=== PATIENT | female | born 1965 | race Caucasian/White ===

== ENCOUNTER 2023-07-03 11:39 | Inpatient (IN) | payer MEDICARE, SELFPAY ==
[2023-07-03] VITALS (16 sets, daily range): BP systolic 93–122; BP diastolic 36–83; BMI 27.4; BMI 26.4
--- NOTE | 2023-07-03 05:07 | ED.GENMED ---
History of Present Illness
General
Chief Complaint: Musculo-Skeletal Complaint
Time Seen by Provider: 07/03/23 04:58
Travel History
Have you had any contact with someone who has COVID-19?: No
Do you have any symptoms of coronavirus? Fever > 100 degrees, chills, cough, shortness of breath, sore throat, loss of taste or smell, muscle aches, or headache?: No
History of Present Illness
History of Present Illness:
HPI: The patient presents due to generalized weakness and tremendous difficulty with walking. She states she has chronic bilateral left greater than shoulder and right knee pain. The patient perseverates over the fact that she was told that she
should get knee surgery but never did. She has had some vague abdominal discomfort in the past. She has had 5 falls in the past year. She said she has had a shoulder in the past as well. Overall, she is concerned about the tremendous
weakness to the point that she had to come in by ambulance. She lives alone at home.
EXAM:
GENERAL: The patient appears somewhat weak
HEENT: Slightly dry oral mucosa
CARDIOVASCULAR: No murmurs, tachycardic heart rate with regular rhythm, No chest wall tenderness
PULMONARY: No respiratory distress, breath sounds are clear and equal
ABDOMEN: Soft with no peritoneal signs, no tenderness
NEUROLOGIC: Excellent strength all extremities, no coordination deficits
PSYCHIATRIC: Appropriate mental status, normal insight and judgement
EXTREMITIES: Nontender, no edema, moves all extremities equally
SKIN: No rash, no lesions
ED COURSE:
5 AM: I initially evaluated patient
NUMBER AND COMPLEXITY OF PROBLEMS ADDRESSED AT THE ENCOUNTER
� Chronic conditions affecting care: High blood pressure, has had gastric bypass, Sjogren's
� Acute Exacerbation and/or Progression of Chronic Illness: This is an acute problem
� Differential Diagnosis includes: Anemia, degenerative joint disease, electrolyte abnormality
AMOUNT AND/OR COMPLEXITY OF DATA TO BE REVIEWED AND ANALYZED
� I performed an independent evaluation of and my interpretation is:
EKG:
CT:
X-rays: I personally viewed x-rays of the left shoulder which show some mild DJD, right knee x-ray shows more severe DJD
Laboratory Studies: Patient found to have a sodium of 118, patient also in VELMA, white count 14.8, platelet 65 which is new, urine sodium 19
Other:
� Review of other/old records: I reviewed x-ray from November of last year that showed suggestion of a AC sprain
� Clinical information was obtained by an independent historian: We spoke to EMS upon arrival
� Prescriptions/Medications Considered but not given:
� Further testing considered but not performed:
RISK OF COMPLICATIONS AND/OR MORBIDITY OR MORTALITY OF PATIENT MANAGEMENT
� Social determinants of health affecting care: Lives at home
� Discussion with other providers: At 6:30 AM, I discussed case with renal who recommends giving 3%. Hospitalist for admission at 7 AM.
� Escalation of care including admission/observation vs risk of discharge considered: The patient has rather significant difficulty ambulating. She seems to have multiple concerns. Blood work was obtained. Patient is found to
have a sodium of 118. This is acute in comparison to old records. She tells me she has not been eating or drinking much. She does feel better after fluids were given. I have also ordered 3% saline which has not yet been started as of 7:05 AM.
Phy Exam
Physical Exam
Physical Exam:
See HPI
Course
Orders/Labs/Results
Orders:
Orders
07/03/23 05:06
0.9% Sodium Chloride 1000 ml [Nss] 1,000 ml IV BOLUS
07/03/23 05:07
CR Knee- Right 4 Or More View* Urgent
Comment:
Reason For Exam: increasing pain
Shoulder, Left 2 View CR [CR Shoulder - Left Min 2 View*] Urgent
Comment:
Reason For Exam: pain
07/03/23 05:23
CRP [C-Reactive Protein] Urgent
Complete Blood Count/With Diff Urgent
Comprehensive Metabolic Panel Urgent
Manual Differential Urgent
TSH Reflex To Free T4 Urgent
Total CK [Creatine Phosphokinase] Urgent
07/03/23 06:12
Straight cath- Treatment ONCE
07/03/23 06:15
Add On- LAB Urgent
Tests Added?: serum osmolarity
07/03/23 06:16
Gabapentin [Neurontin] 300 mg PO NOW STA
07/03/23 06:23
3% Sodium Chloride 250 ml [Sodium Chloride 3%] 250 ml IV ONCE
07/03/23 06:36
Osmolality, Random Urine Urgent
Date Specimen was Collected: 07/03/23
Time Specimen was Collected: 06:16
Serum Osmolality Urgent
Urinalysis Reflex To Culture Urgent
Date Specimen was Collected: 07/03/23
Time Specimen was Collected: 06:16
Comment: ADD ON
Urine Sodium Urgent
Date Specimen was Collected: 07/03/23
Time Specimen was Collected: 06:16
07/03/23 06:38
Urinalysis Reflex To Culture Urgent
Date Specimen was Collected: 07/03/23
Time Specimen was Collected: 06:54
07/03/23 06:39
Add On- LAB Urgent
Tests Added?: urinalysis reflex to culture
Abnormal Lab Results
07/03/23 07/03/23
05:23 06:36
WBC 14.8 H 10^3/uL
(4.8-10.8)
Hgb 16.3 H g/dL
(12.0-16.0)
MCH 31.8 H pg
(27.0-31.0)
Plt Count 65 L 10^3/uL
(130-400)
MPV 12.0 H fL
(7.4-10.4)
Abs Neuts (Manual) 13.6 H 10^3/uL
(1.4-6.5)
Band Neutrophils 39 H %
(0-3)
Lymphocytes (Manual) 1 L %
(20-51)
Sodium 118 L* mmol/L
(135-145)
Potassium 3.3 L mmol/L
(3.5-5.1)
Chloride 87 L mmol/L
(98-107)
Carbon Dioxide 21 L mmol/L
(22-30)
BUN 68 H mg/dl
(7-17)
Creatinine 2.8 H mg/dL
(0.6-1.0)
Serum Osmolality 272 L mOsm/kg
(275-300)
Calcium 7.6 L mg/dl
(8.4-10.2)
Total Bilirubin 1.8 H mg/dl
(0.2-1.3)
AST 44 H U/L
(14-36)
C-Reactive Protein > 270.00 H mg/L
(0.0-10.00)
Total Protein 5.8 L g/dl
(6.3-8.2)
Albumin 3.3 L g/dl
(3.5-5.0)
Urine Osmolality 254 L mOsm/kg
(300-900)
Urine Sodium 19 L mmol/L
(30-90)
07/03/23 05:23
07/03/23 05:23
Vital Signs
Initial and Last Documented VS:
Initial Vital Signs
BP
99/74
07/03/23 04:34
Last Documented Vital Signs
Temp Pulse Resp BP Pulse Ox
98.5 F 106 18 97/74 97
07/03/23 04:37 07/03/23 04:37 07/03/23 04:37 07/03/23 05:00 07/03/23 04:37
*Critical Care Note
Total Time (30-74mins, 75-104mins- exclusive of procedures): 60min
comment:
Patient sodium is critically low. I emergently discussed case with renal. I also started patient on hypertonic saline.
ED Attending Note
-
Portions of this chart may have been created with voice recognition software.� Occasional wrong word or��sound alike� substitutions may have occurred due to the inherent limitations of voice recognition software.
Discharge Plan
Departure
Patient Disposition: Admit
Date of Disposition: 07/03/23
Time of Disposition: 06:56
Presentation/result/management discussed w/ accepting MD/DO: Hospitalist
Discharge Problem:
Acute hyponatremia
Prescriptions:
No Action
clonazepam 0.5 mg Tablet
0.5 mg PO BID
dextroamphetamine-amphetamine [Adderall] 30 mg Tablet
30 mg PO BID
lansoprazole 30 mg Capsule,Delayed Release(Dr/Ec)
30 mg PO DAILY
folic acid 1 mg Tablet
1 mg PO DAILY
hydroxychloroquine 200 mg Tablet
200 mg PO BID
albuterol sulfate [ProAir HFA] 90 mcg/actuation Hfa Aerosol Inhaler
2 puff INHALATION QID PRN (Reason: sob)
bupropion HCl 300 mg Tablet Extended Release 24 Hr
300 mg PO DAILY
bupropion HCl [Wellbutrin XL] 300 mg Tablet Extended Release 24 Hr
300 mg PO DAILY
Climara Pro 0.045-0.015 mg/24 hr Patch Weekly
1 patch TRANSDERMAL QWEEK
gabapentin 300 mg Tablet
300 mg PO QID
Referrals:
Ashley Brennan MD [Family Provider] -
Interventions
Interventions:
*Risk Screen - Suicide Last Done: 07/03/23 04:37
*General Assessment Last Done: 07/03/23 04:37
*Neglect/Abuse Screening Last Done: 07/03/23 04:37
ED- Fall Risk Assessment Last Done: 07/03/23 04:37
*ED COVID-19 Vaccine History Last Done: 07/03/23 04:53
ED-Musculoskeletal Assessment Last Done: 07/03/23 04:53
[2023-07-03] MEDS: NSS 1000 IV ×2 (05:24→15:58)
[2023-07-03 05:37] LABS: Hematocrit 44.4 % (37.0-47.0); Hemoglobin 16.3 g/dL (12.0-16.0); Mean Corp Hgb Conc. 36.7 g/dL (33.0-37.0); Mean Corpuscular Hgb 31.8 pg (27.0-31.0); Mean Corpuscular Volume 86.5 fL (81.0-99.0); Red Blood Cell Count 5.13 10^6/uL (4.20-5.40); Red Cell Dist. Width 12.6 % (11.5-14.5); White Blood Cell Count 14.8 10^3/uL (4.8-10.8)
[2023-07-03 06:02] LABS: ALT (SGPT) 26 U/L (0-35); AST (SGOT) 44 U/L (14-36); Albumin 3.3 g/dl (3.5-5.0); Alkaline Phosphatase 111 U/L (38-126); Blood Urea Nitrogen 68 mg/dl (7-17); Calcium 7.6 mg/dl (8.4-10.2); Carbon Dioxide 21 mmol/L (22-30); Chloride 87 mmol/L (98-107); Creatine Phosphokinase 94 U/L (30-135); Glucose 94 mg/dl (70-99); Potassium 3.3 mmol/L (3.5-5.1); Sodium 118 mmol/L (135-145); Total Bilirubin 1.8 mg/dl (0.2-1.3); Total Protein 5.8 g/dl (6.3-8.2)
[2023-07-03 06:10] LABS: C-Reactive Protein > 270.00 mg/L (0.0-10.00)
[2023-07-03 06:13] LABS: Estimated Creatinine Clearance 21 ml/min; eGFR 18.75
[2023-07-03 06:20] LABS: Platelet Count 65 10^3/uL (130-400)
[2023-07-03 06:21] LABS: Absolute Neutrophils -Man Diff 13.6 10^3/uL (1.4-6.5); Band Neutrophils 39 % (0-3); Lymphocytes 1 % (20-51); Metamyelocytes 4 % (-); Monocytes 2 % (2-9); Myelocytes 1 % (-); Normal RBC Morphology Yes; Segmented Neutrophils 53 % (42-75); Total Cells Counted 100; Toxic Granulation 2+; Vacuolated Segs 1+
[2023-07-03 06:24] LABS: TSH Reflex To Free T4 2.15 uIU/ml (0.47-4.68)
[2023-07-03] MEDS: NEURONTIN 300 MG PO ×3 (06:46→20:20)
[2023-07-03 06:53] LABS: Osmolality Serum 272 mOsm/kg (275-300); Osmolality Urine 254 mOsm/kg (300-900)
[2023-07-03 06:55] LABS: Urine Sodium 19 mmol/L (30-90)
[2023-07-03 07:34] LABS: Urine Albumin 2+ (Neg - Trace); Urine Bilirubin Negative (Negative); Urine Character Slightly Cloudy (Clear); Urine Color Yellow; Urine Glucose Negative (Negative); Urine Ketone Negative (Negative); Urine Leukocyte Negative (Negative); Urine Nitrite Negative (Negative); Urine Occult Blood 3+ (Negative); Urine Specific Gravity 1.015 (<1.030); Urine Urobilinogen Negative (Neg - 1+)
[2023-07-03] MEDS: SODIUM CHLORIDE 3% 250 IV ×2 (07:45→20:14)
[2023-07-03 07:53] LABS: Urine Amorphous Seen
[2023-07-03 07:54] LABS: Urine Red Blood Cell 0-2 /HPF (0-2)
[2023-07-03 07:55] LABS: Urine Bacteria Moderate (Negative)
[2023-07-03 07:58] LABS: Urine Squamous Cell 16-20 /LPF (Few)
--- NOTE | 2023-07-03 11:10 | HPS.HSE ---
Family Physician
-
Family Physician: Ashley Brennan
Chief Complaint
-
Generalized Weakness and Not Eating
History of Present Illness
58 y/o female with past medical history of Sjogren's Syndrome, right acromioclavicular injury, suspected history of osteoarthritis, anxiety, depression and Juwan-en-Y (cory-en-wy) gastric bypass surgery presented with generalized weakness for the past
3 to 4 days. Patient also reported abdominal pain about 3 days ago, and had 2 episodes of diarrhea at that time. Patient also has not really been eating and drinking much for at least several days. She reported chronic bilateral left greater than
shoulder and right knee pain.
Medical History
Past Medical History
Past Medical History: Reports Other (As per HPI above)
Past Surgical History: Reports Cholecystectomy, Orthopedic and Other (Juwan-en-Y Gastric Bypass)
Social History
Tobacco: Former Smoker
Alcohol: Former
Drug: Marijuana
Family History
Family History: Other (Arthritis)
Allergies / Home Medications
Allergies reflects when Allergies were last updated in [employer].
Home Medications with original date entered in [employer]
Allergy/Medication List:
Allergies
Allergy/AdvReac Type Severity Reaction Status Date / Time
latex Allergy Itching Verified 11/19/22 16:31
Penicillins Allergy Unknown Verified 11/19/22 16:31
Home Medications
albuterol sulfate 90 mcg/actuation aerosol inhaler (ProAir HFA) 2 puff inhalation QID PRN sob 07/03/23
bupropion HCl 300 mg 24 hr tablet, extended release 300 mg PO DAILY 07/03/23
bupropion HCl 300 mg 24 hr tablet, extended release (Wellbutrin XL) 300 mg PO DAILY 07/03/23
clonazepam 0.5 mg tablet 0.5 mg PO BID 07/03/23
dextroamphetamine-amphetamine 30 mg tablet (Adderall) 30 mg PO BID 07/03/23
estradiol 0.045 mg-levonorgestrel 0.015 mg/24hr weekly transderm patch (Climara Pro) 1 patch transdermal QWEEK 07/03/23
folic acid 1 mg tablet 1 mg PO DAILY 07/03/23
gabapentin 300 mg tablet 300 mg PO QID 07/03/23
hydroxychloroquine 200 mg tablet 200 mg PO BID 07/03/23
lansoprazole 30 mg capsule,delayed release 30 mg PO DAILY 07/03/23
Review of Systems
-
A 12 point ROS was completed and negative except as noted: Yes
Physical Exam
Vital Signs
Vital Signs
Temp Pulse Resp BP Pulse Ox
98.5 F 106 18 97/74 97
07/03/23 04:37 07/03/23 04:37 07/03/23 04:37 07/03/23 05:00 07/03/23 04:37
Physical Exam
General: No Apparent Distress
HEENT: NormoCephalic
Respiratory: Clear
Cardiac: S1/S2 and Tachycardia
GI: Soft, Non Tender and Normal Bowel Sounds
Musculoskeletal: No Cyanosis and No Edema
Skin: Warm and Dry
Neuro: Awake, Alert, AO x 3 and Nonfocal/grossly intact
Psych: Calm and Intact Judgment/Insight
Laboratory Results
-
07/03/23 05:23
07/03/23 05:23
Laboratory Results
Total Bilirubin 1.8 mg/dl (0.2-1.3) H 07/03/23 05:23
AST 44 U/L (14-36) H 07/03/23 05:23
ALT 26 U/L (0-35) 07/03/23 05:23
Alkaline Phosphatase 111 U/L (38-126) 07/03/23 05:23
Impression/Plan
-
Assessment/Plan
Acute hypovolemic hyponatremia with Na down to 118 (prior labs from 2019 at 134)
Recent Poor PO Intake
-Received some normal saline and 3% saline
-Initially hypertonic saline was ordered to correct sodium but now off as there is concern for overcorrection
-Check BMP every 6 hours and monitor closely for over-correction
-As per nephrology, continue Normal Saline at 80 cc/hr for nephrology conversation via [employer]. Also as per nephrology:
- if Na 120-123, okay with NS at 50cc/hr
- If Na 123-125, continue to let patient eat but no more fluids
- If Na >126, stop all fluids and make NPO
-For any overcorrection of sodium contact physician/house provider and nephrology
Acute Kidney Injury
-Likely prerenal due to poor PO intake
-Continue IV fluids as above and encourage patient to eat and drink
Sjogren's Syndrome - Continue Hydroxychloroquine
Right acromioclavicular injury
Suspected history of osteoarthritis
ADHD - Continue home Adderall
Anxiety - Continue home Klonopin
Depression - Continue home Wellbutrin
History of Juwan-en-Y (cory-en-wy) gastric bypass surgery
DVT Prophylaxis: Heparin subq
Code Status: Full Code
--- NOTE | 2023-07-03 11:48 | CON.MD ---
Consultation - Medical
-
Assessment:
VELMA
hyponatremia
OA
depression/anxiety
Plan:
- acute hyponatremia with Na down to 118. prior labs from 2019 at 134
- urine osm 254, urine Na 19 consistent with hypovolemic hyponatremia likely from not eating/drinking since Wednesday
- initially ordered hypertonic saline to correct Na but now off as there is concern for overcorrection
- plan for repeat Na now and then recheck every 6 hours.
- if Na 120-123, okay with NS at 50cc/hr
- If Na 123-125, continue to let patient eat but no more fluids
- If Na >126, stop all fluids and make NPO
- Cr elevated to 2.8 (bl 1 in 2018) likely from pre-renal insult. trend BMPs
--- NOTE | 2023-07-03 12:39 | PHANOTE ---
07/03/2023, [employer], spoke to pt. to obtain their medication history; pt. does not take their medications on a routine basis per pt.; pt. has Nystatin and Triamcinolone Acetonide cream on their home medication list but does not know strength or
frequency of use and I could not find these medications in pharmacy fill data or ECW. Pt. states that she has not used them in awhile as they are on an as needed basis.
[2023-07-03] MEDS: KLONOPIN 0.5 MG PO ×2 (14:04→20:18)
[2023-07-03] MEDS: PROTONIX 40 MG PO (14:04)
[2023-07-03] MEDS: TYLENOL 1000 MG PO (14:04)
[2023-07-03] MEDS: PLAQUENIL 200 MG PO ×2 (14:04→20:18)
[2023-07-03] MEDS: WELLBUTRIN XL (24 hour extended release) 300 MG PO (14:05)
[2023-07-03] MEDS: FOLVITE 1 MG PO (14:06)
[2023-07-03] MEDS: ADDERALL 30 MG PO (14:06)
[2023-07-03 15:03] LABS: Blood Urea Nitrogen 70 mg/dl (7-17); Calcium 7.4 mg/dl (8.4-10.2); Carbon Dioxide 22 mmol/L (22-30); Chloride 89 mmol/L (98-107); Glucose 96 mg/dl (70-99); Potassium 3.6 mmol/L (3.5-5.1); Sodium 118 mmol/L (135-145)
[2023-07-03] MEDS: ProAIR HFA INHALER INH ×2 (15:08→15:34)
[2023-07-03 15:10] LABS: Platelets Checked YES
[2023-07-03 15:12] LABS: Estimated Creatinine Clearance 22 ml/min; eGFR 20.49
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
--- NOTE | 2023-07-03 16:36 | PTCARENOTE ---
pt presents from ED via stretcher. Pt is AAO*3, vss, room air. c/o chronic shoulder and knee pain. pt's repeat lab is 118. MD notified. pt is oriented to the room. call nixon within the reach. will continue plan of care.
[2023-07-03] MEDS: ProAIR HFA INHALER 2 PUFF INH (18:16)
[2023-07-03 18:31] LABS: Blood Urea Nitrogen 72 mg/dl (7-17); Calcium 7.7 mg/dl (8.4-10.2); Carbon Dioxide 18 mmol/L (22-30); Chloride 86 mmol/L (98-107); Glucose 90 mg/dl (70-99); Potassium 3.2 mmol/L (3.5-5.1); Sodium 118 mmol/L (135-145)
[2023-07-03 18:34] LABS: Estimated Creatinine Clearance 21 ml/min; eGFR 18.75
[2023-07-03] MEDS: KCL 40 MEQ PO (19:06)
[2023-07-03] MEDS: HEPARIN 5000 UNITS SC (20:19)
[2023-07-03] MEDS: ADDERALL PO (20:22)
[2023-07-04 00:23] LABS: Blood Urea Nitrogen 71 mg/dl (7-17); Calcium 7.9 mg/dl (8.4-10.2); Carbon Dioxide 18 mmol/L (22-30); Chloride 91 mmol/L (98-107); Glucose 103 mg/dl (70-99); Potassium 3.6 mmol/L (3.5-5.1); Sodium 122 mmol/L (135-145)
[2023-07-04 00:33] LABS: Estimated Creatinine Clearance 24 ml/min; eGFR 22.56
[2023-07-04] MEDS: TYLENOL 1000 MG PO ×3 (02:33→21:56)
[2023-07-04 03:27] VITALS: BP 119/86
[2023-07-04 05:53] LABS: ALT (SGPT) 19 U/L (0-35); AST (SGOT) 30 U/L (14-36); Albumin 2.2 g/dl (3.5-5.0); Alkaline Phosphatase 86 U/L (38-126); Blood Urea Nitrogen 66 mg/dl (7-17); Calcium 7.6 mg/dl (8.4-10.2); Carbon Dioxide 15 mmol/L (22-30); Chloride 103 mmol/L (98-107); Estimated Creatinine Clearance 25 ml/min; Glucose 90 mg/dl (70-99); Magnesium 1.8 mg/dl (1.6-2.3); Potassium 3.2 mmol/L (3.5-5.1); Sodium 129 mmol/L (135-145); Total Bilirubin 1.6 mg/dl (0.2-1.3); Total Protein 4.4 g/dl (6.3-8.2); eGFR 23.74
[2023-07-04 05:54] LABS: % Basophils 0.1 % (0-2); % Eosinophils 0.1 % (0-6); % Immature Granulocytes 2.4 % (0-0.5); % Lymphocytes 2.5 % (20.5-51.1); % Neutrophils 85.9 % (42.2-75.2); Absolute Immature Granulocytes 0.3 10^3/uL (0-0.05); Absolute Lymphocytes 0.3 10^3/uL (1.2-3.4); Absolute Neutrophils 9.4 10^3/uL (1.4-6.5); Hematocrit 34.1 % (37.0-47.0); Hemoglobin 12.5 g/dL (12.0-16.0); Mean Corp Hgb Conc. 36.7 g/dL (33.0-37.0); Mean Corpuscular Hgb 30.9 pg (27.0-31.0); Mean Corpuscular Volume 84.4 fL (81.0-99.0); Mean Platelet Volume 12.4 fL (7.4-10.4); Nucleated Red Blood Cells % 0 %; Platelet Count 55 10^3/uL (130-400); Red Blood Cell Count 4.04 10^6/uL (4.20-5.40); Red Cell Dist. Width 12.7 % (11.5-14.5)
[2023-07-04 06:00] VITALS: BMI 26.4
[2023-07-04 06:11] LABS: Osmolality Urine 195 mOsm/kg (300-900)
[2023-07-04 06:24] LABS: Urine Sodium 17 mmol/L (30-90)
[2023-07-04] MEDS: D5W 1000 IV (06:55)
[2023-07-04] MEDS: ProAIR HFA INHALER 2 PUFF INH ×4 (07:26→19:36)
[2023-07-04 07:36] VITALS: BP 112/79
[2023-07-04] MEDS: FOLVITE 1 MG PO (09:38)
[2023-07-04] MEDS: KLONOPIN 0.5 MG PO ×2 (09:39→21:55)
[2023-07-04] MEDS: PLAQUENIL 200 MG PO ×2 (09:39→21:56)
[2023-07-04] MEDS: NEURONTIN 300 MG PO ×2 (09:39→21:55)
[2023-07-04] MEDS: PROTONIX 40 MG PO (09:39)
[2023-07-04] MEDS: HEPARIN 5000 UNITS SC ×2 (09:39→21:54)
[2023-07-04 11:32] VITALS: BP 126/86
[2023-07-04] MEDS: ADDERALL 30 MG PO ×2 (11:46→17:50)
[2023-07-04] MEDS: KCL 40 MEQ PO (11:46)
--- NOTE | 2023-07-04 11:49 | W.PN.NEPH.PH ---
Today's Communication / Plan
-
- Na 118 --> 129. given D5W. will repeat Na at noon and 6pm
Assessment/Plan
-
VELMA
hyponatremia
OA
depression/anxiety
Plan:
- Na corrected from 118-->129 over 12 hours. too rapid of correction. turned off hypertonic and initiated D5W at 150cc/hr this AM for a few hours. now off
- plan for Na recheck at noon today. Goal Na 126 at 12PM check. Will also have Uosm and Vanessa checked at that time
- If Na is above 126, please reinitiate D5W at 150cc/hr until 6PM Na check. okay to stop fluid restriction
- If Na <126, please continue to hold all fluids and let nephrology know.
- please replete K
- NAGMA noted, most likely in the setting of diarrhea. will hold off on sodium bicarb administration until next lab check
-
-
Date of Service: July 04, 2023
CC / HPI / ROS
-
Chief Complaint:
hyponatremia
VELMA
History of Present Illness:
hyponatremia to 118, corrected to 129
VELMA improving from 2.8 to 2.3
metabolic acidosis - holding off on bicarb supplementation currently
Review of Systems:
patient feeling much improved this AM
Labs
-
Labs:
WBC 11.0 10^3/uL (4.8-10.8) H 07/04/23 05:28
RBC 4.04 10^6/uL (4.20-5.40) L 07/04/23 05:28
Hgb 12.5 g/dL (12.0-16.0) D 07/04/23 05:28
Hct 34.1 % (37.0-47.0) L 07/04/23 05:28
Plt Count 55 10^3/uL (130-400) L 07/04/23 05:28
eGFR 23.74 07/04/23 05:28
Albumin 2.2 g/dl (3.5-5.0) L 07/04/23 05:28
Physical Exam
-
Vital Signs:
Vital Signs
Temp Pulse Resp BP Pulse Ox
98.5 F 104 16 126/86 98
07/04/23 11:32 07/04/23 11:32 07/04/23 11:32 07/04/23 11:32 07/04/23 11:32
Cardiovascular:: Regular rate and rhythm
Respiratory:: Bilateral: CTA
Lung Excursion:: Normal
Abdomen:: Nontender and Soft
Bowel Sounds:: Normal
Extremity Edema:: None: Bilateral:
Hutchinson Catheter: No
[2023-07-04 13:02] LABS: Blood Urea Nitrogen 64 mg/dl (7-17); Calcium 8.5 mg/dl (8.4-10.2); Carbon Dioxide 16 mmol/L (22-30); Chloride 93 mmol/L (98-107); Estimated Creatinine Clearance 31 ml/min; Glucose 104 mg/dl (70-99); Potassium 3.9 mmol/L (3.5-5.1); Sodium 123 mmol/L (135-145); eGFR 29.86
[2023-07-04 14:48] LABS: Urine Sodium 46 mmol/L (30-90)
[2023-07-04 14:59] LABS: Osmolality Urine 337 mOsm/kg (300-900)
--- NOTE | 2023-07-04 15:00 | PTCARENOTE ---
Addendum entered by Khushboo Altman 07/04/23 20:50:
Dr. Zhou updated a nursing to place order for next BMP ordered for 2100 for parameters for 3% Sodium. Questioned the order with pharmacy (Rebecca). Rebecca reached out to Dr. Zhou to place order within label of 3% Sodium. Pasted on in report to night
shift nurse.
Original Note:
Updated Dr. Zhou on most recent BMP and urine sodium and osmolarity, Dr. Zhou is going to order 3% Sodium.
[2023-07-04 15:29] VITALS: BP 120/79
[2023-07-04] MEDS: SODIUM CHLORIDE 3% 250 IV (16:53)
[2023-07-04 17:41] LABS: Blood Urea Nitrogen 59 mg/dl (7-17); Calcium 8.7 mg/dl (8.4-10.2); Carbon Dioxide 15 mmol/L (22-30); Chloride 95 mmol/L (98-107); Estimated Creatinine Clearance 29 ml/min; Glucose 163 mg/dl (70-99); Sodium 124 mmol/L (135-145); eGFR 28.07
--- NOTE | 2023-07-04 18:42 | W.PN.HOSP.TC ---
Today's Communication/Plan
-
Check BMP every 6 hours and monitor closely for over-correction
Contact chef passenger vessel with lab values for any sodium changes
Rocephin
Assessment / Plan
Assessment / Plan
Physical Exam
General: No Apparent Distress
HEENT: Normocephalic
Respiratory: Clear
Cardiac: S1/S2 and Tachycardia
GI: Soft, Non Tender and Normal Bowel Sounds
Musculoskeletal: No Cyanosis and No Edema
Skin: Warm and Dry
Neuro: Awake, Alert, AO x 3 and Nonfocal/grossly intact
Psych: Calm and Intact Judgment/Insight
Assessment/Plan
Acute hypovolemic hyponatremia with Na down to 118 (prior labs from 2019 at 134)
Recent Poor PO Intake Leading Up to Hospitalization
-Received some normal saline and 3% saline -- sodium did not change - followed by 3% saline - but then sodium jumped from 118 to 129 which was too rapid of correction -- so D5W given with lowering of the sodium (see
nephrology note from July 04, 2023)
-Check BMP every 6 hours and monitor closely for over-correction
-Contact chef passenger vessel with lab values for any sodium changes
Non-Anion Gap Metabolic Acidosis
Acute Kidney Injury
-Likely prerenal due to poor PO intake
-Continue IV fluids as per nephrology
Gram Negative Bacilli on Urine Culture
-Leukocytosis noted
-Blood cultures ordered
-Patient has Pencillin allergy (which patient's nurse confirmed on July 04, 2023 as mild itchiness)
-Ordered Ceftriaxone -- nurses will closely watch out for any reaction
-Follow cultures, WBC, vitals
Encephalopathy, Psychosis
Generalized Weakness
-Likely a combination of recent poor PO intake leading up to hospitalization, low sodium, possible UTI
-If weakness persists despite treatment, consider CT Head/neurology consult
Sjogren's Syndrome - Continue Hydroxychloroquine
Right acromioclavicular injury
Suspected history of osteoarthritis
ADHD - Continue home Adderall
Anxiety - Continue home Klonopin
Depression - Continue home Wellbutrin
History of Juwan-en-Y (cory-en-wy) gastric bypass surgery
DVT Prophylaxis: Heparin subq
Code Status: Full Code
Anticipated Discharge: > 48 hours
Subjective/Interval History
-
Date of Service: July 04, 2023
Patient was seen and examined. Per patient nurse patient was having tangential conversation with some hallucinations. She had good insight however.
Objective Data
-
Labs:
Laboratory Results
07/04/23 07/04/23 07/04/23
12:17 16:56 21:00
Sodium 123 L 124 L Pending
Potassium 3.9 4.0 Pending
Chloride 93 L 95 L Pending
Carbon Dioxide 16 L 15 L Pending
BUN 64 H 59 H Pending
Creatinine 1.9 H 2.0 H Pending
Glucose 104 H 163 H Pending
Calcium 8.5 8.7 Pending
07/04/23
23:43
Sodium Cancelled
Potassium Cancelled
Chloride Cancelled
Carbon Dioxide Cancelled
BUN Cancelled
Creatinine Cancelled
Glucose Cancelled
Calcium Cancelled
Vital Signs:
Vital Signs
Temp Pulse Resp BP Pulse Ox
98.2 F 114 16 120/79 96
07/04/23 16:30 07/04/23 15:54 07/04/23 15:54 07/04/23 15:29 07/04/23 15:54
I&O
07/03/23 07/04/23 07/05/23
06:59 06:59 06:59
Intake Total 747 / 747 1100 / 1100
Output Total 750 / 750 1175 / 1175
Balance -3 / -3 -75 / -75
[2023-07-04 20:17] VITALS: BP 123/88
[2023-07-04] MEDS: ROCEPHIN 1000 MG IV (21:51)
[2023-07-04 21:52] LABS: Blood Urea Nitrogen 59 mg/dl (7-17); Calcium 8.6 mg/dl (8.4-10.2); Carbon Dioxide 15 mmol/L (22-30); Chloride 97 mmol/L (98-107); Estimated Creatinine Clearance 32 ml/min; Glucose 250 mg/dl (70-99); Potassium 3.9 mmol/L (3.5-5.1); Sodium 125 mmol/L (135-145); eGFR 31.86
[2023-07-04] MEDS: STERILE WATER FOR INJECTION 10 ML IV (21:52)
--- NOTE | 2023-07-04 22:00 | PTCARENOTE ---
1st dose Rocephin administered and tolerated w/no adverse reaction noted.
[2023-07-04 23:28] VITALS: BP 129/86
[2023-07-05 00:35] VITALS: BMI 26.1
[2023-07-05 03:14] LABS: Hemoglobin 13.5 g/dL (12.0-16.0); Mean Corp Hgb Conc. 37.5 g/dL (33.0-37.0); Mean Corpuscular Hgb 31.5 pg (27.0-31.0); Mean Corpuscular Volume 83.9 fL (81.0-99.0); Mean Platelet Volume 11.9 fL (7.4-10.4); Platelet Count 63 10^3/uL (130-400); Red Blood Cell Count 4.29 10^6/uL (4.20-5.40); Red Cell Dist. Width 13.1 % (11.5-14.5); White Blood Cell Count 11.3 10^3/uL (4.8-10.8)
[2023-07-05 03:37] LABS: Absolute Neutrophils -Man Diff 10.7 10^3/uL (1.4-6.5); Band Neutrophils 11 % (0-3); Lymphocytes 1 % (20-51); Segmented Neutrophils 84 % (42-75)
[2023-07-05 03:38] LABS: Monocytes 4 % (2-9); Normal RBC Morphology Yes; Platelets Checked Yes
[2023-07-05 03:39] LABS: Total Cells Counted 100
[2023-07-05 04:37] LABS: ALT (SGPT) 19 U/L (0-35); AST (SGOT) 28 U/L (14-36); Albumin 2.6 g/dl (3.5-5.0); Alkaline Phosphatase 100 U/L (38-126); Blood Urea Nitrogen 53 mg/dl (7-17); Calcium 8.6 mg/dl (8.4-10.2); Carbon Dioxide 17 mmol/L (22-30); Chloride 103 mmol/L (98-107); Estimated Creatinine Clearance 36 ml/min; Glucose 119 mg/dl (70-99); Potassium 4.2 mmol/L (3.5-5.1); Sodium 128 mmol/L (135-145); Total Bilirubin 1.2 mg/dl (0.2-1.3); eGFR 36.69
[2023-07-05 04:39] VITALS: BP 124/80
--- NOTE | 2023-07-05 04:51 | PTCARENOTE ---
Result of 0300 Na reported to Michael MORENO. 3%NaCl not renewed. Dr. Zhou informed of same. No new orders at this time.
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
[2023-07-05] MEDS: ATIVAN 1 MG IV ×3 (07:51→13:31)
[2023-07-05] MEDS: NSS (PRESERVATIVE FREE) 0.5 ML IV (07:52)
--- NOTE | 2023-07-05 08:01 | PTCARENOTE ---
pt confused and agitated with paranoid thoughts- called 911. pt refusing care- unable to get vital signs, took off telemetry pack. pt talking to herself in room and stated she was going to kelly this RN. Dr. Bennett notified, order received for stat
ativan.
[2023-07-05] MEDS: ProAIR HFA INHALER INH (08:10)
[2023-07-05] MEDS: NSS (PRESERVATIVE FREE) 0.0500000000000000028 ML IV (09:46)
[2023-07-05] MEDS: STERILE WATER FOR INJECTION 20 ML IV (09:46)
[2023-07-05] MEDS: ROCEPHIN 2000 MG IV (09:46)
[2023-07-05 10:23] VITALS: BP 144/94
--- NOTE | 2023-07-05 10:52 | W.PN.HOSP.TC ---
Today's Communication/Plan
-
F/U head CT
IV thiamine, MSAS
Psychiatry consult
IV Ceftriaxone 2 G
F/U cultures
Assessment / Plan
Assessment / Plan
Assessment/Plan
Acute hypovolemic hyponatremia with Na down to 118 (prior labs from 2019 at 134)
Recent Poor PO Intake Leading Up to Hospitalization
-Received some normal saline and 3% saline -- sodium did not change - followed by 3% saline - but then sodium jumped from 118 to 129 which was too rapid of correction -- so D5W given with lowering of the sodium (see
nephrology note from July 04, 2023)
-Check BMP every 6 hours and monitor closely for over-correction
-Na 128 this AM, appropriate rate of correction
-continue FWR
-appreciate renal consult
Non-Anion Gap Metabolic Acidosis
Acute Kidney Injury
-Likely prerenal due to poor PO intake
-creatinine improved to 1.8 this AM
Gram Negative Bacteremia; E. Coli UTI
Bandemia
-increase dosing of IV Ceftriaxone to 2G q 24 hours
-F/U final culttures
Encephalopathy, Psychosis
Generalized Weakness
Paranoia
-patient with racing non-sensical thoughts this AM
-s/p IV ativan x 2
-unlikely to be all TME from infection
-report of drinking, concern for alcohol withdrawal
-start MSAS protocol
-high dose IV thiamine
-Psychiatry consult
-F/U final Head CT results
-I called sister, listed in chart twice and have not yet heard back.
Sjogren's Syndrome - Continue Hydroxychloroquine
Right acromioclavicular injury
Suspected history of osteoarthritis
ADHD - hold home Adderall given acute psychosis
Anxiety - Continue home Klonopin
Depression - Continue home Wellbutrin
History of Juwan-en-Y (cory-en-wy) gastric bypass surgery
DVT Prophylaxis: Heparin subq
Code Status: Full Code
Anticipated Discharge: > 48 hours
Subjective/Interval History
-
Date of Service: July 05, 2023
patient very confused mumbling to herself
per RN post second ativan she is less agitated
Objective Data
-
Labs:
Laboratory Results
07/05/23 07/05/23
03:05 04:00
WBC 11.3 H
Hgb 13.5
Hct 36.0 L
Plt Count 63 L
Sodium 128 L Cancelled
Potassium 4.2 Cancelled
Chloride 103 Cancelled
Carbon Dioxide 17 L Cancelled
BUN 53 H Cancelled
Creatinine 1.6 H Cancelled
Glucose 119 H Cancelled
Calcium 8.6 Cancelled
Total Bilirubin 1.2
AST 28
ALT 19
Alkaline Phosphatase 100
Vital Signs:
Vital Signs
Temp Pulse Resp BP Pulse Ox
99.3 F 120 22 144/94 97
07/05/23 10:23 07/05/23 10:23 07/05/23 10:23 07/05/23 10:23 07/05/23 10:23
I&O
07/04/23 07/05/23 07/06/23
06:59 06:59 06:59
Intake Total 747 / 747 1440 / 1440
Output Total 750 / 750 1725 / 1725
Balance -3 / -3 -285 / -285
Review of Systems
-
History Source: Patient
All other systems: Reviewed and negative
Physical Exam
-
General: Other (appears confused, mumbling to herself )
HEENT: PERRLA
Respiratory: Clear to Auscultation; Negative Wheezes
Cardiac: S1/S2
GI: Soft and Nontender
Musculoskeletal: No Edema
Skin: Warm and Dry; Negative Rash
Neuro: Awake, Alert and Other (confused, rambling non-sensical things, moving all extremities )
Psych: Confused
Data Reviewed
-
Diagnostic Radiology: Report Reviewed by me
Labs: Labs Reviewed by me
[2023-07-05 11:29] LABS: Phosphorus 3.3 mg/dl (2.5-4.5)
[2023-07-05] MEDS: ADDERALL PO (11:47)
[2023-07-05] MEDS: HEPARIN SC (11:47)
--- NOTE | 2023-07-05 12:36 | PN.CDI ---
CDI
- -
CDI:
Physician Documentation Request
Admit Date: 07/03/23 11:39
Dear Doctor Donald,
Please review the following and provide your response in the progress notes.
Clinical Indicators:
Pt admitted with hyponatremia/UTI
Nephrology note 07/04,' please replete K ...'
Potassium levels areas below / Per MAR 40 MEQ KCL given on 07/03 & 07/04
Laboratory Tests
07/03/23 07/03/23 07/04/23
05:23 17:35 05:28
Potassium 3.3 L 3.2 L 3.2 L
Based on the above, could you clarify in the progress notes, the appropriate diagnosis, if significant, that supports the above abnormalities and additional evaluation, monitoring and/or treatment rendered:
Hypokalemia
Abnormal lab value only
Other
Use of terms such as suspected, likely, concern for, or probable (associated with a specific diagnosis that is being evaluated, monitored, or treated as if it exists) are acceptable and can be coded in the inpatient setting, when documented at the
time of discharge.
Thank you,
Marlin Murrell RN
CDI Specialist
[facility]
Please use your independent medical judgment in providing your response.
--- NOTE | 2023-07-05 12:40 | PN.CDI ---
CDI
- -
CDI:
Physician Documentation Request
Admit Date: 07/03/23 11:39
Dear Doctor Donald,
Please review the following and provide your response in the progress notes.
Clinical Indicators:
Pt admitted with hyponatremia/UTI
Documented per ED, ' Patient sodium is critically low. I emergently discussed case with renal. I also started patient on hypertonic saline....'
Nephrology consult, ' urine osm 254, urine Na 19 consistent with hypovolemic hyponatremia likely from not eating/drinking since Wednesday ...'
07/03/23 07/03/23 07/04/23
06:36 06:36 06:01
Serum Osmolality 272 L
Urine Osmolality 254 L
Urine Sodium 19 L 17 L
07/04/23
06:01
Urine Osmolality 195 L
Please provide the suspected etiology of the documented hyponatremia:
SIADH
Hypovolemic Hyponatremia only
Other
Use of terms such as suspected, likely, concern for, or probable (associated with a specific diagnosis that is being evaluated, monitored, or treated as if it exists) are acceptable and can be coded in the inpatient setting, when documented at the
time of discharge.
Thank you,
Marlin Murrell RN
CDI Specialist
[facility]
Please use your independent medical judgment in providing your response.
[2023-07-05] MEDS: THIAMINE INJECTION 255 MG IV ×2 (12:43→19:52)
--- NOTE | 2023-07-05 12:46 | PN.CDI ---
CDI
- -
CDI:
Physician Documentation Request
Admit Date: 07/03/23 11:39
Dear Doctor Donald,
Please review the following and provide your response in the progress notes.
Clinical Indicators:
Pt admitted with hyponatremia/UTI
Progress note 07/05 ,' Gram Negative Bacteremia; E. Coli UTI Bandemia increase dosing of IV Ceftriaxone to 2G q 24 hours...'
On admission WBC 14.8, HR 111, RR 27, Bands 39
Please clarify which of the following most accurately describes the status of the patient's infection:
Sepsis-POA
- Systemic manifestations of infection, with 2 or more SIRS criteria which include:
- Fever >100.4 degrees F or hypothermia < 96.8 degrees F
- Leukocytosis - WBC > 12,000 or leukopenia - WBC < 4,000 or > 10% bands
- Tachycardia > 90 beats per minute
- Tachypnea - RR > 20 breaths per minute or PaCO2 , 32mmHg
Source: Merck Manual 2013
UTI only , Without Systemic Illness
Other
Use of terms such as suspected, likely, concern for, or probable (associated with a specific diagnosis that is being evaluated, monitored, or treated as if it exists) are acceptable and can be coded in the inpatient setting, when documented at the
time of discharge.
Thank you,
Marlin Murrell RN
CDI Specialist
[place]
Please use your independent medical judgment in providing your response.
[2023-07-05] MEDS: FOLVITE PO (12:56)
[2023-07-05] MEDS: PLAQUENIL PO (12:56)
[2023-07-05] MEDS: NEURONTIN PO ×2 (12:56→20:11)
[2023-07-05] MEDS: KLONOPIN PO ×2 (12:56→20:11)
[2023-07-05] MEDS: PROTONIX PO (12:56)
--- NOTE | 2023-07-05 14:21 | CS.PSYCHR ---
Consult Summary - Psychiatry
-
Pt is a 58 yo female with past medical history of Sjogren's Syndrome, right acromioclavicular injury, suspected history of osteoarthritis, anxiety, depression and Juwan-en-Y (cory-en-wy) gastric bypass surgery presented with generalized weakness for 3
to 4 days. Patient reportedly had poor po intake for several days. Pt admitted with hyponatremia, VELMA. Pt developed confusion, visual hallucinations, became acutely agitated and paranoid overnight, refusing care. Pt seen and reviewed with
nursing staff. Pt dx'd with E.Coli UTI and possible sepsis. Pt currently calm, sedated/obtunded after receiving 2 doses of Ativan 1 mg IV this morning and a dose Ativan 1 mg IV at 130 this afternoon per the MSAS protocol. Pt reportedly has a
history of alcohol use. Per the PDMP, pt is prescribed Klonopin 0.5 mg BID, Adderall 30 mg BID, Wellbutrin XL 300 mg daily by outpatient psychiatrist Dr Alaniz. Pt is unable to answer questions or give any history. Previous EKG in 2019
showed prolonged QTc.
Psych Hx: unable to obtain details; prescribed the above meds
SH: reportedly drinks alcohol; unable to obtain further infor
MSE: resting in bed, drowsy/obtunded with impaired sensorium, head leaning to the right. Pt unable to answer questions, appears disoriented. Limited speech output, disorganized. No overt signs of hallucinations or delusions.
Imp: TME/delirium, with reported psychotic symptoms, agitation, etiology unclear. Pt now drowsy, calm after 3 doses of IV Ativan 1 mg
Rec: Stop Adderall and Wellbutrin XL, given agitation and psychosis, as well as concern for possible alcohol withdrawal/seizure risk
Would continue established Klonopin 0.5 mg BID, continue on MSAS protocol
Could use Zyprexa IM prn for further psychosis and agitation with refusal of po med
Will follow
--- NOTE | 2023-07-05 14:31 | W.PN.NEPH.PH ---
Today's Communication / Plan
-
bicarb IVF
Assessment/Plan
-
VELMA
hyponatremia
NAGMA
E coli bacteremia
UTI
TME
ADJD
Anxiety/depression
sjogren synd
OA
depression/anxiety
History of Juwan-en-Y (cory-en-wy) gastric bypass surgery
Plan:
Hyponatremia felt hypovolemia
high ADH state and low U na
initial mild rapid correction now better
cont FR 48 ounces/day
Velma improving , UA with UTI , will need renal US when pt allows
BP improved now
abx per primary
met acidosis-start bicarb IVF specially she is NPO
AMS-ct head neg, unlikely from hyponatremia , on DT protocol
d/w nursing
-
-
Date of Service: July 05, 2023
CC / HPI / ROS
-
Chief Complaint:
hyponatremia
VELMA
History of Present Illness:
hyponatremia to 118, corrected to 128
VELMA improving from 1.6
metabolic acidosis -persists
Review of Systems:
pt sedated from ativan
reportedly psychotic this am
Labs
-
Labs:
WBC 11.3 10^3/uL (4.8-10.8) H 07/05/23 03:05
RBC 4.29 10^6/uL (4.20-5.40) 07/05/23 03:05
Hgb 13.5 g/dL (12.0-16.0) 07/05/23 03:05
Hct 36.0 % (37.0-47.0) L 07/05/23 03:05
Plt Count 63 10^3/uL (130-400) L 07/05/23 03:05
Sodium Cancelled 07/05/23 04:00
Potassium Cancelled 07/05/23 04:00
Chloride Cancelled 07/05/23 04:00
Carbon Dioxide Cancelled 07/05/23 04:00
BUN Cancelled 07/05/23 04:00
Creatinine Cancelled 07/05/23 04:00
eGFR Cancelled 07/05/23 04:00
Glucose Cancelled 07/05/23 04:00
Calcium Cancelled 07/05/23 04:00
Phosphorus 3.3 mg/dl (2.5-4.5) 07/05/23 03:05
Albumin 2.6 g/dl (3.5-5.0) L 07/05/23 03:05
Physical Exam
-
Vital Signs:
Vital Signs
Temp Pulse Resp BP Pulse Ox
99.3 F 120 22 144/94 97
07/05/23 10:23 07/05/23 10:23 07/05/23 10:23 07/05/23 10:23 07/05/23 10:23
Cardiovascular:: Regular rate and rhythm
Respiratory:: Bilateral: CTA
Lung Excursion:: Normal
Abdomen:: Nontender and Soft
Extremity Edema:: None: Bilateral:
Hutchinson Catheter: No
[2023-07-05 14:55] VITALS: BMI 26.1
[2023-07-05 15:30] LABS: Amphetamines Positive (Negative); Barbiturates Negative (Negative); Benzodiazepines Negative (Negative); Buprenorphine Negative (Negative); Cocaine Negative (Negative); Marijuana Positive (Negative); Methadone Negative (Negative); Methamphetamines Negative (Negative); Opiates Negative (Negative); Phencyclidine Negative (Negative); Tricyclic Antidepressants Negative (Negative)
--- NOTE | 2023-07-05 15:46 | W.PN.UPDATE ---
Update Note
Progress Note Update
patient somnolent but arousable, actually answering questions somewhat appropriately - told me she drinks every day
given degree of somnolence will obtain ABG as s/p 3 doses IV ativan
[2023-07-05 15:47] LABS: Fentanyl, Urine Positive (Negative)
[2023-07-05] MEDS: SODIUM BICARBONATE 1075 MEQ IV (16:09)
[2023-07-05 16:28] VITALS: BP 148/104
[2023-07-05 16:43] LABS: B.E. -4.9 mmol/L; HCO3 18.2 mmol/L (21-28); O2 Saturation % 96.5 % (94-98); PCO2 28 mmHg (32-35); PO2 94 mmHg (83-108); pH 7.42 (7.35-7.45)
--- NOTE | 2023-07-05 16:48 | CM ---
Chart reviewed, patient would benefit from PT/OT evaluations.
Plan; PT/ OT
[2023-07-05 19:20] LABS: Hepatitis C Antibody Negative (Negative)
[2023-07-05] MEDS: RESTASIS 0.05% OPHTHALMIC EMULSION 1 DROPS BOTH EYES (19:53)
[2023-07-05] MEDS: HEPARIN 5000 UNITS SC (19:53)
[2023-07-05 20:05] VITALS: BP 151/100
--- NOTE | 2023-07-05 20:22 | PTCARENOTE ---
Addendum entered by Jc Kaye RN 07/05/23 23:29:
Vitals rechecked @ 22:01. Pt. found to be diaphoretic w/ a lowered axillary temp of 97.7, and manual BP of 144/90. Care ongoing.
Original Note:
RN found pt. to be in somnolent state upon first entering room to begin assessment. Pt. opened eyes to verbal stimuli, but then closed them. Pt. unable to tell me where they are, who they are, and what time it is. Additionally, pt. scheduled to
receive oral medications, unable to safely administer medications due to pts. somnolent state. Tech was in room taking vitals, BP @ 151/100, and axiliary temp of 100.5. ONLINE MERCHANDISER made aware. Ordered to hang IV Tylenol, and to recheck BP. Care ongoing.
[2023-07-05] MEDS: OFIRMEV 100 IV (20:46)
[2023-07-05 22:01] VITALS: BP 144/90
[2023-07-06] VITALS (9 sets, daily range): BP systolic 146–171; BP diastolic 99–108; PULSE 110; O2SAT 97; BMI 25.9
[2023-07-06] MEDS: ATIVAN 1 MG IV (02:18)
[2023-07-06] MEDS: THIAMINE INJECTION 255 MG IV ×3 (04:42→23:24)
[2023-07-06 05:19] LABS: COVID-19 Antigen Negative (Negative)
[2023-07-06] MEDS: SODIUM BICARBONATE 1075 MEQ IV (06:08)
[2023-07-06 06:42] LABS: % Basophils 0.1 % (0-2); % Immature Granulocytes 3.6 % (0-0.5); % Lymphocytes 1.2 % (20.5-51.1); % Monocytes 4.7 % (1.7-9.3); % Neutrophils 90.4 % (42.2-75.2); Absolute Immature Granulocytes 0.7 10^3/uL (0-0.05); Absolute Lymphocytes 0.2 10^3/uL (1.2-3.4); Absolute Neutrophils 18.7 10^3/uL (1.4-6.5); Hematocrit 37.3 % (37.0-47.0); Hemoglobin 13.5 g/dL (12.0-16.0); Mean Corp Hgb Conc. 36.2 g/dL (33.0-37.0); Mean Corpuscular Volume 85.7 fL (81.0-99.0); Mean Platelet Volume 12.2 fL (7.4-10.4); Nucleated Red Blood Cells % 0 %; Platelet Count 100 10^3/uL (130-400); Red Blood Cell Count 4.35 10^6/uL (4.20-5.40); Red Cell Dist. Width 13.6 % (11.5-14.5); White Blood Cell Count 20.7 10^3/uL (4.8-10.8)
[2023-07-06 07:22] LABS: Blood Urea Nitrogen 48 mg/dl (7-17); Calcium 8.7 mg/dl (8.4-10.2); Carbon Dioxide 18 mmol/L (22-30); Chloride 106 mmol/L (98-107); Estimated Creatinine Clearance 53 ml/min; Glucose 107 mg/dl (70-99); Potassium 3.8 mmol/L (3.5-5.1); Sodium 133 mmol/L (135-145); eGFR 57.52
[2023-07-06] MEDS: FOLVITE PO (09:09)
[2023-07-06] MEDS: NEURONTIN PO ×2 (09:09→19:37)
[2023-07-06] MEDS: HEPARIN 5000 UNITS SC ×2 (09:09→23:26)
[2023-07-06] MEDS: KLONOPIN PO (09:09)
[2023-07-06] MEDS: PROTONIX PO (09:09)
[2023-07-06] MEDS: RESTASIS 0.05% OPHTHALMIC EMULSION 1 DROPS BOTH EYES ×2 (09:18→23:30)
--- NOTE | 2023-07-06 11:09 | W.PN.UPDATE ---
Update Note
Progress Note Update
Patient seen at bedside, chart reviewed, discussed with staff. Ms. Smith was asleep upon entering the room but aroused after I called her name a few times. She is angry that she is on a fluid restriction, she tells me she is very thirsty and 'no one
cares'. She tells me she is being treated unfairly and does not seem to know why she is in the hospital. She denied any AH/VH. She does appear sleepy and dozes off during conversation.
Impression/Plan:� TME/delirium likely due to infection; ETOH use - MSAS in place, scheduled Klonopin continued, Adderall and Wellbutrin XL held related to agitation and psychosis, concern for possible alcohol withdrawal/seizure risk. No further
psychosis reported. Will follow.
[2023-07-06] MEDS: ROCEPHIN 2000 MG IV (11:24)
[2023-07-06] MEDS: STERILE WATER FOR INJECTION 20 ML IV (11:25)
--- NOTE | 2023-07-06 12:13 | W.PN.HOSP.TC ---
Addendum entered and electronically signed by Elisha Bennett MD 07/06/23 13:02:
sepsis, present on admission
-IV abx
hypovolemic hyponatremia
-IVF
hypokalemia-repleted
Original Note:
Today's Communication/Plan
-
IVF per renal
IV Ceftriaxone
consider imaging tomorrow if WBC continues to climb (or sooner if spikes fever)
MSAS protocol
PT/OT
Assessment / Plan
Assessment / Plan
Assessment/Plan
Acute hypovolemic hyponatremia with Na down to 118 (prior labs from 2019 at 134)
Recent Poor PO Intake Leading Up to Hospitalization
-Received some normal saline and 3% saline -- sodium did not change - followed by 3% saline - but then sodium jumped from 118 to 129 which was too rapid of correction -- so D5W given with lowering of the sodium (see
nephrology note from July 04, 2023)
-Na improving
-IVF started as patient NPO
-appreciate renal
Non-Anion Gap Metabolic Acidosis
Acute Kidney Injury
-Likely prerenal due to poor PO intake
-creatinine improved to 1.1 this AM
Gram Negative Bacteremia; E. Coli UTI
Bandemia
-increase dosing of IV Ceftriaxone to 2G q 24 hours
-F/U final cultures
-07/06: increased WBC, no fevers. suspect leukocytosis more stress response from withdrawal. if remains elevated tomorrow will consider imaging (CT)
Encephalopathy, Psychosis
Generalized Weakness
Paranoia
Alcohol withdrawal
-high dose thiamine
-MSAS protocol
-appreciate psychiatry recs
-improving this AM although patient now irritated
-ST Consult
Sjogren's Syndrome - Continue Hydroxychloroquine
Right acromioclavicular injury
Suspected history of osteoarthritis
ADHD - hold home Adderall given acute psychosis
Anxiety - Continue home Klonopin
Depression - hold home Wellbutrin given acute psychosis
History of Juwan-en-Y (cory-en-wy) gastric bypass surgery
DVT Prophylaxis: Heparin subq
Code Status: Full Code
Anticipated Discharge: > 48 hours
Subjective/Interval History
-
Date of Service: July 06, 2023
patient complaining of dry mouth, upset cannot eat
she is angry but more lucid this morning
Objective Data
-
Labs:
Laboratory Results
07/06/23
06:26
WBC 20.7 H
Hgb 13.5
Hct 37.3
Plt Count 100 L D
Sodium 133 L
Potassium 3.8
Chloride 106
Carbon Dioxide 18 L
BUN 48 H
Creatinine 1.1 H
Glucose 107 H
Calcium 8.7
Vital Signs:
Vital Signs
Temp Pulse Resp BP Pulse Ox
98.4 F 81 30 147/103 97
07/06/23 11:35 07/06/23 11:35 07/06/23 11:35 07/06/23 11:35 07/06/23 11:35
I&O
07/05/23 07/06/23 07/07/23
06:59 06:59 06:59
Intake Total 1440 / 1440 240 / 240
Output Total 1725 / 1725 450 / 450
Balance -285 / -285 -210 / -210
Review of Systems
-
History Source: Patient
All other systems: Reviewed and negative
Physical Exam
-
General: No Apparent Distress
HEENT: PERRLA; Negative Moist Mucous Membranes
Respiratory: Clear to Auscultation; Negative Wheezes
Cardiac: S1/S2
GI: Soft and Nontender
Musculoskeletal: No Edema
Skin: Warm and Dry; Negative Rash
Neuro: Awake, Alert and Other (irritated but speaking clearly this morning (mumbling slightly 2/2 dry mouth))
Psych: Agitated
Data Reviewed
-
Diagnostic Radiology: Report Reviewed by me
Labs: Labs Reviewed by me
--- NOTE | 2023-07-06 15:32 | PTOTSP ---
Dysphagia Evaluation
Patient has multiple acute dysphagia risk factors (i.e., UTI, alcohol withdrawal, psychosis, encephalopathy) and chronic risk factors (Sjogren's). At time of this evaluation, patient had frequent episodes of wet vocal quality, throat clearing, and
coughing productive for clear secretions in absence of PO. These signs are concerning for secretion mismanagement.
Consider NPO and medications via non-oral means as 'safest' method. If patient has essential medications which cannot be given non-orally, can consider giving these sparingly in small amounts of puree. Patient is NOT appropriate for aspiration
risk hydration protocol at this time given concern for poor secretion management and reported periods of lethargy. Patient is inappropriate for a video swallow study at this time for these same reasons.
Recommend:
1. NPO
2. Medications via non-oral means as 'safest' method
3. Hold Aspiration Risk Hydration Protocol
4. Oral care 3-5x daily with suctioning
5. Will re-evaluate to determine if patient is able to initiate oral PO and/or if video swallow study may be warranted.
--- NOTE | 2023-07-06 15:38 | W.PN.NEPH.PH ---
Today's Communication / Plan
-
cont IVF
renal US when pt allows
Assessment/Plan
-
IMP:
VELMA
hyponatremia
NAGMA
E coli bacteremia
UTI
TME
ADJD
Anxiety/depression
sjogren synd
OA
depression/anxiety
History of Juwan-en-Y (cory-en-wy) gastric bypass surgery
Plan:
Hyponatremia felt from hypovolemia
high ADH state and low U na
sodium better at 133
cont FR 48 ounces/day
Velma improving , UA with UTI , will need renal US when pt allows
BP stable, cont IVF with bicarb
met acidosis stable
abx per primary
d/w nursing
-
-
Date of Service: July 06, 2023
CC / HPI / ROS
-
Chief Complaint:
hyponatremia
VELMA
History of Present Illness:
hyponatremia better at 133
VELMA improving to 1.1
metabolic acidosis -persists
Bp stable
Review of Systems:
agitated and reportedly spitting when fed-awaiting ST to see
c/o pain in bilat knees-chronic
Labs
-
Labs:
WBC 20.7 10^3/uL (4.8-10.8) H 07/06/23 06:26
RBC 4.35 10^6/uL (4.20-5.40) 07/06/23 06:26
Hgb 13.5 g/dL (12.0-16.0) 07/06/23 06:26
Hct 37.3 % (37.0-47.0) 07/06/23 06:26
Plt Count 100 10^3/uL (130-400) L D 07/06/23 06:26
Sodium 133 mmol/L (135-145) L 07/06/23 06:26
Potassium 3.8 mmol/L (3.5-5.1) 07/06/23 06:26
Chloride 106 mmol/L (98-107) 07/06/23 06:26
Carbon Dioxide 18 mmol/L (22-30) L 07/06/23 06:26
BUN 48 mg/dl (7-17) H 07/06/23 06:26
Creatinine 1.1 mg/dL (0.6-1.0) H 07/06/23 06:26
eGFR 57.52 07/06/23 06:26
Glucose 107 mg/dl (70-99) H 07/06/23 06:26
Calcium 8.7 mg/dl (8.4-10.2) 07/06/23 06:26
Phosphorus 3.3 mg/dl (2.5-4.5) 07/05/23 03:05
Albumin 2.6 g/dl (3.5-5.0) L 07/05/23 03:05
Physical Exam
-
Vital Signs:
Vital Signs
Temp Pulse Resp BP Pulse Ox
98.4 F 81 30 147/103 97
07/06/23 11:35 07/06/23 11:35 07/06/23 11:35 07/06/23 11:35 07/06/23 11:35
Cardiovascular:: Regular rate and rhythm
Respiratory:: Bilateral: CTA
Lung Excursion:: Normal
Abdomen:: Nontender and Soft
Extremity Edema:: None: Bilateral:
Hutchinson Catheter: No
[2023-07-06] MEDS: NSS (PRESERVATIVE FREE) 10 ML IV (16:14)
[2023-07-06] MEDS: PROTONIX IV 40 MG IV (16:14)
--- NOTE | 2023-07-06 16:26 | PTCARENOTE ---
Pt trf'd to 325 for private room, gave report to Peter PEREZ, transport arrived, pt on O2 and pump,
[2023-07-06] MEDS: SODIUM BICARBONATE IV (17:24)
--- NOTE | 2023-07-06 17:25 | PTCARENOTE ---
received pt at 1630. pulled over onto mattress. static air over lay inflated. pt drowsy although is aaox3. slow garbled speech noted improving after oral hygiene provided. pt able to suction own oral secretions using No suction catheter
with + return demonstration. fluids infusing per order into right FA. pts diaper dry upon arrival, buttock noted to be justin red although intact. pt placed on night monitor. initial bp was in the 170s with f/u in the 150s. pt sating in high
90s on RA, 2L NC removed. pt oriented to unit. pt is NPO. pt is calm and cooperative for this RN during assessment and transfer process. bed alarm in place. video alarm remain on and monitoring. side rails up x 3, bed low, call nixon in hand,
no in other hand. heels elevated off of bed. pt reports she is comfortable, snoring lightly as this note is being dictated. care plan continues to be followed.
[2023-07-06] MEDS: NSS (PRESERVATIVE FREE) 0.25 ML IV (19:45)
[2023-07-06] MEDS: ATIVAN 0.5 MG IV (19:46)
--- NOTE | 2023-07-06 21:00 | PTCARENOTE ---
@2048;Instructed TIFFANIE Bloom, AQ=630/107 & HG=240.Scheduled Ativan 0.5mg IV given @1945. BP recheck now 150/101 & HR= 111.
[2023-07-06] MEDS: SODIUM BICARBONATE 1150 MEQ IV (23:24)
[2023-07-07 03:53] VITALS: BP 139/90
[2023-07-07] MEDS: THIAMINE INJECTION 255 MG IV ×3 (04:43→21:39)
[2023-07-07] MEDS: FLUSH (NSS) 1 FLUSH IV (04:44)
[2023-07-07 06:00] VITALS: BMI 25.7
[2023-07-07 06:46] LABS: % Basophils 0.6 % (0-2); % Immature Granulocytes 4.5 % (0-0.5); % Lymphocytes 2.2 % (20.5-51.1); % Monocytes 5.3 % (1.7-9.3); % Neutrophils 87.4 % (42.2-75.2); Absolute Basophils 0.1 10^3/uL (0-0.2); Absolute Immature Granulocytes 1.1 10^3/uL (0-0.05); Absolute Lymphocytes 0.5 10^3/uL (1.2-3.4); Absolute Monocytes 1.3 10^3/uL (0.1-0.6); Absolute Neutrophils 20.9 10^3/uL (1.4-6.5); Hematocrit 37.6 % (37.0-47.0); Hemoglobin 13.1 g/dL (12.0-16.0); Mean Corp Hgb Conc. 34.8 g/dL (33.0-37.0); Mean Corpuscular Hgb 30.7 pg (27.0-31.0); Mean Corpuscular Volume 88.1 fL (81.0-99.0); Mean Platelet Volume 11.9 fL (7.4-10.4); Nucleated Red Blood Cells % 0 %; Platelet Count 144 10^3/uL (130-400); Red Blood Cell Count 4.27 10^6/uL (4.20-5.40); Red Cell Dist. Width 14.1 % (11.5-14.5); White Blood Cell Count 23.9 10^3/uL (4.8-10.8)
[2023-07-07 07:04] LABS: Blood Urea Nitrogen 42 mg/dl (7-17); Calcium 8.6 mg/dl (8.4-10.2); Carbon Dioxide 27 mmol/L (22-30); Chloride 106 mmol/L (98-107); Estimated Creatinine Clearance 65 ml/min; Glucose 121 mg/dl (70-99); Magnesium 1.8 mg/dl (1.6-2.3); Phosphorus 3.5 mg/dl (2.5-4.5); Potassium 3.1 mmol/L (3.5-5.1); Sodium 138 mmol/L (135-145); eGFR > 60.00
[2023-07-07 07:43] VITALS: BP 158/97
[2023-07-07] MEDS: HEPARIN 5000 UNITS SC ×2 (08:38→21:44)
[2023-07-07] MEDS: ATIVAN IV (08:38)
[2023-07-07] MEDS: FOLVITE PO (08:38)
[2023-07-07] MEDS: NSS (PRESERVATIVE FREE) IV (08:39)
[2023-07-07] MEDS: RESTASIS 0.05% OPHTHALMIC EMULSION 1 DROPS BOTH EYES ×2 (08:39→21:45)
[2023-07-07] MEDS: NEURONTIN PO ×2 (08:39→21:06)
[2023-07-07] MEDS: PROTONIX IV 40 MG IV (08:40)
[2023-07-07] MEDS: NSS (PRESERVATIVE FREE) 10 ML IV (08:40)
[2023-07-07] MEDS: NSS (PRESERVATIVE FREE) 0.25 ML IV ×2 (08:51→21:35)
[2023-07-07] MEDS: ATIVAN 0.5 MG IV ×2 (08:51→21:34)
--- NOTE | 2023-07-07 09:34 | W.PN.HOSP.TC ---
Today's Communication/Plan
-
PT/OT
tylenol started for mild pain
renal US
IV Ceftriaxone 2 G
monitor CBC
Assessment / Plan
Assessment / Plan
Assessment/Plan
Acute hypovolemic hyponatremia with Na down to 118 (prior labs from 2019 at 134)
Recent Poor PO Intake Leading Up to Hospitalization
-Received some normal saline and 3% saline -- sodium did not change - followed by 3% saline - but then sodium jumped from 118 to 129 which was too rapid of correction -- so D5W given with lowering of the sodium (see
nephrology note from July 04, 2023)
-Na now stable
-isotonic IVF
-appreciate renal
Non-Anion Gap Metabolic Acidosis
Acute Kidney Injury
-Likely prerenal due to poor PO intake
-creatinine improved to 0.9 this AM
Gram Negative Bacteremia; E. Coli UTI
Bandemia
-increase dosing of IV Ceftriaxone to 2G q 24 hours
-WBC increasing; renal US ordered
-F/U final cultures
Encephalopathy, Psychosis
Generalized Weakness
Paranoia
Alcohol withdrawal
-high dose thiamine --> change to normal dosing tomorrow
-MSAS protocol
-appreciate psychiatry recs
-improving this AM although patient now irritated
-ST Consult
Sjogren's Syndrome - Continue Hydroxychloroquine
Right acromioclavicular injury
Suspected history of osteoarthritis
ADHD - hold home Adderall given acute psychosis
Anxiety - Continue home Klonopin
Depression - hold home Wellbutrin given acute psychosis
History of Juwan-en-Y (cory-en-wy) gastric bypass surgery
DVT Prophylaxis: Heparin subq
Code Status: Full Code
Anticipated Discharge: > 48 hours
Subjective/Interval History
-
Date of Service: July 07, 2023
less agitated today but very thirsty, dry mouth
Objective Data
-
Labs:
Laboratory Results
07/07/23
05:59
WBC 23.9 H
Hgb 13.1
Hct 37.6
Plt Count 144 D
Sodium 138
Potassium 3.1 L
Chloride 106
Carbon Dioxide 27
BUN 42 H
Creatinine 0.9
Glucose 121 H
Calcium 8.6
Vital Signs:
Vital Signs
Temp Pulse Resp BP Pulse Ox
98.7 F 101 16 158/97 98
07/07/23 07:43 07/07/23 07:43 07/07/23 07:43 07/07/23 07:43 07/07/23 07:43
I&O
07/06/23 07/07/23 07/08/23
06:59 06:59 06:59
Intake Total 240 / 240 1450 / 1450
Output Total 450 / 450
Balance -210 / -210 1450 / 1450
Review of Systems
-
History Source: Patient
All other systems: Reviewed and negative
Physical Exam
-
General: No Apparent Distress
HEENT: PERRLA; Negative Moist Mucous Membranes
Respiratory: Clear to Auscultation; Negative Wheezes
Cardiac: S1/S2
GI: Soft and Nontender
Musculoskeletal: No Edema
Skin: Warm and Dry; Negative Rash
Neuro: Awake, Alert, AO x 3 and Other
Psych: Calm
Data Reviewed
-
Diagnostic Radiology: Report Reviewed by me
Labs: Labs Reviewed by me
[2023-07-07] MEDS: KCL 270 MEQ IV (09:37)
[2023-07-07] MEDS: STERILE WATER FOR INJECTION 20 ML IV (10:31)
[2023-07-07] MEDS: ROCEPHIN 2000 MG IV (10:31)
[2023-07-07 11:26] VITALS: BP 151/105
--- NOTE | 2023-07-07 11:31 | W.PN.NEPH.PH ---
Today's Communication / Plan
-
stop IVF
liberalize PO fluids
hold renal ultrasound as Cr normalized
neph to sign off
Assessment/Plan
-
IMP:
VELMA
hyponatremia
NAGMA
E coli bacteremia
UTI
TME
ADJD
Anxiety/depression
sjogren synd
OA
depression/anxiety
History of Juwan-en-Y (cory-en-wy) gastric bypass surgery
Plan:
Hyponatremia felt from hypovolemia
high ADH state and low U na
sodim normalized at 138
liberalize fluids to 60oz/day
Cr normalized, no need for KUS.
BP stable, stop IVF
met acidosis resolved
abx per primary
neph to sign off
-
-
Date of Service: July 07, 2023
CC / HPI / ROS
-
Chief Complaint:
hyponatremia
VELMA
History of Present Illness:
hyponatremia better at 138
VLEMA improving to 0.9
metabolic acidosis - resolved
BP stable
Review of Systems:
agitated and reportedly spitting when fed-awaiting ST to see
c/o pain in bilat knees-chronic
Labs
-
Labs:
WBC 23.9 10^3/uL (4.8-10.8) H 07/07/23 05:59
RBC 4.27 10^6/uL (4.20-5.40) 07/07/23 05:59
Hgb 13.1 g/dL (12.0-16.0) 07/07/23 05:59
Hct 37.6 % (37.0-47.0) 07/07/23 05:59
Plt Count 144 10^3/uL (130-400) D 07/07/23 05:59
Sodium 138 mmol/L (135-145) 07/07/23 05:59
Potassium 3.1 mmol/L (3.5-5.1) L 07/07/23 05:59
Chloride 106 mmol/L (98-107) 07/07/23 05:59
Carbon Dioxide 27 mmol/L (22-30) 07/07/23 05:59
BUN 42 mg/dl (7-17) H 07/07/23 05:59
Creatinine 0.9 mg/dL (0.6-1.0) 07/07/23 05:59
eGFR > 60.00 07/07/23 05:59
Glucose 121 mg/dl (70-99) H 07/07/23 05:59
Calcium 8.6 mg/dl (8.4-10.2) 07/07/23 05:59
Phosphorus 3.5 mg/dl (2.5-4.5) 07/07/23 05:59
Albumin 2.6 g/dl (3.5-5.0) L 07/05/23 03:05
Physical Exam
-
Vital Signs:
Vital Signs
Temp Pulse Resp BP Pulse Ox
98.5 F 102 16 151/105 97
07/07/23 11:26 07/07/23 11:26 07/07/23 11:26 07/07/23 11:26 07/07/23 11:26
Cardiovascular:: Regular rate and rhythm
Respiratory:: Bilateral: CTA
Abdomen:: Nontender and Soft
Bowel Sounds:: Normal
Extremity Edema:: None: Bilateral:
Hutchinson Catheter: No
--- NOTE | 2023-07-07 12:30 | W.PN.UPDATE ---
Update Note
Progress Note Update
patient seen chart reviewed. patient admitted w tme. patient w hx anxiety and depression. had been taking adderall gabapentin klonopin and wellbutrin. wellbutrin and adderall not continued in hospital. ? etoh use. patient has received some prn
ativan and she is also on a scheduled dose noted to be hyponatremic which is now corrected. today hypokalemic. noted uds + for fentanyl bzp amphets and mj. checked pdmp where scrips for klonopin and adderall noted. patient appears to be somewhat
better. she was oriented to person place and time although seemed in mild distress. asked me to call nurse so she could use br. would not add any psych meds at this time. will check in w her tomorrow.
--- NOTE | 2023-07-07 13:30 | PTCARENOTE ---
Late Note: On Wednesday07/04/23 @ 2300 3% NaCl was increased from 25m/hr to 35ml/hr according to titration order for Na of 125. At 07/05 infusion was complete, requiring renewal to continue, and Michael MORENO notifed of same and request was
made by RN for renewal of 3%NaCl. Per Tavia Bolaños 0300 Na lab draw was awaited before renewal- came back @ 128 - SRory Bolaños notified & she informed RN that 3%NaCl would not be renewed. Dr. Zhou notified that drip was discontinued. No further
orders at that time.
[2023-07-07] MEDS: SODIUM BICARBONATE IV (14:13)
--- NOTE | 2023-07-07 14:51 | W.PN.UPDATE ---
Update Note
Progress Note Update
patient with dorota aspiration
will obtain MRI to look for brainstem CVA
left voicemail for sister to call me back
[2023-07-07 15:00] VITALS: BP 155/95
[2023-07-07] MEDS: D5/0.9% with KCL 20 MEQ 1000 IV (15:03)
--- NOTE | 2023-07-07 15:34 | CM ---
Addendum entered by MARS Mckeon 07/07/23 16:20:
Will await MRI results.
Original Note:
Reviewed chart, indication from PT/OT is further skilled time, however she is confused and per PT may tolerate more therapy once her mentation clears. Will follow patient progress and make recommendations based on indications from medical staff.
Plan: Case management will continue to follow and assist with discharge planning. SNF vrs. Home
--- NOTE | 2023-07-07 16:24 | PTOTSP ---
Video Swallow Examination
Patient presents with functional oral and severe pharyngeal dysphagia. Poor clearance through PES and reduced airway closure resulted episodes of penetration/aspiration with all consistencies. Patient required multiple (10+) spontaneous swallows
to reduce but not fully clear pharyngeal residue.
Etiology of acute dysphagia is unknown. Consider neurology consult to rule out acute neurological event as cause of dysphagia. If this is unrevealing, consider GI and/or ENT to further assess for dysfunction of the upper esophageal sphincter. At
this time, there are pharyngeal signs (i.e., poor anterior hyoid excursion, reduced pharyngeal stripping wave) which can be contributing to reduced PES opening.
Recommend:
1. NPO - consider temporary non-oral means
2. Oral care 3-5x daily with strict aspiration precautions
3. Hold aspiration risk hydration protocol given poor PES clearance
4. Dysphagia tx warranted at the acute care level. Will continue to follow. Treating TIRE AND TUBE REPAIRER may initiate ARHP for ice chips pending patient status.
[2023-07-07 20:00] VITALS: BP 147/102
--- NOTE | 2023-07-07 20:31 | W.PN.UPDATE ---
Update Note
Progress Note Update
Spoke with Dr. Bennett, CT abd/pelvis results reviewed, Dr. Bennett discussed with Urologist, advised to place patient on Flomax 0.4mg PO Daily, Will continue to assess need for OR.
[2023-07-07 21:52] LABS: Glucose - Point of Care 146 mg/dl (70-99)
[2023-07-07 23:24] VITALS: BP 149/99
[2023-07-08] VITALS (21 sets, daily range): BP systolic 119–168; BP diastolic 78–98; PULSE 99; O2SAT 98; BMI 25.3; BMI 25.9
[2023-07-08 06:23] LABS: % Basophils 0.3 % (0-2); % Immature Granulocytes 5.1 % (0-0.5); % Lymphocytes 2.2 % (20.5-51.1); % Monocytes 4.9 % (1.7-9.3); % Neutrophils 87.5 % (42.2-75.2); Absolute Basophils 0.1 10^3/uL (0-0.2); Absolute Immature Granulocytes 1.3 10^3/uL (0-0.05); Absolute Lymphocytes 0.5 10^3/uL (1.2-3.4); Absolute Monocytes 1.2 10^3/uL (0.1-0.6); Absolute Neutrophils 21.4 10^3/uL (1.4-6.5); Hemoglobin 12.2 g/dL (12.0-16.0); Mean Corp Hgb Conc. 34.9 g/dL (33.0-37.0); Mean Corpuscular Hgb 31.4 pg (27.0-31.0); Mean Corpuscular Volume 90.2 fL (81.0-99.0); Mean Platelet Volume 11.6 fL (7.4-10.4); Nucleated Red Blood Cells % 0 %; Platelet Count 203 10^3/uL (130-400); Red Blood Cell Count 3.88 10^6/uL (4.20-5.40); Red Cell Dist. Width 13.9 % (11.5-14.5); White Blood Cell Count 24.5 10^3/uL (4.8-10.8)
[2023-07-08 06:52] LABS: Blood Urea Nitrogen 34 mg/dl (7-17); Calcium 8.8 mg/dl (8.4-10.2); Carbon Dioxide 31 mmol/L (22-30); Chloride 109 mmol/L (98-107); Estimated Creatinine Clearance 73 ml/min; Glucose 144 mg/dl (70-99); Potassium 3.6 mmol/L (3.5-5.1); Sodium 140 mmol/L (135-145); eGFR > 60.00
[2023-07-08] MEDS: PROTONIX IV 40 MG IV (07:58)
[2023-07-08] MEDS: RESTASIS 0.05% OPHTHALMIC EMULSION 1 DROPS BOTH EYES ×2 (07:59→20:59)
[2023-07-08] MEDS: NSS (PRESERVATIVE FREE) 10 ML IV (07:59)
[2023-07-08] MEDS: ATIVAN 0.5 MG IV ×2 (08:00→20:52)
[2023-07-08] MEDS: FOLVITE PO (08:02)
[2023-07-08] MEDS: HEPARIN 5000 UNITS SC ×2 (08:03→20:52)
[2023-07-08] MEDS: NEURONTIN PO (08:04)
[2023-07-08] MEDS: NSS (PRESERVATIVE FREE) 0.25 ML IV ×2 (08:04→20:52)
[2023-07-08] MEDS: THIAMINE INJECTION 200 MG IV (08:06)
--- NOTE | 2023-07-08 09:09 | W.PN.HOSP.TC ---
Today's Communication/Plan
-
IR consult for perc drainage
Neuro consult
may need PEG
IVF
Assessment / Plan
Assessment / Plan
Assessment/Plan
CT A/P
IMPRESSION:
1. There is moderate left hydronephrosis likely related to a left ureterovesical stone. There is prominent perinephric inflammation bilaterally.
2. There is probable atelectasis in the lung bases bilaterally.
MRI BRAIN
IMPRESSION:
1. No MRI evidence for an acute infarct.
2. 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
Acute hypovolemic hyponatremia with Na down to 118 (prior labs from 2019 at 134)
Recent Poor PO Intake Leading Up to Hospitalization
-Received some normal saline and 3% saline, required D5W to correct rate
-Na now stable
-isotonic IVF
-appreciate renal
Severe Dysphagia
-patient unsafe to swallow all solid and liquid consistencies
-MRI w e/o MSA cerebellar type, which could explain symptoms
-neurology consulted
-discussed PEG tube feeding with patient this morning
E. Coli UTI and Bactremia
Ureterovesical stone; left hydronephrosis
-increase dosing of IV Ceftriaxone to 2G q 24 hours
-WBC increasing and finding of ureterovesical stone seen on 07/07
-Urology consulted, given not surgical candidate will consult IR for perc darinage - order placed
Encephalopathy, Psychosis
Generalized Weakness
Paranoia
Alcohol withdrawal
-high dose thiamine --> change to normal dosing today
-MSAS protocol
-appreciate psychiatry recs
Non-Anion Gap Metabolic Acidosis
Acute Kidney Injury
-Likely prerenal due to poor PO intake
-creatinine improved to 0.9 this AM
Sjogren's Syndrome - Continue Hydroxychloroquine
Right acromioclavicular injury
Suspected history of osteoarthritis
ADHD - hold home Adderall given acute psychosis
Anxiety - Continue home Klonopin
Depression - hold home Wellbutrin given acute psychosis
History of Juwan-en-Y (cory-en-wy) gastric bypass surgery
DVT Prophylaxis: Heparin subq
Code Status: Full Code
Anticipated Discharge: > 48 hours
Subjective/Interval History
-
Date of Service: July 08, 2023
patient very hungry and thirsty
she is distressed
when asked if she has back pain she says yes on upper left side
Objective Data
-
Labs:
Laboratory Results
07/08/23
06:03
WBC 24.5 H
Hgb 12.2
Hct 35.0 L
Plt Count 203 D
Sodium 140
Potassium 3.6
Chloride 109 H
Carbon Dioxide 31 H
BUN 34 H
Creatinine 0.8
Glucose 144 H
Calcium 8.8
Vital Signs:
Vital Signs
Temp Pulse Resp BP Pulse Ox
98.3 F 92 17 168/89 94
07/08/23 07:00 07/08/23 07:00 07/08/23 07:00 07/08/23 07:00 07/08/23 07:00
I&O
07/07/23 07/08/23 07/09/23
06:59 06:59 06:59
Intake Total 1450 / 1450 805 / 805
Output Total 4 / 4
Balance 1450 / 1450 801 / 801
Review of Systems
-
History Source: Patient
All other systems: Reviewed and negative
Physical Exam
-
General: No Apparent Distress
HEENT: PERRLA; Negative Moist Mucous Membranes
Respiratory: Clear to Auscultation; Negative Wheezes
Cardiac: S1/S2
GI: Soft and Nontender
Musculoskeletal: No Edema
Skin: Warm and Dry; Negative Rash
Neuro: Awake, Alert, AO x 3 and Other (diffuse joint pain; sensitive to touch )
Psych: Calm
Data Reviewed
-
Diagnostic Radiology: Report Reviewed by me
Labs: Labs Reviewed by me
--- NOTE | 2023-07-08 10:05 | CON.NEURO4 ---
Addendum entered and electronically signed by Jitendra Das MD 07/08/23 13:09:
Studies reviewed.
I have personally examined the patient. I reviewed and agree with the PATCHER's Note.
My addenda:
Awake, alert, interactive. No acute distress.
Speech significantly thick with difficulty discerning individual words at times.
Follows 2-step requests w/o difficulty. No tremor.
Extra-ocular movements grossly intact.
Facial movements full and symmetric. Hearing intact to normal conversational volume.
Normal UE movements bilaterally. Proximal weakness in all 4 extremities with full strength distally
Neck: full ROM. 4+ out of 5 neck flexors and neck extensors. Unable to air trap against resistance mouth
Chest: no dyspnea
Heart: no JVD
Ext: (-) Clubbing, (-) Cyanosis, (-) Edema
IMPRESSIONS/RECOMMENDATIONS:
Abrupt onset of worsening of dysphagia, ongoing for approximately 2 years
Differential diagnosis includes myasthenia gravis based on the patient's bulbar dysfunction and proximal weakness. MRI of brain findings suggestive of T2 hyperintensities in the riaz suggestive of multisystem atrophy, do not match the patient's
examination or history with lack of autonomic findings including constipation, orthostasis, anosmia, tremor. Patient also has a prior history of blepharoplasty suggestive of ptosis in the past.
Check blood work for acetylcholine receptor antibodies
Outpatient EMG study repetitive stimulation to evaluate for possible myasthenia gravis
Initiate immunoglobulins 0.4 mg/kg/day for 5 days
Initiate methylprednisolone 1 g daily for 5 days
Check immunoglobulins to ensure this of same prior to initiating immunoglobulin therapy
Rehabilitation evaluations
No contraindications to planned urological procedure with the exception of limitations with medications based on possible myasthenia gravis
Will continue to follow patient.
Original Note:
Documented by User: Mila Mensah NP 07/08/23 12:51
Consultation - Neurology 4
-
CONSULTING PHYSICIAN: Jitendra Das MD
REFERRING PHYSICIAN: Hospitalists/Dr. Bennett
DICTATED BY: TIFFANIE Paige
DATE/TIME OF REQUEST: 07/08/23
DATE/TIME OF CONSULTATION: 07/08/23
Reason for Consultation: Dysphagia
History of Present Illness:
This is a 58-year-old right-handed female who has presented to the hospital on 07/03/23 with report of increasing generalized weakness, ambulatory dysfunction, abdominal discomfort, poor appetite, and diarrhea. Patient was hyponatremic at 118, was
found to have E. Coli UTI bacteremia, VELMA, renal calculi, and has been encephalopathic/paranoid with concern for alcohol withdraw. As patient's mentation improved, it was noted that she is aspirating with all oral intake, prompting Neurology
consultation for evaluation of dysphagia. MRI brain noncontrast was also obtained and is suggestive of multi system atrophy.
Patient reports that she has had prominent issues with swallowing on and off for the past two years. She feels like food gets stuck in her throat when she swallows, solids>liquids. She has to concentrate during meals to be able to swallow and
stopped having meals socially due to the distraction. Swallowing feels easier at night than it does during the day. She reports falling 5 times in the past year and intermittently has felt weak. She attributes this to her shoulder and knee issues.
She reports having a bilateral blepharoplasty in 05/2023 due to her eyelids drooping. She notes some double vision in 05/2023 but denies any other episodes of vision changes. Her speech is currently nasal/hypophonic currently, she reports this is
new as of one week ago. She denies any changes in smell or tremors. She denies any headache, dizziness, numbness, chest pain, palpitations, and shortness of breath.
Past Medical History: Sjogren syndrome, depression, anxiety, GUICHO, bilateral shoulder impingement/tendinitis
Surgical History: L4-L5 discectomy, gastric bypass, hernia repair, ovarian cystectomy, cholecystectomy, adenoidectomy, bilateral blepharoplasty 05/2023, uvula removed
Family History: Reviewed and noncontributory.
Social History: Former alcohol abuse- current use? Former tobacco. +Medical marijuana.
Allergies: Latex, penicillins.
Home Medications: See below.
Review of Symptoms:
Patient denies any fever, headache, chest pain, shortness of breath, GI or symptoms.
�Per the HPI.�All systems are reviewed negative except above.
Physical Exam:
The patient is afebrile, abdomen is nondistended, breathing is stridorous, skin is warm and dry, no edema.
Neurologic Examination:
The patient is awake, alert and oriented x 3. She is able to follow commands and answer questions appropriately. There is no aphasia. Speech is nasal/hypophonic. On cranial nerve assessment, pupils are 3 mm bilateral, round and reactive to light
and accommodation. Visual bai are full. Extraocular movements are intact. Facial sensations are intact and bilaterally symmetrical, there is no facial asymmetry. Hearing is intact bilaterally to normal conversation volume. Tongue is midline. No
uvula. Sternocleidomastoid strengths are 2/5 bilaterally. Neck flexion/extension 2/5. Motor strengths are 1/5 bilateral upper proximally, 5/5 bilateral upper distally, 2/5 lower extremities proximally, distal lower extremities plantar/dorsiflexion
5/5 on medical research Cantwell scale. No involuntary movement noted. Deep tendon reflexes are 1+ bilateral upper and lower extremities and Babinski is absent bilaterally. ERMIAS to perform finger to nose or heel to steiner.
Lab Results: See below.
Neuro Imaging:
1. MRI brain 07/08/23: No MRI evidence for an acute infarct. Cruciform linear hyperintense T2 signal in the riaz, which has been described in association with a variety of neurodegenerative conditions, most classically multiple system atrophy
cerebellar type (MSA-C).
Differentials for the patient's presentation include:
1. Concern for myasthenia gravis given significant proximal weakness noted on exam and history of eyelid drooping.
2. MRI brain supportive of multi system atrophy (MSA), this is possible but felt to be less likely the cause of patient's symptoms.
3. TME in the setting of sepsis/UTI
4. VELMA, renal calculi
5. Resolving hyponatremia
Patient has the following risk factors for their symptoms: UTI, sepsis, hyponatremia
Recommendations:
-Initiate IVIG 0.4g/kg over 5 days
-Initiate methylprednisolone 1000mg IV x5 days
-Consider dobhoff tube placement to initiate pyridostigmine.
-Checking acetylcholine receptor and MUSK antibodies
-Monitor NIF daily
-Okay to proceed with urological procedure/anesthesia.
-PT/OT/ST evaluations
-Will need outpatient KASI scan and evaluation by a movement specialist for MSA workup.
-Will follow.
Discussed patient care with: Dr. Das, the patient
Vital Signs and Labs
-
Vital Signs and Labs:
Vital Signs
Temp Pulse Resp BP Pulse Ox
98.3 F 92 17 168/89 94
07/08/23 07:00 07/08/23 07:00 07/08/23 07:00 07/08/23 07:00 07/08/23 07:00
Lab Results
07/08/23 06:03
07/08/23 06:03
Sodium 140 mmol/L (135-145) 07/08/23 06:03
Potassium 3.6 mmol/L (3.5-5.1) 07/08/23 06:03
BUN 34 mg/dl (7-17) H 07/08/23 06:03
Glucose 144 mg/dl (70-99) H 07/08/23 06:03
Calcium 8.8 mg/dl (8.4-10.2) 07/08/23 06:03
Phosphorus 3.5 mg/dl (2.5-4.5) 07/07/23 05:59
Ur Buprenorphine Negative (Negative) 07/05/23 12:39
Medications
-
Active Medications
Generic Name Dose Route Start Last Admin
Trade Name Freq PRN Reason Stop Dose Admin
Acetaminophen 1,000 mg 07/04/23 16:41 07/04/23 21:56
Acetaminophen 500 Mg Tablet PO 08/01/23 16:40 1,000 mg
Q6HPRN PRN Administration
knee pain
Acetaminophen 650 mg 07/07/23 09:35
Acetaminophen 325 Mg Tablet PO 08/04/23 09:34
Q6HPRN PRN
mild pain/ fever>100.5F
Albuterol 2 puff 07/05/23 08:23
Albuterol Hfa [90 Mcg/Dose] Inhaler INH 08/02/23 08:22
R Q4HPRN PRN
SOB/WHEEZE
Ceftriaxone Sodium 2,000 mg 07/05/23 10:00 07/08/23 11:34
Ceftriaxone 2,000 Mg/20 Ml Vial IV 2,000 mg
Q24H ALEJANDRA Administration
Cyclosporine 1 drops 07/05/23 20:00 07/08/23 07:59
Cyclosporine 0.05% (Ophthalmic Emulsion) 10 Drop Droperette BOTH EYES 08/02/23 19:59 1 drops
BID ALEJANDRA Administration
Doxazosin Mesylate 4 mg 07/08/23 09:30 07/08/23 11:31
Doxazosin 4 Mg Tablet TUBE 08/05/23 09:29 Not Given
DAILY ALEJANDRA
Folic Acid 1 mg 07/03/23 12:18 07/08/23 08:02
Folic Acid 1 Mg Tablet PO 07/31/23 12:17 Not Given
DAILY ALEJANDRA
Gabapentin 300 mg 07/03/23 15:00 07/08/23 08:04
Gabapentin 300 Mg Capsule PO 07/31/23 14:59 Not Given
BID ALEJANDRA
Guaifenesin/Dextromethorphan 5 ml 07/06/23 04:19
Guaifenesin/Dextromethorphan 200 Mg/10 Ml Cup PO 08/03/23 04:18
Q4HPRN PRN
cough
Heparin Sodium 5,000 units 07/03/23 20:00 07/08/23 08:03
Heparin 5,000 Units/Ml 1 Ml Vial SC 07/31/23 19:59 5,000 units
Q12 ALEJANDRA Administration
Hydroxychloroquine Sulfate 200 mg 07/03/23 12:18 07/05/23 12:56
Hydroxychloroquine 200 Mg Tablet PO 07/31/23 12:17 Not Given
BID ALEJANDRA
Folic Acid 1 mg/ Sodium 50.2 mls @ 200.8 mls/hr 07/05/23 10:49
Chloride IV 08/02/23 10:48
DAILYPRN PRN
if NPO
Potassium Chloride/Dextrose/Sod Cl 20 meq in 1,000 mls @ 50 mls/hr 07/07/23 14:30 07/07/23 15:03
D5/0.9% With Kcl 20 Meq IV 1,000 mls
.Q20H ALEJANDRA Administration
Loratadine 10 mg 07/05/23 14:00 07/08/23 08:02
Loratadine 10 Mg Tablet PO 08/02/23 13:59 Not Given
DAILY ALEJANDRA
Lorazepam 1 mg 07/05/23 10:49 07/06/23 02:18
Lorazepam 2 Mg/Ml Vial IV 08/02/23 10:48 1 mg
Q2HPRN PRN Administration
MSAS 5-7
Lorazepam 1 mg 07/05/23 10:49 07/05/23 13:31
Lorazepam 2 Mg/Ml Vial IV 08/02/23 10:48 1 mg
Q1HPRN PRN Administration
MSAS 8-11
Lorazepam 2 mg 07/05/23 10:49
Lorazepam 2 Mg/Ml Vial IV 08/02/23 10:48
Q1HPRN PRN
MSAS > 11
Lorazepam 0.5 mg 07/06/23 20:00 07/08/23 08:00
Lorazepam 2 Mg/Ml Vial IV 08/03/23 19:59 0.5 mg
BID ALEJANDRA Administration
Estradiol- 0 patch 07/10/23 08:00
Levonorgestrel [ TRANSDERM 08/07/23 07:59
Climara Pro] 0.045-0 WEEKLY ALEJANDRA
.015 Mg/24 Hr Pat
Pantoprazole Sodium 40 mg 07/06/23 16:00 07/08/23 07:58
Pantoprazole Sodium 40 Mg/10 Ml Vial IV 08/03/23 15:59 40 mg
DAILY ALEJANDRA Administration
Fluticasone/Salmeterol 2 puff 07/06/23 16:18
Advair Hfa 115/21 Inhaler INH 08/02/23 19:59
R BIDPRN PRN
SOB/WHEEZE
Sodium Chloride 0 flush 07/03/23 14:00 07/07/23 04:44
Sodium Chloride 0.9% (Flush) Syringe IV 07/31/23 13:59 1 flush
PER PROTOCOL ALEJANDRA Administration
Sodium Chloride 0 ml 07/05/23 10:49
Sodium Chloride 0.9% (Preservative Free) 10 Ml Vial IV 08/02/23 10:48
PRN PRN
To dilute IV Ativan
Protocol
Sodium Chloride 0.25 ml 07/06/23 20:00 07/08/23 08:04
Nss (Pf) 10 Ml Vial For Ativan 0.5 Mg Dose IV 08/03/23 19:59 0.25 ml
BID ALEJANDRA Administration
Sodium Chloride 10 ml 07/06/23 16:00 07/08/23 07:59
Sodium Chloride 0.9% (Preservative Free) 10 Ml Vial IV 08/03/23 15:59 10 ml
DAILY ALEJANDRA Administration
Sterile Water 20 ml 07/05/23 09:00 07/08/23 11:35
Sterile Water For Injection 20 Ml Vial IV 08/02/23 08:59 20 ml
Q24H ALEJANDRA Administration
Thiamine HCl 200 mg 07/08/23 08:00 07/08/23 08:06
Thiamine (100 Mg/Ml) 2 Ml Vial IV 08/05/23 07:59 200 mg
DAILY ALEJANDRA Administration
Home Medications
Medication Instructions Recorded
Medical Marijuana 0 drp sublingual .SEE BELOW 07/03/23
PRN mild pain
Medical Marijuana 0 inh inhalation .SEE BELOW 07/03/23
PRN mild pain
Visbiome 10 billion cells PO DAILY 07/03/23
Gastrointestinal Issue
albuterol sulfate 90 mcg/actuation 2 puff inhalation R BIDPRN PRN sob 07/03/23
aerosol inhaler (ProAir HFA)
bupropion HCl 300 mg 24 hr tablet, 300 mg PO DAILY Mental 07/03/23
extended release (Wellbutrin XL) Health/Anxiety
cholecalciferol (vitamin D3) 125 125 mcg PO DAILY Supplement 07/03/23
mcg (5,000 unit) tablet
clonazepam 0.5 mg tablet 0.5 mg PO BID Mental Health/Anxiety 07/03/23
cyanocobalamin (vitamin B-12) 2,500 mcg PO DAILY Supplement 07/03/23
2,500 mcg tablet
cyclosporine 0.05 % eye drops 1 drp BOTH EYES BID Eye Condition 07/03/23
dextroamphetamine-amphetamine 30 30 mg PO BID Mental Health/Anxiety 07/03/23
mg tablet (Adderall)
estradiol 0.045 mg-levonorgestrel 1 patch transdermal QWEEK Hormonal 07/03/23
0.015 mg/24hr weekly transderm Agent
patch (Climara Pro)
ferrous sulfate 325 mg (65 mg 325 mg PO DAILY Supplement 07/03/23
iron) tablet (iron)
fluticasone 250 mcg-salmeterol 50 1 inh inhalation R BID 07/03/23
mcg/dose blistr powdr for Lung/Breathing Issues
inhalation
fluticasone propionate 50 2 spray intranasal DAILY Allergies 07/03/23
mcg/actuation nasal
spray,suspension
folic acid 1 mg tablet 1 mg PO DAILY Supplement 07/03/23
gabapentin 300 mg capsule 300 mg PO QID@0600,12,18,0000 07/03/23
Neurological Condition
hydroxychloroquine 200 mg tablet 200 mg PO DAILY Autoimmune Disorder 07/03/23
lansoprazole 30 mg capsule,delayed 30 mg PO DAILY Gastrointestinal 07/03/23
release Issue
loratadine 10 mg tablet (Claritin) 10 mg PO DAILY Allergies 07/03/23
minoxidil 2.5 mg tablet 1.25 mg PO DAILY Blood Pressure 07/03/23
potassium 99 mg tablet 99 mg PO DAILY Supplement 07/03/23
therapeutic multivitamin 1 tab PO DAILY Supplement 07/03/23

Documented by User: Jitendra Das MD 07/08/23 12:57
Consultation - Neurology 4
-
CONSULTING PHYSICIAN: Jitendra Das MD
REFERRING PHYSICIAN: Hospitalists/Dr. Bennett
DICTATED BY: TIFFANIE Paige
DATE/TIME OF REQUEST: 07/08/23
DATE/TIME OF CONSULTATION: 07/08/23
Reason for Consultation: Dysphagia
History of Present Illness:
This is a 58-year-old right-handed female who has presented to the hospital on 07/03/23 with report of increasing generalized weakness, ambulatory dysfunction, abdominal discomfort, poor appetite, and diarrhea. Patient was hyponatremic at 118, was
found to have E. Coli UTI bacteremia, VELMA, renal calculi, and has been encephalopathic/paranoid with concern for alcohol withdraw. As patient's mentation improved, it was noted that she is aspirating with all oral intake, prompting Neurology
consultation for evaluation of dysphagia. MRI brain noncontrast was also obtained and is suggestive of multi system atrophy.
Patient reports that she has had prominent issues with swallowing on and off for the past two years. She feels like food gets stuck in her throat when she swallows, solids>liquids. She has to concentrate during meals to be able to swallow and
stopped having meals socially due to the distraction. Swallowing feels easier at night than it does during the day. She reports falling 5 times in the past year and intermittently has felt weak. She attributes this to her shoulder and knee issues.
She reports having a bilateral blepharoplasty in 05/2023 due to her eyelids drooping. She notes some double vision in 05/2023 but denies any other episodes of vision changes. Her speech is currently nasal/hypophonic currently, she reports this is
new as of one week ago. She denies any changes in smell or tremors. She denies any headache, dizziness, numbness, chest pain, palpitations, and shortness of breath.
Past Medical History: Sjogren syndrome, depression, anxiety, GUICHO, bilateral shoulder impingement/tendinitis
Surgical History: L4-L5 discectomy, gastric bypass, hernia repair, ovarian cystectomy, cholecystectomy, adenoidectomy, bilateral blepharoplasty 05/2023, uvula removed, herniorrhaphy
Family History: Reviewed and noncontributory.
Social History: Former alcohol abuse- current use? Former tobacco. +Medical marijuana.
Allergies: Latex, penicillins.
Home Medications: See below.
Review of Symptoms:
Patient denies any fever, headache, chest pain, shortness of breath, GI or symptoms.
�Per the HPI.�All systems are reviewed negative except above.
Physical Exam:
The patient is afebrile, abdomen is nondistended, breathing is stridorous, skin is warm and dry, no edema.
Neurologic Examination:
The patient is awake, alert and oriented x 3. She is able to follow commands and answer questions appropriately. There is no aphasia. Speech is nasal/hypophonic. On cranial nerve assessment, pupils are 3 mm bilateral, round and reactive to light
and accommodation. Visual bai are full. Extraocular movements are intact. Facial sensations are intact and bilaterally symmetrical, there is no facial asymmetry. Hearing is intact bilaterally to normal conversation volume. Tongue is midline. No
uvula. Sternocleidomastoid strengths are 2/5 bilaterally. Neck flexion/extension 2/5. Motor strengths are 1/5 bilateral upper proximally, 5/5 bilateral upper distally, 2/5 lower extremities proximally, distal lower extremities plantar/dorsiflexion
5/5 on medical research Cantwell scale. No involuntary movement noted. Deep tendon reflexes are 1+ bilateral upper and lower extremities and Babinski is absent bilaterally. ERMIAS to perform finger to nose or heel to steiner.
Lab Results: See below.
Neuro Imaging:
1. MRI brain 07/08/23: No MRI evidence for an acute infarct. Cruciform linear hyperintense T2 signal in the riaz, which has been described in association with a variety of neurodegenerative conditions, most classically multiple system atrophy
cerebellar type (MSA-C).
Differentials for the patient's presentation include:
1. Concern for myasthenia gravis given significant proximal weakness noted on exam and history of eyelid drooping.
2. MRI brain supportive of multi system atrophy (MSA), this is possible but felt to be less likely the cause of patient's symptoms.
3. TME in the setting of sepsis/UTI
4. VELMA, renal calculi
5. Resolving hyponatremia
Patient has the following risk factors for their symptoms: UTI, sepsis, hyponatremia
Recommendations:
-Initiate IVIG 0.4g/kg over 5 days
-Initiate methylprednisolone 1000mg IV x5 days
-Consider dobhoff tube placement to initiate pyridostigmine.
-Checking acetylcholine receptor and MUSK antibodies
-Monitor NIF daily
-Okay to proceed with urological procedure/anesthesia.
-PT/OT/ST evaluations
-Will need outpatient KASI scan and evaluation by a movement specialist for MSA workup.
-Will follow.
Discussed patient care with: Dr. Das, the patient
--- NOTE | 2023-07-08 10:30 | W.PN.UPDATE ---
Update Note
Progress Note Update
Received consult for PCN. Her hydronephrosis is minimal, and the stone at the UVJ is only 3 mm to my measurement.
PCN would be risky due to minimal hydro, and the percutaneous tube may be difficult to maintain in someone with mental status changes. PCN in general has a higher risk of bleeding and other complications than retrograde stent placement.
D/W Dr. Wilcox. Difficult situation given multiple medical issues, but overall likely safer to perform retrograde stent via cystoscope. If unable, PCN may be considered but would be difficult and higher risk.
[2023-07-08] MEDS: ROCEPHIN 2000 MG IV (11:34)
[2023-07-08] MEDS: STERILE WATER FOR INJECTION 20 ML IV (11:35)
[2023-07-08 12:48] LABS: Glucose - Point of Care 105 mg/dl (70-99)
[2023-07-08] MEDS: ADENOCARD 6 MG IV ×2 (12:50→14:10)
--- NOTE | 2023-07-08 12:50 | W.PN.UPDATE ---
Addendum entered and electronically signed by Olman Wilcox MD 07/08/23 14:19:
Recurrent bouts of SVT noted this afternoon - discussed w/ Cardiology and Hospital Medicine.
Will cancel OR plan for today and allow for medical stabilization.
D/w Dr. Bennett.
Addendum entered and electronically signed by Olman Wilcox MD 07/08/23 12:59:
Of note, procedure will be attempted under IV sedation - confirmed w/ Neurology.
Original Note:
Update Note
Progress Note Update
Urology consulted on patient w/ partially obstructing 3 mm left UVJ stone w/ mild hydronephrosis.
Recent UCx/BCx 07/04 positive for E. Coli.
Repeat BCx NG
Uptrending leukocytosis >[address] imaging => 3 mm left UVJ stone w/ mild hydronephrosis
High risk for general anesthesia due to active neurologic issues.
Candidate for IV sedation per Neurology.
Given worsening leukocytosis and known recent cUTI/bacteremia in deconditioned patient, advise decompression of left renal unit to prevent clinical deterioriation.
Suboptimal candidate for PCN placement per IR due to lack of significant obstruction/hydronephrosis and difficulty w/ antegrade approach.
Plan:
- Maintain NPO
- To OR this afternoon for cysto + left URS/stone extraction/stent placement
- Continue IV abx
D/w Dr. Das (Neurology).
D/w Dr. Bennett (Hospital Medicine).
D/w Dr. Alonos (IR).
--- NOTE | 2023-07-08 13:18 | RR ---
A Rapid Response was called on this patient, please see Rapid Response form.
Pt went into SVT with HR above 200 around 1245. Instructed to bear down, did not bring HR down. notified, rapid response called. EKG obtained, BG taken BP 122/91, 94% on Room air, HR 209, BG 105. Rapid response team at bedside, adenosine given by
ICU nurse with MD Bennett at bedside. Pt denies chest pain, HR returned to 110-110's. See rapid response note.
--- NOTE | 2023-07-08 13:20 | W.PN.UPDATE ---
Update Note
Progress Note Update
Patient is still anxious at times and asking for Klonopin but can be calmed down with reassurance. Denies dysphoria. She is oriented in all spheres, only deficit is in immediate recall.
Will continue F/U.
[2023-07-08 13:30] LABS: ALT (SGPT) 18 U/L (0-35); AST (SGOT) 28 U/L (14-36); Albumin 2.3 g/dl (3.5-5.0); Alkaline Phosphatase 94 U/L (38-126); Blood Urea Nitrogen 31 mg/dl (7-17); Calcium 8.2 mg/dl (8.4-10.2); Carbon Dioxide 28 mmol/L (22-30); Chloride 113 mmol/L (98-107); Estimated Creatinine Clearance 73 ml/min; Glucose 445 mg/dl (70-99); Potassium 5.2 mmol/L (3.5-5.1); Sodium 144 mmol/L (135-145); Total Bilirubin 1.1 mg/dl (0.2-1.3); Total Protein 4.7 g/dl (6.3-8.2); eGFR > 60.00
[2023-07-08 13:30] LABS: Erythrocyte Sed Rate 46 mm/hour (0-20)
[2023-07-08] MEDS: D5/0.9% with KCL 20 MEQ 1000 IV (13:31)
[2023-07-08 13:37] LABS: Troponin I 0.015 ng/ml
[2023-07-08 13:52] LABS: Blood Urea Nitrogen 33 mg/dl (7-17); Calcium 9.3 mg/dl (8.4-10.2); Carbon Dioxide 30 mmol/L (22-30); Chloride 107 mmol/L (98-107); Estimated Creatinine Clearance 65 ml/min; Glucose 138 mg/dl (70-99); Magnesium 1.7 mg/dl (1.6-2.3); Potassium 3.6 mmol/L (3.5-5.1); Sodium 142 mmol/L (135-145); eGFR > 60.00
[2023-07-08 14:09] LABS: Glucose - Point of Care 110 mg/dl (70-99)
[2023-07-08 14:15] LABS: IgA 163 mg/dl (70-400); IgG 830 mg/dl (700-1600); IgM 102 mg/dl (40-230)
--- NOTE | 2023-07-08 14:16 | W.PN.UPDATE ---
Update Note
Progress Note Update
patient with SVT x 2 today, broke with adenosine 6mg
OR cancelled for today
transfer to IMU
patient and sister updated
cardiology consulted
per cards, amio gtt to be started
will place dobhoff in ICU
hold off on starting TF until patient more stable, also likely OR tomorrow
can place meds via dobhoff
[2023-07-08] MEDS: CORDARONE 103 MG IV (14:35)
--- NOTE | 2023-07-08 14:35 | RR ---
A Rapid Response was called on this patient, please see Rapid Response form. Pt HR went to 200's again and rapid response called, rapid team at bedside. Adenosine given, pt transferred to ICU. MD Bennett at bedside.
--- NOTE | 2023-07-08 14:38 | CON.CAR ---
Addendum entered and electronically signed by Kody Lomeli MD 07/08/23 16:10:
I saw and examined the patient.
The Collar Baster's note was reviewed and I agree with the note.
Comment:
GEN: No distress, awake,
HEENT: supple, anicteric, mmm
LUNGS: CTA, no wheezes/rales
CV: Reg, tachy, S1/S2, 1/6 syst LSB, no gallop
ABD: soft, BS+, NT/ND
EXT: trace edema
NEURO: Gross non-focal
SKIN: No rash
Plan:
58-year-old female presents with E. coli urosepsis secondary to partial obstructing left UVJ stone, hyponatremia and hydronephrosis presents with multiple episodes of SVT today on the telemetry floor. She was given adenosine and broke once and then
had a second episode several hours later requiring another push of IV adenosine. The patient was then transferred to the intensive care unit for further management. She also was found to have difficulty swallowing and there was concern for
myasthenia gravis. She was placed on steroids and IVIG.
Check echocardiogram to evaluate LVEF. Start amiodarone with 150 mg bolus IV and then an IV drip. She currently is unable to swallow pills. Follow on telemetry.
Continue antibiotics for E. coli urosepsis. I will hold off on any nonemergent procedures for today, however if she has no further SVT over the next 12 hours she will be stable to proceed with her urologic procedure.
She was getting aggressive hydration with her hyponatremia and sepsis. Blood pressure is currently stable. Check proBNP and likely will need some level of diuresis over the next 12 to 24 hours
Agree with further management in the intensive care unit.
Original Note:
Consultation
Consultation Request
Date/Time Consultation Requested: 07/08/23
Date/Time Consultation Performed: 07/08/23
Requesting Provider: Dr. Bennett
Performing Provider: Dr. Lomeli
Reason for Consultation: SVT
Medical History
-
History of Present Illness:
Patient came to [facility] on 07/03/23 with trouble walking and is now admitted with bacteremia, hyponatremia, dysphagia and kidney stone, cardiology has been consulted for new SVT seen on tele today. Patient came to [facility] with trouble walking described as
right knee pain and generalized weakness. Patient has a h/o Sjogren's and takes hydroxychloroquine, but has never had problems like this before. Patient was admitted hypovolemic hyponatremia and sodium as low as 118. Patient was given 3% saline and
seen by Nephrology. Hyponatremia thought to be due to poor PO intake. There are concerns for ETOH use disorder. Patient became increasingly paranoid and was started on the MSAS protocol. Blood and urine cultures then returned positive for E coli. CT
abd/pelvis with evidence of partially obstructing left UVJ stone with mild hydronephrosis. Urology felt patient was not a surgical candidate and plan was for IR, but in IR they felt hydronephrosis was minimal and IR procedure cancelled. Urology was
back to considering possible cystoscopy. Patient then had aspiration on 07/07/23 and MRI brain while there was no evidence of acute infarct there were changes in the riaz generally seen in neurodegenerative conditions particularly multiple system
atrophy cerebellar type (MSA-C). Patient then noted to have SVT that broke with adenosine 6 mg IV push x1 on 07/08/23 AM and again in the afternoon SVT that broke with adenosine 6 mg IV x1 push. Cardiology consulted and patient started on amiodarone
bolus and then gtt.
PMH:
ADHD on Adderall prior to admission
Sjogren's syndrome on chronic hydroxychloroquine
h/o gastric bypass
Past Medical History
Past Medical History: Other (in HPI)
Past Surgical History: Cholecystectomy, Orthopedic and Other (gastric bypass)
Social History
Tobacco: Former Smoker
Alcohol: Daily
Drug: Marijuana
Personal: Single
Living: Alone
Family History
Family History: Reviewed & Not Pertinent
Allergies / Home Medications
Allergy/AdvReac Type Severity Reaction Status Date / Time
latex Allergy Itching Verified 11/19/22 16:31
Penicillins Allergy Unknown Verified 11/19/22 16:31
Medication Instructions Recorded Confirmed Type
Medical Marijuana 0 drp sublingual .SEE BELOW 07/03/23 07/03/23 History
PRN mild pain
Medical Marijuana 0 inh inhalation .SEE BELOW 07/03/23 07/03/23 History
PRN mild pain
Visbiome 10 billion cells PO DAILY 07/03/23 07/03/23 History
Gastrointestinal Issue
albuterol sulfate 90 mcg/actuation 2 puff inhalation R BIDPRN PRN sob 07/03/23 07/03/23 History
aerosol inhaler (ProAir HFA)
bupropion HCl 300 mg 24 hr tablet, 300 mg PO DAILY Mental 07/03/23 07/03/23 History
extended release (Wellbutrin XL) Health/Anxiety
cholecalciferol (vitamin D3) 125 125 mcg PO DAILY Supplement 07/03/23 07/03/23 History
mcg (5,000 unit) tablet
clonazepam 0.5 mg tablet 0.5 mg PO BID Mental Health/Anxiety 07/03/23 07/03/23 History
cyanocobalamin (vitamin B-12) 2,500 mcg PO DAILY Supplement 07/03/23 07/03/23 History
2,500 mcg tablet
cyclosporine 0.05 % eye drops 1 drp BOTH EYES BID Eye Condition 07/03/23 07/03/23 History
dextroamphetamine-amphetamine 30 30 mg PO BID Mental Health/Anxiety 07/03/23 07/03/23 History
mg tablet (Adderall)
estradiol 0.045 mg-levonorgestrel 1 patch transdermal QWEEK Hormonal 07/03/23 07/03/23 History
0.015 mg/24hr weekly transderm Agent
patch (Climara Pro)
ferrous sulfate 325 mg (65 mg 325 mg PO DAILY Supplement 07/03/23 07/03/23 History
iron) tablet (iron)
fluticasone 250 mcg-salmeterol 50 1 inh inhalation R BID 07/03/23 07/03/23 History
mcg/dose blistr powdr for Lung/Breathing Issues
inhalation
fluticasone propionate 50 2 spray intranasal DAILY Allergies 07/03/23 07/03/23 History
mcg/actuation nasal
spray,suspension
folic acid 1 mg tablet 1 mg PO DAILY Supplement 07/03/23 07/03/23 History
gabapentin 300 mg capsule 300 mg PO QID@0600,12,18,0000 07/03/23 07/03/23 History
Neurological Condition
hydroxychloroquine 200 mg tablet 200 mg PO DAILY Autoimmune Disorder 07/03/23 07/03/23 History
lansoprazole 30 mg capsule,delayed 30 mg PO DAILY Gastrointestinal 07/03/23 07/03/23 History
release Issue
loratadine 10 mg tablet (Claritin) 10 mg PO DAILY Allergies 07/03/23 07/03/23 History
minoxidil 2.5 mg tablet 1.25 mg PO DAILY Blood Pressure 07/03/23 07/03/23 History
potassium 99 mg tablet 99 mg PO DAILY Supplement 07/03/23 07/03/23 History
therapeutic multivitamin 1 tab PO DAILY Supplement 07/03/23 07/03/23 History
Review of Systems
-
History Source: Patient
All other systems: Negative unless noted
Physical Exam
Vital Signs
Temp Pulse Resp BP Pulse Ox
98.2 F 110 17 132/97 97
07/08/23 13:21 07/08/23 13:21 07/08/23 13:21 07/08/23 13:21 07/08/23 13:21
GEN: Frail appearing, soft spoken, AAO to person, place and situation
HEENT: EOMI, MMM, wearing sunglasses
LUNGS: Clear anterolaterally without wheeze
CV: Reg with ectopy, S1/S2, no murmur
ABD: soft, BS+, NT, ND
EXT: No clubbing, cyanosis, lesions or edema B/L
NEURO: Gross non-focal
SKIN: Warm, dry and pink. No rash
Lab Results
07/08/23 13:23
Troponin I 0.015 ng/ml 07/08/23 12:50
Impression / Plan
-
PCP: Dr. Ashley Brennan
Cardiology: None prior to admission
Impression:
Admitted with generalized weakness 07/03/23
Hyponatremia, initial sodium 118 on 07/03/23
SVT seen 07/08/23
Partially obstructing left UVJ stone with mild hydronephrosis
E coli UTI
E coli bacteremia
Dysphagia
Possible myasthenia gravis
TME
ADHD on Adderall prior to admission
Sjogren's syndrome on chronic hydroxychloroquine
h/o gastric bypass
Echo 07/08/23: Study pending
Plan:
-Patient came to [facility] on 07/03/23 with trouble walking and is now admitted with bacteremia, hyponatremia, dysphagia and kidney stone, cardiology has been consulted for new SVT seen on tele today. Patient came to [facility] with trouble walking described as
right knee pain and generalized weakness. Patient has a h/o Sjogren's and takes hydroxychloroquine, but has never had problems like this before. Patient was admitted hypovolemic hyponatremia and sodium as low as 118. Patient was given 3% saline and
seen by Nephrology. Hyponatremia thought to be due to poor PO intake. There are concerns for ETOH use disorder. Patient became increasingly paranoid and was started on the MSAS protocol. Blood and urine cultures then returned positive for E coli. CT
abd/pelvis with evidence of partially obstructing left UVJ stone with mild hydronephrosis. Urology felt patient was not a surgical candidate and plan was for IR, but in IR they felt hydronephrosis was minimal and IR procedure cancelled. Urology was
back to considering possible cystoscopy. Patient then had aspiration on 07/07/23 and MRI brain while there was no evidence of acute infarct there were changes in the riaz generally seen in neurodegenerative conditions particularly multiple system
atrophy cerebellar type (MSA-C). Patient then noted to have SVT that broke with adenosine 6 mg IV push x1 on 07/08/23 AM and again in the afternoon SVT that broke with adenosine 6 mg IV x1 push. Cardiology consulted and patient started on amiodarone
bolus and then gtt.
-Patient with SVT x2 episodes hours apart on 07/08/23. SVT broke each time with adenosine 6 mg IV x1.
-ECG reviewed by me with SVT and then sinus tachycardia with PVCs.
-Transfer patient to IMU, but due to bed availability patient will go to ICU.
-Amiodarone bolus 150 mg IV x1 now
-Amiodarone gtt 1 mg/min for 6 hours then 0.5 mg/min thereafter
-Patient has not received her usual dose of hydroxychloroquine since 07/04/23. Will stop hydroxychloroquine order due to interaction with amiodarone.
-Patient being considered for IVIG therapy. Patient is at risk for recurrent SVT and will be monitored and is now on amiodarone. Another consideration is for volume overload, check echo prior to IVIG. Echo ordered.
--- NOTE | 2023-07-08 14:46 | PTCARENOTE ---
Called for rapid response on a 3rd floor. pt in SVT 212. Adenosine 6mg administered with relieve of HR 113 ST. BP stable. patient transfer as IMU level of care to be on Amiodarone Qtt. room 3371. patient transfer to continues surveillance monitor via
bed. AAO x3 Denies pain. Speech slow. pt strict NPO. ST 113. BP stable see downloads . Abdomen soft non tender. Incontinent of urine. Purwick placed. RT AC and hand peripheral line flushed . Amiodorone bolus initiated. K-cl 20meq in 5% dextrose
infusing call nixon within reach
[2023-07-08] MEDS: CORDARONE 518 MG IV (15:00)
[2023-07-08] MEDS: KCL 270 MEQ IV (15:08)
[2023-07-08 15:10] LABS: Folate > 20.0 ng/ml (2.76-20); Vitamin B12 > 1000 pg/ml (239-931)
--- NOTE | 2023-07-08 15:33 | PTOTSP ---
Patient transferred to a higher level of care after rapid response 07/08/2023. New orders are required in order to continue dysphagia tx. Will follow up as able/appropriate when orders received.
[2023-07-08] MEDS: SOLU-MEDROL 258 MG IV (15:38)
[2023-07-08 17:04] LABS: Glucose - Point of Care 146 mg/dl (70-99)
[2023-07-08] MEDS: MAGNESIUM SULFATE 100 IV (17:04)
[2023-07-08] MEDS: GAMMAGARD 200 IV (18:34)
--- NOTE | 2023-07-08 18:43 | PTCARENOTE ---
Gammagard 20mg/200ml initiated per protocol via RT hand # 22; Amiodorone 1mg/min 33.3ml via RT AC; Potassium 40mqt infusing via left AC. AAO x3. bP 142/92 SR 91 RR 25 98%RA / Incontinent of urine draining via purwick call nixon within reach
--- NOTE | 2023-07-08 20:00 | PTCARENOTE ---
received patient. oriented x3. soft voice noted. SR on monitor. afebrile. RA, denies SOB. clear breath sounds. frequent productive cough. + bs noted, NPO. order for feeding tube to be place, discussed with ICU CHANNELING MACHINE RUNNER, will hold off until dobbhoff can be
placed on dayshift tomorrow. purewick in place, draining dark yellow urine. pt bathed and repositioned, fresh linens. oral care provided, pt suctioning secretions. labs sent. pt care ongoing.
[2023-07-08] MEDS: NEURONTIN TUBE (20:53)
[2023-07-08] MEDS: GAMMAGARD 50 IV (21:03)
[2023-07-08 21:38] LABS: % Basophils 0.3 % (0-2); % Immature Granulocytes 4.3 % (0-0.5); % Lymphocytes 1.3 % (20.5-51.1); % Monocytes 1.5 % (1.7-9.3); % Neutrophils 92.6 % (42.2-75.2); Absolute Basophils 0.1 10^3/uL (0-0.2); Absolute Lymphocytes 0.3 10^3/uL (1.2-3.4); Absolute Monocytes 0.3 10^3/uL (0.1-0.6); Absolute Neutrophils 20.6 10^3/uL (1.4-6.5); Hematocrit 33.8 % (37.0-47.0); Hemoglobin 12.1 g/dL (12.0-16.0); Mean Corp Hgb Conc. 35.8 g/dL (33.0-37.0); Mean Corpuscular Hgb 31.3 pg (27.0-31.0); Mean Corpuscular Volume 87.3 fL (81.0-99.0); Mean Platelet Volume 11.6 fL (7.4-10.4); Nucleated Red Blood Cells % 0 %; Platelet Count 239 10^3/uL (130-400); Red Blood Cell Count 3.87 10^6/uL (4.20-5.40); White Blood Cell Count 22.3 10^3/uL (4.8-10.8)
[2023-07-08 21:49] LABS: INR 1.18; PT 15.2 Sec (11.4-14.6)
[2023-07-08 21:50] LABS: APTT 30.1 Sec (23.4-35.0)
[2023-07-08 23:46] LABS: Glucose - Point of Care 196 mg/dl (70-99)
--- NOTE | 2023-07-08 23:54 | PTCARENOTE ---
pt reassessed. denies pain. systems unchanged. amio and ivf gtts infusing. MSAS 1. remains NPO, oral care provided. pt care ongoing.
[2023-07-09] VITALS (25 sets, daily range): BP systolic 121–163; BP diastolic 86–142; BMI 25.9
[2023-07-09] MEDS: NOVOLOG FLEXPEN-LOW RESISTANCE 1 UNITS SC ×2 (01:14→23:51)
[2023-07-09] MEDS: NOVOLOG FLEXPEN-LOW RESISTANCE 2 UNITS SC ×3 (05:21→19:09)
[2023-07-09 05:30] LABS: Glucose - Point of Care 202 mg/dl (70-99)
--- NOTE | 2023-07-09 05:40 | PTCARENOTE ---
pt reassessed. systems unchanged. oral care provided, pt repositioned. phlebotomy contacted to draw AM labs since pt is a hard stick. pt care ongoing.
[2023-07-09 06:48] LABS: % Basophils 0.3 % (0-2); % Immature Granulocytes 4.6 % (0-0.5); % Monocytes 1.8 % (1.7-9.3); % Neutrophils 91.3 % (42.2-75.2); Absolute Basophils 0.1 10^3/uL (0-0.2); Absolute Immature Granulocytes 0.9 10^3/uL (0-0.05); Absolute Lymphocytes 0.4 10^3/uL (1.2-3.4); Absolute Monocytes 0.4 10^3/uL (0.1-0.6); Absolute Neutrophils 18.1 10^3/uL (1.4-6.5); Hematocrit 37.3 % (37.0-47.0); Mean Corp Hgb Conc. 34.9 g/dL (33.0-37.0); Mean Corpuscular Hgb 31.1 pg (27.0-31.0); Mean Corpuscular Volume 89.2 fL (81.0-99.0); Mean Platelet Volume 11.6 fL (7.4-10.4); Nucleated Red Blood Cells % 0 %; Platelet Count 249 10^3/uL (130-400); Red Blood Cell Count 4.18 10^6/uL (4.20-5.40); White Blood Cell Count 19.8 10^3/uL (4.8-10.8)
[2023-07-09 07:21] LABS: Blood Urea Nitrogen 36 mg/dl (7-17); Calcium 9.3 mg/dl (8.4-10.2); Carbon Dioxide 26 mmol/L (22-30); Chloride 105 mmol/L (98-107); Estimated Creatinine Clearance 83 ml/min; Glucose 216 mg/dl (70-99); Potassium 4.4 mmol/L (3.5-5.1); Sodium 140 mmol/L (135-145); eGFR > 60.00
--- NOTE | 2023-07-09 07:48 | W.PN.NEURO.1 ---
Today's Communication / Plan
-
Await blood work for acetylcholine receptor antibodies
Outpatient EMG study repetitive stimulation to evaluate for possible myasthenia gravis
Initiated immunoglobulins 0.4 mg/kg/day for 5 days, completed 1 dose
Initiated methylprednisolone 1 g daily for 5 days, completed 1 dose
Rehabilitation evaluations
No contraindications to planned urological procedure with the exception of limitations with medications based on possible myasthenia gravis
Neuro Assessment/Plan
Assessment
IMPRESSIONS/RECOMMENDATIONS:
Abrupt onset of worsening of dysphagia, ongoing for approximately 2 years
Differential diagnosis includes myasthenia gravis based on the patient's bulbar dysfunction and proximal weakness.� MRI of brain findings suggestive of T2 hyperintensities in the riaz suggestive of multisystem atrophy, do not match the patient's
examination or history with lack of autonomic findings including constipation, orthostasis, anosmia, tremor.� Patient also has a prior history of blepharoplasty suggestive of ptosis in the past.
Plan
Await blood work for acetylcholine receptor antibodies
Outpatient EMG study repetitive stimulation to evaluate for possible myasthenia gravis
Initiated immunoglobulins 0.4 mg/kg/day for 5 days, completed 1 dose
Initiated methylprednisolone 1 g daily for 5 days, completed 1 dose
Rehabilitation evaluations
No contraindications to planned urological procedure with the exception of limitations with medications based on possible myasthenia gravis
Will follow
Subjective/Objective
Subjective Data
Date of Service: July 09, 2023
Less confused
Objective Data
Vital Signs
Temp Pulse Resp BP Pulse Ox
36.5 C 76 20 136/93 98
07/09/23 05:10 07/09/23 06:00 07/09/23 06:00 07/09/23 06:00 07/09/23 06:00
Lab Results
07/09/23 06:26
07/09/23 06:26
PT 15.2 Sec (11.4-14.6) H 07/08/23 21:33
INR 1.18 07/08/23 21:33
APTT 30.1 Sec (23.4-35.0) 07/08/23 21:33
Sodium 140 mmol/L (135-145) 07/09/23 06:26
Potassium 4.4 mmol/L (3.5-5.1) 07/09/23 06:26
BUN 36 mg/dl (7-17) H 07/09/23 06:26
Glucose 216 mg/dl (70-99) H 07/09/23 06:26
Calcium 9.3 mg/dl (8.4-10.2) 07/09/23 06:26
Phosphorus 3.5 mg/dl (2.5-4.5) 07/07/23 05:59
Vitamin B12 > 1000 pg/ml (239-931) H 07/08/23 06:03
Ur Buprenorphine Negative (Negative) 07/05/23 12:39
Patient Allergies
latex Allergy (Verified 11/19/22 16:31)
Itching
Penicillins Allergy (Verified 11/19/22 16:31)
Unknown
Review of Systems
-
History Source: Patient
All other systems: Reviewed and negative
EENT: Swallowing Difficulty; Negative Decreased Vision
Respiratory: Trouble Breathing
Cardiac: Negative Chest Pain
Abdomen/GI: Negative Incontinence of Stool
Genitourinary: Negative Incontinence
Musculoskeletal: Negative Back Pain or Neck Pain
Neuro: Negative Dizzy or Headache
Physical Exam
-
General: No Apparent Distress and Appears Stated Age
Eyes: Round OU, Reedy Conjunctivae and No Ptosis
HEENT: Anicteric and Moist Mucous Membranes
Neck: Full Range of Motion
Respiratory: No Dyspnea
Cardiac: No JVD
GI: Non-distended
Skin: Unremarkable
Extremities: No Clubbing, No Cyanosis and No Edema
Psych: Negative Intact Judgement/Insight
Extended Neurological Exam
Mood & Affect: Mood Unremarkable and Affect Unremarkable
Attention Span & Concentration: Awake, Alert, Interactive and No Difficulty with 2 Step Request
Memory: Unremarkable
Tremor: Hand Tremor Absent and Head Tremor Absent
Speech: Quantity Unremarkable, Hoarse and Other (hypophonic significantly)
Cranial Nerve II: Left Eye: Pupillary Size Unremarkable and Visual Trammell Grossly Intact
Cranial Nerve II: Right Eye: Pupillary Size Unremarkable and Visual Trammell Grossly Intact
Cranial Nerve VII: Facial Symmetry: Normal Facial Symmetry
Cranial Nerve VIII: Hearing: Unremarkable Hearing to Normal Conversational Volume
Cranial Nerve XI: Shoulder Shrug: Unremarkable
Muscle Strength, Overall: Other (4/5 PROXIMALLY IN ALL EXT, 4+/5 neck flexors, 5-/5 neck extensor strength)
Muscle Bulk & Tone: Bulk Unremarkable and Tone Unremarkable
Pronator Drift: Unable to Assess
Touch Sensation: Unremarkable
Coordination: Reaches for Objects without Difficulty
Modified Lester Score (MRS)
-
MRS Score:
Data Reviewed
-
Labs: Report Reviewed
Reviewed with: Physician, Nurse and Patient
Old Records: Summarized
Past History
Past History
ED Past Medical History: Other (Dysphagia)
Family History
Family History: Other (reviewed and non-contributory)
Medications
-
Medications:
Generic Name Dose Route Start Last Admin
Trade Name Freq PRN Reason Stop Dose Admin
Acetaminophen 1,000 mg 07/04/23 16:41 07/04/23 21:56
Acetaminophen 500 Mg Tablet PO 08/01/23 16:40 1,000 mg
Q6HPRN PRN Administration
knee pain
Acetaminophen 650 mg 07/08/23 14:19
Acetaminophen 325 Mg Tablet TUBE 08/04/23 09:34
Q6HPRN PRN
mild pain/ fever>100.5F
Albuterol 2 puff 07/05/23 08:23
Albuterol Hfa [90 Mcg/Dose] Inhaler INH 08/02/23 08:22
R Q4HPRN PRN
SOB/WHEEZE
Ceftriaxone Sodium 2,000 mg 07/05/23 10:00 07/08/23 11:34
Ceftriaxone 2,000 Mg/20 Ml Vial IV 2,000 mg
Q24H ALEJANDRA Administration
Cyclosporine 1 drops 07/05/23 20:00 07/08/23 20:59
Cyclosporine 0.05% (Ophthalmic Emulsion) 10 Drop Droperette BOTH EYES 08/02/23 19:59 1 drops
BID ALEJANDRA Administration
Dextrose 12.5 grams 07/08/23 20:00
Dextrose 50% (0.5 Grams/Ml) 50 Ml Syringe IV 08/05/23 19:59
[id number] PRN
hypoglycemia
Protocol
Folic Acid 1 mg 07/09/23 08:00
Folic Acid 1 Mg Tablet TUBE 08/06/23 07:59
DAILY ALEJANDRA
Gabapentin 300 mg 07/08/23 20:00 07/08/23 20:53
Gabapentin 300 Mg Capsule TUBE 07/31/23 19:59 Not Given
BID ALEJANDRA
Glucagon 1 mg 07/08/23 20:00
Glucagon 1 Mg Vial IM 08/05/23 19:59
PRN PRN
hypoglycemia - no IV access
Protocol
Guaifenesin/Dextromethorphan 5 ml 07/06/23 04:19
Guaifenesin/Dextromethorphan 200 Mg/10 Ml Cup PO 08/03/23 04:18
Q4HPRN PRN
cough
Heparin Sodium 5,000 units 07/03/23 20:00 07/08/23 20:52
Heparin 5,000 Units/Ml 1 Ml Vial SC 07/31/23 19:59 5,000 units
Q12 ALEJANDRA Administration
Folic Acid 1 mg/ Sodium 50.2 mls @ 200.8 mls/hr 07/05/23 10:49
Chloride IV 08/02/23 10:48
DAILYPRN PRN
if NPO
Potassium Chloride/Dextrose/Sod Cl 20 meq in 1,000 mls @ 50 mls/hr 07/07/23 14:30 07/08/23 13:31
D5/0.9% With Kcl 20 Meq IV 1,000 mls
.Q20H ALEJANDRA Administration
Methylprednisolone Sodium 258 mls @ 258 mls/hr 07/08/23 15:00 07/08/23 15:38
Succinate 1,000 mg/ Sodium IV 07/12/23 15:59 258 mls
Chloride Q24H ALEJANDRA Administration
Amiodarone HCl 900 mg/ 518 mls @ 0 mls/hr 07/08/23 14:45 07/08/23 15:00
Dextrose/Water IV 518 mls
PER PROTOCOL ALEJANDRA Administration
Protocol
Per Protocol
Immune Globulin 20 gram in 200 mls @ 0 mls/hr 07/09/23 15:00
Gammagard IV 07/09/23 23:59
PER PROTOCOL ALEJANDRA
Protocol
Per Protocol
Immune Globulin 5 gram in 50 mls @ 0 mls/hr 07/09/23 15:00
Gammagard IV 07/09/23 23:59
PER PROTOCOL ALEJANDRA
Protocol
Per Protocol
Immune Globulin 20 gram in 200 mls @ 0 mls/hr 07/10/23 15:00
Gammagard IV 07/10/23 23:59
PER PROTOCOL ALEJANDRA
Protocol
Per Protocol
Immune Globulin 5 gram in 50 mls @ 0 mls/hr 07/10/23 15:00
Gammagard IV 07/10/23 23:59
PER PROTOCOL ALEJANDRA
Protocol
Per Protocol
Immune Globulin 5 gram in 50 mls @ 0 mls/hr 07/11/23 15:00
Gammagard IV 07/11/23 23:59
PER PROTOCOL ALEJANDRA
Protocol
Per Protocol
Immune Globulin 20 gram in 200 mls @ 0 mls/hr 07/11/23 15:00
Gammagard IV 07/11/23 23:59
PER PROTOCOL ALEJANDRA
Protocol
Per Protocol
Immune Globulin 5 gram in 50 mls @ 0 mls/hr 07/12/23 15:00
Gammagard IV 07/12/23 23:59
PER PROTOCOL ALEJANDRA
Protocol
Per Protocol
Immune Globulin 20 gram in 200 mls @ 0 mls/hr 07/12/23 15:00
Gammagard IV 07/12/23 23:59
PER PROTOCOL ALEJANDRA
Protocol
Per Protocol
Insulin Aspart 0 units 07/09/23 00:00 07/09/23 05:21
Insulin Aspart Low Resistance 300 Units/3 Ml Pen.Injctr SC 08/06/23 00:00 2 units
Q6 ALEJANDRA Administration
Protocol
Loratadine 10 mg 07/09/23 08:00
Loratadine 10 Mg Tablet TUBE 08/06/23 07:59
DAILY ALEJANDRA
Lorazepam 1 mg 07/05/23 10:49 07/06/23 02:18
Lorazepam 2 Mg/Ml Vial IV 08/02/23 10:48 1 mg
Q2HPRN PRN Administration
MSAS 5-7
Lorazepam 1 mg 07/05/23 10:49 07/05/23 13:31
Lorazepam 2 Mg/Ml Vial IV 08/02/23 10:48 1 mg
Q1HPRN PRN Administration
MSAS 8-11
Lorazepam 2 mg 07/05/23 10:49
Lorazepam 2 Mg/Ml Vial IV 08/02/23 10:48
Q1HPRN PRN
MSAS > 11
Lorazepam 0.5 mg 07/06/23 20:00 07/08/23 20:52
Lorazepam 2 Mg/Ml Vial IV 08/03/23 19:59 0.5 mg
BID ALEJANDRA Administration
Estradiol- 0 patch 07/10/23 08:00
Levonorgestrel [ TRANSDERM 08/07/23 07:59
Climara Pro] 0.045-0 WEEKLY ALEJANDRA
.015 Mg/24 Hr Pat
Pantoprazole Sodium 40 mg 07/06/23 16:00 07/08/23 07:58
Pantoprazole Sodium 40 Mg/10 Ml Vial IV 08/03/23 15:59 40 mg
DAILY ALEJANDRA Administration
Fluticasone/Salmeterol 2 puff 07/06/23 16:18
Advair Hfa 115/21 Inhaler INH 08/02/23 19:59
R BIDPRN PRN
SOB/WHEEZE
Sodium Chloride 0 flush 07/03/23 14:00 07/07/23 04:44
Sodium Chloride 0.9% (Flush) Syringe IV 07/31/23 13:59 1 flush
PER PROTOCOL ALEJANDRA Administration
Sodium Chloride 0 ml 07/05/23 10:49
Sodium Chloride 0.9% (Preservative Free) 10 Ml Vial IV 08/02/23 10:48
PRN PRN
To dilute IV Ativan
Protocol
Sodium Chloride 0.25 ml 07/06/23 20:00 07/08/23 20:52
Nss (Pf) 10 Ml Vial For Ativan 0.5 Mg Dose IV 08/03/23 19:59 0.25 ml
BID ALEJANDRA Administration
Sodium Chloride 10 ml 07/06/23 16:00 07/08/23 07:59
Sodium Chloride 0.9% (Preservative Free) 10 Ml Vial IV 08/03/23 15:59 10 ml
DAILY ALEJANDRA Administration
Sterile Water 20 ml 07/05/23 09:00 07/08/23 11:35
Sterile Water For Injection 20 Ml Vial IV 08/02/23 08:59 20 ml
Q24H ALEJANDRA Administration
Thiamine HCl 200 mg 07/08/23 08:00 07/08/23 08:06
Thiamine (100 Mg/Ml) 2 Ml Vial IV 08/05/23 07:59 200 mg
DAILY ALEJANDRA Administration
[2023-07-09] MEDS: ATIVAN 0.5 MG IV ×2 (07:49→20:51)
[2023-07-09] MEDS: HEPARIN 5000 UNITS SC ×2 (07:49→19:26)
[2023-07-09] MEDS: PROTONIX IV 40 MG IV (07:49)
[2023-07-09] MEDS: THIAMINE INJECTION 200 MG IV (07:50)
[2023-07-09] MEDS: NSS (PRESERVATIVE FREE) 10 ML IV (07:50)
[2023-07-09] MEDS: RESTASIS 0.05% OPHTHALMIC EMULSION 1 DROPS BOTH EYES ×2 (07:50→19:27)
[2023-07-09] MEDS: NSS (PRESERVATIVE FREE) 0.25 ML IV ×2 (07:51→20:51)
--- NOTE | 2023-07-09 08:08 | PTCARENOTE ---
0700 patient received in bed. Amiodarone infusing RT hand peripheral line 0.5mcg; patient awake, slurred, very difficult to understand speech. pt on RA. SR 81; BP 155/105 MAP 118. RR 18. Hypoactive Bowel sounds. Incontinent of urine. Purwick
replaced draining anne clear urine. pt suction her self frequently for white thick oral secretion . oral care performed . call nixon with reach
--- NOTE | 2023-07-09 08:13 | W.PN.HOSP.TC ---
Today's Communication/Plan
-
see plan
Assessment / Plan
Assessment / Plan
Assessment/Plan
CT A/P
IMPRESSION:
1. There is moderate left hydronephrosis likely related to a left ureterovesical stone. There is prominent perinephric inflammation bilaterally.
2. There is probable atelectasis in the lung bases bilaterally.
MRI BRAIN
IMPRESSION:
1. No MRI evidence for an acute infarct.
2. 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
Acute hypovolemic hyponatremia with Na down to 118 (prior labs from 2019 at 134)
Recent Poor PO Intake Leading Up to Hospitalization
-Received some normal saline and 3% saline, required D5W to correct rate
-Na now stable
-isotonic IVF
-appreciate renal
Severe Dysphagia
-patient unsafe to swallow all solid and liquid consistencies
-MRI w e/o MSA cerebellar type, per neuro clinically does not fit diagnosis; concern raised for Myasthenia Gravis
-F/U AchRAB
-day 2 IVIG and Steroids
-neurology consult appreciated
-if no plans for OR will order dobhoff and TF this AM
SVT
-SVT x 2 on 07/08 broke with adenosine 6mg each time
-appreciate cardiology, started on an amio gtt
-no SVT overnight
E. Coli UTI and Bactremia
Ureterovesical stone; left hydronephrosis
-increase dosing of IV Ceftriaxone to 2G q 24 hours
-WBC was increasing and finding of ureterovesical stone seen on 07/07
-Urology consult appreciated, eventual cystoscopy when medically stable (WBC improving today)
Encephalopathy, Psychosis
Generalized Weakness
Paranoia
Alcohol withdrawal
-high dose thiamine --> change to normal dosing
-MSAS protocol
-appreciate psychiatry recs
Non-Anion Gap Metabolic Acidosis
Acute Kidney Injury
-Likely prerenal due to poor PO intake
-creatinine stable
Hyperglycemia
-hold D5 as will likely start TF
Sjogren's Syndrome - Hold Hydroxychloroquine given reaction with amio
Right acromioclavicular injury
Suspected history of osteoarthritis
ADHD - hold home Adderall given acute psychosis
Anxiety - Continue home Klonopin
Depression - hold home Wellbutrin given acute psychosis
History of Juwan-en-Y (cory-en-wy) gastric bypass surgery
DVT Prophylaxis: Heparin subq
Code Status: Full Code
Anticipated Discharge: > 48 hours
Subjective/Interval History
-
Date of Service: July 09, 2023
feeling better this morning
no improvement in speech or swallowing
Objective Data
-
Labs:
Laboratory Results
07/08/23 07/09/23
21:33 06:26
WBC 22.3 H 19.8 H
Hgb 12.1 13.0
Hct 33.8 L 37.3
Plt Count 239 249
PT 15.2 H
INR 1.18
APTT 30.1
Sodium 140
Potassium 4.4
Chloride 105
Carbon Dioxide 26
BUN 36 H
Creatinine 0.7
Glucose 216 H
Calcium 9.3
Vital Signs:
Vital Signs
Temp Pulse Resp BP Pulse Ox
97.7 F 76 20 136/93 98
07/09/23 05:10 07/09/23 06:00 07/09/23 06:00 07/09/23 06:00 07/09/23 06:00
I&O
07/08/23 07/09/23 07/10/23
06:59 06:59 06:59
Intake Total 805 / 805 1419.3 / 1486.0 66.7 / 66.7
Output Total 1500 / 1800 300 / 300
Balance 801 / 801 -80.7 / -314.0 -233.3 / -233.3
Review of Systems
-
History Source: Patient
All other systems: Reviewed and negative
Physical Exam
-
General: No Apparent Distress
HEENT: PERRLA and Other (hoarse voice persistent); Negative Moist Mucous Membranes
Respiratory: Clear to Auscultation; Negative Wheezes
Cardiac: S1/S2
GI: Soft and Nontender
Musculoskeletal: No Edema
Skin: Warm and Dry; Negative Rash
Neuro: Awake, Alert, AO x 3 and Other (diffuse joint pain; sensitive to touch )
Psych: Calm
Data Reviewed
-
Diagnostic Radiology: Report Reviewed by me
Labs: Labs Reviewed by me
--- NOTE | 2023-07-09 08:51 | W.PN.UPDATE ---
Update Note
Progress Note Update
confirmed with Dr. Wilcox, will avoid OR today
monitor WBC; will need repeat imaging to determine if it has passed
[2023-07-09] MEDS: STERILE WATER FOR INJECTION 20 ML IV (10:53)
[2023-07-09] MEDS: ROCEPHIN 2000 MG IV (10:53)
[2023-07-09 11:24] LABS: Glucose - Point of Care 161 mg/dl (70-99)
--- NOTE | 2023-07-09 12:03 | W.PN.CARDCBS ---
Today's Communication / Plan
-
No further SVT on IV amiodarone
Continue IV amiodarone and place PICC line
Okay for ureteral stent surgery without further testing
Consider change to Toprol-XL and discontinue IV amiodarone on 07/10
Check echo
Impression / Plan
-
PCP: Dr. Ashley Brennan
Cardiology: None prior to admission
Impression:
Admitted with generalized weakness 07/03/23
Hyponatremia, initial sodium 118 on 07/03/23
SVT seen 07/08/23
Partially obstructing left UVJ stone with mild hydronephrosis
E coli UTI
E coli bacteremia
Dysphagia
Possible myasthenia gravis
TME
ADHD on Adderall prior to admission
Sjogren's syndrome on chronic hydroxychloroquine
h/o gastric bypass
Echo 07/08/23: Study pending
Plan:
No further SVT while on amiodarone IV
Will continue IV amiodarone through ureteral stent procedure on 07/09
Okay for ureteral stent without further testing
Will place PICC line to continue IV amiodarone
Will consider stopping IV amiodarone and changing to oral amiodarone or try Toprol XL on 07/10 given interaction with hydroxychloroquine
Will hold hydroxychloroquine order due to interaction with amiodarone.
Patient being considered for IVIG therapy. Patient is at risk for recurrent SVT and will be monitored and is now on amiodarone. Another consideration is for volume overload, check echo
PREADMIT DATA
-Patient came to [facility] on 07/03/23 with trouble walking and is now admitted with bacteremia, hyponatremia, dysphagia and kidney stone, cardiology has been consulted for new SVT seen on tele today. Patient came to [facility] with trouble walking described as
right knee pain and generalized weakness. Patient has a h/o Sjogren's and takes hydroxychloroquine, but has never had problems like this before. Patient was admitted hypovolemic hyponatremia and sodium as low as 118. Patient was given 3% saline and
seen by Nephrology. Hyponatremia thought to be due to poor PO intake. There are concerns for ETOH use disorder. Patient became increasingly paranoid and was started on the MSAS protocol. Blood and urine cultures then returned positive for E coli. CT
abd/pelvis with evidence of partially obstructing left UVJ stone with mild hydronephrosis. Urology felt patient was not a surgical candidate and plan was for IR, but in IR they felt hydronephrosis was minimal and IR procedure cancelled. Urology was
back to considering possible cystoscopy. Patient then had aspiration on 07/07/23 and MRI brain while there was no evidence of acute infarct there were changes in the riaz generally seen in neurodegenerative conditions particularly multiple system
atrophy cerebellar type (MSA-C). Patient then noted to have SVT that broke with adenosine 6 mg IV push x1 on 07/08/23 AM and again in the afternoon SVT that broke with adenosine 6 mg IV x1 push. Cardiology consulted and patient started on amiodarone
bolus and then gtt.
Progress Note - Client Professional
Subjective
Date of Service: July 09, 2023
No complaints
Objective
Labs:
07/09/23 06:26
07/09/23 06:26
Labs
Hgb 13.0 g/dL (12.0-16.0) 07/09/23 06:
Hct 37.3 % (37.0-47.0) 07/09/23 06:
Plt Count 249 10^3/uL (130-400) 07/09/23 06:26
PT 15.2 Sec (11.4-14.6) H 07/08/23 21:33
INR 1.18 07/08/23 21:33
APTT 30.1 Sec (23.4-35.0) 07/08/23 21:33
Sodium 140 mmol/L (135-145) 07/09/23 06:
Potassium 4.4 mmol/L (3.5-5.1) 07/09/23 06:26
BUN 36 mg/dl (7-17) H 07/09/23 06:26
Creatinine 0.7 mg/dL (0.6-1.0) 07/09/23 06:26
Glucose 216 mg/dl (70-99) H 07/09/23 06:26
Troponins
07/08/23
12:50
Troponin I 0.015
Vital Signs and I&O:
Vital Signs
Temp Pulse Resp BP Pulse Ox
97.7 F 76 20 136/93 98
07/09/23 05:10 07/09/23 06:00 07/09/23 06:00 07/09/23 06:00 07/09/23 06:00
Vital Signs
Temp Pulse Resp BP Pulse Ox
97.7 F 76 20 136/93 98
07/09/23 05:10 07/09/23 06:00 07/09/23 06:00 07/09/23 06:00 07/09/23 06:00
Intake & Output
07/07/23 07/08/23 07/09/23 07/10/23
06:59 06:59 06:59 06:59
Intake Total 1450 / 1450 805 / 805 1419.3 / 1486.0 66.7 / 66.7
Output Total 4 / 4 1500 / 1800 300 / 300
Balance 1450 / 1450 801 / 801 -80.7 / -314.0 -233.3 / -233.3
Physical Exam
Physical Exam
General: Well developed, well nourished in NAD.
Neck: Supple, no JVD, HJR, carotids +2 B/L, no bruits bilaterally.
Heart: Non displaced PMI, RRR, no murmurs, No S3, S4, no rubs.
Lungs: Clear to auscultation bilaterally, no wheeze, rhonchi, rubs bilaterally,
normal expiratory phase.
Extremities: No clubbing, cyanosis or edema bilaterally.
Neuro: Grossly nonfocal, awake, alert and oriented x3.
--- NOTE | 2023-07-09 12:53 | SUR.OPER ---
Dobbhoff placed to RT nares; placement confirmed by abdominal XRAY . pt NPO frequent mouth care done. patient transfer to chair x2 people assist
[2023-07-09] MEDS: FOLVITE 1 MG TUBE (13:09)
[2023-07-09] MEDS: CLARITIN 10 MG TUBE (13:09)
[2023-07-09] MEDS: NEURONTIN 300 MG TUBE ×2 (13:09→19:26)
[2023-07-09] MEDS: TYLENOL 1000 MG PO (13:11)
[2023-07-09] MEDS: CORDARONE 518 MG IV (14:33)
[2023-07-09] MEDS: SOLU-MEDROL 258 MG IV (14:36)
[2023-07-09 14:45] LABS: Glycohemoglobin (HgbA1c) 5.5 % (4.0-5.6)
--- NOTE | 2023-07-09 15:14 | CM ---
Patient seen at bedside, patient with many complaints, re mouth care. Patient confirmed she lives alone and is hoping for discharge home with no needs. Therapy recommendation is for SNF vs Acute Rehab. CM will continue to follow for discharge
planing needs.
Plan; home with VN vs SNF vs Acute rehab; pending functional assessments
--- NOTE | 2023-07-09 15:24 | W.PN.UPDATE ---
Update Note
Progress Note Update
Given afebrile status, downtrending WBC, and normal renal function in context of recent neuro/cardiac events, will defer OR today.
Unable to tolerate tamsulosin due to Dobhoff placement and NPO status.
3 mm distal UVJ stone noted w/ partial obstruction and mild left hydronephrosis.
Plan:
- CTAP w/o IV contrast on [place] 07/11/23 to assess for stone passage
- If stone has not passed, plan for OR 07/12/23 for cysto/stone extraction (IV sedation vs. general to be determined by Neuro)
- [email or web address]
Discussed plan of care with Dr. Bennett.
[2023-07-09] MEDS: LIDOCAINE 4% PATCH 1 PATCH TOPICAL ×2 (16:11→16:12)
[2023-07-09] MEDS: MESTINON 60 MG TUBE ×3 (16:12→21:25)
[2023-07-09] MEDS: GAMMAGARD 200 IV (17:15)
[2023-07-09 17:28] LABS: Glucose - Point of Care 175 mg/dl (70-99)
--- NOTE | 2023-07-09 19:18 | PTCARENOTE ---
patient soft spoken, speech slurred and very difficult to understand NPO. Mood alternating from been very pleasant of been very aggressive. Q 1 hr mouth care done thought shift. SR 86 RR 15. 93RA. BP via left upper ar 146/97 . Dobbhoff confirmed by
abdominal XRAy earlier. Jevity 1.5 at 20 with Q 1 hr auto flush 35/hr infusing with no residual. PICC line inserted Left Upper arm . Placement confirmed by chest XRAY , received OK by IV team for PICC line to be used. Incontinent of bladder. Purwick
replaced call nixon within reach. HOB elevated . Immune Globumin infusing per protocols with no adverse reaction
[2023-07-09] MEDS: D5/0.9% with KCL 20 MEQ IV (19:19)
[2023-07-09] MEDS: GAMMAGARD 50 IV (20:12)
--- NOTE | 2023-07-09 23:27 | PTCARENOTE ---
Patient removed R nares Dobbhoff tube, stated she thought it was a 'booger' provider notified. Patient also removed ice from ice pack and filled up cup. Patient instructed to wet mouth to only and not to eat or drink.
[2023-07-09 23:59] LABS: Glucose - Point of Care 186 mg/dl (70-99)
[2023-07-10] VITALS (27 sets, daily range): BP systolic 129–171; BP diastolic 84–115; BMI 25.6
[2023-07-10 04:31] LABS: % Basophils 0.2 % (0-2); % Immature Granulocytes 3.9 % (0-0.5); % Lymphocytes 2.3 % (20.5-51.1); % Monocytes 2.4 % (1.7-9.3); % Neutrophils 91.2 % (42.2-75.2); Absolute Immature Granulocytes 0.8 10^3/uL (0-0.05); Absolute Lymphocytes 0.5 10^3/uL (1.2-3.4); Absolute Monocytes 0.5 10^3/uL (0.1-0.6); Absolute Neutrophils 17.7 10^3/uL (1.4-6.5); Hematocrit 33.3 % (37.0-47.0); Hemoglobin 11.7 g/dL (12.0-16.0); Mean Corp Hgb Conc. 35.1 g/dL (33.0-37.0); Mean Corpuscular Hgb 30.6 pg (27.0-31.0); Mean Corpuscular Volume 87.2 fL (81.0-99.0); Mean Platelet Volume 11.4 fL (7.4-10.4); Nucleated Red Blood Cells % 0 %; Platelet Count 302 10^3/uL (130-400); Red Blood Cell Count 3.82 10^6/uL (4.20-5.40); Red Cell Dist. Width 14.1 % (11.5-14.5); White Blood Cell Count 19.5 10^3/uL (4.8-10.8)
[2023-07-10 04:59] LABS: Blood Urea Nitrogen 51 mg/dl (7-17); Calcium 9.1 mg/dl (8.4-10.2); Carbon Dioxide 27 mmol/L (22-30); Chloride 104 mmol/L (98-107); Estimated Creatinine Clearance 73 ml/min; Glucose 183 mg/dl (70-99); Potassium 3.9 mmol/L (3.5-5.1); Sodium 139 mmol/L (135-145); eGFR > 60.00
[2023-07-10 06:03] LABS: Glucose - Point of Care 188 mg/dl (70-99)
[2023-07-10] MEDS: NOVOLOG FLEXPEN-LOW RESISTANCE 2 UNITS SC ×2 (06:03→23:56)
--- NOTE | 2023-07-10 07:34 | W.PN.UPDATE ---
Update Note
Progress Note Update
pt asleep
no events overnight
no fevers- wbc remains elevated but stable/cr normal
plan for CT tomorrow and if stone still present- OR with dr jaffe on wednesday
[2023-07-10] MEDS: NSS (PRESERVATIVE FREE) 0.25 ML IV ×2 (07:53→20:10)
[2023-07-10] MEDS: ATIVAN 0.5 MG IV ×2 (07:59→20:11)
[2023-07-10] MEDS: HEPARIN 5000 UNITS SC ×2 (07:59→20:10)
[2023-07-10] MEDS: PROTONIX IV 40 MG IV (08:00)
[2023-07-10] MEDS: NSS (PRESERVATIVE FREE) 10 ML IV (08:00)
[2023-07-10] MEDS: RESTASIS 0.05% OPHTHALMIC EMULSION 1 DROPS BOTH EYES ×2 (08:01→20:16)
[2023-07-10] MEDS: THIAMINE INJECTION 200 MG IV (08:02)
[2023-07-10] MEDS: LIDOCAINE 4% PATCH 1 PATCH TOPICAL ×2 (08:02)
--- NOTE | 2023-07-10 08:21 | W.PN.HOSP.TC ---
Today's Communication/Plan
-
see plan
Assessment / Plan
Assessment / Plan
Assessment/Plan
CT A/P
IMPRESSION:
1. There is moderate left hydronephrosis likely related to a left ureterovesical stone. There is prominent perinephric inflammation bilaterally.
2. There is probable atelectasis in the lung bases bilaterally.
MRI BRAIN
IMPRESSION:
1. No MRI evidence for an acute infarct.
2. 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
Acute hypovolemic hyponatremia with Na down to 118 (prior labs from 2019 at 134)
Recent Poor PO Intake Leading Up to Hospitalization
-Received some normal saline and 3% saline, required D5W to correct rate
-Na now stable
-appreciate renal
-fluids now off, on TF
Severe Dysphagia
-patient unsafe to swallow all solid and liquid consistencies
-MRI w e/o MSA cerebellar type, per neuro clinically does not fit diagnosis; concern raised for Myasthenia Gravis
-F/U AchRAB
-day 3 IVIG and Steroids, pyridostigmine
-neurology consult appreciated
-dobhoff placed and TF initiated on 07/09
-daily ST
-patient and sister told not a guarantee we can avoid
SVT
-SVT x 2 on 07/08 broke with adenosine 6mg each time
-appreciate cardiology, started on an amio gtt
-no SVT overnight
E. Coli UTI and Bacteremia
Ureterovesical stone; left hydronephrosis
-increase dosing of IV Ceftriaxone to 2G q 24 hours
-WBC was increasing and finding of ureterovesical stone seen on 07/07
-patient denies pain today; plan to repeat CT tomorrow, hopefully stone has passed
-appreciate Urology
Encephalopathy, Psychosis
Generalized Weakness
Paranoia
Alcohol withdrawal
-s/p high dose thiamine --> change to normal dosing
-MSAS protocol
-appreciate psychiatry recs
Non-Anion Gap Metabolic Acidosis
Acute Kidney Injury
-Likely prerenal due to poor PO intake
-creatinine stable
Sjogren's Syndrome - Hold Hydroxychloroquine given reaction with amio
Right acromioclavicular injury
Suspected history of osteoarthritis
ADHD - hold home Adderall given acute psychosis
Anxiety - Continue home Klonopin, now IV ativan
Depression - hold home Wellbutrin given acute psychosis
History of Juwan-en-Y (cory-en-wy) gastric bypass surgery
DVT Prophylaxis: Heparin subq
Code Status: Full Code
Anticipated Discharge: > 48 hours
Subjective/Interval History
-
Date of Service: July 10, 2023
no new complaints
no difference in speech right now
pain bilateral shoulders and knees chronic; lidocaine patches worked yesterday
Objective Data
-
Labs:
Laboratory Results
07/10/23
04:18
WBC 19.5 H
Hgb 11.7 L
Hct 33.3 L
Plt Count 302 D
Sodium 139
Potassium 3.9
Chloride 104
Carbon Dioxide 27
BUN 51 H
Creatinine 0.8
Glucose 183 H
Calcium 9.1
Vital Signs:
Vital Signs
Temp Pulse Resp BP Pulse Ox
97.5 F 81 17 139/95 88
07/10/23 07:52 07/10/23 06:15 07/10/23 06:15 07/10/23 06:01 07/10/23 06:15
I&O
07/09/23 07/10/23 07/11/23
06:59 06:59 06:59
Intake Total 1419.3 / 1486.0 666.3 / 666.3
Output Total 1500 / 1800 300 / 300
Balance -80.7 / -314.0 366.3 / 366.3
Review of Systems
-
History Source: Patient
All other systems: Reviewed and negative
Physical Exam
-
General: No Apparent Distress
HEENT: PERRLA and Other (hoarse voice persistent); Negative Moist Mucous Membranes
Respiratory: Clear to Auscultation; Negative Wheezes
Cardiac: S1/S2
GI: Soft and Nontender
Musculoskeletal: No Edema
Skin: Warm and Dry; Negative Rash
Neuro: Awake, Alert, AO x 3 and Other (diffuse joint pain; sensitive to touch )
Psych: Calm
Data Reviewed
-
Diagnostic Radiology: Report Reviewed by me
Labs: Labs Reviewed by me
--- NOTE | 2023-07-10 09:00 | PTCARENOTE ---
report received from nightshift RN at 0700. pt arouses to voice, oriented x3- speech is soft/garbled somewhat difficult to understand. generalized weakness throughout. SR on telemetry heart rate in 70s, amio gtt infusing per orders. +pulses. trace
lower extremity edema. Pt on room air, sat 93-94%. pt moist productive cough- pt using yankeur independently. lung sounds diminished in bases. new chato placed by another RN, xray obtained. right nare, tube feeds restarted. abdomen obese, round.
purewick in place, pt incontinent of anne, clear urine. see worklist for full nursing assessment and interventions.
[2023-07-10] MEDS: FOLVITE 1 MG TUBE (09:06)
[2023-07-10] MEDS: NEURONTIN 300 MG TUBE ×2 (09:06→20:16)
[2023-07-10] MEDS: MESTINON 60 MG TUBE ×4 (09:06→22:42)
[2023-07-10] MEDS: CLARITIN 10 MG TUBE (09:06)
--- NOTE | 2023-07-10 09:21 | W.PN.CARDCBS ---
Today's Communication / Plan
-
Will stop IV amiodarone and start metoprolol 25 mg via tube every 12
Okay for operating room
Will check echocardiogram
Continue IVIG and Mestinon as needed
Impression / Plan
-
PCP: Dr. Ashley Brennan
Cardiology: None prior to admission
Impression:
Admitted with generalized weakness 07/03/23
Hyponatremia, initial sodium 118 on 07/03/23
SVT seen 07/08/23
Partially obstructing left UVJ stone with mild hydronephrosis
E coli UTI
E coli bacteremia
Dysphagia
Possible myasthenia gravis
TME
ADHD on Adderall prior to admission
Sjogren's syndrome on chronic hydroxychloroquine
h/o gastric bypass
Echo 07/08/23: Study pending
Plan:
SVT has resolved. Will stop amiodarone and start metoprolol 25 mg p.o. every 12 via tube.
Will check echocardiogram. Okay for operating room for stone procedure if needed.
Okay to continue IVIG and Mestinon.
Likely can resume Plaquenil over next 24 hours as well.
Continue to follow on telemetry
PREADMIT DATA
-Patient came to [facility] on 07/03/23 with trouble walking and is now admitted with bacteremia, hyponatremia, dysphagia and kidney stone, cardiology has been consulted for new SVT seen on tele today. Patient came to [facility] with trouble walking described as
right knee pain and generalized weakness. Patient has a h/o Sjogren's and takes hydroxychloroquine, but has never had problems like this before. Patient was admitted hypovolemic hyponatremia and sodium as low as 118. Patient was given 3% saline and
seen by Nephrology. Hyponatremia thought to be due to poor PO intake. There are concerns for ETOH use disorder. Patient became increasingly paranoid and was started on the MSAS protocol. Blood and urine cultures then returned positive for E coli. CT
abd/pelvis with evidence of partially obstructing left UVJ stone with mild hydronephrosis. Urology felt patient was not a surgical candidate and plan was for IR, but in IR they felt hydronephrosis was minimal and IR procedure cancelled. Urology was
back to considering possible cystoscopy. Patient then had aspiration on 07/07/23 and MRI brain while there was no evidence of acute infarct there were changes in the riaz generally seen in neurodegenerative conditions particularly multiple system
atrophy cerebellar type (MSA-C). Patient then noted to have SVT that broke with adenosine 6 mg IV push x1 on 07/08/23 AM and again in the afternoon SVT that broke with adenosine 6 mg IV x1 push. Cardiology consulted and patient started on amiodarone
bolus and then gtt.
Progress Note - Song Plugger
Subjective
Date of Service: July 10, 2023
No further SVT. Denies chest pain or palpitations.
Objective
Labs:
07/10/23 04:18
07/10/23 04:18
Labs
Hgb 11.7 g/dL (12.0-16.0) L 07/10/23 04:18
Hct 33.3 % (37.0-47.0) L 07/10/23 04:18
Plt Count 302 10^3/uL (130-400) D 07/10/23 04:18
PT 15.2 Sec (11.4-14.6) H 07/08/23 21:33
INR 1.18 07/08/23 21:33
APTT 30.1 Sec (23.4-35.0) 07/08/23 21:33
Sodium 139 mmol/L (135-145) 07/10/23 04:18
Potassium 3.9 mmol/L (3.5-5.1) 07/10/23 04:18
BUN 51 mg/dl (7-17) H 07/10/23 04:18
Creatinine 0.8 mg/dL (0.6-1.0) 07/10/23 04:18
Glucose 183 mg/dl (70-99) H 07/10/23 04:18
Troponins
07/08/23
12:50
Troponin I 0.015
Vital Signs and I&O:
Vital Signs
Temp Pulse Resp BP Pulse Ox
97.5 F 81 17 139/95 88
07/10/23 07:52 07/10/23 06:15 07/10/23 06:15 07/10/23 06:01 07/10/23 06:15
Vital Signs
Temp Pulse Resp BP Pulse Ox
97.5 F 81 17 139/95 88
07/10/23 07:52 07/10/23 06:15 07/10/23 06:15 07/10/23 06:01 07/10/23 06:15
Intake & Output
07/08/23 07/09/23 07/10/23 07/11/23
06:59 06:59 06:59 06:59
Intake Total 805 / 805 1419.3 / 1486.0 666.3 / 666.3
Output Total 4 / 4 1500 / 1800 300 / 300
Balance 801 / 801 -80.7 / -314.0 366.3 / 366.3
Physical Exam
Physical Exam
GEN: No distress, awake,
HEENT: supple, anicteric, mmm, Dobbhoff tube in place
LUNGS: scatt rhonchi
CV: Reg, S1/S2, 1/6 syst LSB, no gallop
ABD: soft, BS+, NT/ND
EXT: No edema
NEURO: Gross non-focal
SKIN: No rash
[2023-07-10] MEDS: ROCEPHIN 2000 MG IV (09:25)
[2023-07-10] MEDS: STERILE WATER FOR INJECTION 20 ML IV (09:25)
[2023-07-10] MEDS: LOPRESSOR 25 MG TUBE ×2 (09:43→20:11)
--- NOTE | 2023-07-10 11:57 | W.PN.NEURO.1 ---
Today's Communication / Plan
-
continue IVIG, steroids
check NIF/VCs
Neuro Assessment/Plan
Assessment
IMPRESSIONS/RECOMMENDATIONS:
Abrupt onset of worsening of dysphagia, ongoing for approximately 2 years; she also has significant hypophonia, and muscle weakness; patient reports the latter is improved today but it is actually a bit worse on exam
Differential diagnosis includes myasthenia gravis based on the patient's bulbar dysfunction and proximal weakness.� MRI of brain findings suggestive of T2 hyperintensities in the riaz suggestive of multisystem atrophy, do not match the patient's
examination or history with lack of autonomic findings including constipation, orthostasis, anosmia, tremor.� Patient also has a prior history of blepharoplasty suggestive of ptosis in the past.
Plan
Await blood work for acetylcholine receptor antibodies
Outpatient EMG study repetitive stimulation to evaluate for possible myasthenia gravis
Initiated immunoglobulins 0.4 mg/kg/day for 5 days, #3 today
Initiated methylprednisolone 1 g daily for 5 days, #3 today
continue Mestinon
check NIF/VC TID
Dobhoff in place
Rehabilitation evaluations
No contraindications to planned urological procedure with the exception of limitations with medications based on possible myasthenia gravis
Critical care time 35 mins
Will follow
Subjective/Objective
Subjective Data
Date of Service: July 10, 2023
patient reports that BLE are improving in terms of weakness
Dobhoff placed yesterday
Objective Data
Vital Signs
Temp Pulse Resp BP Pulse Ox
97.6 F 81 17 153/93 88
07/10/23 11:27 07/10/23 09:43 07/10/23 06:15 07/10/23 09:43 07/10/23 06:15
Lab Results
07/10/23 04:18
07/10/23 04:18
PT 15.2 Sec (11.4-14.6) H 07/08/23 21:33
INR 1.18 07/08/23 21:33
APTT 30.1 Sec (23.4-35.0) 07/08/23 21:33
Sodium 139 mmol/L (135-145) 07/10/23 04:18
Potassium 3.9 mmol/L (3.5-5.1) 07/10/23 04:18
BUN 51 mg/dl (7-17) H 07/10/23 04:18
Glucose 183 mg/dl (70-99) H 07/10/23 04:18
Calcium 9.1 mg/dl (8.4-10.2) 07/10/23 04:18
Phosphorus 3.5 mg/dl (2.5-4.5) 07/07/23 05:59
Vitamin B12 > 1000 pg/ml (239-931) H 07/08/23 06:03
Ur Buprenorphine Negative (Negative) 07/05/23 12:39
Patient Allergies
latex Allergy (Verified 11/19/22 16:31)
Itching
Penicillins Allergy (Verified 11/19/22 16:31)
Unknown
Physical Exam
Extended Neurological Exam
Mood & Affect: Other (tearful regarding medical issues)
Attention Span & Concentration: Awake, Alert, Interactive and Other (NG tube in place)
Speech: Other (hypophonic)
Cranial Nerve II: Left Eye: Pupillary Reactivity Unremarkable, Pupillary Size Unremarkable and Other (mild ptosis on the L)
Cranial Nerve II: Right Eye: Pupillary Reactivity Unremarkable, Pupillary Size Unremarkable and Other (no ptosis)
Cranial Nerves III, IV, : Extraocular Movement: Extraocular Movement Full in all Directions
Cranial Nerve V: Facial Sensation: Facial Sensation Unremarkable to Cold
Cranial Nerve VII: Facial Symmetry: Normal Facial Symmetry
Cranial Nerve VIII: Hearing: Unremarkable Hearing to Normal Conversational Volume
Cranial Nerves IX, X: Palate Movement: Palate Elevation Symmetric
Cranial Nerve XI: Shoulder Shrug: Unremarkable
Cranial Nerve XII: Tongue Protusion: Midline
Muscle Strength, Overall: Other (3 in the proximal BLE, 3+/5 in distal BLE--BUE are ~4/5)
Deep Tendon Reflexes: Unremarkable Throughout
Touch Sensation: Unremarkable
Coordination: [id number] Testing Unremarkable
Babinski Sign: Absent Bilaterally
Modified Iron Score (MRS)
-
MRS Score:
[2023-07-10] MEDS: DICLOFENAC 1% TOPICAL GEL 100 GRAM TOPICAL ×3 (13:10→22:41)
[2023-07-10] MEDS: NOVOLOG FLEXPEN-LOW RESISTANCE 1 UNITS SC ×2 (13:10→17:08)
[2023-07-10 13:20] LABS: Glucose - Point of Care 153 mg/dl (70-99)
[2023-07-10] MEDS: SOLU-MEDROL 258 MG IV (14:09)
--- NOTE | 2023-07-10 15:09 | PTOTSP ---
Dysphagia Follow Up
Initiated trials of ice chips this date with no overt s/s of aspiration or penetration. Recommend continuation of NPO status (re: recent VSE with recommendations for NPO) x DHT with cautious trial of ARHP for comfort (cautious re: poor PES clearance
per VSE). Education provided on ARHP to patient who verbalized agreement and understanding to protocol.
Recommend:
1. NPO x DHT
2. Oral care 3-5x daily with strict aspiration precautions
3. Cautious trial of aspiration risk hydration protocol given poor PES clearance
4. Dysphagia tx warranted at the acute care level. Will continue to follow.
[2023-07-10] MEDS: GAMMAGARD 200 IV (15:19)
--- NOTE | 2023-07-10 16:57 | W.PN.UPDATE ---
Update Note
Progress Note Update
Pt seen, chart reviewed. Pt alert and oriented, calm but complaining about her treatment. Pt upset she is not receiving all the outpatient psych meds, including Wellbutrin XL, Adderall, as well as Gabapentin reportedly for pain. Pt reported a hx
of multiple falls, states she drinks alcohol only on occasion. Speech coherent but rambling, circumstantial. No dorota delusions, no signs of hallucinations, no agitation at present. Pt on Ativan 0.5 [address] IV [address] in place of outpatient Klonopin.
Imp: TME, with psychosis, improving
Unspec Alcohol use; Suspect personality disorder
Rec: Would continue current management; I do not recommend giving Adderall (unnecessary) or Wellbutrin XL, due to irritability
Return to outpatient psychiatrist when medically stable
Will follow peripherally
[2023-07-10 17:19] LABS: Glucose - Point of Care 180 mg/dl (70-99)
[2023-07-10] MEDS: GAMMAGARD 50 IV (18:32)
[2023-07-11] VITALS (13 sets, daily range): BP systolic 120–162; BP diastolic 81–123; BMI 25.6
[2023-07-11 00:02] LABS: Glucose - Point of Care 233 mg/dl (70-99)
[2023-07-11 04:55] LABS: % Basophils 0.1 % (0-2); % Immature Granulocytes 2.4 % (0-0.5); % Lymphocytes 2.2 % (20.5-51.1); % Monocytes 3.1 % (1.7-9.3); % Neutrophils 92.2 % (42.2-75.2); Absolute Immature Granulocytes 0.3 10^3/uL (0-0.05); Absolute Lymphocytes 0.3 10^3/uL (1.2-3.4); Absolute Monocytes 0.4 10^3/uL (0.1-0.6); Absolute Neutrophils 11.1 10^3/uL (1.4-6.5); Hematocrit 33.1 % (37.0-47.0); Hemoglobin 11.2 g/dL (12.0-16.0); Mean Corp Hgb Conc. 33.8 g/dL (33.0-37.0); Mean Corpuscular Hgb 30.8 pg (27.0-31.0); Mean Corpuscular Volume 90.9 fL (81.0-99.0); Mean Platelet Volume 11.9 fL (7.4-10.4); Nucleated Red Blood Cells % 0 %; Platelet Count 273 10^3/uL (130-400); Red Blood Cell Count 3.64 10^6/uL (4.20-5.40); Red Cell Dist. Width 13.8 % (11.5-14.5)
[2023-07-11 05:18] LABS: Blood Urea Nitrogen 46 mg/dl (7-17); Calcium 8.3 mg/dl (8.4-10.2); Carbon Dioxide 28 mmol/L (22-30); Chloride 101 mmol/L (98-107); Estimated Creatinine Clearance 65 ml/min; Glucose 240 mg/dl (70-99); Sodium 132 mmol/L (135-145); eGFR > 60.00
[2023-07-11 06:34] LABS: Glucose - Point of Care 238 mg/dl (70-99)
[2023-07-11] MEDS: NOVOLOG FLEXPEN-LOW RESISTANCE 2 UNITS SC ×3 (06:36→17:02)
--- NOTE | 2023-07-11 08:00 | PTCARENOTE ---
report received from nightshift RN at 0700. walking rounds completed. pt sleeping, arouses easily to voice. orientedx3- forgetful at times. speech somewhat garbled/ soft spoken difficult to understand. SR on telemetry heart rate 70s. pulses
palpable. trace edema in lower extremities. pt on room air, sat 94%. lung sounds diminished in bases. moist productive cough. active bowel sounds, pt had bowel movement overnight. Jevity 1.5 via right nare chato, at 55 ml/hr with 35 ml flushes.
incontinent of urine. Right upper arm dual lumen PICC intact. see worklist for full nursing assessment and interventions.
[2023-07-11] MEDS: HEPARIN 5000 UNITS SC (08:21)
[2023-07-11] MEDS: NEURONTIN 300 MG TUBE ×2 (08:21→20:23)
[2023-07-11] MEDS: ATIVAN 0.5 MG IV ×2 (08:22→20:24)
[2023-07-11] MEDS: NSS (PRESERVATIVE FREE) 10 ML IV (08:24)
[2023-07-11] MEDS: NSS (PRESERVATIVE FREE) 0.25 ML IV ×2 (08:24→20:24)
[2023-07-11] MEDS: PROTONIX IV 40 MG IV (08:24)
[2023-07-11] MEDS: LIDOCAINE 4% PATCH 1 PATCH TOPICAL ×2 (08:24→08:25)
--- NOTE | 2023-07-11 08:24 | W.PN.HOSP.TC ---
Today's Communication/Plan
-
see plan
Assessment / Plan
Assessment / Plan
Assessment/Plan
CT A/P
IMPRESSION:
1. There is moderate left hydronephrosis likely related to a left ureterovesical stone. There is prominent perinephric inflammation bilaterally.
2. There is probable atelectasis in the lung bases bilaterally.
MRI BRAIN
IMPRESSION:
1. No MRI evidence for an acute infarct.
2. 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
Acute hypovolemic hyponatremia with Na down to 118 (prior labs from 2019 at 134)
Recent Poor PO Intake Leading Up to Hospitalization
-Received some normal saline and 3% saline, required D5W to correct rate
-Na now stable
-appreciate renal
-fluids now off, on TF
Severe Dysphagia
-patient unsafe to swallow all solid and liquid consistencies
-MRI w e/o MSA cerebellar type, per neuro clinically does not fit diagnosis; concern raised for Myasthenia Gravis
-F/U AchRAB
-day 4 IVIG and Steroids, pyridostigmine
-monitor NIF/VC's (stable)
-neurology consult appreciated
-dobhoff placed and TF initiated on 07/09
-daily ST
-patient and sister told not a guarantee we can avoid PEG; on 07/10 she was cleared for ice chips
SVT
-SVT x 2 on 07/08 broke with adenosine 6mg each time
-appreciate cardiology, started on an amio gtt and now transitioned to BID Metoprolol
-no SVT overnight
E. Coli UTI and Bacteremia
Ureterovesical stone; left hydronephrosis
-increase dosing of IV Ceftriaxone to 2G q 24 hours
-WBC was increasing and finding of ureterovesical stone seen on 07/07. OR held given cardiac and neurological active issues; and now held as patient's WBC improving and pain resolved
-WBC now 12
-F/U repeat CT today
-appreciate Urology
Encephalopathy, Psychosis
Generalized Weakness
Paranoia
Alcohol withdrawal
-patient with worsening psychosis Wednesday 07/05 and initiated treated with high dose thiamine and alcohol withdrawal
-continue daily thiamine/folate
-MSAS protocol
-appreciate psychiatry recs
-hold wellbutrin and adderral (as below)
Non-Anion Gap Metabolic Acidosis
Acute Kidney Injury
-creatinine stable post IVF
Sjogren's Syndrome - Hold Hydroxychloroquine given reaction with amio --> F/U with pharmacy/cards when OK to resume
Right acromioclavicular injury
Suspected history of osteoarthritis
ADHD - hold home Adderall given acute psychosis
Anxiety - Continue home Klonopin, now IV ativan
Depression - hold home Wellbutrin given acute psychosis
History of Juwan-en-Y (cory-en-wy) gastric bypass surgery
DVT Prophylaxis: Heparin subq
Code Status: Full Code
Anticipated Discharge: > 48 hours
Subjective/Interval History
-
Date of Service: July 11, 2023
now able to take ice chips
feels voice is improving a little
Objective Data
-
Labs:
Laboratory Results
07/11/23
04:20
WBC 12.0 H
Hgb 11.2 L
Hct 33.1 L
Plt Count 273
Sodium 132 L
Potassium 4.0
Chloride 101
Carbon Dioxide 28
BUN 46 H
Creatinine 0.9
Glucose 240 H
Calcium 8.3 L
Vital Signs:
Vital Signs
Temp Pulse Resp BP Pulse Ox
97.6 F 80 19 137/89 91
07/11/23 07:51 07/11/23 06:30 07/11/23 06:30 07/11/23 06:30 07/11/23 06:30
I&O
07/10/23 07/11/23 07/12/23
06:59 06:59 06:59
Intake Total 666.3 / 666.3 16.7 / 16.7
Output Total 300 / 300
Balance 366.3 / 366.3 7
Review of Systems
-
History Source: Patient
All other systems: Reviewed and negative
Physical Exam
-
General: No Apparent Distress
HEENT: PERRLA and Other (hoarse voice persistent; dobhoff in place); Negative Moist Mucous Membranes
Respiratory: Clear to Auscultation; Negative Wheezes
Cardiac: S1/S2
GI: Soft and Nontender
Musculoskeletal: No Edema
Skin: Warm and Dry; Negative Rash
Neuro: Awake, Alert, AO x 3 and Other (diffuse joint pain; sensitive to touch )
Psych: Calm
Data Reviewed
-
Diagnostic Radiology: Report Reviewed by me
Labs: Labs Reviewed by me
[2023-07-11] MEDS: CLARITIN 10 MG TUBE (08:25)
[2023-07-11] MEDS: FOLVITE 1 MG TUBE (08:25)
[2023-07-11] MEDS: MESTINON 60 MG TUBE ×4 (08:25→22:29)
[2023-07-11] MEDS: LOPRESSOR 25 MG TUBE ×2 (08:25→20:23)
[2023-07-11] MEDS: THIAMINE INJECTION 200 MG IV (08:26)
[2023-07-11] MEDS: RESTASIS 0.05% OPHTHALMIC EMULSION 1 DROPS BOTH EYES ×2 (08:26→20:24)
[2023-07-11] MEDS: DICLOFENAC 1% TOPICAL GEL 100 GRAM TOPICAL ×4 (08:26→20:25)
[2023-07-11 08:45] LABS: Phosphorus 4.1 mg/dl (2.5-4.5)
[2023-07-11] MEDS: STERILE WATER FOR INJECTION 20 ML IV (09:39)
[2023-07-11] MEDS: ROCEPHIN 2000 MG IV (09:39)
[2023-07-11 12:05] LABS: Glucose - Point of Care 228 mg/dl (70-99)
--- NOTE | 2023-07-11 13:50 | W.PN.NEURO.1 ---
Today's Communication / Plan
-
continue ivig, steroids
continue vc/nif
Neuro Assessment/Plan
Assessment
IMPRESSIONS/RECOMMENDATIONS:
Abrupt onset of worsening of dysphagia, ongoing for approximately 2 years; she also has significant hypophonia, and muscle weakness; patient reports the latter is improved today but it is actually a bit worse on exam
Differential diagnosis includes myasthenia gravis based on the patient's bulbar dysfunction and proximal weakness.� MRI of brain findings suggestive of T2 hyperintensities in the riaz suggestive of multisystem atrophy, do not match the patient's
examination or history with lack of autonomic findings including constipation, orthostasis, anosmia, tremor.� Patient also has a prior history of blepharoplasty suggestive of ptosis in the past.
Plan
Await blood work for acetylcholine receptor antibodies
EMG study repetitive stimulation to evaluate for possible myasthenia gravis
Initiated immunoglobulins 0.4 mg/kg/day for 5 days, #4 today
Initiated methylprednisolone 1 g daily for 5 days, #4 today
continue Mestinon
check NIF/VC BID (reduced from TID; all stable thus far)
Dobhoff in place
Rehabilitation evaluations
No contraindications to planned urological procedure with the exception of limitations with medications based on possible myasthenia gravis
Critical care time 30 mins
Will follow
Subjective/Objective
Subjective Data
Date of Service: July 11, 2023
mood significantly improved compared to yesterday; weakness gradually improving mildly
Objective Data
Vital Signs
Temp Pulse Resp BP Pulse Ox
98.0 F 74 16 128/93 93
07/11/23 11:51 07/11/23 11:15 07/11/23 11:15 07/11/23 10:00 07/11/23 11:15
Lab Results
07/11/23 04:20
07/11/23 04:20
PT 15.2 Sec (11.4-14.6) H 07/08/23 21:33
INR 1.18 07/08/23 21:33
APTT 30.1 Sec (23.4-35.0) 07/08/23 21:33
Sodium 132 mmol/L (135-145) L 07/11/23 04:20
Potassium 4.0 mmol/L (3.5-5.1) 07/11/23 04:20
BUN 46 mg/dl (7-17) H 07/11/23 04:20
Glucose 240 mg/dl (70-99) H 07/11/23 04:20
Calcium 8.3 mg/dl (8.4-10.2) L 07/11/23 04:20
Phosphorus 4.1 mg/dl (2.5-4.5) 07/11/23 04:20
Vitamin B12 > 1000 pg/ml (239-931) H 07/08/23 06:03
Ur Buprenorphine Negative (Negative) 07/05/23 12:39
Patient Allergies
latex Allergy (Verified 11/19/22 16:31)
Itching
Penicillins Allergy (Verified 11/19/22 16:31)
Unknown
Physical Exam
-
Mood & Affect: mood significantly improved compared to yesterday
Attention Span & Concentration: Awake, Alert, Interactive and Other (NG tube in place)
Speech: Other (hypophonic)
Cranial Nerve II: Left Eye: Pupillary Reactivity Unremarkable, Pupillary Size Unremarkable and Other (mild ptosis on the L)
Cranial Nerve II: Right Eye: Pupillary Reactivity Unremarkable, Pupillary Size Unremarkable and Other (no ptosis)
Cranial Nerves III, IV, : Extraocular Movement: Extraocular Movement Full in all Directions
Cranial Nerve V: Facial Sensation: Facial Sensation Unremarkable to Cold
Cranial Nerve VII: Facial Symmetry: Normal Facial Symmetry
Cranial Nerve VIII: Hearing: Unremarkable Hearing to Normal Conversational Volume
Cranial Nerves IX, X: Palate Movement: Palate Elevation Symmetric
Cranial Nerve XI: Shoulder Shrug: Unremarkable
Cranial Nerve XII: Tongue Protusion: Midline
Muscle Strength, Overall: Other (3 in the proximal BLE, 3+/5 in distal BLE--BUE are ~4/5)
Deep Tendon Reflexes: Unremarkable Throughout
Touch Sensation: Unremarkable
Modified Lester Score (MRS)
-
MRS Score:
--- NOTE | 2023-07-11 13:52 | W.PN.CARDCBS ---
Today's Communication / Plan
-
no further svt on lopressor
could consider ablation as outpt for svt
Impression / Plan
-
PCP: Dr. Ashley Brennan
Cardiology: None prior to admission
Impression:
Admitted with generalized weakness 07/03/23
Hyponatremia, initial sodium 118 on 07/03/23
SVT seen 07/08/23
Partially obstructing left UVJ stone with mild hydronephrosis
E coli UTI
E coli bacteremia
Dysphagia
Possible myasthenia gravis
TME
ADHD on Adderall prior to admission
Sjogren's syndrome on chronic hydroxychloroquine
h/o gastric bypass
Echo 07/08/23: EF 55 to 60%
Plan:
no further svt. on lopressor.
could consider ablation as outpt for svt
Okay for operating room for stone procedure if needed.
Okay to continue IVIG and Mestinon.
Ok to Plaquenil Now that amiodarone has been discontinued
d/w nursing
PREADMIT DATA
-Patient [facility] with trouble walking and is now admitted with bacteremia, hyponatremia, dysphagia and kidney stone, cardiology has been consulted for new SVT seen on tele today. [facility] walking described as
right knee pain and generalized weakness. Patient has a h/o Sjogren's and takes hydroxychloroquine, but has never had problems like this before. Patient was admitted hypovolemic hyponatremia and sodium as low as 118. Patient was given 3% saline and
seen by Nephrology. Hyponatremia thought to be due to poor PO intake. There are concerns for ETOH use disorder. Patient became increasingly paranoid and was started on the MSAS protocol. Blood and urine cultures then returned positive for E coli. CT
abd/pelvis with evidence of partially obstructing left UVJ stone with mild hydronephrosis. Urology felt patient was not a surgical candidate and plan was for IR, but in IR they felt hydronephrosis was minimal and IR procedure cancelled. Urology was
back to considering possible cystoscopy. Patient then had aspiration on 07/07/23 and MRI brain while there was no evidence of acute infarct there were changes in the riaz generally seen in neurodegenerative conditions particularly multiple system
atrophy cerebellar type (MSA-C). Patient then noted to have SVT that broke with adenosine 6 mg IV push x1 on 07/08/23 AM and again in the afternoon SVT that broke with adenosine 6 mg IV x1 push. Cardiology consulted and patient started on amiodarone
bolus and then gtt.
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
Subjective
Date of Service: July 11, 2023
no complaints
Objective
Labs:
07/11/23 04:20
07/11/23 04:20
Labs
Hgb 11.2 g/dL (12.0-16.0) L 07/11/23 04:20
Hct 33.1 % (37.0-47.0) L 07/11/23 04:20
Plt Count 273 10^3/uL (130-400) 07/11/23 04:20
PT 15.2 Sec (11.4-14.6) H 07/08/23 21:33
INR 1.18 07/08/23 21:33
APTT 30.1 Sec (23.4-35.0) 07/08/23 21:33
Sodium 132 mmol/L (135-145) L 07/11/23 04:20
Potassium 4.0 mmol/L (3.5-5.1) 07/11/23 04:20
BUN 46 mg/dl (7-17) H 07/11/23 04:20
Creatinine 0.9 mg/dL (0.6-1.0) 07/11/23 04:20
Glucose 240 mg/dl (70-99) H 07/11/23 04:20
Vital Signs and I&O:
Vital Signs
Temp Pulse Resp BP Pulse Ox
98.0 F 74 16 128/93 93
07/11/23 11:51 07/11/23 11:15 07/11/23 11:15 07/11/23 10:00 07/11/23 11:15
Vital Signs
Temp Pulse Resp BP Pulse Ox
98.0 F 74 16 128/93 93
07/11/23 11:51 07/11/23 11:15 07/11/23 11:15 07/11/23 10:00 07/11/23 11:15
Intake & Output
07/09/23 07/10/23 07/11/23 07/12/23
06:59 06:59 06:59 06:59
Intake Total 1419.3 / 1486.0 666.3 / 666.3 16.7 / 16.7
Output Total 1500 / 1800 300 / 300
Balance -80.7 / -314.0 366.3 / 366.3 16.7 / 16.7
Physical Exam
Physical Exam
General: Well developed, well nourished in NAD.
Neck: Supple, no JVD, HJR, carotids +2 B/L, no bruits bilaterally.
Heart: Non displaced PMI, RRR, no murmurs, No S3, S4, no rubs.
Lungs: Clear to auscultation bilaterally, no wheeze, rhonchi, rubs bilaterally,
normal expiratory phase.
Extremities: No clubbing, cyanosis or edema bilaterally.
Neuro: Grossly nonfocal, awake, alert and oriented x3.
[2023-07-11] MEDS: SOLU-MEDROL 258 MG IV (14:02)
[2023-07-11] MEDS: GAMMAGARD 200 IV (16:05)
[2023-07-11 17:12] LABS: Glucose - Point of Care 201 mg/dl (70-99)
[2023-07-11] MEDS: GAMMAGARD 50 IV (18:49)
--- NOTE | 2023-07-11 21:11 | W.PN.URO.CBU ---
Today's Communication / Plan
-
urologically stable
Assessment / Plan
-
? stone and hydro on initial eval
pt imaging shows no hydro and ? calcification is outside course of urinary tract
no intervention required
Diagnosis
-
Date of Service: July 11, 2023
-
Patient Diagnosis:
? ureteral stone
Subjective
-
pt much more awake today
denies any specific left flank pain
no fevers/cr normal/ wbc downtrending
pt had f/u ct showing persistent pelvic calcification- on my review with radiology- not convinced that this was a ureteral stone
has urogram- no hydro- calcification outside course of the ureter
Objective
-
Vital Signs
Temp Pulse Resp BP Pulse Ox
98.2 F 77 19 138/91 90
07/11/23 19:48 07/11/23 20:23 07/11/23 19:30 07/11/23 20:23 07/11/23 19:30
Intake and Output
07/10/23 07/11/23 07/12/23
06:59 06:59 06:59
Intake Total 666.3 / 666.3 16.7 / 106.7 700 / 700
Output Total 300 / 300
Balance 366.3 / 366.3 16.7 / 106.7 700 / 700
Intake:
Oral fluids 0 / 0
IV fluids (Total) 611.3 / 611.3 16.7 / 16.7
Amio 250.3 / 250.3 16.7 / 16.7
aiVF 361 / 361
Tube feeding 20 440 / 440
Feeding tube flush amount 35 / 35 260 / 260
Output:
Urine, Voided 300 / 300
Other:
Number of approximated MODERATE 1
amounts of urine
How many times incontinent 1
SMALL amount urine
How many times incontinent 1 1
MODERATE amount urine
How many times incontinent 1 1
SATURATED amount urine
Laboratory Results
07/11/23 04:20
07/11/23 04:20
Physical Exam
-
General - no acute distress
[2023-07-12] VITALS (14 sets, daily range): BP systolic 127–152; BP diastolic 78–109; PULSE 78; O2SAT 95; BMI 25.1
[2023-07-12] MEDS: NOVOLOG FLEXPEN-LOW RESISTANCE 3 UNITS SC (00:10)
[2023-07-12 00:22] LABS: Glucose - Point of Care 274 mg/dl (70-99)
--- NOTE | 2023-07-12 02:21 | PTCARENOTE ---
Patient in a better mood after getting CT results. Remains on RA, alert and oriented talking on the phone. Incontinent of urine, stating she is aware most times when she is incontinent but isn't strong enough to get to commode or request the bed
rojo. Patient was able to brush her own teeth.
[2023-07-12 05:30] LABS: % Basophils 0.1 % (0-2); % Lymphocytes 2.9 % (20.5-51.1); % Monocytes 3.7 % (1.7-9.3); % Neutrophils 91.3 % (42.2-75.2); Absolute Immature Granulocytes 0.2 10^3/uL (0-0.05); Absolute Lymphocytes 0.3 10^3/uL (1.2-3.4); Absolute Monocytes 0.4 10^3/uL (0.1-0.6); Absolute Neutrophils 8.6 10^3/uL (1.4-6.5); Hematocrit 32.3 % (37.0-47.0); Hemoglobin 11.4 g/dL (12.0-16.0); Mean Corp Hgb Conc. 35.3 g/dL (33.0-37.0); Mean Corpuscular Hgb 31.1 pg (27.0-31.0); Mean Platelet Volume 11.7 fL (7.4-10.4); Nucleated Red Blood Cells % 0 %; Platelet Count 288 10^3/uL (130-400); Red Blood Cell Count 3.67 10^6/uL (4.20-5.40); Red Cell Dist. Width 13.6 % (11.5-14.5); White Blood Cell Count 9.5 10^3/uL (4.8-10.8)
[2023-07-12 06:00] LABS: Blood Urea Nitrogen 43 mg/dl (7-17); Calcium 8.1 mg/dl (8.4-10.2); Carbon Dioxide 28 mmol/L (22-30); Chloride 99 mmol/L (98-107); Estimated Creatinine Clearance 83 ml/min; Glucose 242 mg/dl (70-99); Magnesium 2.1 mg/dl (1.6-2.3); Potassium 4.1 mmol/L (3.5-5.1); Sodium 129 mmol/L (135-145); eGFR > 60.00
[2023-07-12] MEDS: NOVOLOG FLEXPEN-LOW RESISTANCE 2 UNITS SC (06:16)
[2023-07-12 06:24] LABS: Glucose - Point of Care 240 mg/dl (70-99)
--- NOTE | 2023-07-12 07:29 | W.PN.UPDATE ---
Update Note
Progress Note Update
pt stable urologically
wbc normalized
no flank pain
ct with no mass/hydro or stone
treat UTI/bacteremia
call with any further questions
--- NOTE | 2023-07-12 07:36 | W.PN.NEURO.1 ---
Today's Communication / Plan
-
-Finish 5th day 5/5 of IVIG and IV steroids today, these medications will take several days to start effect and will last several weeks to need to keep in mind her dysphagia may improve with time
-Would start Prednisone 50 mg via NG tube tomorrow given suspicion for myasthenia gravis
-Continue Mestinon 60 mg QID via NG tube
-Will request EMG
-Awaiting myasthenia antibodies
-NIF and VC monitor respiratory function
-Mobilization PT as able
-Speech therapy appreciated
Will follow
Neuro Assessment/Plan
Assessment
IMPRESSIONS/RECOMMENDATIONS:
Abrupt onset of worsening of dysphagia, ongoing for approximately 2 years; she also has significant hypophonia, and muscle weakness; patient reports the latter is improved today but it is actually a bit worse on exam
MRI of brain findings suggestive of T2 hyperintensities in the riaz suggestive of multisystem atrophy, do not match the patient's examination or history with lack of autonomic findings including constipation, orthostasis, parkinsonism or cerebellar
syndrome.
She does not have cerebellar limb ataxia or cerebellar eye movement abnormalities. She has long standing history of neuropathy that is producing some sensory ataxia on gait, neuropathy probably due to either Sjogren's and/or previous alcohol use.
Based on clinical picture less likely of a neurodegenerative disease like MSA and more likely the finding is due to microangiopathy and small vessel disease
� Patient also has a prior history of blepharoplasty suggestive of ptosis in the past. This combined with speech changes, dysphagia give moderate suspicion for neuromuscular junction disorder with myasthenia gravis being most likely, less likely a
Lambert Eaton.
Neuropathy has been going on for around 30 years so unlikely this is CIDP, doubt AIDP but this is possible.
Subjective/Objective
Subjective Data
Date of Service: July 12, 2023
No acute events, discussed the suspicion for myasthenia gravis, EMG testing, awaiting antibodies, medical therapies, she denies dyspnea. Says she has had dysphagia and some speech change for about 2 years, no history diplopia
Objective Data
Vital Signs
Temp Pulse Resp BP Pulse Ox
97.5 F 74 19 128/91 93
07/12/23 04:00 07/12/23 05:15 07/12/23 05:15 07/12/23 04:05 07/12/23 05:15
Lab Results
07/12/23 04:08
07/12/23 04:08
PT 15.2 Sec (11.4-14.6) H 07/08/23 21:33
INR 1.18 07/08/23 21:33
APTT 30.1 Sec (23.4-35.0) 07/08/23 21:33
Sodium 129 mmol/L (135-145) L 07/12/23 04:08
Potassium 4.1 mmol/L (3.5-5.1) 07/12/23 04:08
BUN 43 mg/dl (7-17) H 07/12/23 04:08
Glucose 242 mg/dl (70-99) H 07/12/23 04:08
Calcium 8.1 mg/dl (8.4-10.2) L 07/12/23 04:08
Phosphorus 4.1 mg/dl (2.5-4.5) 07/11/23 04:20
Vitamin B12 > 1000 pg/ml (239-931) H 07/08/23 06:03
Ur Buprenorphine Negative (Negative) 07/05/23 12:39
Patient Allergies
latex Allergy (Verified 11/19/22 16:31)
Itching
Penicillins Allergy (Verified 11/19/22 16:31)
Unknown
Review of Systems
-
History Source: Patient
All other systems: Reviewed and negative
Constitutional: No Symptoms
EENT: No Symptoms Reported
Respiratory: No Symptoms; Negative Trouble Breathing
Cardiac: No Symptoms
Genitourinary: No Symptoms
Musculoskeletal: No Symptoms
Skin: No Symptoms
Neuro: Weakness, Speech Problem and See existing Neuro Note
Endocrine: No Symptoms
Hematologic / Lymphatic: No Symptoms
Allergy / Immunology: No Symptoms
Physical Exam
-
General: No Apparent Distress and Appears Chronically Ill
Eyes: No Ptosis
HEENT: Normocephalic and Other (DHT in place)
Neck: No Bruits Bilaterally
Respiratory: Clear to Auscultation
Cardiac: Regular Rhythm
Skin: Unremarkable
Extremities: No Clubbing
Psych: Negative Confused
Extended Neurological Exam
Attention Span & Concentration: Awake, Alert and Interactive
Memory: Able to Recall
Tremor: Hand Tremor Absent
Involuntary Movement: None
Speech: Quality Unremarkable, Quantity Unremarkable and Other (Hypophonic, dysarthric)
Cranial Nerve II: Left Eye: Pupillary Reactivity Unremarkable, Pupillary Size Unremarkable and Visual Trammell Reduced
Cranial Nerve II: Right Eye: Pupillary Reactivity Unremarkable, Pupillary Size Unremarkable and Visual Trammell Reduced
Cranial Nerves III, IV, : Extraocular Movement: Other (No EOM abnormalities, can sustain upgaze for 1 minute)
Cranial Nerve VII: Facial Symmetry: Normal Facial Symmetry
Muscle Strength, Overall: Other (Limited due to shoulder pain in abduction is 4-/5 bilaterally, arm flexion/extension 5/5 bilaterally, hip flexion 4/5 bilaterally, )
Deep Tendon Reflexes: Absent Throughout
Modified Barber Score (MRS)
-
MRS Score:
Data Reviewed
-
MRI Head: Report Reviewed and Image Reviewed
EMG: Ordered and Pending
[2023-07-12] MEDS: ATIVAN 0.5 MG IV ×2 (07:43→19:56)
[2023-07-12] MEDS: PROTONIX IV 40 MG IV (07:43)
[2023-07-12] MEDS: NSS (PRESERVATIVE FREE) 10 ML IV (07:43)
[2023-07-12] MEDS: CLARITIN 10 MG TUBE (07:44)
[2023-07-12] MEDS: LOPRESSOR 25 MG TUBE ×2 (07:44→19:59)
[2023-07-12] MEDS: FOLVITE 1 MG TUBE (07:44)
[2023-07-12] MEDS: THIAMINE INJECTION 200 MG IV (07:44)
[2023-07-12] MEDS: MESTINON 60 MG TUBE ×4 (07:44→22:07)
[2023-07-12] MEDS: NSS (PRESERVATIVE FREE) 0.25 ML IV ×2 (07:44→19:57)
[2023-07-12] MEDS: LIDOCAINE 4% PATCH 1 PATCH TOPICAL ×2 (07:45→07:46)
[2023-07-12] MEDS: DICLOFENAC 1% TOPICAL GEL 100 GRAM TOPICAL ×3 (07:45→18:22)
[2023-07-12] MEDS: RESTASIS 0.05% OPHTHALMIC EMULSION 1 DROPS BOTH EYES ×2 (07:46→19:59)
[2023-07-12] MEDS: NEURONTIN 300 MG TUBE ×2 (07:46→19:58)
--- NOTE | 2023-07-12 08:00 | PTCARENOTE ---
Received pt @ change of shift. Pt. drowsy, oriented x3, forgetful/anx @ x's. Weak voice quality w slow/garbled speech. SR on monitor. SpO2 95% on RA. Weak/moist/occ productive cough. Sputum thick white. Cont/Inc of b/b, will attempt bed rojo @ x's.
+BS, abd soft/round/obese. R nare dobhoff in place w TF- Jevity 1.5 @ 55mL/hr w 35mL/hr H20 flush; 5 mL residual. Assisted w repositioning in bed. R DL PICC patent, dressing c/d/i. Pt. informed on plan of care and instructed on how to report care
concerns. Call nixon placed w in reach.
--- NOTE | 2023-07-12 09:10 | PTOTSP ---
Speech Language Pathology
Pt seen for dysphagia tx. Today is day 5/5 for IVIG and steroids. Dysphonia noted with breathy, hoarse voice with decreased intensity. Also intermittent wet quality noted. In addition, resonance continues to be hypernasal with suspected
continued velopharyngeal incompetence (VPI).
Pt reporting vocal and GI hx. She reported significant globus sensation in mid-chest for some time at home. Per pt, many family members have 'kinked' esophagus and multiple family members have required serial dilitations. 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 She does not recall any other details about this. Given fact that pt states she has a loud voice typically, question if it is paralyzed
in the paramedian or closed position.
Trialed ice chips. Pt noting to be taking up to 7 ice chips at once on a spoon. Discussed single ice chips to minimize risk of aspiration. Discussed benefits of ice chips vs risks. Pt then took 3 ice chips at once. DIE WELDER showed pt a single ice
chip on spoon, and she stated 'it's so tiny.' Cough with 1st tsp of ice chips. Given continued dysphonia, resonance issues with suspected VPI, signs of aspiration with ice chips, and continued overall weakness, do not suspect pt is yet ready for
repeat VSE. Discussed with pt.
Recommend:
1. Continued NPO with alternate short-term means of nutrition
2. Oral care 4x/day with suctioning as needed
3. Allow single ice chips post oral care per Aspiration Risk Hydration Protocol (ARHP)
4. Repeat VSE once improvement noted (not yet ready)
5. DIE WELDER to continue to follow
--- NOTE | 2023-07-12 09:12 | W.PN.HOSP.TC ---
Today's Communication/Plan
-
EMG today
Completed IV steroids and IVIG today
Prednisone via tube tomorrow
Continue Mestinon
Assessment / Plan
Assessment / Plan
Physical Exam
General: No Apparent Distress
HEENT: (hoarse voice persistent; dobhoff in place)
Respiratory: Clear to Auscultation Bilaterally
Cardiac: S1/S2
GI: Soft and Nontender
Musculoskeletal: No Edema
Skin: Warm and Dry
Neuro: Awake, Alert, AO x 3 and Other (diffuse joint pain; sensitive to touch )
Psych: Calm

CT A/P
IMPRESSION:
1. There is moderate left hydronephrosis likely related to a left ureterovesical stone. There is prominent perinephric inflammation bilaterally.
2. There is probable atelectasis in the lung bases bilaterally.
MRI BRAIN
IMPRESSION:
1. No MRI evidence for an acute infarct.
2. 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

Assessment/Plan
Acute hypovolemic hyponatremia with Na down to 118 (prior labs from 2019 at 134)
Recent Poor PO Intake Leading Up to Hospitalization
Presentation with Nausea/Vomiting
-Received some normal saline and 3% saline, required D5W to correct rate
-Na now stable
-appreciate renal
-fluids now off, on TF
Severe Dysphagia
-patient unsafe to swallow all solid and liquid consistencies
-MRI w e/o MSA cerebellar type, per neuro clinically does not fit diagnosis; concern raised for Myasthenia Gravis
-F/U AchRAB
-Completed IVIG and Steroids on 07/12/23 - per neurology, these medications will take several days to start effect and will last several weeks
-Continue pyridostigmine 60 mg QID via NG tube
-Start Prednisone 50 mg via NG tube on 07/13/23 given suspicion for myasthenia gravis
-Monitor NIF/VC's
-EMG follow-up
-neurology consult appreciated
-dobhoff placed and TF initiated on 07/09
-daily ST
-patient and sister told not a guarantee we can avoid PEG; on 07/10 she was cleared for ice chips
SVT
-SVT x 2 on 07/08 broke with adenosine 6mg each time
-appreciate cardiology, started on an amio gtt and now transitioned to BID Metoprolol
-Continue Lopressor
-Follow-up with cardiology for EP eval as outpt to discuss SVT ablation.
E. Coli UTI and Bacteremia
Ureterovesical stone; left hydronephrosis
-Continue IV Ceftriaxone to 2G q 24 hours
-WBC was increasing and finding of ureterovesical stone seen on 07/07. OR held given cardiac and neurological active issues; and now held as patient's WBC improving and pain resolved
-WBC now 12
-Repeat CT: no mass/hydro or stone
-appreciate Urology
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
Generalized Weakness
Paranoia
Alcohol withdrawal
-patient with worsening psychosis Wednesday 07/05 and initiated treated with high dose thiamine and alcohol withdrawal
-continue daily thiamine/folate
-MSAS protocol
-appreciate psychiatry recs
-hold wellbutrin and adderral (as below)
Non-Anion Gap Metabolic Acidosis
Acute Kidney Injury
-creatinine stable post IVF
Sjogren's Syndrome - Hold Hydroxychloroquine given reaction with amio --> F/U with pharmacy/cards when OK to resume
Right acromioclavicular injury
Suspected history of osteoarthritis
ADHD - hold home Adderall given acute psychosis
Anxiety - Continue home Klonopin, now IV ativan
Depression - hold home Wellbutrin given acute psychosis
History of Juwan-en-Y (cory-en-wy) gastric bypass surgery
DVT Prophylaxis: Heparin subq
Code Status: Full Code
Anticipated Discharge: > 48 hours
Subjective/Interval History
-
Date of Service: July 12, 2023
Patient was seen and examined. She appeared to be awake and appropriately answering questions but earlier in the morning she was reported to be drowsy.
Objective Data
-
Labs:
Laboratory Results
07/12/23
04:08
WBC 9.5
Hgb 11.4 L
Hct 32.3 L
Plt Count 288
Sodium 129 L
Potassium 4.1
Chloride 99
Carbon Dioxide 28
BUN 43 H
Creatinine 0.7
Glucose 242 H
Calcium 8.1 L
Vital Signs:
Vital Signs
Temp Pulse Resp BP Pulse Ox
98 F 81 19 142/90 93
07/12/23 08:00 07/12/23 07:44 07/12/23 05:15 07/12/23 07:44 07/12/23 05:15
I&O
07/11/23 07/12/23 07/13/23
06:59 06:59 06:59
Intake Total 16.7 / 106.7 1779
Balance 16.7 / 106.7 1779
--- NOTE | 2023-07-12 09:37 | W.PN.CARDCBS ---
Today's Communication / Plan
-
No recurrent SVT.
Cont Lopressor.
Discussed eventual consideration for ablation. She states she has had 3 episodes of SVT and her preference is to consider outpt eval for SVT ablation
Will have her follow up with EP eval as outpt to discuss SVT ablation.
Will arrange outpt follow up
Please recall if needed.
Impression / Plan
-
PCP: Dr. Ashley Brennan
Cardiology: None prior to admission
Impression:
Admitted with generalized weakness 07/03/23
Hyponatremia, initial sodium 118 on 07/03/23
SVT seen 07/08/23
Partially obstructing left UVJ stone with mild hydronephrosis, resolved
E coli UTI
E coli bacteremia
Dysphagia
Possible myasthenia gravis
TME
ADHD on Adderall prior to admission
Sjogren's syndrome on chronic hydroxychloroquine
Hx gastric bypass
Anxiety
Echo 07/08/23: EF 55 to 60%
Plan:
No recurrent SVT.
Cont Lopressor.
Discussed eventual consideration for ablation. She states she has had 3 episodes of SVT and her preference is to consider outpt eval for SVT ablation
Will have her follow up with EP eval as outpt to discuss SVT ablation.
Discussed maneuvers.
Cont supportive care
Discussed with nursing.
Will arrange outpt follow up
Please recall if needed.
PREADMIT DATA: -[facility] with trouble walking and is now admitted with bacteremia, hyponatremia, dysphagia and kidney stone, cardiology has been consulted for new SVT seen on tele today. Patient came to [facility] with trouble
walking described as right knee pain and generalized weakness. Patient has a h/o Sjogren's and takes hydroxychloroquine, but has never had problems like this before. Patient was admitted hypovolemic hyponatremia and sodium as low as 118. Patient was
given 3% saline and seen by Nephrology. Hyponatremia thought to be due to poor PO intake. There are concerns for ETOH use disorder. Patient became increasingly paranoid and was started on the MSAS protocol. Blood and urine cultures then returned
positive for E coli. CT abd/pelvis with evidence of partially obstructing left UVJ stone with mild hydronephrosis. Urology felt patient was not a surgical candidate and plan was for IR, but in IR they felt hydronephrosis was minimal and IR procedure
cancelled. Urology was back to considering possible cystoscopy. Patient then had aspiration on 07/07/23 and MRI brain while there was no evidence of acute infarct there were changes in the riaz generally seen in neurodegenerative conditions
particularly multiple system atrophy cerebellar type (MSA-C). Patient then noted to have SVT that broke with adenosine 6 mg IV push x1 on 07/08/23 AM and again in the afternoon SVT that broke with adenosine 6 mg IV x1 push. Cardiology consulted and
patient started on amiodarone bolus and then gtt.
Progress Note - Cell Tuber Hand
Subjective
Date of Service: July 12, 2023
Pt seen and examined. No complaints. No chest pain or shortness of breath.
Objective
Labs:
07/12/23 04:08
07/12/23 04:08
Labs
Hgb 11.4 g/dL (12.0-16.0) L 07/12/23 04:08
Hct 32.3 % (37.0-47.0) L 07/12/23 04:08
Plt Count 288 10^3/uL (130-400) 07/12/23 04:08
PT 15.2 Sec (11.4-14.6) H 07/08/23 21:33
INR 1.18 07/08/23 21:33
APTT 30.1 Sec (23.4-35.0) 07/08/23 21:33
Sodium 129 mmol/L (135-145) L 07/12/23 04:08
Potassium 4.1 mmol/L (3.5-5.1) 07/12/23 04:08
BUN 43 mg/dl (7-17) H 07/12/23 04:08
Creatinine 0.7 mg/dL (0.6-1.0) 07/12/23 04:08
Glucose 242 mg/dl (70-99) H 07/12/23 04:08
Vital Signs and I&O:
Vital Signs
Temp Pulse Resp BP Pulse Ox
98 F 81 19 142/90 93
07/12/23 08:00 07/12/23 07:44 07/12/23 05:15 07/12/23 07:44 07/12/23 05:15
Vital Signs
Temp Pulse Resp BP Pulse Ox
98 F 81 19 142/90 93
07/12/23 08:00 07/12/23 07:44 07/12/23 05:15 07/12/23 07:44 07/12/23 05:15
Intake & Output
07/10/23 07/11/23 07/12/23 07/13/23
06:59 06:59 06:59 06:59
Intake Total 666.3 / 666.3 16.7 / 106.7 1779
Output Total 300 / 300
Balance 366.3 / 366.3 16.7 / 106.7 1779
Physical Exam
Physical Exam
General: No acute distress, AAOX3
Neck: Negative JVD
Heart: Regular, Negative S3 positive S1/S2, Negative S4, No murmur
Lungs: CTA b/l, negative wheezes/rales/rhonchi
Abd: Positive BS, NT/ND, neg rebound/rigidity/guarding
Ext: Negative cyanosis/clubbing/edema
Neuro: nonfocal
[2023-07-12] MEDS: ROCEPHIN 2000 MG IV (10:47)
[2023-07-12] MEDS: STERILE WATER FOR INJECTION 20 ML IV (10:48)
--- NOTE | 2023-07-12 12:02 | PN.DE.MGMTRT ---
Insulin Management
- -
07/12/2023: Diabetes Management Consult:
58 year old female with PMH that includes: Sjogren's Syndrome, right acromioclavicular injury, suspected history of osteoarthritis, anxiety, depression and Juwan-en-Y (cory-en-wy) gastric bypass surgery. Pt was admitted on 07/03 with Abrupt onset of
worsening of dysphagia, increasing generalized weakness, ambulatory dysfunction, abdominal discomfort, poor appetite, and diarrhea likely due to myasthenia gravis. She is also being treated for bacteremia, hyponatremia, dysphagia and kidney stone.
Currently on IVIG, IV steroids and tube feeds with subsequent Hyperglycemia. A1C 5.5%, No prior hx of Diabetes and was not on any meds TPA.
Diabetes regimen includes: low corrective insulin. Glucose has trended up to 274, has received 1-3 units of corrective.
Will start Lantus 10 units, 1st dose now and daily there after. Start NovoLog 4 units Q6 hrs while on TF, hold dose if TF interrupted or on hold.
Cont low corrective Q6 hrs.
Diabetes History
- -
Type of Diabetes: 2 requiring insulin
Pre-Admission Diabetes Regimen
07/12/23
04:08
Creatinine 0.7
Lab Results
Hemoglobin A1c 5.5 % (4.0-5.6) 07/09/23 06:26
Insulin Pump Settings
IP Diabetes Regimen
07/11/23 07/11/23 07/12/23
11:53 17:01 00:09
Glucose
POC Glucose 228 H 201 H 274 H
07/12/23 07/12/23
04:08 06:13
Glucose 242 H
POC Glucose 240 H
Patient Education
[2023-07-12 12:26] LABS: Glucose - Point of Care 124 mg/dl (70-99)
--- NOTE | 2023-07-12 12:40 | NS.EMG ---
Electromyogram (EMG) Study
EMG/NCS Summary
Impressions: 1. 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
2. Normal left ulnar motor and facial motor nerve repetitive stimulation technique. (The patient is on pyridostigmine with most recent dose around 7 a.m. today.)
3. Impaired muscle activation of the proximal limb musculature but with normal morphology and recruitment pattern of the motor unit potentials.
Tabular data and full dictated report to follow.
[2023-07-12] MEDS: NOVOLOG FLEXPEN-LOW RESISTANCE SC (12:58)
[2023-07-12] MEDS: LANTUS 0.100000000000000006 UNITS SC (13:15)
[2023-07-12] MEDS: GAMMAGARD 200 IV (13:16)
[2023-07-12] MEDS: SOLU-MEDROL 258 MG IV (15:55)
[2023-07-12] MEDS: GAMMAGARD 50 IV (16:04)
--- NOTE | 2023-07-12 16:44 | PTCARENOTE ---
Pt. assisted OOB this afternoon w/ PT/OT, utilizing sit to stand. Pt. tolerated OOB to chair position for approx 4H. Pt. unable to tolerate sit to stand method of getting back to bed. Lifted from chair to bed. Pt. repositioned and call nixon
placed w in reach.
[2023-07-12 17:55] LABS: Glucose - Point of Care 162 mg/dl (70-99)
[2023-07-12] MEDS: NOVOLOG FLEXPEN-LOW RESISTANCE 1 UNITS SC (18:22)
[2023-07-12] MEDS: NOVOLOG FLEXPEN 4 UNITS SC (18:22)
[2023-07-12] MEDS: DICLOFENAC 1% TOPICAL GEL 1 GRAM TOPICAL (22:07)
[2023-07-13] VITALS (13 sets, daily range): BP systolic 135–160; BP diastolic 87–121; BMI 24.7
[2023-07-13 00:12] LABS: Glucose - Point of Care 219 mg/dl (70-99)
[2023-07-13] MEDS: NOVOLOG FLEXPEN-LOW RESISTANCE 2 UNITS SC ×3 (00:22→12:44)
[2023-07-13] MEDS: NOVOLOG FLEXPEN 4 UNITS SC ×2 (00:22→05:32)
[2023-07-13 04:15] LABS: % Basophils 0.1 % (0-2); % Immature Granulocytes 1.4 % (0-0.5); % Lymphocytes 1.7 % (20.5-51.1); % Monocytes 2.5 % (1.7-9.3); % Neutrophils 94.3 % (42.2-75.2); Absolute Immature Granulocytes 0.1 10^3/uL (0-0.05); Absolute Lymphocytes 0.2 10^3/uL (1.2-3.4); Absolute Monocytes 0.3 10^3/uL (0.1-0.6); Absolute Neutrophils 9.6 10^3/uL (1.4-6.5); Hemoglobin 11.2 g/dL (12.0-16.0); Mean Corpuscular Volume 88.6 fL (81.0-99.0); Mean Platelet Volume 11.8 fL (7.4-10.4); Nucleated Red Blood Cells % 0 %; Platelet Count 313 10^3/uL (130-400); Red Blood Cell Count 3.61 10^6/uL (4.20-5.40); Red Cell Dist. Width 13.5 % (11.5-14.5); White Blood Cell Count 10.1 10^3/uL (4.8-10.8)
[2023-07-13 04:46] LABS: Blood Urea Nitrogen 45 mg/dl (7-17); Calcium 8.3 mg/dl (8.4-10.2); Carbon Dioxide 30 mmol/L (22-30); Chloride 96 mmol/L (98-107); Estimated Creatinine Clearance 83 ml/min; Glucose 217 mg/dl (70-99); Potassium 4.1 mmol/L (3.5-5.1); Sodium 132 mmol/L (135-145); eGFR > 60.00
[2023-07-13 05:22] LABS: Glucose - Point of Care 227 mg/dl (70-99)
--- NOTE | 2023-07-13 05:50 | PTCARENOTE ---
07/12/23- received pt from dayshift RN, assessments completed and charted. patient axox3 able to make all needs known, offers no c/o pain at this time. pt has tube feed running at goal, pt remains on room air, no c/o sob/difficulty breathing. pt
has hoarse/wispery voice - this is baseline. patient has lidocaine patches removed from knee/shoulder. voltaren gel applied as ordered. BG taken and insulin given as ordered as well
patient eating ice with no difficulty, given small cup every 2 hrs.
07/13/23 - 0100 pt sleeping all shift, patient was incontinent x2, assessments remains the same
0500 - patient has large bowel movement, used bedpan. insulin given for bg of 237 this am,
patient resting comfortably, no further needs at this time, call nixon and cell phone with in reach.
--- NOTE | 2023-07-13 08:30 | PTCARENOTE ---
Received pt @ change of shift. Drowsy, awakened to verbal stim. Oriented x3, forgetful/anx/tearful @ x's. Weak voice quality w slow/garbled speech. SR on monitor. SpO2 93% on RA. Excessive oral secretions w thick/white sputum, suction anchor in
reach. +BS, abd soft/round. R nare dobhoff in place w TF Jevity 1.5 @ 55mL/hr w 25mL/hr H20 flush; 0 residual. Cont/Inc of b/b. Bedpan/hygiene care provided prn. Pt. able to turn self in bed. Instructed on how to report care concerns. Call nixon
w in reach.
[2023-07-13] MEDS: ATIVAN 0.5 MG IV ×2 (08:43→20:21)
[2023-07-13] MEDS: NSS (PRESERVATIVE FREE) 10 ML IV (08:44)
[2023-07-13] MEDS: RESTASIS 0.05% OPHTHALMIC EMULSION 1 DROPS BOTH EYES ×2 (08:44→20:22)
[2023-07-13] MEDS: NEURONTIN 300 MG TUBE ×2 (08:44→20:22)
[2023-07-13] MEDS: NSS (PRESERVATIVE FREE) 0.25 ML IV ×2 (08:44→20:21)
[2023-07-13] MEDS: PROTONIX IV 40 MG IV (08:44)
[2023-07-13] MEDS: FOLVITE 1 MG TUBE (08:45)
[2023-07-13] MEDS: LOPRESSOR 25 MG TUBE ×2 (08:45→20:22)
[2023-07-13] MEDS: CLARITIN 10 MG TUBE (08:45)
[2023-07-13] MEDS: MESTINON 60 MG TUBE (08:45)
[2023-07-13] MEDS: LIDOCAINE 4% PATCH 1 PATCH TOPICAL ×2 (08:45→08:46)
[2023-07-13] MEDS: THIAMINE INJECTION 200 MG IV (08:45)
[2023-07-13] MEDS: DELTASONE 50 MG TUBE (08:45)
[2023-07-13] MEDS: DICLOFENAC 1% TOPICAL GEL 100 GRAM TOPICAL ×4 (08:46→21:41)
--- NOTE | 2023-07-13 08:59 | W.PN.NEURO.1 ---
Today's Communication / Plan
-
Await blood work for acetylcholine receptor antibodies
continue Pyridostigmine, increase from 60 mg 4x/day to 90 mg 4x/day
Imodium as needed for diarrhea produced by Pyridostigmine
Will need feeding tube
Neuro Assessment/Plan
Assessment
IMPRESSIONS/RECOMMENDATIONS:
Abrupt onset of worsening of dysphagia, ongoing for approximately 2 years; she also has significant hypophonia, and muscle weakness; patient reports the latter is improved
MRI of brain findings suggestive of T2 hyperintensities in the riaz suggestive of multisystem atrophy.
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
MRI findings do not match the patient's examination or history with lack of autonomic findings including constipation, orthostasis, parkinsonism or cerebellar syndrome.
She does not have cerebellar limb ataxia or cerebellar eye movement abnormalities. She has long standing history of neuropathy that is producing some sensory ataxia on gait, neuropathy probably due to either Sjogren's and/or previous alcohol use.
Based on clinical picture less likely of a neurodegenerative disease like MSA and more likely the finding is due to microangiopathy and small vessel disease
Patient also has a prior history of blepharoplasty suggestive of ptosis in the past. This combined with speech changes, dysphagia give moderate suspicion for neuromuscular junction disorder with myasthenia gravis being most likely, less likely a
Lambert Eaton. Also possible is oculopharyngeal dystrophy despite EMG results.
Initiated immunoglobulins 0.4 mg/kg/day for 5 days, completed
Initiated methylprednisolone 1 g daily for 5 days, completed
Dobhoff in place
Plan
Await blood work for acetylcholine receptor antibodies
continue Pyridostigmine, increase from 60 mg 4x/day to 90 mg 4x/day
Imodium as needed for diarrhea produced by Pyridostigmine
Will need feeding tube
check NIF/VC BID (reduced from TID; all stable thus far)
Rehabilitation evaluations
No contraindications to planned urological procedure with the exception of limitations with medications based on possible myasthenia gravis
Will follow.
Subjective/Objective
Subjective Data
Date of Service: July 13, 2023
Objective Data
Vital Signs
Temp Pulse Resp BP Pulse Ox
36.7 C 79 16 144/97 84
07/13/23 08:12 07/13/23 08:45 07/13/23 04:00 07/13/23 08:45 07/13/23 04:00
Lab Results
07/13/23 03:48
07/13/23 03:48
PT 15.2 Sec (11.4-14.6) H 07/08/23 21:33
INR 1.18 07/08/23 21:33
APTT 30.1 Sec (23.4-35.0) 07/08/23 21:33
Sodium 132 mmol/L (135-145) L 07/13/23 03:48
Potassium 4.1 mmol/L (3.5-5.1) 07/13/23 03:48
BUN 45 mg/dl (7-17) H 07/13/23 03:48
Glucose 217 mg/dl (70-99) H 07/13/23 03:48
Calcium 8.3 mg/dl (8.4-10.2) L 07/13/23 03:48
Phosphorus 4.1 mg/dl (2.5-4.5) 07/11/23 04:20
Vitamin B12 > 1000 pg/ml (239-931) H 07/08/23 06:03
Ur Buprenorphine Negative (Negative) 07/05/23 12:39
Patient Allergies
latex Allergy (Verified 11/19/22 16:31)
Itching
Penicillins Allergy (Verified 11/19/22 16:31)
Unknown
Review of Systems
-
History Source: Patient
All other systems: Reviewed and negative
EENT: Swallowing Difficulty; Negative Blurry Vision
Respiratory: Negative Trouble Breathing
Cardiac: Negative Chest Pain
Abdomen/GI: Incontinence of Stool
Genitourinary: Negative Incontinence
Physical Exam
-
General: No Apparent Distress and Appears Stated Age
Eyes: Round OU, [place] Conjunctivae and No Ptosis
HEENT: Anicteric and Moist Mucous Membranes
Neck: Full Range of Motion
Respiratory: No Dyspnea
Cardiac: No JVD
GI: Non-distended
Skin: Unremarkable
Extremities: No Clubbing, No Cyanosis and No Edema
Psych: Negative Intact Judgement/Insight
Extended Neurological Exam
Mood & Affect: Depressed
Attention Span & Concentration: Awake, Alert and Interactive
Memory: Reduced (for specifics of information given from prior day)
Tremor: Hand Tremor Absent and Head Tremor Absent
Speech: Quantity Unremarkable and Other (hypophonic significantly)
Cranial Nerve II: Left Eye: Pupillary Size Unremarkable and Visual Trammell Grossly Intact
Cranial Nerve II: Right Eye: Pupillary Size Unremarkable and Visual Trammell Grossly Intact
Cranial Nerves III, IV, : Extraocular Movement: Grossly Intact
Cranial Nerve VII: Facial Symmetry: Normal Facial Symmetry
Cranial Nerve VIII: Hearing: Unremarkable Hearing to Normal Conversational Volume
Cranial Nerve XI: Shoulder Shrug: Unremarkable
Muscle Strength, Overall: Other (4/5 PROXIMALLY IN ALL EXT, 5-/5 neck flexors, 5-/5 neck extensor strength)
Muscle Bulk & Tone: Tone Unremarkable and Decreased Bulk (proximally in LEs)
Pronator Drift: Unable to Assess
Touch Sensation: Unremarkable
Coordination: Reaches for Objects without Difficulty
Gait & Station: Unable to Assess
Modified [place] Score (MRS)
-
MRS Score:
Data Reviewed
-
Labs: Report Reviewed
Reviewed with: Physician, Nurse, Nurse Practioner and Patient
Old Records: Summarized
Past History
Past History
ED Past Medical History: Other (Dysphagia, ADHD)
ED Past Surgical History: Cholecystectomy and Other (blepharoplasty)
Family History
Family History: Other (reviewed and non-contributory)
Medications
-
Medications:
Generic Name Dose Route Start Last Admin
Trade Name Freq PRN Reason Stop Dose Admin
Acetaminophen 650 mg 07/09/23 13:51
Acetaminophen (Oral Solution) 650 Mg/20.3 Ml Cup TUBE 08/06/23 13:50
Q6HPRN PRN
mild pain/ fever>100.5F
Acetaminophen 1,000 mg 07/09/23 14:11
Acetaminophen (Oral Solution) 650 Mg/20.3 Ml Cup TUBE 08/06/23 13:51
Q6HPRN PRN
knee pain
Albuterol 2 puff 07/05/23 08:23
Albuterol Hfa [90 Mcg/Dose] Inhaler INH 08/02/23 08:22
R Q4HPRN PRN
SOB/WHEEZE
Ceftriaxone Sodium 2,000 mg 07/05/23 10:00 07/12/23 10:47
Ceftriaxone 2,000 Mg/20 Ml Vial IV 2,000 mg
Q24H ALEJANDRA Administration
Cyclosporine 1 drops 07/05/23 20:00 07/13/23 08:44
Cyclosporine 0.05% (Ophthalmic Emulsion) 10 Drop Droperette BOTH EYES 08/02/23 19:59 1 drops
BID ALEJANDRA Administration
Dextrose 12.5 grams 07/08/23 20:00
Dextrose 50% (0.5 Grams/Ml) 50 Ml Syringe IV 08/05/23 19:59
[id number] PRN
hypoglycemia
Protocol
Diclofenac Sodium 0 gram 07/10/23 13:00 07/13/23 08:46
Diclofenac 1% Topical Gel 100 Gram Tube TOPICAL 08/07/23 12:59 100 gram
QID ALEJANDRA Administration
Protocol
Folic Acid 1 mg 07/09/23 08:00 07/13/23 08:45
Folic Acid 1 Mg Tablet TUBE 08/06/23 07:59 1 mg
DAILY ALEJANDRA Administration
Gabapentin 300 mg 07/09/23 20:00 07/13/23 08:44
Gabapentin Solution 600 Mg/12 Ml Cup TUBE 08/06/23 19:59 300 mg
BID ALEJANDRA Administration
Glucagon 1 mg 07/08/23 20:00
Glucagon 1 Mg Vial IM 08/05/23 19:59
PRN PRN
hypoglycemia - no IV access
Protocol
Guaifenesin/Dextromethorphan 5 ml 07/06/23 04:19
Guaifenesin/Dextromethorphan 200 Mg/10 Ml Cup PO 08/03/23 04:18
Q4HPRN PRN
cough
Folic Acid 1 mg/ Sodium 50.2 mls @ 200.8 mls/hr 07/05/23 10:49
Chloride IV 08/02/23 10:48
DAILYPRN PRN
if NPO
Insulin Glargine 10 units/ 0.1 mls @ 0 mls/hr 07/13/23 12:00
Device SC 08/10/23 11:59
DAILY@1200 ALEJANDRA
As Directed
Insulin Aspart 4 units 07/12/23 18:00 07/13/23 05:32
Insulin Aspart (100 Units/Ml) 3 Ml Flexpen SC 08/09/23 17:59 4 units
Q6 ALEJANDRA Administration
Insulin Aspart 0 units 07/12/23 18:00 07/13/23 05:32
Insulin Aspart Low Resistance 300 Units/3 Ml Pen.Injctr SC 08/09/23 17:59 2 units
Q6 ALEJANDRA Administration
Protocol
Lidocaine 1 patch 07/09/23 14:45 07/13/23 08:45
Lidocaine 4% Topical Patch TOPICAL 08/06/23 14:44 1 patch
DAILY ALEJANDRA Administration
Lidocaine 1 patch 07/09/23 14:45 07/13/23 08:46
Lidocaine 4% Topical Patch TOPICAL 08/06/23 14:44 1 patch
DAILY ALEJANDRA Administration
Loratadine 10 mg 07/09/23 08:00 07/13/23 08:45
Loratadine 10 Mg Tablet TUBE 08/06/23 07:59 10 mg
DAILY ALEJANDRA Administration
Lorazepam 1 mg 07/05/23 10:49 07/06/23 02:18
Lorazepam 2 Mg/Ml Vial IV 08/02/23 10:48 1 mg
Q2HPRN PRN Administration
MSAS 5-7
Lorazepam 1 mg 07/05/23 10:49 07/05/23 13:31
Lorazepam 2 Mg/Ml Vial IV 08/02/23 10:48 1 mg
Q1HPRN PRN Administration
MSAS 8-11
Lorazepam 2 mg 07/05/23 10:49
Lorazepam 2 Mg/Ml Vial IV 08/02/23 10:48
Q1HPRN PRN
MSAS > 11
Lorazepam 0.5 mg 07/06/23 20:00 07/13/23 08:43
Lorazepam 2 Mg/Ml Vial IV 08/03/23 19:59 0.5 mg
BID ALEJANDRA Administration
Metoprolol Tartrate 25 mg 07/10/23 10:00 07/13/23 08:45
Metoprolol 25 Mg Regular Release Tablet TUBE 08/07/23 09:59 25 mg
BID ALEJANDRA Administration
Estradiol- 0 patch 07/10/23 08:00 07/10/23 10:36
Levonorgestrel [ TRANSDERM 08/07/23 07:59 Not Given
Climara Pro] 0.045-0 WEEKLY ALEJANDRA
.015 Mg/24 Hr Pat
Pantoprazole Sodium 40 mg 07/06/23 16:00 07/13/23 08:44
Pantoprazole Sodium 40 Mg/10 Ml Vial IV 08/03/23 15:59 40 mg
DAILY ALEJANDRA Administration
Patch Removal 0 patch 07/10/23 20:00 07/12/23 19:59
Remove Lidocaine Patch REMOVE 08/07/23 19:59 1 patch
DAILY@1999 ALEJANDRA Administration
Patch Removal 0 patch 07/10/23 20:00 07/12/23 19:59
Remove Lidocaine Patch REMOVE 08/07/23 19:59 1 patch
DAILY@1999 ALEJANDRA Administration
Prednisone 50 mg 07/13/23 08:00 07/13/23 08:45
Prednisone 50 Mg Tablet TUBE 08/10/23 07:59 50 mg
DAILY ALEJANDRA Administration
Pyridostigmine [place] 60 mg 07/09/23 14:05 07/13/23 08:45
Pyridostigmine 60 Mg Tablet TUBE 08/06/23 14:04 60 mg
QID ALEJANDRA Administration
Fluticasone/Salmeterol 2 puff 07/06/23 16:18
Advair Hfa 115/21 Inhaler INH 08/02/23 19:59
R BIDPRN PRN
SOB/WHEEZE
Sodium Chloride 0 flush 07/03/23 14:00 07/07/23 04:44
Sodium Chloride 0.9% (Flush) Syringe IV 07/31/23 13:59 1 flush
PER PROTOCOL ALEJANDRA Administration
Sodium Chloride 0 ml 07/05/23 10:49
Sodium Chloride 0.9% (Preservative Free) 10 Ml Vial IV 08/02/23 10:48
PRN PRN
To dilute IV Ativan
Protocol
Sodium Chloride 0.25 ml 07/06/23 20:00 07/13/23 08:44
Nss (Pf) 10 Ml Vial For Ativan 0.5 Mg Dose IV 08/03/23 19:59 0.25 ml
BID ALEJANDRA Administration
Sodium Chloride 10 ml 07/06/23 16:00 07/13/23 08:44
Sodium Chloride 0.9% (Preservative Free) 10 Ml Vial IV 08/03/23 15:59 10 ml
DAILY ALEJANDRA Administration
Sterile Water 20 ml 07/05/23 09:00 07/12/23 10:48
Sterile Water For Injection 20 Ml Vial IV 08/02/23 08:59 20 ml
Q24H ALEJANDRA Administration
Thiamine HCl 200 mg 07/08/23 08:00 07/13/23 08:45
Thiamine (100 Mg/Ml) 2 Ml Vial IV 08/05/23 07:59 200 mg
DAILY ALEJANDRA Administration
--- NOTE | 2023-07-13 09:22 | PN.DE.MGMTRT ---
Insulin Management
- -
07/13/2023 Diabetes Management Follow up
Patient admitted 07/03 with hyponatremia, possible UTI. PMH includes Sjogrens syndrome, anxiety, depression, alem-en,y, osteoarthritis. No history of diabetes, A1C 5.5%, cr .7, egfr >60. She is currently undergoing work up for possible Myasthenia
Gravis. She is receiving tube feeds @ 55 per hour.
Patient has been started on steroids, glucose trended up. Lantus 10 units in AM started yesterday, with 4 units novolog Q 6 hours. Glucose range 124 to 240. Will increase Q 6 hour novolog to 6 units with low corrective insulin. Will increase
lantus to 12 units in AM. Will follow.
Diabetes History
- -
Pre-Admission Diabetes Regimen
07/13/23
03:48
Creatinine 0.7
Lab Results
Hemoglobin A1c 5.5 % (4.0-5.6) 07/09/23 06:26
Insulin Pump Settings
IP Diabetes Regimen
07/12/23 07/12/23 07/13/23
12:15 17:43 00:00
Glucose
POC Glucose 124 H 162 H 219 H
07/13/23 07/13/23
03:48 05:11
Glucose 217 H
POC Glucose 227 H
Meal type: Lunch
Patient Education
[2023-07-13] MEDS: ROCEPHIN 2000 MG IV (09:23)
[2023-07-13] MEDS: STERILE WATER FOR INJECTION 20 ML IV (09:23)
[2023-07-13 11:58] LABS: Glucose - Point of Care 227 mg/dl (70-99)
[2023-07-13] MEDS: LANTUS 0.119999999999999996 UNITS SC (12:43)
[2023-07-13] MEDS: MESTINON 90 MG TUBE ×3 (12:43→21:41)
[2023-07-13] MEDS: NOVOLOG FLEXPEN 6 UNITS SC ×3 (12:44→23:43)
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
[2023-07-13] MEDS: NOVOLOG FLEXPEN-LOW RESISTANCE SC ×2 (17:43→23:40)
[2023-07-13 17:54] LABS: Glucose - Point of Care 131 mg/dl (70-99)
--- NOTE | 2023-07-13 17:59 | W.PN.HOSP.TC ---
Today's Communication/Plan
-
Continue Mestinon, Steroids
Contiue antibiotics
Will ask GI to evaluate for PEG tube placement
Assessment / Plan
Assessment / Plan
Physical Exam
General: No Apparent Distress
HEENT: (hoarse voice persistent; dobhoff in place)
Respiratory: Clear to Auscultation Bilaterally
Cardiac: S1/S2
GI: Soft and Nontender
Musculoskeletal: No Edema
Skin: Warm and Dry
Neuro: Awake, Alert, AO x 3 and Other (diffuse joint pain; sensitive to touch )
Psych: Calm

CT A/P
IMPRESSION:
1. There is moderate left hydronephrosis likely related to a left ureterovesical stone. There is prominent perinephric inflammation bilaterally.
2. There is probable atelectasis in the lung bases bilaterally.
MRI BRAIN
IMPRESSION:
1. No MRI evidence for an acute infarct.
2. 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

Assessment/Plan
Acute hypovolemic hyponatremia with Na down to 118 (prior labs from 2019 at 134)
Recent Poor PO Intake Leading Up to Hospitalization
Presentation with Nausea/Vomiting
-Received some normal saline and 3% saline, required D5W to correct rate
-Na now stable
-appreciate renal
-fluids now off, on TF
Severe Dysphagia
-patient unsafe to swallow all solid and liquid consistencies
-MRI w e/o MSA cerebellar type, per neuro clinically does not fit diagnosis; concern raised for Myasthenia Gravis
-F/U AchRAB
-Completed IVIG and Steroids on 07/12/23 - per neurology, these medications will take several days to start effect and will last several weeks
-Follow blood work results for acetylcholine receptor antibodies
-Continue Pyridostigmine, increase from 60 mg 4x/day to 90 mg 4x/day
-Imodium as needed for diarrhea produced by Pyridostigmine
-Start Prednisone 50 mg via NG tube on 07/13/23 given suspicion for myasthenia gravis
-Monitor NIF/VC's
-EMG follow-up
-neurology consult appreciated
-dobhoff placed and TF initiated on 07/09
-daily ST
-patient and sister told not a guarantee we can avoid PEG; on 07/10 she was cleared for ice chips
-Patient agreeable to PEG tube: will consult GI for PEG tube placement
SVT
-SVT x 2 on 07/08 broke with adenosine 6mg each time
-appreciate cardiology, started on an amio gtt and now transitioned to BID Metoprolol
-Continue Lopressor
-Follow-up with cardiology for EP eval as outpt to discuss SVT ablation.
E. Coli UTI and Bacteremia
Ureterovesical stone; left hydronephrosis
-Continue IV Ceftriaxone to 2G q 24 hours
-WBC was increasing and finding of ureterovesical stone seen on 07/07. OR held given cardiac and neurological active issues; and now held as patient's WBC improving and pain resolved
-WBC was 12, now leukocytosis has resolved
-Repeat CT: no mass/hydro or stone
-appreciate Urology
-Will consider ID consultation
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
Generalized Weakness
Paranoia
Alcohol withdrawal
-patient with worsening psychosis Wednesday07/05/23 and initiated treated with high dose thiamine and alcohol withdrawal
-continue daily thiamine/folate
-MSAS protocol
-appreciate psychiatry recs
-hold wellbutrin and adderral (as below)
Non-Anion Gap Metabolic Acidosis
Acute Kidney Injury
-creatinine stable post IVF
Sjogren's Syndrome - Hold Hydroxychloroquine given reaction with amio --> F/U with pharmacy/cards when OK to resume
Right acromioclavicular injury
Suspected history of osteoarthritis
ADHD - hold home Adderall given acute psychosis
Anxiety - Continue home Klonopin, now IV ativan
Depression - hold home Wellbutrin given acute psychosis
History of Juwan-en-Y (cory-en-wy) gastric bypass surgery
DVT Prophylaxis: Heparin subq
Code Status: Full Code
Anticipated Discharge: > 48 hours
Subjective/Interval History
-
Date of Service: July 13, 2023
Patient was seen and examined. She reported that she was able to move both of her feet and her lower extremities a whole lot better today.
Objective Data
-
Vital Signs:
Vital Signs
Temp Pulse Resp BP Pulse Ox
98.3 F 85 19 153/104 92
07/13/23 15:42 07/13/23 16:03 07/13/23 16:03 07/13/23 16:03 07/13/23 16:03
I&O
07/12/23 07/13/23 07/14/23
06:59 06:59 06:59
Intake Total 1780 / 1780 1585 / 1585
Balance 1780 / 1780 1585 / 1585
--- NOTE | 2023-07-13 20:00 | PTCARENOTE ---
rec`d pt at 1900. weak voice, dysphasia, and general weakness but oriented. SR on monitor. +1 edema. RT arm double luman PICC. 94% on room air. thick white secretions pt is spitting into tissue. Rt nare dobhoff in place with jevity TF running at
55mL/hr with 25 flush. Pt incontinent of stool. Purwick in place, pt incontinent of urine. safe environment maintained. call nixon in reach.
[2023-07-13 23:41] LABS: Glucose - Point of Care 133 mg/dl (70-99)
[2023-07-14] VITALS (15 sets, daily range): BP systolic 112–141; BP diastolic 74–98; PULSE 81; O2SAT 93; BMI 27.0
[2023-07-14 05:29] LABS: Blood Urea Nitrogen 42 mg/dl (7-17); Calcium 8.4 mg/dl (8.4-10.2); Carbon Dioxide 33 mmol/L (22-30); Chloride 99 mmol/L (98-107); Estimated Creatinine Clearance 83 ml/min; Glucose 95 mg/dl (70-99); Potassium 3.8 mmol/L (3.5-5.1); Sodium 133 mmol/L (135-145); eGFR > 60.00
[2023-07-14] MEDS: NOVOLOG FLEXPEN-LOW RESISTANCE SC (06:21)
[2023-07-14] MEDS: NOVOLOG FLEXPEN 6 UNITS SC ×3 (06:22→17:49)
[2023-07-14 06:32] LABS: Glucose - Point of Care 107 mg/dl (70-99)
[2023-07-14 08:05] LABS: % Basophils 0.1 % (0-2); % Eosinophils 0.1 % (0-6); % Immature Granulocytes 1.2 % (0-0.5); % Lymphocytes 2.2 % (20.5-51.1); % Monocytes 4.5 % (1.7-9.3); % Neutrophils 91.9 % (42.2-75.2); Absolute Immature Granulocytes 0.3 10^3/uL (0-0.05); Absolute Lymphocytes 0.5 10^3/uL (1.2-3.4); Absolute Monocytes 0.9 10^3/uL (0.1-0.6); Absolute Neutrophils 18.6 10^3/uL (1.4-6.5); Hematocrit 35.9 % (37.0-47.0); Hemoglobin 12.2 g/dL (12.0-16.0); Mean Corpuscular Hgb 31.3 pg (27.0-31.0); Mean Corpuscular Volume 92.1 fL (81.0-99.0); Mean Platelet Volume 11.8 fL (7.4-10.4); Nucleated Red Blood Cells % 0 %; Platelet Count 379 10^3/uL (130-400); Red Cell Dist. Width 13.6 % (11.5-14.5); White Blood Cell Count 20.2 10^3/uL (4.8-10.8)
--- NOTE | 2023-07-14 08:31 | PN.DE.MGMTRT ---
Insulin Management
- -
07/13/2023 Diabetes Management Follow up
Patient admitted 07/03 with hyponatremia, possible UTI. PMH includes Sjogrens syndrome, anxiety, depression, alem-en,y, osteoarthritis. No history of diabetes, A1C 5.5%, cr .7, egfr >60. She is currently undergoing work up for possible Myasthenia
Gravis. She is receiving tube feeds @ 55 per hour.
Patient has been started on steroids, glucose trended up. Lantus 10 units in AM started yesterday, with 4 units novolog Q 6 hours. Glucose range 124 to 240. Will increase Q 6 hour novolog to 6 units with low corrective insulin. Will increase
lantus to 12 units in AM. Will follow.
07/14/2023 Diabetes Management Follow up
Tube feeds continue at 55 mg/ hr. Steroids continue daily. Lantus dose increased to 12 units yesterday, fasting glucose this AM 107. Q 6 novolog increased to 6 units, Q 6 hours glucose 131 and 133. Will make no change to novolog. If tube feeds
stopped or held please hold the Q 6 hour 6 units novolog and continue corrective insulin.
Diabetes History
- -
Pre-Admission Diabetes Regimen
07/14/23
04:43
Creatinine 0.7
Lab Results
Hemoglobin A1c 5.5 % (4.0-5.6) 07/09/23 06:26
Insulin Pump Settings
IP Diabetes Regimen
07/13/23 07/13/23 07/13/23
11:47 17:43 23:30
Glucose
POC Glucose 227 H 131 H 133 H
07/14/23 07/14/23
04:43 06:21
Glucose 95
POC Glucose 107 H
Patient Education
[2023-07-14] MEDS: DICLOFENAC 1% TOPICAL GEL 100 GRAM TOPICAL ×4 (08:42→23:47)
[2023-07-14] MEDS: NEURONTIN 300 MG TUBE ×2 (08:44→19:30)
[2023-07-14] MEDS: PROTONIX IV 40 MG IV (08:44)
[2023-07-14] MEDS: NSS (PRESERVATIVE FREE) 10 ML IV (08:44)
[2023-07-14] MEDS: THIAMINE INJECTION 200 MG IV (08:45)
[2023-07-14] MEDS: CLARITIN 10 MG TUBE (08:45)
[2023-07-14] MEDS: LOPRESSOR 25 MG TUBE ×2 (08:45→19:31)
[2023-07-14] MEDS: FOLVITE 1 MG TUBE (08:45)
[2023-07-14] MEDS: RESTASIS 0.05% OPHTHALMIC EMULSION 1 DROPS BOTH EYES ×2 (08:45→19:30)
[2023-07-14] MEDS: DELTASONE 50 MG TUBE (08:45)
[2023-07-14] MEDS: MESTINON 90 MG TUBE ×4 (08:45→23:40)
[2023-07-14] MEDS: NSS (PRESERVATIVE FREE) IV (08:46)
[2023-07-14] MEDS: ATIVAN IV (08:46)
[2023-07-14] MEDS: LIDOCAINE 4% PATCH TOPICAL ×2 (08:46)
[2023-07-14] MEDS: ROCEPHIN 2000 MG IV (10:23)
[2023-07-14] MEDS: IMODIUM LIQUID 2 MG TUBE (10:23)
[2023-07-14] MEDS: STERILE WATER FOR INJECTION 20 ML IV (10:24)
--- NOTE | 2023-07-14 10:45 | PTCARENOTE ---
rec`d pt at 1900. weak voice, dysphasia, and general weakness but oriented. SR on monitor. +1 edema. RT arm double luman PICC. 94% on room air. thick white secretions pt is spitting into tissue/yankaur. Rt nare dobhoff in place with jevity TF
running at 55mL/hr with 25 flush. Pt incontinent of urine
[2023-07-14 12:07] LABS: Glucose - Point of Care 173 mg/dl (70-99)
[2023-07-14] MEDS: KLONOPIN 0.5 MG PO ×2 (12:17→19:31)
[2023-07-14] MEDS: NOVOLOG FLEXPEN-LOW RESISTANCE 1 UNITS SC ×2 (12:18→17:50)
[2023-07-14] MEDS: LANTUS 0.119999999999999996 UNITS SC (12:19)
--- NOTE | 2023-07-14 13:29 | W.PN.UPDATE ---
Update Note
Progress Note Update
reviewed chart . this patient was seen intermittently by psychiatry including this financial underwriter. last visit dr early on 07.10 all have recommended not using adderall and wellbutrin to this point. noted patient being rx for neurological issues eg
myastenia. at this point only psych medication is bid klonopin. psych will sign off at this point.
--- NOTE | 2023-07-14 14:04 | PTCARENOTE ---
Pt unable to asst in any meaningful way transfer from chair to stretcher. Required 2 person asst with mabel. PT notified of the dramatic change in presentation.
--- NOTE | 2023-07-14 15:29 | PTOTSP ---
Video Swallow Examination
Patient presents with functional oral stage and severe pharyngeal stage of swallowing with silent aspiration of thin liquids via tsp, mildly thick liquids via tsp, and moderately thick liquids via tsp. There has not been a significant change in
swallow function when compared to last video swallow study 07/07/2023. Consider more termination clerk non-oral means of nutrition/hydration as patient is undergoing continued medical work up as to the etiology of her dysphagia.
Recommend:
1. NPO
2. Oral care 3-5x daily with suctioning
3. Aspiration Risk Hydration Protocol - ice chips after oral care 1 at a time
4. Dysphagia tx at the acute care level for education with further modification of treatment plan pending etiology of dysphagia.
--- NOTE | 2023-07-14 15:34 | CON.MD ---
Documented by User: Michelle Shukla PA-C 07/15/23 16:25
Consultation - Medical
-
Referring Provider:
Chief Complaint: Debility, ambulatory dysfunction
History of Present Illness: 58 year old female with PMH of ( Sjogren's Syndrome, right acromioclavicular injury, osteoarthritis of bilateral knees, anxiety, depression and Alem-en-Y gastric bypass presented to [facility] ED with generalized
weakness for the past 3 to 4 days. Patient also reported abdominal pain about 3 days ago, and had 2 episodes of diarrhea at that time. Patient also has not really been eating and drinking much for at least several days. She reported chronic
bilateral left greater than right shoulder and right knee pain. Nephrology was consulted. She was found to have severe hyponatremia and acute kidney injury prerenal due to poor oral intake. Hyponatremia corrected. Developed UTI/sepsis- E. Coli
bacteremia - treating with IV ceftriaxone. Worsening dysphagia past 2 years with abnormal video swallow study for aspiration with thick and thin liquids. Dobhoff in place
Talking with patient, she states that she used to be over 300 pounds. She had gastric bypass with the intention of having bilateral knee replacement. However, she never proceeded. She reports frequent locking of both knees causing her to fall on
multiple occasions. There have been times when she has fallen against her fireplace, her stove, the floor. She reports 30-year history of neuropathy in her feet that has over the past couple of months spread up to her knees. She reports having a
good appetite and frequently ate popcorn, potato chips, soda, etc. The days leading to the ED she could not eat because she was unable to get out of bed and walk to the kitchen due to bilateral knee weakness.
neurology consult- Abrupt onset of worsening dysphagia, ongoing for approximately 2 years.
Differential diagnosis includes myasthenia gravis based on the patient's bulbar dysfunction and proximal weakness.� MRI of brain findings suggestive of T2 hyperintensities in the riaz suggestive of multisystem atrophy, do not match the patient's
examination or history with lack of autonomic findings including constipation, orthostasis, anosmia, tremor.� Patient also has a prior history of blepharoplasty suggestive of ptosis in the past.
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 Impaired muscle activation of the proximal limb musculature but with normal morphology and recruitment pattern
of the motor unit potentials.
Started on Immunoglobulins and methylprednisolone x 5 days
Cardiology: SVT seen on 07/08/23- no longer since on Lopressor. Could consider ablation as outpatient
CT scan of abdomen- with advanced perinephric soft tissue stranding again demonstrated bilaterally. Slightly greater on the right than on the left. Though relatively stable.No renal calculus, bilaterally. Very subtle/minor asymmetric distention of
the left renal pelvis and ureter, similar to prior examination. In the left hemipelvis there is a 2.4 mm calcific focus. There is also a small calcific focus in the contralateral pelvis at the approximate same level.[place] to represent a phlebolith
calcification as opposed to a distal ureteral calculus.
�MRI of Brain:No evidence for an acute infarct. Cruciform linear hyperintense T2 signal in the riaz, which has been described in association with a variety of neurodegenerative conditions, most classically multiple system atrophy cerebellar type
(MSA-C).
Chest x-ray: No acute disease of the chest. Mild left lower lobe atelectasis. New
Video Swallow study: difficulty swallowing: aspiration with nectar, honey thick and thin liquid. Nasogastric tube placement. Dobbhoff catheter placed on 07/10/23
Echo: Normal left ventricular size, No regional wall motion abnormalities LV ejection fraction is 55-60% Normal diastolic function. Mildly dilated left atrium.
Past Medical History: Sjogrens syndrome, anxiety, depression, alem-en-y, osteoarthritis.
Procedure History: alem-en-y, Cholecystectomy, Orthopedic, blepharoplasty-left
Family History: Arthritis, esophageal stricture-requiring dilatation ( all family members) Parkinson, Dementia-Dad
Social History:
Functional Level Premorbidly: Independent with all activities
Functional Level Currently: Supine to sit mobility�supervision, sit to stand�max assist, stand to sit�max assist with heavy use of rocking technique with bilateral foot blocking to perform transfer, Patient able to sidestep/23 feet with rolling
walker and max assist x 2 for rolling walker management and safety. Full weightbearing. Weak and labored gait pattern, wide POS, increased use of upper extremities, increased flexed posture.
Tobacco: Former, quit 20 years ago, smokes since 16 years old
Alcohol: Former
Drug use: Marijuana
Lives with: Alone
24-hour assistance available:
Number of floors: One-story home
# steps to enter: none
# steps to second floor: none
Potential First floor set up: Yes number bedroom and bathroom
Driving: yes
Occupation: retired
�
Allergies:
Allergy/AdvReac Type Severity Reaction Status Date / Time
latex Allergy Itching Verified 11/19/22 16:31
Penicillins Allergy Unknown Verified 11/19/22 16:31
Review of Systems:
Constitutional: (x) Normal _
Eye: (x) Normal _
Ear/Nose/Throat: (x) Normal _
Respiratory: (x) Normal _
Cardiovascular: (x) Normal _
Gastrointestinal: (x) tube feed
Genitourinary: (x) Normal _
Musculoskeletal: (x) bilateral knee pain, stiffness
Integumentary: (x) Normal _
Neurologic: (x) Normal _
Psychiatric: (x) depression, anxiety
Endocrine: (x) r/o myasthenia Gravis, steroids, feed induced hyperglicemia?
Hematologic/Lymphatic: (x) Normal _
Allergic/Immunologic: (x) Normal _
Medications:
Active Current Visit Medication List
Category Date Time Status
0.9% Sodium Chloride [Nss (Preservative Free)] Med 07/06/23 16:00 Active
10 ml IV DAILY
Acetaminophen [Tylenol Oral Solution] Med 07/09/23 14:11 Active
1,000 mg TUBE Q6HPRN PRN
Acetaminophen [Tylenol Oral Solution] Med 07/09/23 13:51 Active
650 mg TUBE Q6HPRN PRN
Albuterol [ProAIR HFA INHALER] Med 07/05/23 08:23 Active
2 puff INH R Q4HPRN PRN
CefTRIAXone [Rocephin] Med 07/05/23 10:00 Active
2,000 mg IV Q24H
Clonazepam [Klonopin] Med 07/14/23 12:00 Active
0.5 mg PO BID
Dextrose 50%-Water [Dextrose 50% Syringe] Med 07/08/23 20:00 Active
12.5 grams IV [id number] PRN
Diclofenac 1% Topical Gel Med 07/10/23 13:00 Active
See Protocol TOPICAL QID
FOLic ACID [Folvite] Med 07/09/23 08:00 Active
1 mg TUBE DAILY
FOLic ACID [Folvite] 1 mg Med 07/05/23 10:49 Active
0.9% Sodium Chloride 50 ml [Nss] 50 ml
IV DAILYPRN
Flush (0.9% Sodium Chloride) [Flush (Nss)] Med 07/03/23 14:00 Active
See Dose Instructions IV PER PROTOCOL
Fluticasone/Salmeterol 115/21 [Advair Hfa 115/21 Mcg Med 07/06/23 16:18 Active
Inhaler]
2 puff INH R BIDPRN PRN
Gabapentin [Neurontin] Med 07/09/23 20:00 Active
300 mg TUBE BID
Glucagon [GlucaGen] Med 07/08/23 20:00 Active
1 mg IM PRN PRN
Guaifenesin/Dextromethorphan [Robitussin Dm] Med 07/06/23 04:19 Active
5 ml PO Q4HPRN PRN
Heparin Med 07/14/23 16:00 Active
5,000 units SC Q8
Insulin Aspart Corrective Low [Novolog Flexpen-Low Med 07/12/23 18:00 Active
Resistance]
See Protocol SC Q6
Insulin Aspart Pen [Novolog Flexpen] Med 07/13/23 12:00 Active
6 units SC Q6
Insulin Glargine Lantus [Lantus] 12 units Med 07/13/23 12:00 Active
Subcutaneous Insulin Syringe [Syringe-Insulin] 0 unit
SC DAILY@1200
Lidocaine [Lidocaine 4% Patch] Med 07/09/23 14:45 Active
1 patch TOPICAL DAILY
Lidocaine [Lidocaine 4% Patch] Med 07/09/23 14:45 Active
1 patch TOPICAL DAILY
Loperamide [Imodium Liquid] Med 07/13/23 09:16 Active
2 mg TUBE Q3HPRN PRN
Loratadine [Claritin] Med 07/09/23 08:00 Active
10 mg TUBE DAILY
Metoprolol [Lopressor] Med 07/10/23 10:00 Active
25 mg TUBE BID
Pantoprazole [Protonix IV] Med 07/06/23 16:00 Active
40 mg IV DAILY
Prednisone [Deltasone] Med 07/13/23 08:00 Active
50 mg TUBE DAILY
Pyridostigmine [Mestinon] Med 07/13/23 09:17 Active
90 mg TUBE QID
Remove Patch [Remove Lidocaine Patch] Med 07/10/23 20:00 Active
See Dose Instructions REMOVE DAILY@1999
Remove Patch [Remove Lidocaine Patch] Med 07/10/23 20:00 Active
See Dose Instructions REMOVE DAILY@1999
Sterile Water [Sterile Water For Injection] Med 07/05/23 09:00 Active
20 ml IV Q24H
Thiamine Injection Med 07/08/23 08:00 Active
200 mg IV DAILY
cycloSPORINE [Restasis 0.05% Ophthalmic Emulsion] Med 07/05/23 20:00 Active
1 drops BOTH EYES BID
estradiol-levonorgestrel [Climara Pro] Med 07/10/23 08:00 Active
0 patch TRANSDERM WEEKLY
Vitals:
Temp Pulse Resp BP Pulse Ox
97.9 F 83 20 94/64 98
07/15/23 11:46 07/15/23 11:46 07/15/23 11:46 07/15/23 11:46 07/15/23 11:46
Height 5 ft 7 in
Actual Weight 75.013 kg
Body Mass Index (BMI) 25.9
Physical Exam:
General Appearance/Observation: Well-developed, well-nourished individual in no apparent distress.
Pain/Comfort Assessment: shoulders, knees - mostly shoulders
Mood/Affect: Appropriate, pleasant, good historian
Integumentary/Operative Site:
�� Pressure Ulcer Evaluation: absent over heels.
��
�� Other Type of Wound:
��
Eyes: Conjunctiva/Lids: normal ��� Pupils: pupils equal round
Ears/Nose/Throat: moist, husky voice���������� Lips/Teeth/Gums: unable to visualizel
Neck: muscle tenderness- bilaterally
Cardiovascular: Heart: regular, no murmur
Pulses: dorsalis pedis 1+ bilaterally
Respiratory: Respiratory Effort/Chest Expansion: normal ������ Auscultation: grossly Clear to auscultation
Gastrointestinal: abdomen not tender, no distension, normal abdominal bowel sounds
Nasogastric tube
Genitourinary: No [place]
Extremities: Edema: None Cyanosis: None Trophic changes: None
Neurology Exam:
Orientation: Alert, Oriented to self, Time, Place
Memory: Intact for immediate medical concerns
Higher cortical function
Comprehension: Intact
Two step command: Intact
Naming: Intact
Cranial Nerves:
�� CNII: Pupillary light reflex: Intact���
�� CN III, IV, : Extraocular muscles: Intact
�� CN V: Facial Sensation at Forehead: Intact, Maxilla: Intact, Mandible: Intact
�� CN VII: Facial movement: Symmetric
�� CN VIII: Hearing: Normal
�� CN IX/X: Speech & swallow: low volume, moist Position of Uvula: not visualized
�� CN XI: Shoulder shrug: Symmetric
�� CN XII: Tongue protrusion: Midline
Sensory:
�� Light touch: Intact in bilateral upper and lower extremities
��
Reflexes:
�� Biceps: 2+ bilaterally
�� Brachioradialis: absent bilaterally
�� Triceps: not tested
�� Patellar: 1+ bilaterally
�� Achilles: absent bilaterally
�� Babinski: no response
�� Clonus: None
�� David: Negative bilaterally
Cerebellar: Dysmetria/Ataxia: None on the left, right not fully tested because patient has significant limitation of right shoulder and arm
Musculoskeletal:
Motor: (Manual muscle scale 0-5)
Muscle SA EF WE EE FF FA HF KE DF EHL PF
Right� 2 4 4 3 3+ 3 4 4 4
Left 3+ 4 4 3 3+ 3 4 4 4
Tone: decreased in bilateral thighs, abdominal wall
Range of Motion: Passively within normal limits in all extremities, limited rom with right shoulder
Lab Results
Labs
WBC 16.6 10^3/uL (4.8-10.8) H 07/15/23 04:45
RBC 3.85 10^6/uL (4.20-5.40) L 07/15/23 04:45
Hgb 11.9 g/dL (12.0-16.0) L 07/15/23 04:45
Hct 35.5 % (37.0-47.0) L 07/15/23 04:45
MCV 92.2 fL (81.0-99.0) 07/15/23 04:45
MCH 30.9 pg (27.0-31.0) 07/15/23 04:45
MCHC 33.5 g/dL (33.0-37.0) 07/15/23 04:45
RDW 13.4 % (11.5-14.5) 07/15/23 04:45
Plt Count 414 10^3/uL (130-400) H 07/15/23 04:45
Plt Count Comment Yes 07/05/23 03:05
MPV 12.0 fL (7.4-10.4) H 07/15/23 04:45
Abs Immat Gran (auto) 0.4 10^3/uL (0-0.05) H 07/15/23 04:45
Absolute Neuts (auto) 14.7 10^3/uL (1.4-6.5) H 07/15/23 04:45
Absolute Lymphs (auto) 0.6 10^3/uL (1.2-3.4) L 07/15/23 04:45
Absolute Monos (auto) 0.8 10^3/uL (0.1-0.6) H 07/15/23 04:45
Absolute Eos (auto) 0.0 10^3/uL (0-0.7) 07/15/23 04:45
Absolute Basos (auto) 0.0 10^3/uL (0-0.2) 07/15/23 04:45
CBC Comment 07/08/23 21:33
Total Counted 100 07/05/23 03:05
Immature Gran % 2.3 % (0-0.5) H 07/15/23 04:45
Neutrophils % 88.9 % (42.2-75.2) H 07/15/23 04:45
Lymphocytes % 3.7 % (20.5-51.1) L 07/15/23 04:45
Monocytes % 4.7 % (1.7-9.3) 07/15/23 04:45
Eosinophils % 0.2 % (0-6) 07/15/23 04:45
Basophils % 0.2 % (0-2) 07/15/23 04:45
Nucleated RBC % 0 % 07/15/23 04:45
Abs Neuts (Manual) 10.7 10^3/uL (1.4-6.5) H 07/05/23 03:05
Segmented Neutrophils 84 % (42-75) H 07/05/23 03:05
Band Neutrophils 11 % (0-3) H D 07/05/23 03:05
Lymphocytes (Manual) 1 % (20-51) L 07/05/23 03:05
Monocytes (Manual) 4 % (2-9) 07/05/23 03:05
Metamyelocytes 4 % (-) 07/03/23 05:23
Myelocytes 1 % (-) 07/03/23 05:23
Vacuolated Neuts 1+ 07/03/23 05:23
Toxic Granulation 2+ 07/03/23 05:23
Normal RBC Morphology Yes 07/05/23 03:05
ESR 46 mm/hour (0-20) H 07/08/23 06:03
PT 15.2 Sec (11.4-14.6) H 07/08/23 21:33
INR 1.18 07/08/23 21:33
APTT 30.1 Sec (23.4-35.0) 07/08/23 21:33
pH 7.42 (7.35-7.45) 07/05/23 16:38
pCO2 28 mmHg (32-35) L 07/05/23 16:38
pO2 94 mmHg (83-108) 07/05/23 16:38
HCO3 18.2 mmol/L (21-28) L 07/05/23 16:38
Base Excess -4.9 mmol/L 07/05/23 16:38
ABG O2 Sat (Measured) 96.5 % (94-98) 07/05/23 16:38
O2 Delivery Level 07/05/23 16:38
Sodium 133 mmol/L (135-145) L 07/14/23 04:43
Potassium 3.8 mmol/L (3.5-5.1) 07/14/23 04:43
Chloride 99 mmol/L (98-107) 07/14/23 04:43
Carbon Dioxide 33 mmol/L (22-30) H 07/14/23 04:43
BUN 42 mg/dl (7-17) H 07/14/23 04:43
Creatinine 0.7 mg/dL (0.6-1.0) 07/14/23 04:43
Estimated Creat Clear 83 ml/min 07/14/23 04:43
eGFR > 60.00 07/14/23 04:43
Glucose 95 mg/dl (70-99) 07/14/23 04:43
Hemoglobin A1c 5.5 % (4.0-5.6) 07/09/23 06:26
Serum Osmolality 272 mOsm/kg (275-300) L 07/03/23 06:36
Calcium 8.4 mg/dl (8.4-10.2) 07/14/23 04:43
Phosphorus 4.1 mg/dl (2.5-4.5) 07/11/23 04:20
Magnesium 2.1 mg/dl (1.6-2.3) 07/12/23 04:08
Ferritin 2830.0 ng/ml (11.1-264.0) H 07/08/23 06:03
Total Bilirubin 1.1 mg/dl (0.2-1.3) 07/08/23 12:50
AST 28 U/L (14-36) 07/08/23 12:50
ALT 18 U/L (0-35) 07/08/23 12:50
Alkaline Phosphatase 94 U/L (38-126) 07/08/23 12:50
Creatine Kinase 94 U/L (30-135) 07/03/23 05:23
Troponin I 0.015 ng/ml 07/08/23 12:50
C-Reactive Protein > 270.00 mg/L (0.0-10.00) H 07/03/23 05:23
Total Protein 4.7 g/dl (6.3-8.2) L 07/08/23 12:50
Albumin 2.3 g/dl (3.5-5.0) L 07/08/23 12:50
Vitamin B12 > 1000 pg/ml (239-931) H 07/08/23 06:03
Folate > 20.0 ng/ml (2.76-20) H 07/08/23 06:03
TSH (Reflex) 2.70 uIU/ml (0.47-4.68) 07/08/23 06:03
Immunoglobulin A 163 mg/dl (70-400) 07/08/23 06:03
Immunoglobulin G 830 mg/dl (700-1600) 07/08/23 06:03
Immunoglobulin M 102 mg/dl (40-230) 07/08/23 06:03
Urine Color Cancelled 07/03/23 06:38
Urine Clarity Cancelled 07/03/23 06:38
Urine pH Cancelled 07/03/23 06:38
Ur Specific [place] Cancelled 07/03/23 06:38
Urine Ketones Cancelled 07/03/23 06:38
Ur Occult Blood Reflex Cancelled 07/03/23 06:38
Urine Nitrite (Reflex) Cancelled 07/03/23 06:38
Urine Bilirubin Cancelled 07/03/23 06:38
Urine Urobilinogen Cancelled 07/03/23 06:38
Leukocyte Esterase Rfl Cancelled 07/03/23 06:38
Urine RBC 0-2 /HPF (0-2) 07/03/23 06:36
Urine WBC (Reflex) 11-15 /HPF (0-5) A 07/03/23 06:36
Ur Squamous Epith Cells 16-20 /LPF (Few) 07/03/23 06:36
Amorphous Crystals Seen 07/03/23 06:36
Urine Bacteria (Reflex) Moderate (Negative) A 07/03/23 06:36
Granular Casts 11-15 /LPF (0) 07/03/23 06:36
Urine Osmolality 337 mOsm/kg (300-900) 07/04/23 13:46
Urine Sodium 46 mmol/L (30-90) 07/04/23 13:46
Urine Glucose Cancelled 07/03/23 06:38
Urine Albumin (Reflex) Cancelled 07/03/23 06:38
Urine Opiates Screen Negative (Negative) 07/05/23 12:39
Ur Buprenorphine Negative (Negative) 07/05/23 12:39
Ur Oxycodone Screen Negative (Negative) 07/05/23 12:39
Urine Methadone Screen Negative (Negative) 07/05/23 12:39
Urine Fentanyl Screen Positive (Negative) H 07/05/23 12:39
Ur Barbiturates Screen Negative (Negative) 07/05/23 12:39
Ur Tricyclics Screen Negative (Negative) 07/05/23 12:39
Ur Phencyclidine Scrn Negative (Negative) 07/05/23 12:39
Ur Amphetamines Screen Positive (Negative) H 07/05/23 12:39
U Methamphetamines Scrn Negative (Negative) 07/05/23 12:39
U Benzodiazepines Scrn Negative (Negative) 07/05/23 12:39
Urine Cocaine Screen Negative (Negative) 07/05/23 12:39
U Marijuana (THC) Screen Positive (Negative) H 07/05/23 12:39
Acetylchol Rcpt Bind Ab 0.0 nmol/L (0.0-0.4) 07/08/23 06:00
Hepatitis C Antibody Negative (Negative) 07/04/23 05:28
SARS-CoV-2 Antigen Negative (Negative) 07/06/23 04:58
POC Glucose 129 mg/dl (70-99) H 07/15/23 12:10
�
Diagnostic Results: as per HPI
Assessment 58 year old female with PMH of ( Sjogren's Syndrome, right acromioclavicular injury, osteoarthritis of bilateral knees, anxiety, depression and Alem-en-Y gastric bypass presented to [facility] ED with generalized weakness with poor oral
intake. found to have severe hyponatremia and acute kidney injury. worsening dysphagia. Treated for UTI due to E. Coli. Thought to have myasthenia gravis. acetylcholine receptor antibodies- negative, EMG study- �Severe chronic length-dependent
axonal sensorimotor peripheral polyneuropathy. Impaired muscle activation of the proximal limb musculature but with normal morphology and recruitment pattern of the motor unit potentials.
Plan
PT/OT to increase independence with ADLs, improve balance, coordination, endurance, strength, mobility, community reintegration, decreased burden of care on others and family education.
Debility/ambulatory dysfunction: Due to lower extremities weakness. Cont PT/OT
Dysphagia: speech evaluation. Video swallow- aspiration with nectar, honey thick, and thin liquid. Nasogastric tube
Sjogren's Syndrome- Hydroxychloroquine
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 Impaired muscle activation of the proximal limb musculature but with normal morphology and recruitment pattern of the motor unit
potentials.
Falls: Likely multifactorial
Peripheral polyneuropathy, Osteoarthritis of both knees, autoimmune disorder?
HTN: continue medications, monitor closely
HLD: Statin
DM II: Accu-Cheks, insulin sliding scale, metformin, aspart, lantus.
Anemia: Likely multifactorial.� Continue to monitor.
Thrombocytopenia: Continue to monitor. With platelets less than 50,000 recommend keeping therapies to bedside. If platelets less than 20,000 will use further caution with activity levels and hold therapy for platelets less than 10,000.
VELMA/hyponatremia: per nephrology protocol
UTI/Sepsis:E. Coli bacteremia- IV ceftriaxone -
Psych: Psychology consult.� Depression/anxiety/ADHD- wellbutrin and Adderall - stopped, cont klonopin only as recommended by psych
Skin: monitor for pressure sores/rashes/lesions.
Pain: acetaminophen or oxycodone as needed.
Bowel: Colace and Senna, PRN bisacodyl.
Bladder: Time void, PVRs, PRN straight cath.
GI Prophylaxis: Pantoprazole
DVT Prophylaxis: mechanicals, heparin sc
Pulmonary: Incentive spirometry
Safety: Continue to reinforce assistance with all transfers.
Code Status:� Full code
Dispo (date/plan/equipment needs): Home with family care.� Social history reviewed.
Functional and Medical Goals: Modified Independent with ADL�s, ambulation, transfers
Discharge Destination: SNF
Summary of recommendations:
- Discharge Destination: SNF
Debility/ambulatory dysfunction: Due to lower extremities weakness. Cont PT/OT/Speech therapy as outpatient in a fpc facility due to her decreased endurance, inability to support/stand herself upright without the assistance of 2-3
people. May not be able to tolerate 3 hours a day of intensive acute inpatient rehabilitation. Patient also in agreement that she will not be able to tolerate this at this time.
Could benefit From an acute inpatient rehabilitation post transition from SNF and/or post knee replacments
Dysphagia: speech evaluation. Video swallow- aspiration with nectar, honey thick, and thin liquid. Nasogastric tube.
PT/OT to increase independence with ADLs, improve balance, coordination, endurance, strength, mobility
DVT Prophylaxis: mechanicals, heparin sc
Pain: acetaminophen or Tramadol as needed. Lidoderm patch to shoulders
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 Impaired muscle activation of the proximal limb musculature but with normal morphology and recruitment pattern of the motor unit
potentials. Continue vitamins
Thank you for allowing me to care for your patient. Please contact me with any questions or concerns.
This note was dictated using a voice recognition system. Please excuse any typographical errors from interior design coordinator. If you believe there are any discrepancies, please notify our office.

Documented by User: Eze Gorman MD 07/15/23 23:10
Consultation - Medical
-
Referring Provider: Dr. Armin Moe
Chief Complaint: Debility, ambulatory dysfunction
History of Present Illness: 58 year old female with PMH of ( Sjogren's Syndrome, right acromioclavicular injury, osteoarthritis of bilateral knees, anxiety, depression and Alem-en-Y gastric bypass presented to [facility] ED with generalized
weakness for the past 3 to 4 days. Patient also reported abdominal pain about 3 days ago, and had 2 episodes of diarrhea at that time. Patient also has not really been eating and drinking much for at least several days. She reported chronic
bilateral left greater than right shoulder and right knee pain. Nephrology was consulted. She was found to have severe hyponatremia and acute kidney injury prerenal due to poor oral intake. Hyponatremia corrected. Developed UTI/sepsis- E. Coli
bacteremia - treating with IV ceftriaxone. Worsening dysphagia past 2 years with abnormal video swallow study for aspiration with thick and thin liquids. Dobhoff in place
Talking with patient, she states that she used to be over 300 pounds. She had gastric bypass with the intention of having bilateral knee replacement. However, she never proceeded. She reports frequent locking of both knees causing her to fall on
multiple occasions. There have been times when she has fallen against her fireplace, her stove, the floor. She reports 30-year history of neuropathy in her feet that has over the past couple of months spread up to her knees. She reports having a
good appetite and frequently ate popcorn, potato chips, soda, etc. The days leading to the ED she could not eat because she was unable to get out of bed and walk to the kitchen due to bilateral knee weakness.
Neurology consult- Abrupt onset of worsening dysphagia, ongoing for approximately 2 years.
Differential diagnosis includes myasthenia gravis based on the patient's bulbar dysfunction and proximal weakness.� MRI of brain findings suggestive of T2 hyperintensities in the riaz suggestive of multisystem atrophy, do not match the patient's
examination or history with lack of autonomic findings including constipation, orthostasis, anosmia, tremor.� Patient also has a prior history of blepharoplasty suggestive of ptosis in the past.
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 Impaired muscle activation of the proximal limb musculature but with normal morphology and recruitment pattern
of the motor unit potentials.
Started on Immunoglobulins and methylprednisolone x 5 days
Cardiology: SVT seen on 07/08/23- no longer since on Lopressor. Could consider ablation as outpatient
CT scan of abdomen- with advanced perinephric soft tissue stranding again demonstrated bilaterally. Slightly greater on the right than on the left. Though relatively stable.No renal calculus, bilaterally. Very subtle/minor asymmetric distention of
the left renal pelvis and ureter, similar to prior examination. In the left hemipelvis there is a 2.4 mm calcific focus. There is also a small calcific focus in the contralateral pelvis at the approximate same level.[place] to represent a phlebolith
calcification as opposed to a distal ureteral calculus.
�MRI of Brain:No evidence for an acute infarct. Cruciform linear hyperintense T2 signal in the riaz, which has been described in association with a variety of neurodegenerative conditions, most classically multiple system atrophy cerebellar type
(MSA-C).
Chest x-ray: No acute disease of the chest. Mild left lower lobe atelectasis. New
Video Swallow study: difficulty swallowing: aspiration with nectar, honey thick and thin liquid. Nasogastric tube placement. Dobbhoff catheter placed on 07/10/23
Echo: Normal left ventricular size, No regional wall motion abnormalities LV ejection fraction is 55-60% Normal diastolic function. Mildly dilated left atrium.
Past Medical History: Sjogrens syndrome, anxiety, depression, alem-en-y, osteoarthritis.
Procedure History: alem-en-y, Cholecystectomy, Orthopedic, blepharoplasty-left
Family History: Arthritis, esophageal stricture-requiring dilatation ( all family members) Parkinson, Dementia-Dad
Social History:
Functional Level Premorbidly: Independent with all activities
Functional Level Currently: Supine to sit mobility�supervision, sit to stand�max assist, stand to sit�max assist with heavy use of rocking technique with bilateral foot blocking to perform transfer, Patient able to sidestep/23 feet with rolling
walker and max assist x 2 for rolling walker management and safety. Full weightbearing. Weak and labored gait pattern, wide POS, increased use of upper extremities, increased flexed posture.
Tobacco: Former, quit 20 years ago, smokes since 16 years old
Alcohol: Former
Drug use: Marijuana
Lives with: Alone
24-hour assistance available: No
Number of floors: One-story home
# steps to enter: none
# steps to second floor: none
Potential First floor set up: Yes number bedroom and bathroom
Driving: yes
Occupation: retired
�
Allergies:
Allergy/AdvReac Type Severity Reaction Status Date / Time
latex Allergy Itching Verified 11/19/22 16:31
Penicillins Allergy Unknown Verified 11/19/22 16:31
Review of Systems:
Constitutional: (x) Normal _
Eye: (x) Normal _
Ear/Nose/Throat: (x) Normal _
Respiratory: (x) Normal _
Cardiovascular: (x) Normal _
Gastrointestinal: (x) tube feed
Genitourinary: (x) Normal _
Musculoskeletal: (x) bilateral knee pain, stiffness
Integumentary: (x) Normal _
Neurologic: (x) Normal _
Psychiatric: (x) depression, anxiety
Endocrine: (x) r/o myasthenia Gravis, steroids, feed induced hyperglicemia?
Hematologic/Lymphatic: (x) Normal _
Allergic/Immunologic: (x) Normal _
Medications:
Active Current Visit Medication List
Category Date Time Status
0.9% Sodium Chloride [Nss (Preservative Free)] Med 07/06/23 16:00 Active
10 ml IV DAILY
Acetaminophen [Tylenol Oral Solution] Med 07/09/23 14:11 Active
1,000 mg TUBE Q6HPRN PRN
Acetaminophen [Tylenol Oral Solution] Med 07/09/23 13:51 Active
650 mg TUBE Q6HPRN PRN
Albuterol [ProAIR HFA INHALER] Med 07/05/23 08:23 Active
2 puff INH R Q4HPRN PRN
CefTRIAXone [Rocephin] Med 07/05/23 10:00 Active
2,000 mg IV Q24H
Clonazepam [Klonopin] Med 07/14/23 12:00 Active
0.5 mg PO BID
Dextrose 50%-Water [Dextrose 50% Syringe] Med 07/08/23 20:00 Active
12.5 grams IV [id number] PRN
Diclofenac 1% Topical Gel Med 07/10/23 13:00 Active
See Protocol TOPICAL QID
FOLic ACID [Folvite] Med 07/09/23 08:00 Active
1 mg TUBE DAILY
FOLic ACID [Folvite] 1 mg Med 07/05/23 10:49 Active
0.9% Sodium Chloride 50 ml [Nss] 50 ml
IV DAILYPRN
Flush (0.9% Sodium Chloride) [Flush (Nss)] Med 07/03/23 14:00 Active
See Dose Instructions IV PER PROTOCOL
Fluticasone/Salmeterol 115/21 [Advair Hfa 115/21 Mcg Med 07/06/23 16:18 Active
Inhaler]
2 puff INH R BIDPRN PRN
Gabapentin [Neurontin] Med 07/09/23 20:00 Active
300 mg TUBE BID
Glucagon [GlucaGen] Med 07/08/23 20:00 Active
1 mg IM PRN PRN
Guaifenesin/Dextromethorphan [Robitussin Dm] Med 07/06/23 04:19 Active
5 ml PO Q4HPRN PRN
Heparin Med 07/14/23 16:00 Active
5,000 units SC Q8
Insulin Aspart Corrective Low [Novolog Flexpen-Low Med 07/12/23 18:00 Active
Resistance]
See Protocol SC Q6
Insulin Aspart Pen [Novolog Flexpen] Med 07/13/23 12:00 Active
6 units SC Q6
Insulin Glargine Lantus [Lantus] 12 units Med 07/13/23 12:00 Active
Subcutaneous Insulin Syringe [Syringe-Insulin] 0 unit
SC DAILY@1200
Lidocaine [Lidocaine 4% Patch] Med 07/09/23 14:45 Active
1 patch TOPICAL DAILY
Lidocaine [Lidocaine 4% Patch] Med 07/09/23 14:45 Active
1 patch TOPICAL DAILY
Loperamide [Imodium Liquid] Med 07/13/23 09:16 Active
2 mg TUBE Q3HPRN PRN
Loratadine [Claritin] Med 07/09/23 08:00 Active
10 mg TUBE DAILY
Metoprolol [Lopressor] Med 07/10/23 10:00 Active
25 mg TUBE BID
Pantoprazole [Protonix IV] Med 07/06/23 16:00 Active
40 mg IV DAILY
Prednisone [Deltasone] Med 07/13/23 08:00 Active
50 mg TUBE DAILY
Pyridostigmine [Mestinon] Med 07/13/23 09:17 Active
90 mg TUBE QID
Remove Patch [Remove Lidocaine Patch] Med 07/10/23 20:00 Active
See Dose Instructions REMOVE DAILY@2000
Remove Patch [Remove Lidocaine Patch] Med 07/10/23 20:00 Active
See Dose Instructions REMOVE DAILY@2000
Sterile Water [Sterile Water For Injection] Med 07/05/23 09:00 Active
20 ml IV Q24H
Thiamine Injection Med 07/08/23 08:00 Active
200 mg IV DAILY
cycloSPORINE [Restasis 0.05% Ophthalmic Emulsion] Med 07/05/23 20:00 Active
1 drops BOTH EYES BID
estradiol-levonorgestrel [Climara Pro] Med 07/10/23 08:00 Active
0 patch TRANSDERM WEEKLY
Vitals:
Temp Pulse Resp BP Pulse Ox
97.9 F 83 20 94/64 98
07/15/23 11:46 07/15/23 11:46 07/15/23 11:46 07/15/23 11:46 07/15/23 11:46
Height 5 ft 7 in
Actual Weight 75.013 kg
Body Mass Index (BMI) 25.9
Physical Exam:
General Appearance/Observation: Well-developed, well-nourished female in no apparent distress.
Pain/Comfort Assessment: shoulders, knees - mostly shoulders
Mood/Affect: Appropriate, pleasant, good historian
Integumentary/Operative Site:
�� Pressure Ulcer Evaluation: absent over heels.
��
Eyes: Conjunctiva/Lids: normal ��� Pupils: pupils equal round
Ears/Nose/Throat: moist, husky voice���������� Lips/Teeth/Gums: normal
Neck: muscle tenderness- bilaterally
Cardiovascular: Heart: regular, no murmur
Pulses: dorsalis pedis 1+ bilaterally
Respiratory: Respiratory Effort/Chest Expansion: normal ������ Auscultation: grossly Clear to auscultation
Gastrointestinal: abdomen not tender, no distension, normal abdominal bowel sounds
Nasogastric tube
Genitourinary: No Hutchinson
Extremities: Edema: None Cyanosis: None Trophic changes: None
Neurology Exam:
Orientation: Alert, Oriented to self, Time, Place
Memory: Intact for immediate medical concerns
Higher cortical function
Comprehension: Intact
Two step command: Intact
Naming: Intact
Cranial Nerves:
�� CNII: Pupillary light reflex: Intact���
�� CN III, IV, : Extraocular muscles: Intact
�� CN V: Facial Sensation at Forehead: Intact, Maxilla: Intact, Mandible: Intact
�� CN VII: Facial movement: Symmetric
�� CN VIII: Hearing: Normal
�� CN IX/X: Speech & swallow: low volume, moist Position of Uvula: not visualized
�� CN XI: Shoulder shrug: Symmetric
�� CN XII: Tongue protrusion: Midline
Sensory:
�� Light touch: Intact in bilateral upper and lower extremities
��
Reflexes:
�� Biceps: 0 bilaterally
�� Brachioradialis: 0 bilaterally
�� Triceps: 0bilaterally
�� Patellar: 0 bilaterally
�� Achilles: 0 bilaterally
�� Babinski: no response
�� Clonus: None
�� David: Negative bilaterally
Cerebellar: Dysmetria/Ataxia: None on the left, right not fully tested because patient has significant limitation of right shoulder and arm
Musculoskeletal:Motor: (Manual muscle scale 0-5)
Muscle SA EF WE EE FF FA HF KE DF EHL PF
Right� 1 4 4 3 3+ 3 4 4 4
Left 3+ 4 4 3 3+ 3 4 4 4
Tone: decreased in bilateral thighs, abdominal wall
Range of Motion: Passively within normal limits in all extremities, functional PROM right shoulder
Lab Results
Labs
WBC 16.6 10^3/uL (4.8-10.8) H 07/15/23 04:45
RBC 3.85 10^6/uL (4.20-5.40) L 07/15/23 04:45
Hgb 11.9 g/dL (12.0-16.0) L 07/15/23 04:45
Hct 35.5 % (37.0-47.0) L 07/15/23 04:45
MCV 92.2 fL (81.0-99.0) 07/15/23 04:45
MCH 30.9 pg (27.0-31.0) 07/15/23 04:45
MCHC 33.5 g/dL (33.0-37.0) 07/15/23 04:45
RDW 13.4 % (11.5-14.5) 07/15/23 04:45
Plt Count 414 10^3/uL (130-400) H 07/15/23 04:45
Plt Count Comment Yes 07/05/23 03:05
MPV 12.0 fL (7.4-10.4) H 07/15/23 04:45
Abs Immat Gran (auto) 0.4 10^3/uL (0-0.05) H 07/15/23 04:45
Absolute Neuts (auto) 14.7 10^3/uL (1.4-6.5) H 07/15/23 04:45
Absolute Lymphs (auto) 0.6 10^3/uL (1.2-3.4) L 07/15/23 04:45
Absolute Monos (auto) 0.8 10^3/uL (0.1-0.6) H 07/15/23 04:45
Absolute Eos (auto) 0.0 10^3/uL (0-0.7) 07/15/23 04:45
Absolute Basos (auto) 0.0 10^3/uL (0-0.2) 07/15/23 04:45
CBC Comment 07/08/23 21:33
Total Counted 100 07/05/23 03:05
Immature Gran % 2.3 % (0-0.5) H 07/15/23 04:45
Neutrophils % 88.9 % (42.2-75.2) H 07/15/23 04:45
Lymphocytes % 3.7 % (20.5-51.1) L 07/15/23 04:45
Monocytes % 4.7 % (1.7-9.3) 07/15/23 04:45
Eosinophils % 0.2 % (0-6) 07/15/23 04:45
Basophils % 0.2 % (0-2) 07/15/23 04:45
Nucleated RBC % 0 % 07/15/23 04:45
Abs Neuts (Manual) 10.7 10^3/uL (1.4-6.5) H 07/05/23 03:05
Segmented Neutrophils 84 % (42-75) H 07/05/23 03:05
Band Neutrophils 11 % (0-3) H D 07/05/23 03:05
Lymphocytes (Manual) 1 % (20-51) L 07/05/23 03:05
Monocytes (Manual) 4 % (2-9) 07/05/23 03:05
Metamyelocytes 4 % (-) 07/03/23 05:23
Myelocytes 1 % (-) 07/03/23 05:23
Vacuolated Neuts 1+ 07/03/23 05:23
Toxic Granulation 2+ 07/03/23 05:23
Normal RBC Morphology Yes 07/05/23 03:05
ESR 46 mm/hour (0-20) H 07/08/23 06:03
PT 15.2 Sec (11.4-14.6) H 07/08/23 21:33
INR 1.18 07/08/23 21:33
APTT 30.1 Sec (23.4-35.0) 07/08/23 21:33
pH 7.42 (7.35-7.45) 07/05/23 16:38
pCO2 28 mmHg (32-35) L 07/05/23 16:38
pO2 94 mmHg (83-108) 07/05/23 16:38
HCO3 18.2 mmol/L (21-28) L 07/05/23 16:38
Base Excess -4.9 mmol/L 07/05/23 16:38
ABG O2 Sat (Measured) 96.5 % (94-98) 07/05/23 16:38
O2 Delivery Level 07/05/23 16:38
Sodium 133 mmol/L (135-145) L 07/14/23 04:43
Potassium 3.8 mmol/L (3.5-5.1) 07/14/23 04:43
Chloride 99 mmol/L (98-107) 07/14/23 04:43
Carbon Dioxide 33 mmol/L (22-30) H 07/14/23 04:43
BUN 42 mg/dl (7-17) H 07/14/23 04:43
Creatinine 0.7 mg/dL (0.6-1.0) 07/14/23 04:43
Estimated Creat Clear 83 ml/min 07/14/23 04:43
eGFR > 60.00 07/14/23 04:43
Glucose 95 mg/dl (70-99) 07/14/23 04:43
Hemoglobin A1c 5.5 % (4.0-5.6) 07/09/23 06:26
Serum Osmolality 272 mOsm/kg (275-300) L 07/03/23 06:36
Calcium 8.4 mg/dl (8.4-10.2) 07/14/23 04:43
Phosphorus 4.1 mg/dl (2.5-4.5) 07/11/23 04:20
Magnesium 2.1 mg/dl (1.6-2.3) 07/12/23 04:08
Ferritin 2830.0 ng/ml (11.1-264.0) H 07/08/23 06:03
Total Bilirubin 1.1 mg/dl (0.2-1.3) 07/08/23 12:50
AST 28 U/L (14-36) 07/08/23 12:50
ALT 18 U/L (0-35) 07/08/23 12:50
Alkaline Phosphatase 94 U/L (38-126) 07/08/23 12:50
Creatine Kinase 94 U/L (30-135) 07/03/23 05:23
Troponin I 0.015 ng/ml 07/08/23 12:50
C-Reactive Protein > 270.00 mg/L (0.0-10.00) H 07/03/23 05:23
Total Protein 4.7 g/dl (6.3-8.2) L 07/08/23 12:50
Albumin 2.3 g/dl (3.5-5.0) L 07/08/23 12:50
Vitamin B12 > 1000 pg/ml (239-931) H 07/08/23 06:03
Folate > 20.0 ng/ml (2.76-20) H 07/08/23 06:03
TSH (Reflex) 2.70 uIU/ml (0.47-4.68) 07/08/23 06:03
Immunoglobulin A 163 mg/dl (70-400) 07/08/23 06:03
Immunoglobulin G 830 mg/dl (700-1600) 07/08/23 06:03
Immunoglobulin M 102 mg/dl (40-230) 07/08/23 06:03
Urine Color Cancelled 07/03/23 06:38
Urine Clarity Cancelled 07/03/23 06:38
Urine pH Cancelled 07/03/23 06:38
Ur Specific [place] Cancelled 07/03/23 06:38
Urine Ketones Cancelled 07/03/23 06:38
Ur Occult Blood Reflex Cancelled 07/03/23 06:38
Urine Nitrite (Reflex) Cancelled 07/03/23 06:38
Urine Bilirubin Cancelled 07/03/23 06:38
Urine Urobilinogen Cancelled 07/03/23 06:38
Leukocyte Esterase Rfl Cancelled 07/03/23 06:38
Urine RBC 0-2 /HPF (0-2) 07/03/23 06:36
Urine WBC (Reflex) 11-15 /HPF (0-5) A 07/03/23 06:36
Ur Squamous Epith Cells 16-20 /LPF (Few) 07/03/23 06:36
Amorphous Crystals Seen 07/03/23 06:36
Urine Bacteria (Reflex) Moderate (Negative) A 07/03/23 06:36
Granular Casts 11-15 /LPF (0) 07/03/23 06:36
Urine Osmolality 337 mOsm/kg (300-900) 07/04/23 13:46
Urine Sodium 46 mmol/L (30-90) 07/04/23 13:46
Urine Glucose Cancelled 07/03/23 06:38
Urine Albumin (Reflex) Cancelled 07/03/23 06:38
Urine Opiates Screen Negative (Negative) 07/05/23 12:39
Ur Buprenorphine Negative (Negative) 07/05/23 12:39
Ur Oxycodone Screen Negative (Negative) 07/05/23 12:39
Urine Methadone Screen Negative (Negative) 07/05/23 12:39
Urine Fentanyl Screen Positive (Negative) H 07/05/23 12:39
Ur Barbiturates Screen Negative (Negative) 07/05/23 12:39
Ur Tricyclics Screen Negative (Negative) 07/05/23 12:39
Ur Phencyclidine Scrn Negative (Negative) 07/05/23 12:39
Ur Amphetamines Screen Positive (Negative) H 01/22/24 12:39
U Methamphetamines Scrn Negative (Negative) 07/05/23 12:39
U Benzodiazepines Scrn Negative (Negative) 07/05/23 12:39
Urine Cocaine Screen Negative (Negative) 07/05/23 12:39
U Marijuana (THC) Screen Positive (Negative) H 07/05/23 12:39
Acetylchol Rcpt Bind Ab 0.0 nmol/L (0.0-0.4) 07/08/23 06:00
Hepatitis C Antibody Negative (Negative) 07/04/23 05:28
SARS-CoV-2 Antigen Negative (Negative) 07/06/23 04:58
POC Glucose 129 mg/dl (70-99) H 07/15/23 12:10
�
Diagnostic Results: as per HPI
Assessment 58 year old female with PMH of ( Sjogren's Syndrome, right acromioclavicular injury, osteoarthritis of bilateral knees, anxiety, depression and Alem-en-Y gastric bypass presented to [facility] with generalized weakness with poor oral
intake. found to have severe hyponatremia and acute kidney injury. worsening dysphagia. Treated for UTI due to E. Coli. Thought to have myasthenia gravis. acetylcholine receptor antibodies- negative, EMG study- �Severe chronic length-dependent
axonal sensorimotor peripheral polyneuropathy. Impaired muscle activation of the proximal limb musculature but with normal morphology and recruitment pattern of the motor unit potentials.
Plan
PM&R: PT/OT to increase independence with ADLs, improve balance, coordination, endurance, strength, mobility, community reintegration, decreased burden of care on others and family education.
Debility/ambulatory dysfunction: Due to lower extremities weakness. Cont PT/OT
Dysphagia: speech evaluation. Video swallow- aspiration with nectar, honey thick, and thin liquid. Nasogastric tube with plan for PEG. Notes this happening over past few weeks. Had much better voice in video she played 06/06/23.
- continue neurology work-up for cause. No recent vaccines or illness prior to onset of symptoms.
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 Voice change in recent.
Sjogren's Syndrome- Hydroxychloroquine
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 Impaired muscle activation of the proximal limb musculature but with normal morphology and recruitment pattern of the motor unit
potentials.
- Consider further neuropathy eval including those from nutritional deficiencies with history of gastric bypass, check heavy metals.
Right shoulder: likely rotator cuff injury from recent falls. Therapy, follow-up with sports medicine or shoulder group for possible MRI.
Falls: Likely multifactorial
Peripheral polyneuropathy, Osteoarthritis of both knees
HTN: continue medications, monitor closely
HLD: Statin
DM II: Accu-Cheks, insulin sliding scale, metformin, aspart, lantus.
Anemia: Likely multifactorial.� Continue to monitor.
VELMA/hyponatremia: per nephrology
UTI/Sepsis: E. Coli bacteremia- IV ceftriaxone - leukocytosis persists.
Psych: Psychology consult.� Depression/anxiety/ADHD- Wellbutrin and Adderall - stopped, cont Klonopin only as recommended by psych
Skin: monitor for pressure sores/rashes/lesions.
Pain: acetaminophen or oxycodone as needed.
Bowel: Colace and Senna, PRN bisacodyl.
Bladder: Time void, PVRs, PRN straight cath.
GI Prophylaxis: Pantoprazole
DVT Prophylaxis: mechanicals, heparin sc
Pulmonary: Incentive spirometry
Safety: Continue to reinforce assistance with all transfers.
Code Status:� Full code
Dispo (date/plan/equipment needs): Home with family care.� Social history reviewed.
Functional and Medical Goals: Modified Independent with ADL�s, ambulation, transfers
Discharge Destination: SNF
Summary of recommendations:
- Discharge Destination: SNF
Debility/ambulatory dysfunction: Due to lower extremities weakness. Cont PT/OT/Speech therapy as outpatient in a fpc facility due to her decreased endurance, inability to support/stand herself upright without the assistance of 2-3
people.Not be able to tolerate 3 hours a day of intensive acute inpatient rehabilitation. Patient also in agreement that she will not be able to tolerate this at this time.
Dysphagia: speech. Video swallow- aspiration with nectar, honey thick, and thin liquid. Nasogastric tube. PEG planned. Needs further work-up with neurology.
DVT Prophylaxis: mechanical, heparin
Pain: acetaminophen or Tramadol as needed. Lidoderm patch to shoulders
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 Impaired muscle activation of the proximal limb musculature but with normal morphology and recruitment pattern of the motor unit
potentials. Continue vitamins.
Consider further neuropathy eval including those from nutritional deficiencies with history of gastric bypass, check heavy metals.
Attending Statement:
I saw and examined the patient today.� Reviewed care plan with patient, therapy, nursing, and physician ice cream freezer assistant.� I agree with the above subjective and physical exam, and plan as documented.
-A total of 60 minutes were spent with the patient preparing for the evaluation, obtaining history, performing examination and evaluation, counseling, data review, case management, care coordination, order builder loader, and EMR documentation.
Thank you for allowing me to care for your patient. Please contact me with any questions or concerns.
This note was dictated using a voice recognition system. Please excuse any typographical errors from interior design coordinator. If you believe there are any discrepancies, please notify our office.
[2023-07-14] MEDS: TYLENOL ORAL SOLUTION 1000 MG TUBE ×2 (16:00→23:42)
[2023-07-14] MEDS: HEPARIN 5000 UNITS SC ×2 (16:00→23:41)
--- NOTE | 2023-07-14 16:40 | W.PN.HOSP.TC ---
Today's Communication/Plan
-
Appreciate neurology recommendations
Continue antibiotics
Assessment / Plan
Assessment / Plan
Physical Exam
General: No Apparent Distress
HEENT: Dobhoff tube in place
Respiratory: Clear to Auscultation Bilaterally
Cardiac: S1/S2. RRR.
GI: Soft and Nontender. Positive bowel sounds.
Musculoskeletal: No Edema
Skin: Warm and Dry
Neuro: Awake, Alert, Oriented x3
Psych: Calm

CT A/P
IMPRESSION:
1. There is moderate left hydronephrosis likely related to a left ureterovesical stone. There is prominent perinephric inflammation bilaterally.
2. There is probable atelectasis in the lung bases bilaterally.
MRI BRAIN
IMPRESSION:
1. No MRI evidence for an acute infarct.
2. 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

Assessment/Plan
Acute hypovolemic hyponatremia with Na down to 118 (prior labs from 2019 at 134)
Recent Poor PO Intake Leading Up to Hospitalization
Presentation with Nausea/Vomiting
-Received some normal saline and 3% saline, required D5W to correct rate
-Na now stable
-appreciate renal
-fluids now off, on TF
Severe Dysphagia
-patient unsafe to swallow all solid and liquid consistencies
-MRI w e/o MSA cerebellar type, per neuro clinically does not fit diagnosis; concern raised for Myasthenia Gravis
-F/U AchRAB
-Completed IVIG and Steroids on 07/12/23 - per neurology, these medications will take several days to start effect and will last several weeks
-Acetylcholine receptor antibodies: came back as zero
-Patient could still have Myasthenia Gravis
-Continue Pyridostigmine, increased from 60 mg 4x/day to 90 mg 4x/day
-Imodium as needed for diarrhea produced by Pyridostigmine
-Status post Prednisone 50 mg via NG tube on 07/13/23 given suspicion for myasthenia gravis
-Monitor NIF/VC's
-EMG follow-up
-neurology consult appreciated
-dobhoff placed and TF initiated on 07/09
-daily ST
-patient and sister told not a guarantee we can avoid PEG; on 07/10 she was cleared for ice chips
-Patient agreeable to PEG tube: consult GI for PEG tube placement
SVT
-SVT x 2 on 07/08 broke with adenosine 6mg each time
-appreciate cardiology, started on an amio gtt and now transitioned to BID Metoprolol
-Continue Lopressor
-Follow-up with cardiology for EP eval as outpt to discuss SVT ablation.
E. Coli UTI and Bacteremia
Ureterovesical stone; left hydronephrosis
-Continue IV Ceftriaxone to 2G q 24 hours
-WBC was increasing and finding of ureterovesical stone seen on 07/07. OR held given cardiac and neurological active issues; and now held as patient's WBC improving and pain resolved
-WBC was 12, now leukocytosis has resolved
-Repeat CT: no mass/hydro or stone
-appreciate Urology
-Will consider ID consultation
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
Generalized Weakness
Paranoia
Alcohol withdrawal
-patient with worsening psychosis Wednesday07/05/23 and initiated treated with high dose thiamine and alcohol withdrawal
-continue daily thiamine/folate
-MSAS protocol
-appreciate psychiatry recs
-hold wellbutrin and adderral (as below)
Non-Anion Gap Metabolic Acidosis
Acute Kidney Injury
-creatinine stable post IVF
Sjogren's Syndrome - Hold Hydroxychloroquine given reaction with amio --> F/U with pharmacy/cards when OK to resume
Right acromioclavicular injury
Suspected history of osteoarthritis
ADHD - hold home Adderall given acute psychosis
Anxiety - Continue home Klonopin, now IV ativan
Depression - hold home Wellbutrin given acute psychosis
History of Juwan-en-Y (cory-en-wy) gastric bypass surgery
DVT Prophylaxis: Heparin subq
Code Status: Full Code
Anticipated Discharge: > 48 hours
Subjective/Interval History
-
Date of Service: July 14, 2023
Patient was seen and examined. She was able to move her feet and lower extremities today (just like yesterday), she was able to get up out of bed to chair with physical therapy, she was able to stand, but about 1.5 hours later she was unable to bear
any weight, requiring Jarrett.
Objective Data
-
Labs:
Laboratory Results
07/14/23 07/14/23
04:43 07:57
WBC 20.2 H
Hgb 12.2
Hct 35.9 L
Plt Count 379 D
Sodium 133 L
Potassium 3.8
Chloride 99
Carbon Dioxide 33 H
BUN 42 H
Creatinine 0.7
Glucose 95
Calcium 8.4
Vital Signs:
Vital Signs
Temp Pulse Resp BP Pulse Ox
97.9 F 82 17 124/87 94
07/14/23 15:42 07/14/23 15:00 07/14/23 15:00 07/14/23 14:31 07/14/23 15:00
I&O
07/13/23 07/14/23 07/15/23
06:59 06:59 06:59
Intake Total 1585 / 1585 210 / 210
Output Total 600 / 600
Balance 1585 / 1585 -390 / -390
[2023-07-14 18:00] LABS: Glucose - Point of Care 175 mg/dl (70-99)
--- NOTE | 2023-07-14 20:00 | PTCARENOTE ---
rec`d pt at 1900. weak voice, dysphasia, and general weakness but oriented. SR on monitor. +1 edema. RT arm double luman PICC. 95% on room air. coughing up mucus in tissue. Rt nare dobhoff in place with jevity TF running at 55mL/hr with [address], pt incontinent of urine. Pt uses bedpan to try BM. safe environment maintained. call nixon in reach.
--- NOTE | 2023-07-14 21:56 | PTCARENOTE ---
report given to CHRIS hui.
[2023-07-15 00:06] LABS: Glucose - Point of Care 73 mg/dl (70-99)
[2023-07-15] MEDS: NOVOLOG FLEXPEN 6 UNITS SC ×4 (00:07→23:40)
[2023-07-15] MEDS: NOVOLOG FLEXPEN-LOW RESISTANCE SC ×5 (00:08→23:40)
[2023-07-15 03:23] VITALS: BP 113/70
--- NOTE | 2023-07-15 04:44 | PTCARENOTE ---
Pt arrived on the floor @21:45. Vital signs stable. Pt oriented to room and call nixon. Will continue to monitor.
[2023-07-15 05:13] LABS: % Basophils 0.2 % (0-2); % Eosinophils 0.2 % (0-6); % Immature Granulocytes 2.3 % (0-0.5); % Lymphocytes 3.7 % (20.5-51.1); % Monocytes 4.7 % (1.7-9.3); % Neutrophils 88.9 % (42.2-75.2); Absolute Immature Granulocytes 0.4 10^3/uL (0-0.05); Absolute Lymphocytes 0.6 10^3/uL (1.2-3.4); Absolute Monocytes 0.8 10^3/uL (0.1-0.6); Absolute Neutrophils 14.7 10^3/uL (1.4-6.5); Hematocrit 35.5 % (37.0-47.0); Hemoglobin 11.9 g/dL (12.0-16.0); Mean Corp Hgb Conc. 33.5 g/dL (33.0-37.0); Mean Corpuscular Hgb 30.9 pg (27.0-31.0); Mean Corpuscular Volume 92.2 fL (81.0-99.0); Nucleated Red Blood Cells % 0 %; Platelet Count 414 10^3/uL (130-400); Red Blood Cell Count 3.85 10^6/uL (4.20-5.40); Red Cell Dist. Width 13.4 % (11.5-14.5); White Blood Cell Count 16.6 10^3/uL (4.8-10.8)
[2023-07-15 05:48] LABS: Glucose - Point of Care 118 mg/dl (70-99)
[2023-07-15 06:00] VITALS: BMI 25.9
[2023-07-15 07:30] VITALS: BP 115/78
--- NOTE | 2023-07-15 07:31 | W.PN.NEURO.1 ---
Today's Communication / Plan
-
-Stop steroids
-Check MRI cervical spine although cervical causes of bulbar symptoms are rare
-Check lumbar puncture with basic studies, cytology
-PT/OT and mobilization
-DHT to continue
Neuro Assessment/Plan
Assessment
IMPRESSIONS/RECOMMENDATIONS:
Abrupt onset of worsening of dysphagia, ongoing for approximately 2 years; she also has significant hypophonia, and muscle weakness
MRI of brain findings suggestive of T2 hyperintensities in the riaz suggestive of multisystem atrophy.
EMG study was demonstrative of sensory motor neuropathy and unremarkable repetitive stimulation EMG (not supportive of myasthenia gravis)
MRI findings do not match the patient's examination or history with lack of autonomic findings including constipation, orthostasis, parkinsonism or cerebellar syndrome.
She does not have cerebellar limb ataxia or cerebellar eye movement abnormalities. She has long standing history of neuropathy that is producing some sensory ataxia on gait, neuropathy probably due to either Sjogren's and/or previous alcohol use.
Will have to keep in mind an early MSA or a form manifesting more with bulbar symptoms in mind
Patient also has a prior history of blepharoplasty suggestive of ptosis in the past. This combined with speech changes, dysphagia gave moderate suspicion for neuromuscular junction disorder with myasthenia gravis
-However EMG and negative acetylcholine antibodies make myasthenia very unlikely
Differential diagnosis
-MSA or PSP which are neurodegenerative diseases without significant treatments
-Spinocerebellar ataxia
-Paraneoplastic syndrome
-Progression of a long standing neuropathy
-Rare but cervical spine causes of dysphagia (syrinx)
Subjective/Objective
Subjective Data
Date of Service: July 15, 2023
No acute events, feels walking isn't good but overall feels voice is better
Objective Data
Vital Signs
Temp Pulse Resp BP Pulse Ox
97.8 F 87 20 113/70 96
07/15/23 03:23 07/15/23 03:23 07/15/23 03:23 07/15/23 03:23 07/15/23 03:23
Lab Results
07/15/23 04:45
07/14/23 04:43
PT 15.2 Sec (11.4-14.6) H 07/08/23 21:33
INR 1.18 07/08/23 21:33
APTT 30.1 Sec (23.4-35.0) 07/08/23 21:33
Sodium 133 mmol/L (135-145) L 07/14/23 04:43
Potassium 3.8 mmol/L (3.5-5.1) 07/14/23 04:43
BUN 42 mg/dl (7-17) H 07/14/23 04:43
Glucose 95 mg/dl (70-99) 07/14/23 04:43
Calcium 8.4 mg/dl (8.4-10.2) 07/14/23 04:43
Phosphorus 4.1 mg/dl (2.5-4.5) 07/11/23 04:20
Vitamin B12 > 1000 pg/ml (239-931) H 07/08/23 06:03
Ur Buprenorphine Negative (Negative) 07/05/23 12:39
Patient Allergies
latex Allergy (Verified 11/19/22 16:31)
Itching
Penicillins Allergy (Verified 11/19/22 16:31)
Unknown
Review of Systems
-
History Source: Patient
All other systems: Reviewed and negative
Constitutional: No Symptoms
EENT: No Symptoms Reported
Respiratory: No Symptoms
Cardiac: No Symptoms
Abdomen/GI: No Symptoms
Genitourinary: No Symptoms
Musculoskeletal: No Symptoms
Skin: No Symptoms
Neuro: Speech Problem and See existing Neuro Note
Endocrine: No Symptoms
Hematologic / Lymphatic: No Symptoms
Allergy / Immunology: No Symptoms
Physical Exam
-
General: Appears Chronically Ill
Eyes: No Ptosis
Neck: No Bruits Bilaterally
Respiratory: Clear to Auscultation
Cardiac: Regular Rhythm
GI: Normal Bowel Sounds
Skin: Unremarkable
Extremities: No Clubbing
Psych: Unremarkable
Extended Neurological Exam
Attention Span & Concentration: Awake, Alert and Interactive
Memory: Unremarkable
Tremor: Hand Tremor Absent
Involuntary Movement: None
Speech: Quality Unremarkable, Quantity Unremarkable and Dysarthric; Negative Expressive Aphasia or Receptive Aphasia
Cranial Nerve II: Left Eye: Pupillary Reactivity Unremarkable
Cranial Nerve II: Right Eye: Pupillary Reactivity Unremarkable
Cranial Nerves III, IV, : Extraocular Movement: Extraocular Movement Full in all Directions
Muscle Strength, Overall: Other (4/5 right shoulder limited due to pain, 5/5 left shoulder abduction, 5/5 arm flexion bilaterally, hip flexion 4/5 bilaterally, normal muscle tone no abnormal movements or parkinsonism)
Muscle Bulk & Tone: Bulk Unremarkable and Tone Unremarkable
Pronator Drift: No Drift in Upper Extremities
Deep Tendon Reflexes: Absent Throughout
Vibration Sensation: Reduced Mildly Distally
Coordination: Hxpevz-[id number]-hzgfny Testing Unremarkable and Other (No ataxia or cerebellar signs)
Modified Lester Score (MRS)
-
MRS Score:
Data Reviewed
-
MRI Head: Report Reviewed and Image Reviewed
MRI Cervical Spine: Ordered and Pending
Labs: Report Reviewed
--- NOTE | 2023-07-15 08:37 | PN.DE.MGMTRT ---
Insulin Management
- -
07/13/2023 Diabetes Management Follow up
Patient admitted 07/03 with hyponatremia, possible UTI. PMH includes Sjogrens syndrome, anxiety, depression, alem-en,y, osteoarthritis. No history of diabetes, A1C 5.5%, cr .7, egfr >60. She is currently undergoing work up for possible Myasthenia
Gravis. She is receiving tube feeds @ 55 per hour.
Patient has been started on steroids, glucose trended up. Lantus 10 units in AM started yesterday, with 4 units novolog Q 6 hours. Glucose range 124 to 240. Will increase Q 6 hour novolog to 6 units with low corrective insulin. Will increase
lantus to 12 units in AM. Will follow.
07/14/2023 Diabetes Management Follow up
Tube feeds continue at 55 mg/ hr. Steroids continue daily. Lantus dose increased to 12 units yesterday, fasting glucose this AM 107. Q 6 novolog increased to 6 units, Q 6 hours glucose 131 and 133. Will make no change to novolog. If tube feeds
stopped or held please hold the Q 6 hour 6 units novolog and continue corrective insulin.
07/15/2023 Diabetes Management Follow up
Tube feeds continue @ 55 per hour, steroids continue @ 50 mg . Glucose stable on current diabetes regimen, 12 lantus @ 11am and 6 units novolog Q 6 hours with corrective insulin. Will make no changes. If tube feeds stopped or held please hold the
Q 6 hour 6 units novolog and continue corrective insulin.
Diabetes History
- -
Pre-Admission Diabetes Regimen
Lab Results
Hemoglobin A1c 5.5 % (4.0-5.6) 07/09/23 06:26
Insulin Pump Settings
IP Diabetes Regimen
07/14/23 07/14/23 07/15/23
11:55 17:49 00:02
POC Glucose 173 H 175 H 73
07/15/23
05:47
POC Glucose 118 H
Patient Education
[2023-07-15] MEDS: CLARITIN 10 MG TUBE (08:42)
[2023-07-15] MEDS: MESTINON 90 MG TUBE ×4 (08:42→22:44)
[2023-07-15] MEDS: RESTASIS 0.05% OPHTHALMIC EMULSION 1 DROPS BOTH EYES ×2 (08:42→20:12)
[2023-07-15] MEDS: FOLVITE 1 MG TUBE (08:45)
[2023-07-15] MEDS: KLONOPIN 0.5 MG PO ×2 (08:45→20:10)
[2023-07-15] MEDS: LOPRESSOR 25 MG TUBE ×2 (08:45→20:10)
[2023-07-15] MEDS: HEPARIN 5000 UNITS SC ×3 (08:46→23:22)
[2023-07-15] MEDS: PROTONIX IV 40 MG IV (08:51)
[2023-07-15] MEDS: NEURONTIN 300 MG TUBE ×2 (08:51→20:10)
[2023-07-15] MEDS: NSS (PRESERVATIVE FREE) 10 ML IV (08:51)
[2023-07-15] MEDS: THIAMINE INJECTION 200 MG IV (08:51)
[2023-07-15] MEDS: LIDOCAINE 4% PATCH 1 PATCH TOPICAL ×2 (08:53)
[2023-07-15] MEDS: DICLOFENAC 1% TOPICAL GEL 100 GRAM TOPICAL ×4 (08:54→22:44)
[2023-07-15] MEDS: IMODIUM LIQUID 2 MG TUBE (08:55)
[2023-07-15] MEDS: STERILE WATER FOR INJECTION 20 ML IV (08:58)
[2023-07-15] MEDS: ROCEPHIN 2000 MG IV (09:01)
[2023-07-15] MEDS: TYLENOL ORAL SOLUTION 1000 MG TUBE ×3 (09:02→23:59)
--- NOTE | 2023-07-15 11:01 | CON.GI ---
Addendum entered and electronically signed by Valerie Ceballos MD 07/15/23 20:29:
I saw and examined the patient.
The LAB AID or PA's note was reviewed and I agree with the note.
Comment: 58-year-old female with history of Sjogren's, multiple abdominal surgeries including Juwan-en-Y gastric bypass, cholecystectomy which was complicated requiring multiple other surgeries, hernia repair presenting with complaints of progressive
weakness, diarrhea, urosepsis with electrolyte abnormalities. During the hospital stay, started having trouble swallowing which she denies prior to admission and video swallow showed aspiration with thin liquids and thick liquids and GI consult
called in for PEG tube placement.
Reviewed patient's records, patient with history of Juwan-en-Y gastric bypass, patient has gastric pouch and would not be able to place PEG tube into the pouch.
She will need surgical J-tube. Suggest surgery evaluation in a.m.
Until then, continue Dobbhoff feeds.
Will sign off, please call back if needed
Addendum entered and electronically signed by TIFFANIE Pantoja 07/15/23 15:37:
We will discuss with Surgery prior to scheduling any procedures.
Original Note:
Consultation
-
Date/Time Consultation Requested: 07/14/23 1614
Date/Time Consultation Performed: 07/15/23 1030
Requesting Provider: Dr. Thomas
Performing Provider: Dr. Ceballos/TIFFANIE Pascual
Reason for Consultation: PEG tube placement
Medical History
Chief Complaint / HPI
Chief Complaint: weakness
History of Present Illness:
58-year-old female with past medical history of Sjogren's syndrome, osteoarthritis, anxiety, ADHD on Adderall, depression, gastroesophageal reflux disease, Juwan-en-Y gastric bypass (2000) status postcholecystectomy 2013, with 7 subsequent surgeries
after, last 1 being hernia repair, UTI, cellulitis, 'paralyzed vocal cord', intermittent dysphagia, multiple falls who presents to the emergency room on 07/03/2023 with progressive weakness and diarrhea. On arrival the patient was found to have
significant hyponatremia and VELMA. The patient was seen by neurology on 07/08/2023 for progressive dysphagia. It was suspected that the patient had myasthenia gravis was placed on steroids and IVIG. She was also being treated for E. coli urosepsis
secondary to partially obstructing left UVJ stone. The patient had episodes of SVT on 07/08/2023 and was given adenosine and broke. She had a second episode several hours later requiring another push of IV adenosine. The patient's IV amiodarone
was stopped and patient was started on metoprolol via Dobbhoff. Patient finished her fifth day of IVIG and IV steroids. She was continued on oral prednisone via Dobbhoff. Mestinon was started as well. Patient had repeat barium swallow performed
on 07/14/2023 with airway aspiration with thin liquids, nectar thick liquid and honey thick liquid. Prompting evaluation for alternate means of nutrition. The patient at baseline has a history of gastroesophageal reflux on Prevacid at home. The
patient states that if she does not take Prevacid she will have reflux symptoms. She does have some mild regurgitation like symptoms at baseline with an acid like taste in her mouth especially she does not take Prevacid. The patient does have a
history of a Juwan-en-Y gastric bypass [place] [address] Param Fitch. At the present time she does have a Dobbhoff tube in place and is tolerating tube feeds at 55 cc an hour the patient is sitting completely upright. The patient states
that she does not lie flat. She does have loose stools, on Mestinon. The patient also has a history of a cholecystectomy performed by Dr. Thompson at [facility] in 2013. The patient states that within 24 hours she had to be taken back into
surgery for a 'repair'. She states that she then had 5 other surgeries after that repair for other 'repairs'. She is unsure if these were bile duct leaks, bleeding. She did need to be transferred to the main [facility].
She states her last surgery was performed by Dr. Param Fitch (not original [facility] [facility] ) physician. And then had a last and final hernia repair. She is unsure if she has mesh within her abdomen. The last surgery was performed in 2014. She does
not recall any information about those surgeries and if any small bowel was altered after her original surgery, [place] or any true information except that the last surgery was infact a hernia repair. The patient had an endoscopy and colonoscopy
performed in 2019 secondary to a positive Cologuard by , she believes she had a couple polyps removed at that time. The patient denies any current nausea, vomiting, melena, hematochezia or abdominal pain.
Past Medical History
Past Medical History: Other (Sjogren's syndrome, osteoarthritis, anxiety, ADHD, depression, UTI, cellulitis, 'paralyzed vocal cord', intermittent dysphagia, ambulatory dysfunction)
Past Surgical History: Cholecystectomy (With 7 subsequent surgeries after (unknown reason)), Orthopedic (L4-L5 discectomy) and Other (Hernia repair, ovarian cystectomy, adenoidectomy, bilateral blepharoplasty (05/2023), uvula removed)
Social History
Tobacco: Former Smoker
Alcohol: Former
Drug: Marijuana
Family History
Family History: Other (No family history gastrointestinal malignancy or inflammatory bowel disease)
Allergies / Home Medications
Allergy/AdvReac Type Severity Reaction Status Date / Time
latex Allergy Itching Verified 11/19/22 16:31
Penicillins Allergy Unknown Verified 11/19/22 16:31
Medication Instructions Recorded
Medical Marijuana 0 drp sublingual .SEE BELOW 07/03/23
PRN mild pain
Medical Marijuana 0 inh inhalation .SEE BELOW 07/03/23
PRN mild pain
Visbiome 10 billion cells PO DAILY 07/03/23
Gastrointestinal Issue
albuterol sulfate 90 mcg/actuation 2 puff inhalation R BIDPRN PRN sob 07/03/23
aerosol inhaler (ProAir HFA)
bupropion HCl 300 mg 24 hr tablet, 300 mg PO DAILY Mental 07/03/23
extended release (Wellbutrin XL) Health/Anxiety
cholecalciferol (vitamin D3) 125 125 mcg PO DAILY Supplement 07/03/23
mcg (5,000 unit) tablet
clonazepam 0.5 mg tablet 0.5 mg PO BID Mental Health/Anxiety 07/03/23
cyanocobalamin (vitamin B-12) 2,500 mcg PO DAILY Supplement 07/03/23
2,500 mcg tablet
cyclosporine 0.05 % eye drops 1 drp BOTH EYES BID Eye Condition 07/03/23
dextroamphetamine-amphetamine 30 30 mg PO BID Mental Health/Anxiety 07/03/23
mg tablet (Adderall)
estradiol 0.045 mg-levonorgestrel 1 patch transdermal QWEEK Hormonal 07/03/23
0.015 mg/24hr weekly transderm Agent
patch (Climara Pro)
ferrous sulfate 325 mg (65 mg 325 mg PO DAILY Supplement 07/03/23
iron) tablet (iron)
fluticasone 250 mcg-salmeterol 50 1 inh inhalation R BID 07/03/23
mcg/dose blistr powdr for Lung/Breathing Issues
inhalation
fluticasone propionate 50 2 spray intranasal DAILY Allergies 07/03/23
mcg/actuation nasal
spray,suspension
folic acid 1 mg tablet 1 mg PO DAILY Supplement 07/03/23
gabapentin 300 mg capsule 300 mg PO QID@0600,12,18,0000 07/03/23
Neurological Condition
hydroxychloroquine 200 mg tablet 200 mg PO DAILY Autoimmune Disorder 07/03/23
lansoprazole 30 mg capsule,delayed 30 mg PO DAILY Gastrointestinal 07/03/23
release Issue
loratadine 10 mg tablet (Claritin) 10 mg PO DAILY Allergies 07/03/23
minoxidil 2.5 mg tablet 1.25 mg PO DAILY Blood Pressure 07/03/23
potassium 99 mg tablet 99 mg PO DAILY Supplement 07/03/23
therapeutic multivitamin 1 tab PO DAILY Supplement 07/03/23
Review of Systems
-
All other systems: A 12 pt ROS was Negative except as stated above in HPI
Vital Signs
Temp Pulse Resp BP Pulse Ox
97.6 F 95 18 115/78 97
07/15/23 07:30 07/15/23 08:45 07/15/23 07:30 07/15/23 08:45 07/15/23 07:30
Physical Exam
Exam
General: No Apparent Distress
HEENT: Other (Dysphonia, Dobbhoff in place)
Respiratory: Clear (Anterior)
Cardiac: Regular Rhythm
GI: Soft, Non Tender, Non Distended, Normal Bowel Sounds and Other (midline old surgical scar, old healed surgical incisions)
Musculoskeletal: No Edema
Skin: Warm and Dry
Neuro: AO x 3
Psych: Calm
Results
WBC 16.6 10^3/uL (4.8-10.8) H 07/15/23 04:45
Hgb 11.9 g/dL (12.0-16.0) L 07/15/23 04:45
Hct 35.5 % (37.0-47.0) L 07/15/23 04:45
MCV 92.2 fL (81.0-99.0) 07/15/23 04:45
Plt Count 414 10^3/uL (130-400) H 07/15/23 04:45
Absolute Neuts (auto) 14.7 10^3/uL (1.4-6.5) H 07/15/23 04:45
PT 15.2 Sec (11.4-14.6) H 07/08/23 21:33
INR 1.18 07/08/23 21:33
APTT 30.1 Sec (23.4-35.0) 07/08/23 21:33
Sodium 133 mmol/L (135-145) L 07/14/23 04:43
Potassium 3.8 mmol/L (3.5-5.1) 01/31/24 04:43
Chloride 99 mmol/L (98-107) 07/14/23 04:43
Carbon Dioxide 33 mmol/L (22-30) H 07/14/23 04:43
BUN 42 mg/dl (7-17) H 07/14/23 04:43
Creatinine 0.7 mg/dL (0.6-1.0) 07/14/23 04:43
Calcium 8.4 mg/dl (8.4-10.2) 07/14/23 04:43
Total Bilirubin 1.1 mg/dl (0.2-1.3) 07/08/23 12:50
AST 28 U/L (14-36) 07/08/23 12:50
ALT 18 U/L (0-35) 07/08/23 12:50
Alkaline Phosphatase 94 U/L (38-126) 07/08/23 12:50
Hepatitis C Antibody Negative (Negative) 07/04/23 05:28
Diagnostic Image Results:
Prior GI Procedures:
EGD: 2019 (Dr. Berkowitz)
Colonoscopy: 2019 (Dr. Carmona) 'couple polyps per patient'
Assessment / Plan
-
58-year-old female with past medical history of Sjogren's syndrome, osteoarthritis, anxiety, ADHD on Adderall, depression, gastroesophageal reflux disease, Juwan-en-Y gastric bypass (2000) status postcholecystectomy 2013, with 7 subsequent surgeries
after, last 1 being hernia repair, UTI, cellulitis, 'paralyzed vocal cord', intermittent dysphagia, multiple falls who presents to the emergency room on 07/03/2023 with progressive weakness and diarrhea. On arrival the patient was found to have
significant hyponatremia and VELMA. The patient was seen by neurology on 07/08/2023 for progressive dysphagia. Patient had repeat barium swallow performed on 07/14/2023 with airway aspiration with thin liquids, nectar thick liquid and honey thick
liquid. Prompting evaluation for alternate means of nutrition. Patient with a history of Juwan-en-Y gastric bypass [place] [address] Param Fitch. Also with a history of cholecystectomy performed at [facility] in 2013 with
Jay with subsequent repeat need for OR within 24 hours and 6 subsequent surgeries within 1 year. Unknown surgeries per patient. Last and final surgery performed in 2014 which is definitely a hernia repair. Patient is unsure if any bowel was
altered or bile ducts. She is unsure if she has any abdominal mesh. Her last surgery was performed by another physician with the same name Dr. David Fitch at [facility] in [place]. Patient with history of
scleroderma with history of gastroesophageal reflux with some regurgitation on chronic PPI therapy. Currently with Dobbhoff in place tolerating tube feeds at 55 cc an hour. Had EGD performed by Dr. Carmona in 2019.
Impression:
1. Dysphagia
2. Hypophonia
3. Muscle weakness
4. GERD
5. Sjogren's
6. Multiple abdominal surgeries (Juwan en Y Gastric Bypass, CCY, (7 other surgeries starting <24 hrs post CCY 2013 and resulting with moving patient to [facility] and final surgery with hernia repair, unsure if mesh).
Plan:
-Continue Dobhoff feeds
-Aspiration precautions as patient risk of aspiration with Sjogren's as she already has regurgitation
-Continue Pantoprazole
-Obtain records from [facility] ([phone]), Dr. Carmona (2019 EGD/[place])
-Surgical consultation
-Will likely need imaging to evaluate anatomy prior to any decisions on location for tube placement and by what specialty.
-
-
Thank you for consultation and allowing me to participate in the patient's care. Please call the supervisor production department GI physician during the after hours with any questions or concerns.
[2023-07-15 11:46] VITALS: BP 94/64
[2023-07-15 12:11] LABS: Glucose - Point of Care 129 mg/dl (70-99)
[2023-07-15] MEDS: LANTUS 0.119999999999999996 UNITS SC (13:28)
--- NOTE | 2023-07-15 13:36 | W.PN.HOSP.TC ---
Today's Communication/Plan
-
Neurology assistance appreciated
Please see below
Assessment / Plan
Assessment / Plan
Physical Exam
General: No Apparent Distress
HEENT: Dobhoff tube in place
Respiratory: Clear to Auscultation Bilaterally
Cardiac: S1/S2. RRR.
GI: Soft and Nontender. Positive bowel sounds.
Musculoskeletal: No Edema
Skin: Warm and Dry
Neuro: Awake, Alert, Oriented x3
Psych: Calm

CT A/P
IMPRESSION:
1. There is moderate left hydronephrosis likely related to a left ureterovesical stone. There is prominent perinephric inflammation bilaterally.
2. There is probable atelectasis in the lung bases bilaterally.
MRI BRAIN
IMPRESSION:
1. No MRI evidence for an acute infarct.
2. 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

Assessment/Plan
Acute hypovolemic hyponatremia with Na down to 118 (prior labs from 2019 at 134)
Recent Poor PO Intake Leading Up to Hospitalization
Presentation with Nausea/Vomiting
-Received some normal saline and 3% saline, required D5W to correct rate
-Na now stable
-appreciate renal
-fluids now off, on TF
Severe Dysphagia (due to MSA or PSP which are neurodegenerative diseases without significant treatments vs. Spinocerebellar ataxia vs. Paraneoplastic syndrome vs. Progression of a long standing neuropathy vs. Rare but cervical spine causes of
dysphagia (syrinx))
-patient unsafe to swallow all solid and liquid consistencies
-MRI w e/o MSA cerebellar type, per neuro clinically does not fit diagnosis; concern raised for Myasthenia Gravis
-F/U AchRAB
-Completed IVIG and Steroids on 07/12/23 - per neurology, these medications will take several days to start effect and will last several weeks
-Acetylcholine receptor antibodies: came back as zero
-EMG also not supportive of Myasthenia Gravis
-Continue Pyridostigmine, increased from 60 mg 4x/day to 90 mg 4x/day
-Imodium as needed for diarrhea produced by Pyridostigmine
-Status post Prednisone 50 mg via NG tube on 07/13/23 given suspicion for myasthenia gravis - steroids now stopped
-MRI cervical spine (to see if there are cervical causes of bulbar symptoms)
-Check lumbar puncture with diagnostic studies
-Monitor NIF/VC's
-EMG follow-up
-neurology consult appreciated
-dobhoff placed and TF initiated on 07/09
-daily ST
-patient and sister told not a guarantee we can avoid PEG; on 07/10 she was cleared for ice chips
-Patient agreeable to PEG tube: consult GI for PEG tube placement
SVT
-SVT x 2 on 07/08 broke with adenosine 6mg each time
-appreciate cardiology, started on an amio gtt and now transitioned to BID Metoprolol
-Continue Lopressor
-Follow-up with cardiology for EP eval as outpt to discuss SVT ablation.
E. Coli UTI and Bacteremia
Ureterovesical stone; left hydronephrosis
-Continue IV Ceftriaxone to 2G q 24 hours
-WBC was increasing and finding of ureterovesical stone seen on 07/07. OR held given cardiac and neurological active issues; and now held as patient's WBC improving and pain resolved
-WBC was 12, now leukocytosis has resolved
-Repeat CT: no mass/hydro or stone
-appreciate Urology
-Will consider ID consultation
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
Generalized Weakness
Paranoia
Alcohol withdrawal
-patient with worsening psychosis Wednesday07/05/23 and initiated treated with high dose thiamine and alcohol withdrawal
-continue daily thiamine/folate
-MSAS protocol
-appreciate psychiatry recs
-hold wellbutrin and adderral (as below)
Non-Anion Gap Metabolic Acidosis
Acute Kidney Injury
-creatinine stable post IVF
Sjogren's Syndrome - Hold Hydroxychloroquine given reaction with amio --> F/U with pharmacy/cards when OK to resume
Right acromioclavicular injury
Suspected history of osteoarthritis
ADHD - hold home Adderall given acute psychosis
Anxiety - Continue home Klonopin, now IV ativan
Depression - hold home Wellbutrin given acute psychosis
History of Juwan-en-Y (cory-en-wy) gastric bypass surgery
DVT Prophylaxis: Heparin subq
Code Status: Full Code
Anticipated Discharge: > 48 hours
Subjective/Interval History
-
Date of Service: July 15, 2023
Patient was seen and examined. She reports not much change since yesterday.
Objective Data
-
Labs:
Laboratory Results
07/15/23
04:45
WBC 16.6 H
Hgb 11.9 L
Hct 35.5 L
Plt Count 414 H
Vital Signs:
Vital Signs
Temp Pulse Resp BP Pulse Ox
97.9 F 83 20 94/64 98
07/15/23 11:46 07/15/23 11:46 07/15/23 11:46 07/15/23 11:46 07/15/23 11:46
I&O
07/14/23 07/15/23 07/16/23
06:59 06:59 06:59
Intake Total 210 / 210 1320 / 1320
Output Total 600 / 600 250 / 250
Balance -390 / -390 1070 / 1070
[2023-07-15 15:30] VITALS: BP 104/64
[2023-07-15 18:12] LABS: Glucose - Point of Care 61 mg/dl (70-99)
[2023-07-15] MEDS: NOVOLOG FLEXPEN SC (18:16)
[2023-07-15] MEDS: DEXTROSE 50% SYRINGE 12.5 GRAMS IV (18:25)
[2023-07-15 18:48] LABS: Glucose - Point of Care 202 mg/dl (70-99)
[2023-07-15 19:10] VITALS: BP 105/85
[2023-07-15 21:45] LABS: Glucose - Point of Care 140 mg/dl (70-99)
[2023-07-15 23:38] LABS: Glucose - Point of Care 126 mg/dl (70-99)
[2023-07-16] VITALS (10 sets, daily range): BP systolic 95–124; BP diastolic 65–82; O2SAT 92; BMI 26.5
[2023-07-16 03:44] LABS: Glucose - Point of Care 150 mg/dl (70-99)
[2023-07-16 05:18] LABS: % Basophils 0.2 % (0-2); % Eosinophils 0.8 % (0-6); % Immature Granulocytes 2.9 % (0-0.5); % Neutrophils 84.1 % (42.2-75.2); Absolute Eosinophils 0.1 10^3/uL (0-0.7); Absolute Immature Granulocytes 0.5 10^3/uL (0-0.05); Absolute Lymphocytes 0.9 10^3/uL (1.2-3.4); Absolute Monocytes 1.2 10^3/uL (0.1-0.6); Absolute Neutrophils 14.3 10^3/uL (1.4-6.5); Hematocrit 33.3 % (37.0-47.0); Hemoglobin 11.3 g/dL (12.0-16.0); Mean Corp Hgb Conc. 33.9 g/dL (33.0-37.0); Mean Corpuscular Volume 91.5 fL (81.0-99.0); Mean Platelet Volume 12.1 fL (7.4-10.4); Nucleated Red Blood Cells % 0 %; Platelet Count 480 10^3/uL (130-400); Red Blood Cell Count 3.64 10^6/uL (4.20-5.40); Red Cell Dist. Width 13.8 % (11.5-14.5)
[2023-07-16 05:34] LABS: Glucose - Point of Care 132 mg/dl (70-99)
[2023-07-16] MEDS: NOVOLOG FLEXPEN-LOW RESISTANCE SC ×2 (05:35→18:03)
[2023-07-16] MEDS: NOVOLOG FLEXPEN 6 UNITS SC ×2 (05:35→11:52)
[2023-07-16] MEDS: IMODIUM LIQUID 2 MG TUBE (05:41)
--- NOTE | 2023-07-16 07:31 | PN.DE.MGMTRT ---
Insulin Management
- -
07/12/2023: Diabetes Management Consult:
58 year old female with PMH that includes: Sjogren's Syndrome, right acromioclavicular injury, suspected history of osteoarthritis, anxiety, depression and Juwan-en-Y (cory-en-wy) gastric bypass surgery. Pt was admitted on 07/03 with Abrupt onset of
worsening of dysphagia, increasing generalized weakness, ambulatory dysfunction, abdominal discomfort, poor appetite, and diarrhea likely due to myasthenia gravis. She is also being treated for bacteremia, hyponatremia, dysphagia and kidney stone.
Currently on IVIG, IV steroids and tube feeds with subsequent Hyperglycemia. A1C 5.5%, No prior hx of Diabetes and was not on any meds TPA.
Diabetes regimen includes: low corrective insulin. Glucose has trended up to 274, has received 1-3 units of corrective.
Will start Lantus 10 units, 1st dose now and daily there after. Start NovoLog 4 units Q6 hrs while on TF, hold dose if TF interrupted or on hold.
Cont low corrective Q6 hrs.
07/13/2023 Diabetes Management Follow up
Patient admitted 07/03 with hyponatremia, possible UTI. PMH includes Sjogrens syndrome, anxiety, depression, juwan-en,y, osteoarthritis. No history of diabetes, A1C 5.5%, cr .7, egfr >60. She is currently undergoing work up for possible Myasthenia
Gravis. She is receiving tube feeds @ 55 per hour.
Patient has been started on steroids, glucose trended up. Lantus 10 units in AM started yesterday, with 4 units novolog Q 6 hours. Glucose range 124 to 240. Will increase Q 6 hour novolog to 6 units with low corrective insulin. Will increase
lantus to 12 units in AM. Will follow.
07/14/2023 Diabetes Management Follow up
Tube feeds continue at 55 mg/ hr. Steroids continue daily. Lantus dose increased to 12 units yesterday, fasting glucose this AM 107. Q 6 novolog increased to 6 units, Q 6 hours glucose 131 and 133. Will make no change to novolog. If tube feeds
stopped or held please hold the Q 6 hour 6 units NovoLog and continue corrective insulin.
07/15/2023 Diabetes Management Follow up
Tube feeds continue @ 55 per hour, steroids continue @ 50 mg . Glucose stable on current diabetes regimen, 12 Lantus @ 11am and 6 units NovoLog Q 6 hours with corrective insulin. Will make no changes. If tube feeds stopped or held please hold the
Q 6 hour 6 units NovoLog and continue corrective insulin.
07/16/2023: Diabetes Management F/U:
Currently off steroids, continues on tube feeds, plan for J- tube placement, likely not today.
Glucose remains stable and in range on current regimen 12 Lantus @ 11am and 6 units NovoLog Q 6 hours with corrective insulin.
Will make no changes. HOLD Q 6 hour 6 units NovoLog if tube feeds are held for procedure or interrupted and continue corrective insulin.
Diabetes History
- -
Type of Diabetes: 2 requiring insulin
Pre-Admission Diabetes Regimen
Lab Results
Hemoglobin A1c 5.5 % (4.0-5.6) 07/09/23 06:26
Insulin Pump Settings
IP Diabetes Regimen
07/15/23 07/15/23 07/15/23
12:10 18:10 18:46
POC Glucose 129 H 61 L 202 H
07/15/23 07/15/23 07/16/23
21:42 23:37 03:42
POC Glucose 140 H 126 H 150 H
07/16/23
05:33
POC Glucose 132 H
Patient Education
--- NOTE | 2023-07-16 07:49 | W.PN.NEURO.1 ---
Addendum entered and electronically signed by Ethan Choudhary MD 07/16/23 14:13:
Doubt that the findings on MRI would at all explain dysphagia and speech changes given the location in the upper T1 cord, not appearing signs and symptoms of infection or focal deficits in limbs that suggest cord or nerve root function compromise.
'Left lateral intervertebral disc edema and endplate signal changes at C7-T1 with adjacent left lateral soft tissue T2/STIR hyperintense signal and enhancement. Findings could represent osteomyelitis-discitis and adjacent soft tissue phlegmon if
there are signs and symptoms of infection. Degenerative endplate signal changes with reactive soft tissue inflammation would be an alternative consideration, but probably less likely given the degree of soft tissue inflammation/enhancement.
Neoplastic soft tissue is not entirely excluded.'
Original Note:
Today's Communication / Plan
-
-Would remain off steroids, has finished IVIG
-Stop Mestinon and follow neurologic exam
-Pursue non urgent lumbar puncture
-Planning for percutaneous PEG tube placement
-Speech therapies
-Would warrant eventual evaluation with neuromuscular specialist and repeated EMG but does not seem appropriate for hospital transfer
Will follow
Neuro Assessment/Plan
Assessment
IMPRESSIONS/RECOMMENDATIONS:
Abrupt onset of worsening of dysphagia, ongoing for approximately 2 years; she also has significant hypophonia, and muscle weakness
MRI of brain findings suggestive of T2 hyperintensities in the riaz suggestive of multisystem atrophy.
EMG study was demonstrative of sensory motor neuropathy and unremarkable repetitive stimulation EMG (not supportive of myasthenia gravis)
MRI findings do not match the patient's examination or history with lack of autonomic findings including constipation, orthostasis, parkinsonism or cerebellar syndrome.
She does not have cerebellar limb ataxia or cerebellar eye movement abnormalities.
She has long standing history of neuropathy that is producing some sensory ataxia on gait, neuropathy probably due to either Sjogren's and/or previous alcohol use.
Will have to keep in mind an early MSA or a form manifesting more with bulbar symptoms
MRI C spine with no significant abnormalities
Patient also has a prior history of blepharoplasty suggestive of ptosis in the past. This combined with speech changes, dysphagia gave moderate suspicion for neuromuscular junction disorder with myasthenia gravis
-However EMG and negative acetylcholine antibodies make myasthenia very unlikely
Differential diagnosis
-MSA or PSP which are neurodegenerative diseases without significant treatments
-Guillan [place] with prominent bulbar symptoms given fairly acute onset and now improving, EMG could have been confounded by presence of long standing chronic neuropathy
-Myasthenia gravis unlikely as antibodies negative and EMG not supportive
-Spinocerebellar ataxia
-Paraneoplastic syndrome
-Progression of a long standing neuropathy
-Rare but cervical spine causes of dysphagia (syrinx) ruled out
Subjective/Objective
Subjective Data
Date of Service: July 16, 2023
No acute events, discussed with patient planned procedures of lumbar puncture, PEG tube, she feels leg strength may be improving though endorses generalized weakness from being immobile, feels speech a little bit improved
Objective Data
Vital Signs
Temp Pulse Resp BP Pulse Ox
98.0 F 81 14 122/75 96
07/16/23 03:53 07/16/23 03:53 07/16/23 03:53 07/16/23 03:53 07/16/23 03:53
Lab Results
07/16/23 04:57
07/14/23 04:43
PT 15.2 Sec (11.4-14.6) H 07/08/23 21:33
INR 1.18 07/08/23 21:33
APTT 30.1 Sec (23.4-35.0) 07/08/23 21:33
Sodium 133 mmol/L (135-145) L 07/14/23 04:43
Potassium 3.8 mmol/L (3.5-5.1) 07/14/23 04:43
BUN 42 mg/dl (7-17) H 07/14/23 04:43
Glucose 95 mg/dl (70-99) 07/14/23 04:43
Calcium 8.4 mg/dl (8.4-10.2) 07/14/23 04:43
Phosphorus 4.1 mg/dl (2.5-4.5) 07/11/23 04:20
Vitamin B12 > 1000 pg/ml (239-931) H 07/08/23 06:03
Ur Buprenorphine Negative (Negative) 07/05/23 12:39
Patient Allergies
latex Allergy (Verified 11/19/22 16:31)
Itching
Penicillins Allergy (Verified 11/19/22 16:31)
Unknown
Review of Systems
-
History Source: Patient
All other systems: Reviewed and negative
Constitutional: No Symptoms
EENT: No Symptoms Reported
Respiratory: No Symptoms
Cardiac: No Symptoms
Abdomen/GI: No Symptoms
Genitourinary: No Symptoms
Musculoskeletal: No Symptoms
Skin: No Symptoms
Neuro: Weakness and Speech Problem
Endocrine: No Symptoms
Hematologic / Lymphatic: No Symptoms
Allergy / Immunology: No Symptoms
Physical Exam
-
General: Comfortable
Eyes: No Ptosis
HEENT: Normocephalic
Neck: No Bruits Bilaterally
Respiratory: Clear to Auscultation
Cardiac: Regular Rhythm
GI: Normal Bowel Sounds
Skin: Unremarkable
Extremities: No Clubbing
Psych: Other (Tearful frequently)
Extended Neurological Exam
Mood & Affect: Mood Unremarkable and Affect Unremarkable
Attention Span & Concentration: Awake, Alert and Interactive
Memory: Unremarkable
Tremor: Hand Tremor Absent
Involuntary Movement: None
Speech: Dysarthric; Negative Expressive Aphasia or Receptive Aphasia
Cranial Nerve II: Left Eye: Pupillary Reactivity Unremarkable, Pupillary Size Unremarkable and Visual Trammell Intact
Cranial Nerve II: Right Eye: Pupillary Reactivity Unremarkable, Pupillary Size Unremarkable and Visual Trammell Intact
Cranial Nerves III, IV, : Extraocular Movement: Extraocular Movement Full in all Directions
Muscle Strength, Overall: Other (Limited shoulder abduction due to pain 4/5 bilaterally, arm flexion 5/5 bilaterally, hip flexion 4/5 bilaterally)
Muscle Bulk & Tone: Bulk Unremarkable and Tone Unremarkable
Pronator Drift: No Drift in Upper Extremities
Deep Tendon Reflexes: Absent Throughout
Vibration Sensation: Reduced Mildly Distally
Touch Sensation: Pin Prick Reduced
Coordination: Ojjgnv-ieyj-scymrk Testing Unremarkable and Other (No ataxia or dysdiadochokinesia on limbs or arms)
Babinski Sign: Absent Bilaterally
Modified Lester Score (MRS)
-
MRS Score:
Data Reviewed
-
CT Head: Report Reviewed and Image Reviewed
MRI Head: Report Reviewed and Image Reviewed
Labs: Report Reviewed
--- NOTE | 2023-07-16 09:05 | CON.GS ---
Addendum entered and electronically signed by Gio Preciado MD 07/16/23 14:18:
Case discussed with interventional radiology, unfortunately her Juwan-en-Y anatomy limits options for them as well, and they do not routinely do feeding tube access here. I did discuss open surgery with the patient but given her prior operations and
likely presence of mesh this would not be a straightforward surgery. She is interested in a percutaneous approach which I think could be done potentially at [place] or [place] where they would likely have more experience in this procedure. I did
talk about transfer options with Dr. Thomas who will look into possible transfer there is no urgency as she is doing quite well with the Dobbhoff. Another option would be to repeat her swallow study once she gets sufficient nutrition in via her
Dobbhoff tube.
No acute surgical intervention at this time.
Surgery will follow peripherally, please call with any questions or concerns.
Original Note:
Consultation
-
Date/Time Consultation Requested: 07/15/2023 6 PM
Date/Time Consultation Performed: 07/16/2023 8 AM
Requesting Provider: Hospitalist
Performing Provider: Dr. Preciado
Reason for Consultation: Feeding access
Medical History
-
Chief Complaint: Feeding tube access
History of Present Illness:
This is a 58-year-old female with complex past medical history including Sjogren's syndrome, osteoarthritis, anxiety, ADHD on Adderall, depression, reflux, open Juwan-en-Y gastric bypass in 2000 Followed by a cholecystectomy in 2013 that was quite
complicated and required 'several' subsequent surgeries as well as hernia repairs and now has progressive weakness and dysphagia with suspicion of myasthenia gravis. She had a barium swallow on 07/14/2023 which demonstrated airway aspiration with
thin liquids, nectar thick liquids and honey thick liquid. As a result she had a Dobbhoff tube placed and is currently tolerating tube feeds at goal. Initially gastroenterology was consulted to establish feeding access for her but given her
Juwan-en-Y gastric bypass anatomy and prior surgeries she is not a great candidate for an endoscopic approach.
General surgery has now been consulted however again given her prior surgeries a laparoscopic or open approach would be technically fairly challenging.
I reviewed her CT scan and thankfully she does have a retrocolic retrogastric GJ anastomosis and her remnant stomach is anterior and up against the abdominal wall. There are some clips in the right upper quadrant which I would expect after
cholecystectomy but there is no evidence of hepaticojejunostomy. She does have a small midline hernia but this does not contain any bowel.
Past Medical History
Past Medical History: Other (Sjogren's, osteoarthritis, anxiety, ADHD, depression, GERD)
Past Surgical History: Other (Juwan-en-Y gastric bypass, open cholecystectomy, multiple incisional hernia repairs, panniculectomy/tummy tuck)
Social History
Tobacco: Non-Smoker
Alcohol: None
Drug: None
Family History
Family History: Reviewed & Not Pertinent
Allergies / Home Medications
Allergy/AdvReac Type Severity Reaction Status Date / Time
latex Allergy Itching Verified 11/19/22 16:31
Penicillins Allergy Unknown Verified 11/19/22 16:31
Medication Instructions Recorded Confirmed Type
Medical Marijuana 0 drp sublingual .SEE BELOW 07/03/23 07/03/23 History
PRN mild pain
Medical Marijuana 0 inh inhalation .SEE BELOW 07/03/23 07/03/23 History
PRN mild pain
Visbiome 10 billion cells PO DAILY 07/03/23 07/03/23 History
Gastrointestinal Issue
albuterol sulfate 90 mcg/actuation 2 puff inhalation R BIDPRN PRN sob 07/03/23 07/03/23 History
aerosol inhaler (ProAir HFA)
bupropion HCl 300 mg 24 hr tablet, 300 mg PO DAILY Mental 07/03/23 07/03/23 History
extended release (Wellbutrin XL) Health/Anxiety
cholecalciferol (vitamin D3) 125 125 mcg PO DAILY Supplement 07/03/23 07/03/23 History
mcg (5,000 unit) tablet
clonazepam 0.5 mg tablet 0.5 mg PO BID Mental Health/Anxiety 07/03/23 07/03/23 History
cyanocobalamin (vitamin B-12) 2,500 mcg PO DAILY Supplement 07/03/23 07/03/23 History
2,500 mcg tablet
cyclosporine 0.05 % eye drops 1 drp BOTH EYES BID Eye Condition 07/03/23 07/03/23 History
dextroamphetamine-amphetamine 30 30 mg PO BID Mental Health/Anxiety 07/03/23 07/03/23 History
mg tablet (Adderall)
estradiol 0.045 mg-levonorgestrel 1 patch transdermal QWEEK Hormonal 07/03/23 07/03/23 History
0.015 mg/24hr weekly transderm Agent
patch (Climara Pro)
ferrous sulfate 325 mg (65 mg 325 mg PO DAILY Supplement 07/03/23 07/03/23 History
iron) tablet (iron)
fluticasone 250 mcg-salmeterol 50 1 inh inhalation R BID 07/03/23 07/03/23 History
mcg/dose blistr powdr for Lung/Breathing Issues
inhalation
fluticasone propionate 50 2 spray intranasal DAILY Allergies 07/03/23 07/03/23 History
mcg/actuation nasal
spray,suspension
folic acid 1 mg tablet 1 mg PO DAILY Supplement 07/03/23 07/03/23 History
gabapentin 300 mg capsule 300 mg PO QID@0600,12,18,0000 07/03/23 07/03/23 History
Neurological Condition
hydroxychloroquine 200 mg tablet 200 mg PO DAILY Autoimmune Disorder 07/03/23 07/03/23 History
lansoprazole 30 mg capsule,delayed 30 mg PO DAILY Gastrointestinal 07/03/23 07/03/23 History
release Issue
loratadine 10 mg tablet (Claritin) 10 mg PO DAILY Allergies 07/03/23 07/03/23 History
minoxidil 2.5 mg tablet 1.25 mg PO DAILY Blood Pressure 07/03/23 07/03/23 History
potassium 99 mg tablet 99 mg PO DAILY Supplement 07/03/23 07/03/23 History
therapeutic multivitamin 1 tab PO DAILY Supplement 07/03/23 07/03/23 History
Review of Systems
-
All other systems: Negative unless noted
A 10 point review of systems was completed, and was negative except as per HPI.
Physical Exam
Vital Signs
Temp Pulse Resp BP Pulse Ox
97.7 F 93 18 100/69 94
07/16/23 07:30 07/16/23 07:30 07/16/23 07:30 07/16/23 07:30 07/16/23 07:30
07/15/23 07/16/23 07/17/23
06:59 06:59 06:59
Actual Weight 75.013 kg 76.742 kg
Body Mass Index (BMI) 26.5
Lab Results
07/16/23 04:57
WBC 17.0 10^3/uL (4.8-10.8) H 07/16/23 04:57
Hgb 11.3 g/dL (12.0-16.0) L 07/16/23 04:57
Hct 33.3 % (37.0-47.0) L 07/16/23 04:57
Plt Count 480 10^3/uL (130-400) H 07/16/23 04:57
Abs Immat Gran (auto) 0.5 10^3/uL (0-0.05) H 07/16/23 04:57
Neutrophils % 84.1 % (42.2-75.2) H 07/16/23 04:57
Physical Exam
HEENT: Normocephalic and Other (Has a Dobbhoff tube in place, tube feeds running at goal.)
Respiratory: Clear and Non Labored Respirations
GI: Soft, Non Tender and Other (Midline incision, small hernia defect appreciated.)
Data Reviewed
-
CT Scan: Image Personally Visualized and interpreted, Report Reviewed by me, Discussed with Physician and Discussed with Patient
Labs: Labs Reviewed by me, Discussed with Physician and Discussed with Patient
Total Time Spent with Patient (in minutes): 40
Assessment / Plan
-
This is a 58-year-old female with multiple medical comorbidities, retrocolic/retrogastric Juwan-en-Y anatomy, cholecystectomy who presents with dysphagia, progressive weakness in the failed swallow study needing enteral access. Endoscopic approach
would be fairly difficult, surgical approach is certainly an option but I think the safest way to proceed right now would be percutaneous approach, thankfully her remnant stomach is abutting the anterior abdominal wall.
Will consult and discuss percutaneous approach with interventional radiology.
General surgery will continue to follow.
Remainder of care per primary.
[2023-07-16] MEDS: NSS (PRESERVATIVE FREE) 10 ML IV (09:11)
[2023-07-16] MEDS: PROTONIX IV 40 MG IV (09:11)
[2023-07-16] MEDS: ROCEPHIN 2000 MG IV (09:13)
[2023-07-16] MEDS: STERILE WATER FOR INJECTION 20 ML IV (09:13)
[2023-07-16] MEDS: FOLVITE 1 MG TUBE (09:16)
[2023-07-16] MEDS: MESTINON 90 MG TUBE (09:16)
[2023-07-16] MEDS: RESTASIS 0.05% OPHTHALMIC EMULSION 1 DROPS BOTH EYES ×2 (09:17→20:46)
[2023-07-16] MEDS: NEURONTIN 300 MG TUBE ×2 (09:17→20:48)
[2023-07-16] MEDS: THIAMINE INJECTION 200 MG IV (09:18)
[2023-07-16] MEDS: LIDOCAINE 4% PATCH 1 PATCH TOPICAL ×2 (09:19→09:20)
[2023-07-16] MEDS: KLONOPIN 0.5 MG PO ×2 (09:21→20:50)
[2023-07-16] MEDS: HEPARIN 5000 UNITS SC ×2 (09:22→18:12)
[2023-07-16] MEDS: CLARITIN 10 MG TUBE (09:22)
[2023-07-16] MEDS: LOPRESSOR 25 MG TUBE ×2 (09:22→20:49)
[2023-07-16] MEDS: DICLOFENAC 1% TOPICAL GEL 100 GRAM TOPICAL ×3 (09:22→18:22)
[2023-07-16 11:24] LABS: Glucose - Point of Care 181 mg/dl (70-99)
[2023-07-16] MEDS: LANTUS 0.119999999999999996 UNITS SC (11:51)
[2023-07-16] MEDS: NOVOLOG FLEXPEN-LOW RESISTANCE 1 UNITS SC (11:54)
[2023-07-16 11:56] LABS: ALT (SGPT) 19 U/L (0-35); AST (SGOT) 26 U/L (14-36); Alkaline Phosphatase 72 U/L (38-126); Blood Urea Nitrogen 34 mg/dl (7-17); Calcium 7.9 mg/dl (8.4-10.2); Carbon Dioxide 30 mmol/L (22-30); Chloride 104 mmol/L (98-107); Estimated Creatinine Clearance 83 ml/min; Glucose 154 mg/dl (70-99); Potassium 4.6 mmol/L (3.5-5.1); Sodium 132 mmol/L (135-145); Total Bilirubin 0.5 mg/dl (0.2-1.3); eGFR > 60.00
--- NOTE | 2023-07-16 13:09 | CM ---
Addendum entered by Lillian Watt 07/16/23 13:24:
Per note from [facility] PM&R recommendation is for skilled not acute rehab, mattress spring encas[employer] employee relations options of skilled v's home with visiting nurse services.
Original Note:
Chart reviewed and patient is agreeable to [facility], per pervious mattress spring encaser notes patient patient is not agreeable to skilled placement wants to return to home with visiting nurses if she is denied acute rehab. Patient is for PEG
placement.
Plan; Await PM&R recommendations, referral sent to [facility] at [facility].
[2023-07-16] MEDS: TYLENOL ORAL SOLUTION 1000 MG TUBE ×2 (13:51→20:53)
--- NOTE | 2023-07-16 17:28 | W.PN.HOSP.TC ---
Today's Communication/Plan
-
Please see below
Assessment / Plan
Assessment / Plan
Physical Exam
General: No Apparent Distress
HEENT: Dobhoff tube in place
Respiratory: Clear to Auscultation Bilaterally
Cardiac: S1/S2. RRR.
GI: Soft and Nontender. Positive bowel sounds.
Musculoskeletal: No Edema
Skin: Warm and Dry
Neuro: Awake, Alert, Oriented x3
Psych: Calm

CT A/P
IMPRESSION:
1. There is moderate left hydronephrosis likely related to a left ureterovesical stone. There is prominent perinephric inflammation bilaterally.
2. There is probable atelectasis in the lung bases bilaterally.
MRI BRAIN
IMPRESSION:
1. No MRI evidence for an acute infarct.
2. 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
MRI of the Cervical spine
'IMPRESSION:
1. No MRI evidence for signal alteration of the cervical spinal cord.
2. Left lateral intervertebral disc edema and endplate signal changes at C7-T1 with adjacent left lateral soft tissue T2/STIR hyperintense signal and enhancement. Findings could represent osteomyelitis-discitis and adjacent soft tissue phlegmon if
there are signs and symptoms of infection. Degenerative endplate signal changes with reactive soft tissue inflammation would be an alternative consideration, but probably less likely given the degree of soft tissue inflammation/enhancement.
Neoplastic soft tissue is not entirely excluded.
3. Chronic advanced degenerative changes of the cervical spine.'

Assessment/Plan
Acute hypovolemic hyponatremia with Na down to 118 (prior labs from 2019 at 134)
Recent Poor PO Intake Leading Up to Hospitalization
Presentation with Nausea/Vomiting
-Received some normal saline and 3% saline, required D5W to correct rate
-Na now stable
-appreciate renal
-fluids now off, on TF
Severe Dysphagia (due to MSA or PSP which are neurodegenerative diseases without significant treatments vs. Spinocerebellar ataxia vs. Paraneoplastic syndrome vs. Progression of a long standing neuropathy vs. Rare but cervical spine causes of
dysphagia (syrinx))
-patient unsafe to swallow all solid and liquid consistencies
-MRI w e/o MSA cerebellar type, per neuro clinically does not fit diagnosis; concern raised for Myasthenia Gravis
-F/U AchRAB
-Completed IVIG and Steroids on 07/12/23 - per neurology, these medications will take several days to start effect and will last several weeks
-Acetylcholine receptor antibodies: came back as zero
-EMG also not supportive of Myasthenia Gravis
-Status post Pyridostigmine
-Status post Prednisone 50 mg via NG tube on 07/13/23 given suspicion for myasthenia gravis - steroids now stopped
-MRI cervical spine (to see if there are cervical causes of bulbar symptoms): per neurology, it is doubtful that the findings on MRI would at all explain dysphagia and speech changes
-Check lumbar puncture with diagnostic studies
-Monitor NIF/VC's
-EMG follow-up
-neurology consult appreciated
-dobhoff placed and TF initiated on 07/09
-daily ST
-patient and sister told not a guarantee we can avoid PEG; on 07/10 she was cleared for ice chips
-Patient agreeable to feeding tube: discussed case with surgeon Dr. Gio Goldstein on 07/16/23: patient would be a high risk for a open gastrostomy tube surgery or open abdominal surgery, interventional radiology cannot place a percutaneous feeding
tube here, will need to look at a tertiary facility for percutaneous feeding tube
SVT
-SVT x 2 on 07/08 broke with adenosine 6mg each time
-appreciate cardiology, started on an amio gtt and now transitioned to BID Metoprolol
-Continue Lopressor
-Follow-up with cardiology for EP eval as outpt to discuss SVT ablation.
E. Coli UTI and Bacteremia
Ureterovesical stone; left hydronephrosis
could represent osteomyelitis-discitis and adjacent soft tissue phlegmon
-Continue IV Ceftriaxone to 2G q 24 hours
-WBC was increasing and finding of ureterovesical stone seen on 07/07. OR held given cardiac and neurological active issues; and now held as patient's WBC improving and pain resolved
-WBC was 12, now leukocytosis has resolved
-Repeat CT: no mass/hydro or stone
-appreciate Urology
-Now with possible OM/discitis in the cervical spine in setting of E. coli bacteremia
-Consulted ID, recommendations appreciated
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
Generalized Weakness
Paranoia
Alcohol withdrawal
-patient with worsening psychosis Wednesday07/05/23 and initiated treated with high dose thiamine and alcohol withdrawal
-continue daily thiamine/folate
-MSAS protocol
-appreciate psychiatry recs
-hold wellbutrin and adderrall (as below)
Non-Anion Gap Metabolic Acidosis
Acute Kidney Injury
-creatinine stable post IVF
Sjogren's Syndrome - Hold Hydroxychloroquine given reaction with amio --> F/U with pharmacy/cards when OK to resume
Right acromioclavicular injury
Suspected history of osteoarthritis
ADHD - hold home Adderall given acute psychosis
Anxiety - Continue home Klonopin, now IV ativan
Depression - hold home Wellbutrin given acute psychosis
History of Juwan-en-Y (cory-en-wy) gastric bypass surgery
DVT Prophylaxis: Heparin subq
Code Status: Full Code
Anticipated Discharge: > 48 hours
Subjective/Interval History
-
Date of Service: July 16, 2023
Patient was seen and examined. She reported no new symptoms or complaints.
Objective Data
-
Labs:
Laboratory Results
07/16/23
10:48
Sodium 132 L
Potassium 4.6
Chloride 104
Carbon Dioxide 30
BUN 34 H
Creatinine 0.7
Glucose 154 H
Calcium 7.9 L
Total Bilirubin 0.5
AST 26
ALT 19
Alkaline Phosphatase 72
Vital Signs:
Vital Signs
Temp Pulse Resp BP Pulse Ox
98.2 F 101 18 102/68 95
07/16/23 16:05 07/16/23 17:06 07/16/23 17:06 07/16/23 17:06 07/16/23 16:05
I&O
07/15/23 07/16/23 07/17/23
06:59 06:59 06:59
Intake Total 1320 / 1320 0 / 0
Output Total 250 / 250
Balance 1070 / 1070 0 / 0
[2023-07-16 17:35] LABS: CSF Color Colorless; CSF Tube # 4
[2023-07-16 17:36] LABS: CSF Clarity Clear; Red Cell Count/CSF 1 mm^3; White Cell Count/CSF 1 mm^3 (0-5)
[2023-07-16 17:57] LABS: Spinal Fluid Glucose 65 mg/dl (40-70); Spinal Fluid Protein 36 mg/dl (12-60)
[2023-07-16 18:02] LABS: Glucose - Point of Care 45 mg/dl (70-99)
[2023-07-16] MEDS: NOVOLOG FLEXPEN SC (18:03)
[2023-07-16] MEDS: DEXTROSE 50% SYRINGE 12.5 GRAMS IV (18:11)
[2023-07-16 18:35] LABS: Glucose - Point of Care 124 mg/dl (70-99)
[2023-07-16 20:29] LABS: Glucose - Point of Care 81 mg/dl (70-99)
[2023-07-16] MEDS: DICLOFENAC 1% TOPICAL GEL 1 GRAM TOPICAL (21:00)
[2023-07-16 23:34] LABS: Glucose - Point of Care 140 mg/dl (70-99)
[2023-07-17] MEDS: HEPARIN 5000 UNITS SC ×4 (00:17→23:50)
[2023-07-17] MEDS: NOVOLOG FLEXPEN 6 UNITS SC ×5 (00:19→23:49)
[2023-07-17] MEDS: NOVOLOG FLEXPEN-LOW RESISTANCE SC ×4 (00:20→23:46)
[2023-07-17 02:05] LABS: Glucose - Point of Care 104 mg/dl (70-99)
[2023-07-17] MEDS: TYLENOL ORAL SOLUTION 1000 MG TUBE ×2 (03:23→15:18)
[2023-07-17 03:41] VITALS: BP 130/81
[2023-07-17 04:55] LABS: % Basophils 0.2 % (0-2); % Eosinophils 0.7 % (0-6); % Immature Granulocytes 2.8 % (0-0.5); % Lymphocytes 4.3 % (20.5-51.1); % Monocytes 8.1 % (1.7-9.3); % Neutrophils 83.9 % (42.2-75.2); Absolute Eosinophils 0.1 10^3/uL (0-0.7); Absolute Immature Granulocytes 0.4 10^3/uL (0-0.05); Absolute Lymphocytes 0.6 10^3/uL (1.2-3.4); Absolute Monocytes 1.2 10^3/uL (0.1-0.6); Absolute Neutrophils 12.2 10^3/uL (1.4-6.5); Hematocrit 30.5 % (37.0-47.0); Hemoglobin 10.2 g/dL (12.0-16.0); Mean Corp Hgb Conc. 33.4 g/dL (33.0-37.0); Mean Corpuscular Hgb 30.7 pg (27.0-31.0); Mean Corpuscular Volume 91.9 fL (81.0-99.0); Mean Platelet Volume 11.6 fL (7.4-10.4); Nucleated Red Blood Cells % 0 %; Platelet Count 543 10^3/uL (130-400); Red Blood Cell Count 3.32 10^6/uL (4.20-5.40); White Blood Cell Count 14.6 10^3/uL (4.8-10.8)
[2023-07-17 05:19] LABS: ALT (SGPT) 18 U/L (0-35); AST (SGOT) 25 U/L (14-36); Alkaline Phosphatase 73 U/L (38-126); Blood Urea Nitrogen 34 mg/dl (7-17); Calcium 8.2 mg/dl (8.4-10.2); Carbon Dioxide 30 mmol/L (22-30); Chloride 102 mmol/L (98-107); Estimated Creatinine Clearance 73 ml/min; Glucose 117 mg/dl (70-99); Potassium 4.6 mmol/L (3.5-5.1); Sodium 131 mmol/L (135-145); Total Bilirubin 0.6 mg/dl (0.2-1.3); eGFR > 60.00
[2023-07-17 05:48] LABS: Glucose - Point of Care 132 mg/dl (70-99)
[2023-07-17 05:55] VITALS: BMI 25.1
[2023-07-17 07:40] VITALS: BP 106/73
--- NOTE | 2023-07-17 08:13 | W.PN.NEURO.1 ---
Addendum entered and electronically signed by Ethan Choudhary MD 07/17/23 10:37:
Discussed with Dr Thomas, surgical team and IR feel it would be best to seek transfer for further opinions given risks of PEG and complicated anatomy.
I don't have any further diagnostic tests for workup of her dysphagia and dysarthria. It seems that she has had some subtle neurologic issues for at least 2 years, ptosis prompting bilateral blepharoplasties, dysphagia, and more recent significant
gait issues.
Best explanations for her neurologic issues: Patient clearly has a long standing neuropathy probably due to Sjogren's and alcohol use, it is possible that this has been slowly progressive and may have reached a threshold to where she decompensated
with infection and metabolic abnormalities. Has an abnormal brain MRI with a pontine signal abnormality, looking partially like the 'hot cross buns sign' of Multiple System Atrophy. Patient doesn't have parkinsonism or cerebellar signs and hasn't
had significant autonomic dysfunction but Multiple System Atrophy in an early form or with more predominant bulbar and speech issues remains a real possibility.
Labwork and EMG are not supportive of myasthenia gravis.
Long standing subtle and most likely progressive issues make AIDP/Guillan Henley very unlikely, and EMG not supportive of Guillan Henley or CIDP
Appears that transfer is out best option, most likely [facility], would ask for neurology consult there.
Discussed my thoughts in a dorota conversation with the patient along with her sister over the phone.
Original Note:
Today's Communication / Plan
-
-Would remain off steroids, has finished IVIG
-Lumbar puncture unremarkable
-Stop Mestinon and follow neurologic exam
-Planning for percutaneous PEG tube placement
-Speech therapies
-Would warrant eventual evaluation with neuromuscular specialist and repeated EMG but not needed hospital transfer for this
Will follow
Neuro Assessment/Plan
Assessment
IMPRESSIONS/RECOMMENDATIONS:
Abrupt onset of worsening of dysphagia, ongoing for approximately 2 years; she also has significant hypophonia, and muscle weakness generally
She does not have cerebellar limb ataxia or cerebellar eye movement abnormalities or parkinsonism.
MRI of brain findings suggestive of T2 hyperintensities in the riaz suggestive of multisystem atrophy.
EMG study was demonstrative of sensory motor neuropathy and unremarkable repetitive stimulation EMG (not supportive of myasthenia gravis)
Did have E coli bacteremia here
She has long standing history of neuropathy that is producing some sensory ataxia on gait, neuropathy probably due to either Sjogren's and/or previous alcohol use.
Will have to keep in mind an early MSA or a form manifesting more with bulbar symptoms
MRI C spine with no significant abnormalities
Lumbar puncture unremarkable, normal protein and cell counts
Patient also has a prior history of blepharoplasty suggestive of ptosis in the past. This combined with speech changes, dysphagia gave moderate suspicion for neuromuscular junction disorder with myasthenia gravis
-However EMG and negative acetylcholine antibodies make myasthenia very unlikely
Differential diagnosis
-MSA or PSP which are neurodegenerative diseases without significant treatments
-Guillan Henley with prominent bulbar symptoms given fairly acute onset and now improving, EMG could have been confounded by presence of long standing chronic neuropathy
-Myasthenia gravis unlikely as antibodies negative and EMG not supportive
-Spinocerebellar ataxia very unlikely
-Paraneoplastic syndrome given abnormality near the C7-T1 area on MRI C spine
-Progression of a long standing neuropathy
-Rare but cervical spine causes of dysphagia (syrinx) ruled out
Subjective/Objective
Subjective Data
Date of Service: July 17, 2023
Had LP yesterday, denies headache, speech feels stable but still abnormal
Objective Data
Vital Signs
Temp Pulse Resp BP Pulse Ox
97.9 F 104 18 130/81 94
07/17/23 03:41 07/17/23 03:41 07/17/23 03:41 07/17/23 03:41 07/17/23 03:41
Lab Results
07/17/23 04:41
07/17/23 04:41
PT 15.2 Sec (11.4-14.6) H 07/08/23 21:33
INR 1.18 07/08/23 21:33
APTT 30.1 Sec (23.4-35.0) 07/08/23 21:33
Sodium 131 mmol/L (135-145) L 07/17/23 04:41
Potassium 4.6 mmol/L (3.5-5.1) 07/17/23 04:41
BUN 34 mg/dl (7-17) H 07/17/23 04:41
Glucose 117 mg/dl (70-99) H 07/17/23 04:41
Calcium 8.2 mg/dl (8.4-10.2) L 07/17/23 04:41
Phosphorus 4.1 mg/dl (2.5-4.5) 07/11/23 04:20
Vitamin B12 > 1000 pg/ml (239-931) H 07/08/23 06:03
Ur Buprenorphine Negative (Negative) 07/05/23 12:39
Patient Allergies
latex Allergy (Verified 11/19/22 16:31)
Itching
Penicillins Allergy (Verified 11/19/22 16:31)
Unknown
Review of Systems
-
History Source: Patient
All other systems: Reviewed and negative
Constitutional: No Symptoms
EENT: No Symptoms Reported
Respiratory: No Symptoms
Cardiac: No Symptoms
Abdomen/GI: No Symptoms
Genitourinary: No Symptoms
Musculoskeletal: No Symptoms
Skin: No Symptoms
Neuro: Speech Problem and See existing Neuro Note
Endocrine: No Symptoms
Hematologic / Lymphatic: No Symptoms
Allergy / Immunology: No Symptoms
Physical Exam
-
General: Comfortable, Appears Chronically Ill and Appears Stated Age
Eyes: No Ptosis
HEENT: Normocephalic and Atraumatic
Neck: Full Range of Motion
Respiratory: No Dyspnea
Cardiac: No Murmur
GI: Soft and Non-tender
Skin: Warm and Dry; Negative Rash
Extremities: No Cyanosis
Psych: Negative Agitated
Extended Neurological Exam
Mood & Affect: Other (Frequently and easily tearful)
Attention Span & Concentration: Awake, Alert and Interactive
Memory: Able to Recall
Tremor: Hand Tremor Absent
Involuntary Movement: None
Speech: Dysarthric; Negative Expressive Aphasia or Receptive Aphasia
Cranial Nerve II: Left Eye: Pupillary Reactivity Unremarkable, Pupillary Size Unremarkable and Visual Trammell Intact
Cranial Nerve II: Right Eye: Pupillary Reactivity Unremarkable, Pupillary Size Unremarkable and Visual Trammell Intact
Cranial Nerves III, IV, : Extraocular Movement: Extraocular Movement Full in all Directions
Cranial Nerve VII: Facial Symmetry: Normal Facial Symmetry
Muscle Strength, Overall: Other (Shoulder abduction 4/5 limited due to pain, arm flexion 5/5 bilaterally, hip flexion 4/5 bilaterally, ankle dorsiflexion plantarflexion 5/5 bilaterally)
Muscle Bulk & Tone: Bulk Unremarkable, Tone Unremarkable and Other (No muscle atrophy or fasciculations noted)
Pronator Drift: No Drift in Upper Extremities
Deep Tendon Reflexes: Absent Throughout
Vibration Sensation: Reduced Moderately Distally
Touch Sensation: Pin Prick Reduced
Babinski Sign: Absent Bilaterally
Modified Lester Score (MRS)
-
MRS Score:
Data Reviewed
-
MRI Head: Report Reviewed and Image Reviewed
MRI Cervical Spine: Report Reviewed and Image Reviewed
Labs: Report Reviewed
[2023-07-17] MEDS: LIDOCAINE 4% PATCH 1 PATCH TOPICAL ×2 (09:07)
[2023-07-17] MEDS: PROTONIX IV 40 MG IV (09:07)
[2023-07-17] MEDS: NSS (PRESERVATIVE FREE) 10 ML IV (09:09)
[2023-07-17] MEDS: STERILE WATER FOR INJECTION 20 ML IV (09:11)
[2023-07-17] MEDS: ROCEPHIN 2000 MG IV (09:11)
[2023-07-17] MEDS: THIAMINE INJECTION 200 MG IV (09:16)
[2023-07-17] MEDS: RESTASIS 0.05% OPHTHALMIC EMULSION 1 DROPS BOTH EYES ×2 (09:17→20:45)
[2023-07-17] MEDS: FOLVITE 1 MG TUBE (09:18)
[2023-07-17] MEDS: LOPRESSOR 25 MG TUBE ×2 (09:18→20:44)
[2023-07-17] MEDS: KLONOPIN 0.5 MG PO ×2 (09:18→20:44)
[2023-07-17] MEDS: NEURONTIN 300 MG TUBE ×2 (09:18→20:45)
[2023-07-17] MEDS: CLARITIN 10 MG TUBE (09:18)
[2023-07-17] MEDS: DICLOFENAC 1% TOPICAL GEL 100 GRAM TOPICAL ×3 (09:22→16:43)
[2023-07-17 11:12] VITALS: BP 126/80
[2023-07-17 11:22] LABS: Glucose - Point of Care 149 mg/dl (70-99)
[2023-07-17] MEDS: LANTUS 0.0599999999999999978 UNITS SC (11:23)
--- NOTE | 2023-07-17 15:00 | CM ---
Per discussion [facility] MD, plan is possible transfer to [place].
Patient needs a feeding tube.
--- NOTE | 2023-07-17 15:04 | CON.ID ---
Consultation
-
Date/Time Consultation Requested: July 16, 2023 1805
Date/Time Consultation Performed: July 17, 2023 1500
Requesting Provider: Dr. Armin Thomas
Performing Provider: Dr. Guerline Liu
Reason for Consultation: E. coli bacteremia, MRI possible discitis
Chief Complaint / Past History
Chief Complaint
Weakness
History of Present Illness
58-year-old female with history of Sjogren's on hydrochloroquine, gastric bypass, ADHD, neuropathy, alcohol abuse who came to the ER on July 03 with complaints of several day history of worsening weakness, very poor appetite, malaise. Patient
noted to have severe hyponatremia of 118, white count 14.8, she was in [facility]. Admission urine analysis 11-15 white blood cells, urine culture grew E. coli. Blood cultures x 2 also positive for E. coli. She spiked temperature 100.[address]
CT of the abdomen and pelvis on July 07 showed left mild hydronephrosis with ureteral stone. No urological intervention due to mental,neurological, and SVT issues. July [address] urography showed no stones, no hydronephrosis, + mild bilateral
perinephric stranding. Urological procedure cancelled. Patient is currently on day 14 ceftriaxone. During hospital stay patient developed acute encephalopathy with psychosis on July 05. Change in mental status deemed from alcohol withdrawal.
Subsequently mental status returned back to baseline. Patient has hoarse voice . She developed acute dysphagia. Swallow study showed aspiration of thin liquids. July 08 brain MRI �Cruciform linear hyperintense T2 signal in the riaz, which
has been described in association with a variety of neurodegenerative conditions, most classically multiple system atrophy cerebellar type (MSA-C). Patient is not evaluated by neurology. Patient noted to have proximal muscle weakness. There was
concern for myasthenia gravis and she was treated with 5 days of IVIG completed July 12 and steroid completed July 13. However subsequent lab studies and EMG studies do not support myasthenia gravis. July 15, MRI of the cervical spine to
look for myelitis instead showed 'Left lateral intervertebral disc edema and endplate signal changes at C7-T1 with adjacent left lateral soft tissue T2/STIR hyperintense signal and enhancement. Findings could represent osteomyelitis-discitis and
adjacent soft tissue phlegmon if there are signs and symptoms of infection. Degenerative endplate signal changes with reactive soft tissue inflammation would be an alternative consideration, but probably less likely given the degree of soft tissue
inflammation/enhancement. Neoplastic soft tissue is not entirely excluded.' July 16 she underwent lumbar puncture. CSF with 1 white blood cells, meningoencephalitis panel negative, culture negative to date, paraneoplastic studies pending.
Infectious disease has been consulted for the possible C7-T1 osteomyelitis/discitis. Patient continues to have dysphagia. She has a Dobbhoff tube in place. However due to history of gastric bypass, surgery is unable to place feeding tube. She is
to be transferred to a tertiary center. She states she had urinary retention prior to admission. She did not have urinary urgency or dysuria. No flank pain. No history of kidney stones. She is now voiding well. She does not have mid/upper
back pain. She always has chronic low back pain and had history of L4-L5 discectomy. Low back pain is stable. She continues to have chronic pain of both knees and right greater than left shoulder.
Past History
Additional Past Medical History:
Sjogren's syndrome
ADHD
Anxiety/depression
Osteoarthritis of bilateral knees and shoulders
Juwan-en-Y gastric bypass
sleep apnea s/p uvula resection
chronic neuropathy
Right shoulder injury
Cholecystectomy
L4-L5 discectomy
bilateral blepharoplasty
Allergy History:
latex Allergy (Verified 11/19/22 16:31)
Itching
Penicillins Allergy (Verified 11/19/22 16:31)
Unknown
Medications Reviewed: Yes
Current Antibiotics:
Ceftriaxone day 14
Social History
Tobacco: Former Smoker
Alcohol: Chronic Alcoholic (now down to 2 drinks a day)
Drug: Marijuana
Living: Alone
Family History
Family History: Not Pertinent
Review of Systems
Review of Systems
General: Change in Appetite (improved); Negative Fever or Chills
HEENT: Negative Sinus Problems, Headache or Pharyngitis
Cardiovascular: Negative Chest Pain
Respiratory: Negative Dyspnea, Cough or Sputum Production
Gasteroenterology: Other (constipation); Negative Nausea or Vomiting
Genital / Urological: Negative Hematuria or Flank Pain
Endocrine: Weakness
Musculoskeletal: Arthralgias (chronic)
Skin / Hair / Nails: Negative Rash
Neurological: Negative Headache or Dizziness
All systems: All other systems were reviewed and were negative
Vital Signs
Temp Pulse Resp BP Pulse Ox
97.7 F 96 18 126/80 99
07/17/23 11:12 07/17/23 11:12 07/17/23 11:12 07/17/23 11:12 07/17/23 11:12
Physical Exam
Physical Exam
Constitutional: No Acute Distress and Comfortable
Head: Other (no frontal or maxillary sinus tenderness. Dobhoff tube in place)
Eyes: No Conjunctival Hemorrhage and Sclera Anicteric
Cardiovascular: Regular Rate and S1/S2
Pulmonary: Clear
Gastrointestinal: Soft, Non Tender, Non Distended and Normal Bowel Sounds
Genito-Urinary: Negative CVA Tenderness
Musculoskeletal: Other (bilateral knees moderate effusion, no erythema/warmth.); Negative Spinal Tenderness (no cervical, thoracic, lumbar, nor paraspinal tenderness)
Skin: Negative Rash
Neurological: AO x 3; Negative Meningeal Signs
Lines: PICC (RUE)
Lab / Diagnostic Study Results
07/17/23 04:41
07/17/23 04:41
Abs Immat Gran (auto) 0.4 10^3/uL (0-0.05) H 07/17/23 04:41
Absolute Neuts (auto) 12.2 10^3/uL (1.4-6.5) H 07/17/23 04:41
Absolute Lymphs (auto) 0.6 10^3/uL (1.2-3.4) L 07/17/23 04:41
Absolute Monos (auto) 1.2 10^3/uL (0.1-0.6) H 07/17/23 04:41
Absolute Basos (auto) 0.0 10^3/uL (0-0.2) 07/17/23 04:41
Total Counted 100 07/05/23 03:05
Immature Gran % 2.8 % (0-0.5) H 07/17/23 04:41
Neutrophils % 83.9 % (42.2-75.2) H 07/17/23 04:41
Lymphocytes % 4.3 % (20.5-51.1) L 07/17/23 04:41
Monocytes % 8.1 % (1.7-9.3) 07/17/23 04:41
Eosinophils % 0.7 % (0-6) 07/17/23 04:41
Basophils % 0.2 % (0-2) 07/17/23 04:41
Abs Neuts (Manual) 10.7 10^3/uL (1.4-6.5) H 07/05/23 03:05
Segmented Neutrophils 84 % (42-75) H 07/05/23 03:05
Band Neutrophils 11 % (0-3) H D 07/05/23 03:05
Lymphocytes (Manual) 1 % (20-51) L 07/05/23 03:05
ESR 46 mm/hour (0-20) H 07/08/23 06:03
PT 15.2 Sec (11.4-14.6) H 07/08/23 21:33
INR 1.18 07/08/23 21:33
C-Reactive Protein > 270.00 mg/L (0.0-10.00) H 07/03/23 05:23
Ur Squamous Epith Cells 16-20 /LPF (Few) 07/03/23 06:36
Microbiology Results
Micro:
07/16/23 16:46 CSF Culture - Preliminary
Csf No Growth After 18-24 Hours
Gram Stain - Preliminary
07/16/23 10:00 Meningitis/Encephalitis Panel (PCR) - Final
Csf
07/06/23 06:26 Blood Culture - Final
Blood/Venous No Growth - Final Report
07/05/23 14:00 Blood Culture - Final
Blood/Venous No Growth - Final Report
07/04/23 17:05 Blood Culture - Final
Blood/Venous Escherichia coli
Gram Stain - Final
07/04/23 16:56 Blood Culture - Final
Blood/Venous Escherichia coli
Gram Stain - Final
07/03/23 06:36 Urine Culture - Final
Urine Escherichia coli
07/07/23 CT a/p: There is moderate left hydronephrosis likely related to a left ureterovesical stone. There is prominent perinephric inflammation bilaterally.
07/08/23 MRI brain: No MRI evidence for an acute infarct. Cruciform linear hyperintense T2 signal in the riaz, which has been described in association with a variety of neurodegenerative conditions, most classically multiple system atrophy cerebellar
type (MSA-C).
07/16/23 MRI-C spine wo and w contrast: Left lateral intervertebral disc edema and endplate signal changes at C7-T1 with adjacent left lateral soft tissue T2/STIR hyperintense signal and enhancement. Findings could represent osteomyelitis-discitis and
adjacent soft tissue phlegmon if there are signs and symptoms of infection. Degenerative endplate signal changes with reactive soft tissue inflammation would be an alternative consideration, but probably less likely given the degree of soft tissue
inflammation/enhancement. Neoplastic soft tissue is not entirely excluded.
Assessment / Plan
# E. coli complicated UTI with bacteremia, resolved
- Initial CT a/p showed mild left hydronephrosis with ureteral sone.
However, CT urography reported no stones, no hydro, + bilateral perinephric stranding.
- Currently on day 14 ceftriaxone. Can dc abx.
# Incidental findings of left lateral intervertebral disc edema and endplate signal changes at C7-T1 with adjacent left lateral soft tissue T2/STIR hyperintense signal and enhancement on MRI- C spine.
- Patient WITHOUT spine tenderness/pain and therefore does not correlate with imaging finding of possible discitis/osteo.
- In addition, E. coli extremely rarely see the spine.
- Recommend observe without antibiotic.
# Dysphagia, proximal muscle weakness of uncertain etiology.
-Extensive neurological workup negative to date.
- For transfer to tertiary center for further work-up and placement of G -tube in setting of hx gastric bypass.
- Aspiration precaution
# Leukocytosis trending down.
- Recent steroid.
ID will sign off. Call prn.
[2023-07-17 15:40] VITALS: BP 113/73
[2023-07-17 17:32] LABS: Glucose - Point of Care 160 mg/dl (70-99)
[2023-07-17] MEDS: NOVOLOG FLEXPEN-LOW RESISTANCE 1 UNITS SC (17:46)
--- NOTE | 2023-07-17 18:57 | W.PN.HOSP.TC ---
Today's Communication/Plan
-
Antibiotics discontinued
Patient agreeable to transfer to [facility]
Assessment / Plan
Assessment / Plan
Physical Exam
General: No Apparent Distress
HEENT: Dobhoff tube in place
Respiratory: Clear to Auscultation Bilaterally
Cardiac: S1/S2. RRR.
GI: Soft and Nontender. Positive bowel sounds.
Musculoskeletal: No Edema
Skin: Warm and Dry
Neuro: Awake, Alert, Oriented x3
Psych: Calm

CT A/P
IMPRESSION:
1. There is moderate left hydronephrosis likely related to a left ureterovesical stone. There is prominent perinephric inflammation bilaterally.
2. There is probable atelectasis in the lung bases bilaterally.
MRI BRAIN
IMPRESSION:
1. No MRI evidence for an acute infarct.
2. 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
MRI of the Cervical spine
'IMPRESSION:
1. No MRI evidence for signal alteration of the cervical spinal cord.
2. Left lateral intervertebral disc edema and endplate signal changes at C7-T1 with adjacent left lateral soft tissue T2/STIR hyperintense signal and enhancement. Findings could represent osteomyelitis-discitis and adjacent soft tissue phlegmon if
there are signs and symptoms of infection. Degenerative endplate signal changes with reactive soft tissue inflammation would be an alternative consideration, but probably less likely given the degree of soft tissue inflammation/enhancement.
Neoplastic soft tissue is not entirely excluded.
3. Chronic advanced degenerative changes of the cervical spine.'

Assessment/Plan
Acute hypovolemic hyponatremia with Na down to 118 (prior labs from 2019 at 134)
Recent Poor PO Intake Leading Up to Hospitalization
Presentation with Nausea/Vomiting
-Received some normal saline and 3% saline, required D5W to correct rate
-Na now stable
-appreciate renal
-fluids now off, on TF
Severe Dysphagia (due to MSA or PSP which are neurodegenerative diseases without significant treatments vs. Spinocerebellar ataxia vs. Paraneoplastic syndrome vs. Progression of a long standing neuropathy vs. Rare but cervical spine causes of
dysphagia (syrinx))
-patient unsafe to swallow all solid and liquid consistencies
-MRI w e/o MSA cerebellar type, per neuro clinically does not fit diagnosis; concern raised for Myasthenia Gravis
-F/U AchRAB
-Completed IVIG and Steroids on 07/12/23 - per neurology, these medications will take several days to start effect and will last several weeks
-Acetylcholine receptor antibodies: came back as zero
-EMG also not supportive of Myasthenia Gravis
-Status post Pyridostigmine
-Status post Prednisone 50 mg via NG tube on 07/13/23 given previous suspicion for myasthenia gravis - steroids now stopped
-MRI cervical spine (to see if there are cervical causes of bulbar symptoms): per neurology, it is doubtful that the findings on MRI would at all explain dysphagia and speech changes
-Lumbar puncture completed
-Monitor NIF/VC's
-EMG follow-up
-neurology consult appreciated: no clear cause of patient's dysphagia and dysarthria (see details in neurology note from July 17, 2022)
-dobhoff placed and TF initiated on 07/09
-daily ST
-patient and sister told not a guarantee we can avoid PEG; on 07/10 she was cleared for ice chips
-Patient agreeable to feeding tube: discussed case with surgeon Dr. Gio Goldstein on 07/16/23: patient would be a high risk for a open gastrostomy tube surgery or open abdominal surgery, interventional radiology cannot place a percutaneous feeding
tube here, will need to transfer to [facility]
SVT
-SVT x 2 on 07/08 broke with adenosine 6mg each time
-appreciate cardiology, started on an amio gtt and now transitioned to BID Metoprolol
-Continue Lopressor
-Follow-up with cardiology for EP eval as outpt to discuss SVT ablation.
E. Coli UTI and Bacteremia
Ureterovesical stone; left hydronephrosis
could represent osteomyelitis-discitis and adjacent soft tissue phlegmon
-Status post ~14 days of Ceftriaxone
-WBC was increasing and finding of ureterovesical stone seen on 07/07. OR held given cardiac and neurological active issues; and now held as patient's WBC improving and pain resolved
-WBC was 12, now leukocytosis has resolved
-Repeat CT: no mass/hydro or stone
-appreciate Urology
-Now with possible OM/discitis in the cervical spine in setting of E. coli bacteremia
-Consulted ID, recommendations appreciated: unlikely to be infection in the cervical spine, patient has no tenderness there
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
Generalized Weakness
Paranoia
Alcohol withdrawal
-patient with worsening psychosis Wednesday07/05/23 and initiated treated with high dose thiamine and alcohol withdrawal
-continue daily thiamine/folate
-MSAS protocol
-appreciate psychiatry recs
-hold wellbutrin and adderrall (as below)
Non-Anion Gap Metabolic Acidosis
Acute Kidney Injury
-creatinine stable post IVF
Sjogren's Syndrome - Hold Hydroxychloroquine given reaction with amio --> F/U with pharmacy/cards when OK to resume
Right acromioclavicular injury
Suspected history of osteoarthritis
ADHD - hold home Adderall given acute psychosis
Anxiety - Continue home Klonopin, now IV ativan
Depression - hold home Wellbutrin given acute psychosis
History of Juwan-en-Y (cory-en-wy) gastric bypass surgery
DVT Prophylaxis: Heparin subq
Code Status: Full Code
Anticipated Discharge: > 48 hours
Subjective/Interval History
-
Date of Service: July 17, 2023
Patient was seen and examined. She reported no new symptoms, she showed that she can swallow ice water.
Objective Data
-
Vital Signs:
Vital Signs
Temp Pulse Resp BP Pulse Ox
98.4 F 107 16 113/73 97
07/17/23 15:40 07/17/23 15:40 07/17/23 15:40 07/17/23 15:40 07/17/23 15:40
I&O
07/16/23 07/17/23 07/18/23
06:59 06:59 06:59
Intake Total 960 / 960 1200 / 1200
Output Total 200 / 200
Balance 960 / 960 1000 / 1000
[2023-07-17 19:20] VITALS: BP 116/75
[2023-07-17 23:24] VITALS: BP 80/60
[2023-07-17] MEDS: DICLOFENAC 1% TOPICAL GEL 4 GRAM TOPICAL (23:47)
[2023-07-17 23:50] LABS: Glucose - Point of Care 117 mg/dl (70-99)
[2023-07-17] MEDS: NSS 250 IV (23:55)
[2023-07-18] MEDS: TYLENOL ORAL SOLUTION 650 MG TUBE (03:26)
[2023-07-18] MEDS: IMODIUM LIQUID 2 MG TUBE (03:27)
[2023-07-18 06:00] VITALS: BMI 25.6
[2023-07-18 06:46] LABS: Glucose - Point of Care 164 mg/dl (70-99)
[2023-07-18] MEDS: NOVOLOG FLEXPEN 6 UNITS SC ×4 (06:46→23:59)
[2023-07-18] MEDS: NOVOLOG FLEXPEN-LOW RESISTANCE 1 UNITS SC ×2 (06:47→17:09)
[2023-07-18 07:40] VITALS: BP 98/75
[2023-07-18] MEDS: LIDOCAINE 4% PATCH 1 PATCH TOPICAL ×2 (07:45→07:46)
[2023-07-18] MEDS: CLARITIN 10 MG TUBE (07:46)
[2023-07-18] MEDS: NSS (PRESERVATIVE FREE) 10 ML IV (07:46)
[2023-07-18] MEDS: PROTONIX IV 40 MG IV (07:47)
[2023-07-18] MEDS: KLONOPIN 0.5 MG PO ×2 (07:47→21:11)
[2023-07-18] MEDS: FOLVITE 1 MG TUBE (07:47)
[2023-07-18] MEDS: HEPARIN 5000 UNITS SC ×3 (07:48→23:59)
[2023-07-18] MEDS: THIAMINE INJECTION 200 MG IV (07:48)
[2023-07-18] MEDS: NEURONTIN 300 MG TUBE ×2 (07:48→21:11)
[2023-07-18] MEDS: LOPRESSOR 25 MG TUBE ×2 (07:48→21:10)
[2023-07-18] MEDS: RESTASIS 0.05% OPHTHALMIC EMULSION 1 DROPS BOTH EYES ×2 (07:48→21:11)
[2023-07-18] MEDS: DICLOFENAC 1% TOPICAL GEL 1 GRAM TOPICAL (07:49)
[2023-07-18 08:14] LABS: % Basophils 0.2 % (0-2); % Eosinophils 1.9 % (0-6); % Immature Granulocytes 3.7 % (0-0.5); % Lymphocytes 6.1 % (20.5-51.1); % Monocytes 8.1 % (1.7-9.3); Absolute Eosinophils 0.2 10^3/uL (0-0.7); Absolute Immature Granulocytes 0.4 10^3/uL (0-0.05); Absolute Lymphocytes 0.7 10^3/uL (1.2-3.4); Absolute Monocytes 0.9 10^3/uL (0.1-0.6); Hemoglobin 9.7 g/dL (12.0-16.0); Mean Corp Hgb Conc. 33.4 g/dL (33.0-37.0); Mean Corpuscular Hgb 30.9 pg (27.0-31.0); Mean Corpuscular Volume 92.4 fL (81.0-99.0); Mean Platelet Volume 11.4 fL (7.4-10.4); Nucleated Red Blood Cells % 0 %; Platelet Count 603 10^3/uL (130-400); Red Blood Cell Count 3.14 10^6/uL (4.20-5.40); Red Cell Dist. Width 13.8 % (11.5-14.5); White Blood Cell Count 11.2 10^3/uL (4.8-10.8)
[2023-07-18 08:37] LABS: ALT (SGPT) 18 U/L (0-35); AST (SGOT) 23 U/L (14-36); Alkaline Phosphatase 76 U/L (38-126); Blood Urea Nitrogen 29 mg/dl (7-17); Calcium 8.2 mg/dl (8.4-10.2); Carbon Dioxide 29 mmol/L (22-30); Chloride 101 mmol/L (98-107); Estimated Creatinine Clearance 83 ml/min; Glucose 123 mg/dl (70-99); Potassium 4.7 mmol/L (3.5-5.1); Sodium 131 mmol/L (135-145); Total Bilirubin 0.4 mg/dl (0.2-1.3); Total Protein 4.9 g/dl (6.3-8.2); eGFR > 60.00
[2023-07-18 11:30] VITALS: BP 114/81
[2023-07-18 12:09] LABS: Glucose - Point of Care 109 mg/dl (70-99)
[2023-07-18] MEDS: LANTUS 0.0599999999999999978 UNITS SC (12:59)
[2023-07-18] MEDS: NOVOLOG FLEXPEN-LOW RESISTANCE SC (13:00)
[2023-07-18] MEDS: DICLOFENAC 1% TOPICAL GEL 100 GRAM TOPICAL ×3 (13:02→21:27)
--- NOTE | 2023-07-18 13:16 | PTCARENOTE ---
Patient tolerating tube feeds via nasogastric dobhoff tube. No complaints of pain, nausea . Voids large amts on bedpan. Able to turn and reposition in bed . Sequential teds intact in bed. Call nixon in reach
--- NOTE | 2023-07-18 13:36 | W.PN.HOSP.TC ---
Today's Communication/Plan
-
Patient has been accepted by [facility] (please see below) but after they do procedure (as below) patient will be transferred back to [facility]
Assessment / Plan
Assessment / Plan
Physical Exam
General: No Apparent Distress
HEENT: Dobhoff tube in place
Respiratory: Clear to Auscultation Bilaterally
Cardiac: S1/S2. RRR.
GI: Soft and Nontender. Positive bowel sounds.
Musculoskeletal: No Edema
Skin: Warm and Dry
Neuro: Awake, Alert, Oriented x3
Psych: Calm

CT A/P
IMPRESSION:
1. There is moderate left hydronephrosis likely related to a left ureterovesical stone. There is prominent perinephric inflammation bilaterally.
2. There is probable atelectasis in the lung bases bilaterally.
MRI BRAIN
IMPRESSION:
1. No MRI evidence for an acute infarct.
2. 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
MRI of the Cervical spine
'IMPRESSION:
1. No MRI evidence for signal alteration of the cervical spinal cord.
2. Left lateral intervertebral disc edema and endplate signal changes at C7-T1 with adjacent left lateral soft tissue T2/STIR hyperintense signal and enhancement. Findings could represent osteomyelitis-discitis and adjacent soft tissue phlegmon if
there are signs and symptoms of infection. Degenerative endplate signal changes with reactive soft tissue inflammation would be an alternative consideration, but probably less likely given the degree of soft tissue inflammation/enhancement.
Neoplastic soft tissue is not entirely excluded.
3. Chronic advanced degenerative changes of the cervical spine.'

Assessment/Plan
Acute hypovolemic hyponatremia with Na down to 118 (prior labs from 2019 at 134)
Recent Poor PO Intake Leading Up to Hospitalization
Presentation with Nausea/Vomiting
-Received some normal saline and 3% saline, required D5W to correct rate
-Na now stable although low
-appreciate renal
-fluids now off, on TF
Severe Dysphagia (due to MSA or PSP which are neurodegenerative diseases without significant treatments vs. Spinocerebellar ataxia vs. Paraneoplastic syndrome vs. Progression of a long standing neuropathy vs. Rare but cervical spine causes of
dysphagia (syrinx))
-Patient still unsafe to swallow all solid and liquid consistencies
-MRI w e/o MSA cerebellar type, per neuro clinically does not fit diagnosis; concern raised for Myasthenia Gravis - but that is unlikely per neurology
-Completed IVIG and Steroids on 07/12/23
-Acetylcholine receptor antibodies: came back as zero
-EMG also not supportive of Myasthenia Gravis
-Status post Pyridostigmine
-Status post Prednisone 50 mg via NG tube on 07/13/23 given previous suspicion for myasthenia gravis - steroids now stopped
-MRI cervical spine (to see if there are cervical causes of bulbar symptoms): per neurology, it is doubtful that the findings on MRI would at all explain dysphagia and speech changes
-Lumbar puncture completed - initial results not concerning, culture negative so far, await special studies as ordered by neurology
-Monitor NIF/VC's
-EMG follow-up
-neurology consult appreciated: no clear cause of patient's dysphagia and dysarthria (see details in neurology note from July 17, 2022)
-dobhoff placed and TF initiated on 07/09
-daily ST
-patient and sister told not a guarantee we can avoid PEG; on 07/10 she was cleared for ice chips
-Patient agreeable to feeding tube: discussed case with surgeon Dr. Gio Goldstein on 07/16/23: patient would be a high risk for a open gastrostomy tube surgery or open abdominal surgery, interventional radiology cannot place a percutaneous feeding
tube here, will need to transfer to [facility]
-Patient has been accepted (as of July 18, 2023) to the service of Dr. Wilian Phoenix, Bariatric Surgeon at [facility], for the placement of a surgical J tube -- patient will be transferred there for the surgical J tube placement but will then be
transferred back as per [facility] accepting physician
Supraventricular Tachycardia
-SVT x 2 on 07/08 broke with adenosine 6mg each time
-appreciate cardiology, started on an amio gtt and now transitioned to BID Metoprolol
-Continue Lopressor
-Follow-up with cardiology for EP eval as outpt to discuss SVT ablation.
E. Coli UTI and Bacteremia
Ureterovesical stone; left hydronephrosis
could represent osteomyelitis-discitis and adjacent soft tissue phlegmon
-Status post ~14 days of Ceftriaxone
-WBC was increasing and finding of ureterovesical stone seen on 07/07. OR held given cardiac and neurological active issues; and now held as patient's WBC improving and pain resolved
-WBC was 12
-Repeat CT: no mass/hydro or stone
-appreciate Urology
-Now with possible OM/discitis in the cervical spine in setting of E. coli bacteremia BUT, consulted ID: unlikely to be infection in the cervical spine, patient has no tenderness there
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
Generalized Weakness
Paranoia
Alcohol withdrawal
-patient with worsening psychosis Wednesday07/05/23 and initiated treated with high dose thiamine and alcohol withdrawal
-continue daily thiamine/folate
-MSAS protocol
-appreciate psychiatry recs
-hold wellbutrin and adderrall (as below)
Non-Anion Gap Metabolic Acidosis
Acute Kidney Injury
-creatinine stable post IVF
Sjogren's Syndrome - Hold Hydroxychloroquine given reaction with amio --> F/U with pharmacy/cards when OK to resume
Right acromioclavicular injury
Suspected history of osteoarthritis
ADHD - hold home Adderall given acute psychosis
Anxiety - Continue home Klonopin, now IV ativan
Depression - hold home Wellbutrin given acute psychosis
History of Juwan-en-Y (cory-en-wy) gastric bypass surgery
DVT Prophylaxis: Heparin subq
Code Status: Full Code
Anticipated Discharge: > 48 hours
Subjective/Interval History
-
Date of Service: July 18, 2023
Patient was seen and examined. She reported no new symptoms.
Objective Data
-
Labs:
Laboratory Results
07/18/23
06:00
WBC 11.2 H
Hgb 9.7 L
Hct 29.0 L
Plt Count 603 H
Sodium 131 L
Potassium 4.7
Chloride 101
Carbon Dioxide 29
BUN 29 H
Creatinine 0.7
Glucose 123 H
Calcium 8.2 L
Total Bilirubin 0.4
AST 23
ALT 18
Alkaline Phosphatase 76
Vital Signs:
Vital Signs
Temp Pulse Resp BP Pulse Ox
97.7 F 95 18 114/81 100
07/18/23 11:30 07/18/23 11:30 07/18/23 11:30 07/18/23 11:30 07/18/23 11:30
I&O
07/17/23 07/18/23 07/19/23
06:59 06:59 06:59
Intake Total 1200 / 1200
Output Total 200 / 200
Balance 1000 / 1000
--- NOTE | 2023-07-18 14:50 | CM ---
Plan is for transfer to [place] tomorrow for for feeding tube.
CM will cont to follow for needs.
[2023-07-18 15:40] VITALS: BP 111/71
[2023-07-18 17:10] LABS: Glucose - Point of Care 170 mg/dl (70-99)
[2023-07-18 19:30] VITALS: BP 108/65
[2023-07-18] MEDS: TYLENOL ORAL SOLUTION 1000 MG TUBE (21:11)
[2023-07-18 23:16] VITALS: BP 93/63
[2023-07-18 23:33] LABS: Glucose - Point of Care 212 mg/dl (70-99)
[2023-07-18] MEDS: NOVOLOG FLEXPEN-LOW RESISTANCE 300 UNITS SC (23:59)
[2023-07-19 03:24] VITALS: BP 139/79
[2023-07-19 05:43] LABS: Glucose - Point of Care 92 mg/dl (70-99)
[2023-07-19] MEDS: NOVOLOG FLEXPEN SC (05:45)
[2023-07-19] MEDS: NOVOLOG FLEXPEN-LOW RESISTANCE SC ×3 (05:45→18:12)
[2023-07-19 06:00] VITALS: BMI 25.5
[2023-07-19 07:00] VITALS: BP 116/65
--- NOTE | 2023-07-19 07:36 | PN.DE.MGMTRT ---
Insulin Management
- -
07/12/2023: Diabetes Management Consult:
58 year old female with PMH that includes: Sjogren's Syndrome, right acromioclavicular injury, suspected history of osteoarthritis, anxiety, depression and Juwan-en-Y (cory-en-wy) gastric bypass surgery. Pt was admitted on 07/03 with Abrupt onset of
worsening of dysphagia, increasing generalized weakness, ambulatory dysfunction, abdominal discomfort, poor appetite, and diarrhea likely due to myasthenia gravis. She is also being treated for bacteremia, hyponatremia, dysphagia and kidney stone.
Currently on IVIG, IV steroids and tube feeds with subsequent Hyperglycemia. A1C 5.5%, No prior hx of Diabetes and was not on any meds TPA.
Diabetes regimen includes: low corrective insulin. Glucose has trended up to 274, has received 1-3 units of corrective.
Will start Lantus 10 units, 1st dose now and daily there after. Start NovoLog 4 units Q6 hrs while on TF, hold dose if TF interrupted or on hold.
Cont low corrective Q6 hrs.
07/13/2023 Diabetes Management Follow up
Patient admitted 07/03 with hyponatremia, possible UTI. PMH includes Sjogrens syndrome, anxiety, depression, juwan-en,y, osteoarthritis. No history of diabetes, A1C 5.5%, cr .7, egfr >60. She is currently undergoing work up for possible Myasthenia
Gravis. She is receiving tube feeds @ 55 per hour.
Patient has been started on steroids, glucose trended up. Lantus 10 units in AM started yesterday, with 4 units novolog Q 6 hours. Glucose range 124 to 240. Will increase Q 6 hour novolog to 6 units with low corrective insulin. Will increase
lantus to 12 units in AM. Will follow.
07/14/2023 Diabetes Management Follow up
Tube feeds continue at 55 mg/ hr. Steroids continue daily. Lantus dose increased to 12 units yesterday, fasting glucose this AM 107. Q 6 novolog increased to 6 units, Q 6 hours glucose 131 and 133. Will make no change to novolog. If tube feeds
stopped or held please hold the Q 6 hour 6 units NovoLog and continue corrective insulin.
07/15/2023 Diabetes Management Follow up
Tube feeds continue @ 55 per hour, steroids continue @ 50 mg . Glucose stable on current diabetes regimen, 12 Lantus @ 11am and 6 units NovoLog Q 6 hours with corrective insulin. Will make no changes. If tube feeds stopped or held please hold the
Q 6 hour 6 units NovoLog and continue corrective insulin.
07/16/2023: Diabetes Management F/U:
Currently off steroids, continues on tube feeds, plan for J- tube placement, likely not today.
Glucose remains stable and in range on current regimen 12 Lantus @ 11am and 6 units NovoLog Q 6 hours with corrective insulin.
Will make no changes. HOLD Q 6 hour 6 units NovoLog if tube feeds are held for procedure or interrupted and continue corrective insulin.
07/19/2023: Diabetes Management F/U:
Glucose stable, pt had an episode of Hypoglycemia on Wednesday after receiving standing dose of NovoLog while NPO, no further hypoglycemic episodes throughout the weekend. Currently NPO awaiting transfer to [place] for J tube placement
Will make no changes to current regimen. OLD Q 6 hour 6 units NovoLog if tube feeds are held for procedure or interrupted and continue corrective insulin.
Diabetes History
- -
Type of Diabetes: 2 requiring insulin
Pre-Admission Diabetes Regimen
07/18/23
06:00
Creatinine 0.7
Lab Results
Hemoglobin A1c 5.5 % (4.0-5.6) 07/09/23 06:26
Insulin Pump Settings
IP Diabetes Regimen
07/18/23 07/18/23 07/18/23
06:00 12:08 17:09
Glucose 123 H
POC Glucose 109 H 170 H
07/18/23 07/19/23
23:32 05:41
Glucose
POC Glucose 212 H 92
Meal type: Dinner
Meal type: Lunch
Meal type: Breakfast
Patient Education
[2023-07-19] MEDS: LIDOCAINE 4% PATCH 1 PATCH TOPICAL ×2 (08:23)
[2023-07-19 08:24] LABS: % Basophils 0.2 % (0-2); % Eosinophils 1.3 % (0-6); % Immature Granulocytes 3.1 % (0-0.5); % Lymphocytes 4.6 % (20.5-51.1); % Monocytes 8.4 % (1.7-9.3); % Neutrophils 82.4 % (42.2-75.2); Absolute Eosinophils 0.2 10^3/uL (0-0.7); Absolute Immature Granulocytes 0.4 10^3/uL (0-0.05); Absolute Lymphocytes 0.6 10^3/uL (1.2-3.4); Absolute Neutrophils 9.8 10^3/uL (1.4-6.5); Hematocrit 26.4 % (37.0-47.0); Mean Corp Hgb Conc. 34.1 g/dL (33.0-37.0); Mean Platelet Volume 11.1 fL (7.4-10.4); Nucleated Red Blood Cells % 0 %; Platelet Count 645 10^3/uL (130-400); Red Cell Dist. Width 13.7 % (11.5-14.5); White Blood Cell Count 11.9 10^3/uL (4.8-10.8)
[2023-07-19] MEDS: THIAMINE INJECTION 200 MG IV (08:24)
[2023-07-19] MEDS: DICLOFENAC 1% TOPICAL GEL 100 GRAM TOPICAL ×4 (08:25→20:46)
[2023-07-19] MEDS: NEURONTIN 300 MG TUBE ×2 (08:25→20:45)
[2023-07-19] MEDS: LOPRESSOR 25 MG TUBE ×2 (08:26→20:45)
[2023-07-19] MEDS: KLONOPIN 0.5 MG PO ×2 (08:26→20:45)
[2023-07-19] MEDS: NSS (PRESERVATIVE FREE) 10 ML IV (08:26)
[2023-07-19] MEDS: PROTONIX IV 40 MG IV (08:26)
[2023-07-19] MEDS: FOLVITE 1 MG TUBE (08:26)
[2023-07-19] MEDS: RESTASIS 0.05% OPHTHALMIC EMULSION 1 DROPS BOTH EYES ×2 (08:27→20:46)
[2023-07-19] MEDS: CLARITIN 10 MG TUBE (08:27)
[2023-07-19] MEDS: HEPARIN 5000 UNITS SC ×2 (08:27→15:37)
[2023-07-19 09:01] LABS: ALT (SGPT) 17 U/L (0-35); AST (SGOT) 22 U/L (14-36); Alkaline Phosphatase 80 U/L (38-126); Blood Urea Nitrogen 26 mg/dl (7-17); Calcium 8.2 mg/dl (8.4-10.2); Carbon Dioxide 29 mmol/L (22-30); Chloride 99 mmol/L (98-107); Estimated Creatinine Clearance 83 ml/min; Glucose 142 mg/dl (70-99); Potassium 5.1 mmol/L (3.5-5.1); Sodium 130 mmol/L (135-145); Total Bilirubin 0.6 mg/dl (0.2-1.3); Total Protein 4.7 g/dl (6.3-8.2); eGFR > 60.00
--- NOTE | 2023-07-19 09:06 | W.PN.GS2 ---
Today's Communication / Plan
-
Consider repeating swallow evaluation.
General surgery will follow peripherally, call with questions or concerns.
Assessment / Plan
-
This is a 58-year-old female with a complex past medical history, Juwan-en-Y gastric bypass anatomy, cholecystectomy complicated by midline incisional hernia status post repair with mesh who presents with acute on chronic dysphagia and failed swallow
study on 07/14/2023. General surgery consulted to establish feeding access which would likely be fairly morbid given her prior operations. A percutaneous approach would be the least invasive however our interventional radiology group does not
routinely perform this procedure here.
Recommend referral to a tertiary center, nonurgent as patient is doing well with tube feeds via her Corpak.
Interestingly she states that she has been able to swallow thin liquids/water over the weekend without any aspiration despite having a small tube currently in the back of her throat. Would consider repeating swallow eval, but would defer to primary.
With regards to her PICC, I do not anticipate her needing TPN. Again I would defer to primary.
Time Spent
Total Time Spent with Patient (in minutes): 20
Subjective Data
-
Date of Service: July 19, 2023
Interval Events:
No acute events overnight. Low-grade fever over the weekend. Pain Controlled. Denies Nausea/Vomiting, +bowel function. Tolerating tube feeds at goal. She also is endorsing that she can drink liquids now, and did drink some water in front of me
without any issues even with the in place.
Objective Data
-
Intake and Output
07/18/23 07/19/23 07/20/23
06:59 06:59 06:59
Intake Total 960 / 960
Balance 960 / 960
Intake:
Tube feeding 660 / 660
Feeding tube flush amount 300 / 300
Other:
Number of approximated MODERATE 1
amounts of urine
Number of approximated LARGE 2 1
amounts of urine
How many times incontinent 2
MODERATE amount urine
Vital Signs
Temp Pulse Resp BP Pulse Ox
98.6 F 105 22 116/65 98
07/19/23 07:00 07/19/23 07:00 07/19/23 07:00 07/19/23 07:00 07/19/23 07:00
Lab Results
07/19/23 08:09
07/19/23 08:09
Calcium 8.2 mg/dl (8.4-10.2) L 07/19/23 08:09
Phosphorus 4.1 mg/dl (2.5-4.5) 07/11/23 04:20
Magnesium 2.0 mg/dl (1.6-2.3) 07/19/23 08:09
Total Bilirubin 0.6 mg/dl (0.2-1.3) 07/19/23 08:09
AST 22 U/L (14-36) 07/19/23 08:09
ALT 17 U/L (0-35) 07/19/23 08:09
Alkaline Phosphatase 80 U/L (38-126) 07/19/23 08:09
Total Protein 4.7 g/dl (6.3-8.2) L 07/19/23 08:09
Albumin 2.0 g/dl (3.5-5.0) L 07/19/23 08:09
Physical Exam
-
GENERAL/NEURO: Awake, Alert, no distress, Corpak tube in place with tube feeds running at 55 cc/h.
CHEST: Unlabored breathing on RA
ABDOMEN: Soft, Non-Tender, Non-Distended.
[2023-07-19 12:26] LABS: Glucose - Point of Care 126 mg/dl (70-99)
[2023-07-19] MEDS: NOVOLOG FLEXPEN 6 UNITS SC ×2 (12:34→18:11)
[2023-07-19] MEDS: LANTUS 0.0599999999999999978 UNITS SC (12:34)
[2023-07-19 13:44] VITALS: BP 127/88
--- NOTE | 2023-07-19 13:44 | W.PN.HOSP.TC ---
Addendum entered and electronically signed by Simeon Grullon MD 07/19/23 15:45:
call from speech therapy, recommended moderately thick liquid modification to allow pt to swallow
Original Note:
Today's Communication/Plan
-
await repeat speech therapy evaluation with VSE then to be decided if to have PEG. Pt and brother aware may not get transfer immediately after VSE is done if shows still needs PEG
Assessment / Plan
Assessment / Plan
CT A/P
IMPRESSION:
1. There is moderate left hydronephrosis likely related to a left ureterovesical stone. There is prominent perinephric inflammation bilaterally.
2. There is probable atelectasis in the lung bases bilaterally.
MRI BRAIN
IMPRESSION:
1. No MRI evidence for an acute infarct.
2. 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
MRI of the Cervical spine
'IMPRESSION:
1. No MRI evidence for signal alteration of the cervical spinal cord.
2. Left lateral intervertebral disc edema and endplate signal changes at C7-T1 with adjacent left lateral soft tissue T2/STIR hyperintense signal and enhancement. Findings could represent osteomyelitis-discitis and adjacent soft tissue phlegmon if
there are signs and symptoms of infection. Degenerative endplate signal changes with reactive soft tissue inflammation would be an alternative consideration, but probably less likely given the degree of soft tissue inflammation/enhancement.
Neoplastic soft tissue is not entirely excluded.
3. Chronic advanced degenerative changes of the cervical spine.'

Assessment/Plan
Acute hypovolemic hyponatremia with Na down to 118 on 07/03 (prior labs from 2019 at 134)
Currently 130
Recent Poor PO Intake Leading Up to Hospitalization
Presentation with Nausea/Vomiting
-Received some normal saline and 3% saline, required D5W to correct rate
-Na now stable although low
-appreciate renal
-fluids now off, on TF
Severe Dysphagia (due to MSA or PSP which are neurodegenerative diseases without significant treatments vs. Spinocerebellar ataxia vs. Paraneoplastic syndrome vs. Progression of a long standing neuropathy vs. Rare but cervical spine causes of
dysphagia (syrinx))
-Patient was unsafe to swallow all solid and liquid consistencies
-MRI w e/o MSA cerebellar type, per neuro clinically does not fit diagnosis; concern raised for Myasthenia Gravis - but that is unlikely per neurology
-Completed IVIG and Steroids on 07/12/23
-Acetylcholine receptor antibodies: came back as zero
-EMG also not supportive of Myasthenia Gravis
-Status post Pyridostigmine
-Status post Prednisone 50 mg via NG tube on 07/13/23 given previous suspicion for myasthenia gravis - steroids now stopped
-MRI cervical spine (to see if there are cervical causes of bulbar symptoms): per neurology, it is doubtful that the findings on MRI would at all explain dysphagia and speech changes
-Lumbar puncture completed - initial results not concerning, culture negative so far, await special studies as ordered by neurology
-Monitor NIF/VC's
-EMG follow-up
-neurology consult appreciated: no clear cause of patient's dysphagia and dysarthria (see details in neurology note from July 17, 2022)
-dobhoff placed and TF initiated on 07/09
-daily ST
-patient and sister told not a guarantee we can avoid PEG; on 07/10 she was cleared for ice chips
-Patient agreeable to feeding tube: discussed case with surgeon Dr. Gio Goldstein on 07/16/23: patient would be a high risk for a open gastrostomy tube surgery or open abdominal surgery, interventional radiology cannot place a percutaneous feeding
tube here, will need to transfer to [facility]
-Patient has been accepted (as of July 18, 2023) to the service of Dr. Wilian Phoenix, Bariatric Surgeon at [facility], for the placement of a surgical J tube -- patient will be transferred there for the surgical J tube placement but will then be
transferred back as per [facility] accepting physician
Supraventricular Tachycardia
-SVT x 2 on 07/08 broke with adenosine 6mg each time
-appreciate cardiology, started on an amio gtt and now transitioned to BID Metoprolol
-Continue Lopressor
-Follow-up with cardiology for EP eval as outpt to discuss SVT ablation.
E. Coli UTI and Bacteremia
Ureterovesical stone; left hydronephrosis
could represent osteomyelitis-discitis and adjacent soft tissue phlegmon
-Status post ~14 days of Ceftriaxone
-WBC was increasing and finding of ureterovesical stone seen on 07/07. OR held given cardiac and neurological active issues; and now held as patient's WBC improving and pain resolved
-WBC was 12
-Repeat CT: no mass/hydro or stone
-appreciate Urology
-Now with possible OM/discitis in the cervical spine in setting of E. coli bacteremia BUT, consulted ID: unlikely to be infection in the cervical spine, patient has no tenderness there
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
Generalized Weakness
Paranoia
Alcohol withdrawal
-patient with worsening psychosis Wednesday07/05/23 and initiated treated with high dose thiamine and alcohol withdrawal
-continue daily thiamine/folate
-MSAS protocol
-appreciate psychiatry recs
-hold wellbutrin and adderrall (as below)
Non-Anion Gap Metabolic Acidosis
Acute Kidney Injury
-creatinine stable post IVF
Sjogren's Syndrome - Hold Hydroxychloroquine given reaction with amio --> F/U with pharmacy/cards when OK to resume
Right acromioclavicular injury
Suspected history of osteoarthritis
ADHD - hold home Adderall given acute psychosis
Anxiety - Continue home Klonopin, now IV ativan
Depression - hold home Wellbutrin given acute psychosis
History of Juwan-en-Y (cory-en-wy) gastric bypass surgery
Pt was to be transferred to [place] today to have PEG placed. Pt believes she is swallowing better and she is requesting another VSE before she goes. Discussed with brother on phone, he also requests this be done prior to transfer. CM catering manager
notified. Discussed with Veronica Driscoll of Speech therapy. Discussed with CM.
Time spent 60 minutes
DVT Prophylaxis: Heparin subq
Code Status: Full Code
Anticipated Discharge: > 48 hours
Subjective/Interval History
-
Date of Service: July 19, 2023
Feels as if she can swallow and would like to have speech repeat a VSE prior to having PEG placed
Objective Data
-
Labs:
Laboratory Results
07/19/23
08:09
WBC 11.9 H
Hgb 9.0 L
Hct 26.4 L
Plt Count 645 H
Sodium 130 L
Potassium 5.1
Chloride 99
Carbon Dioxide 29
BUN 26 H
Creatinine 0.7
Glucose 142 H
Calcium 8.2 L
Total Bilirubin 0.6
AST 22
ALT 17
Alkaline Phosphatase 80
Vital Signs:
Vital Signs
Temp Pulse Resp BP Pulse Ox
98.6 F 105 22 116/65 98
07/19/23 07:00 07/19/23 07:00 07/19/23 07:00 07/19/23 07:00 07/19/23 07:00
I&O
07/18/23 07/19/23 07/20/23
06:59 06:59 06:59
Intake Total 960 / 960
Balance 960 / 960
Review of Systems
-
History Source: Patient and Coordinated Provider (reviewed with speech and CM)
Constitutional: Denies Fever (was 100.4 at 19:30)
EENT: Reports Other (keofeed still in place)
Respiratory: Reports No Symptoms; Denies Cough or Trouble Breathing
Cardiac: Reports No Symptoms; Denies Chest Pain
Abdomen/GI: Reports No Symptoms; Denies Abdominal Pain
Musculoskeletal: Reports No Symptoms
Physical Exam
-
General: Well Developed, Well Nourished and No Apparent Distress
HEENT: Normocephalic, Atraumatic, Moist Mucous Membranes and Other (keofeed in place)
Respiratory: Clear to Auscultation; Negative Wheezes, Rales or Rhonchi
Cardiac: Regular Rhythm and S1/S2
GI: Soft, Nontender, Nondistended and Normal Bowel Sounds
Musculoskeletal: No Clubbing, No Cyanosis and No Edema
Neuro: Awake, Alert and Oriented
[2023-07-19] MEDS: TYLENOL ORAL SOLUTION 650 MG TUBE (14:12)
--- NOTE | 2023-07-19 14:55 | PTCARENOTE ---
Patient with Temp 101.9- hospitalist notified. Received Tylenol 650mg. Hospitalist notified .
[2023-07-19 16:00] VITALS: BP 96/70
--- NOTE | 2023-07-19 16:36 | VATNOTE ---
was considering obtaining order from hospitalist re. exchanging PICC for midline. Picc is no longer needed. However pt. is to be transferred tomorrow 10/17 to [place] and then PICC can be discontinued tomorrow. Peripheral line placed by previous VAT RN.
--- NOTE | 2023-07-19 16:57 | PTOTSP ---
Video Swallow Examination
Patient continues to present with at least moderate-severe pharyngeal dysphagia. She aspirated without a cough (silent aspiration) with thin liquids and mildly thick liquids. No aspiration occurred with moderately thick liquids or puree - though
there is a risk for this due to the severity of pharyngeal residue which remained in pharynx. Patient did NOT have full sensation of pharyngeal residue and could not fully clear it which limits her ability to start an oral diet for
nutrition/hydration at this time.
Recommend:
1. Non-oral means as primary means of nutrition/hydration/medication
2. Moderately thick liquids via small teaspoon amounts with use of multiple swallows to allow opportunities for use of swallowing musculature. Discontinue if patient with wet vocal quality.
3. Aspiration risk hydration protocol - ice chips after oral care
4. Continued dysphagia therapy at the acute care level and after D/C from acute care.
--- NOTE | 2023-07-19 17:55 | CM ---
Spoke with patient bedside.
Per patient she can swallow and wants another VSE.
Possible transfer to [place] on hold for VSE.
will follow for d/c needs.
Plan: skilled rehab vs home with services.
[2023-07-19 18:04] LABS: Glucose - Point of Care 119 mg/dl (70-99)
[2023-07-19 19:39] VITALS: BP 97/68
[2023-07-19] MEDS: TYLENOL ORAL SOLUTION 1000 MG TUBE (20:45)
[2023-07-19 23:28] VITALS: BP 98/65
[2023-07-19 23:57] LABS: Glucose - Point of Care 220 mg/dl (70-99)
[2023-07-20] VITALS (8 sets, daily range): BP systolic 92–137; BP diastolic 62–81; PULSE 101; O2SAT 99; BMI 26.2
[2023-07-20] MEDS: HEPARIN 5000 UNITS SC ×4 (00:15→23:33)
[2023-07-20] MEDS: NOVOLOG FLEXPEN 6 UNITS SC ×3 (00:16→17:02)
[2023-07-20] MEDS: NOVOLOG FLEXPEN-LOW RESISTANCE 2 UNITS SC (00:16)
[2023-07-20] MEDS: TYLENOL ORAL SOLUTION 650 MG TUBE ×2 (03:05→23:53)
[2023-07-20 05:29] LABS: Glucose - Point of Care 152 mg/dl (70-99)
[2023-07-20] MEDS: NOVOLOG FLEXPEN-LOW RESISTANCE SC ×4 (06:10→23:32)
[2023-07-20 06:28] LABS: % Basophils 0.2 % (0-2); % Eosinophils 2.6 % (0-6); % Immature Granulocytes 3.5 % (0-0.5); % Lymphocytes 7.1 % (20.5-51.1); % Neutrophils 76.6 % (42.2-75.2); Absolute Eosinophils 0.3 10^3/uL (0-0.7); Absolute Immature Granulocytes 0.4 10^3/uL (0-0.05); Absolute Lymphocytes 0.7 10^3/uL (1.2-3.4); Absolute Neutrophils 7.7 10^3/uL (1.4-6.5); Hematocrit 25.1 % (37.0-47.0); Hemoglobin 8.4 g/dL (12.0-16.0); Mean Corp Hgb Conc. 33.5 g/dL (33.0-37.0); Mean Corpuscular Hgb 30.8 pg (27.0-31.0); Mean Corpuscular Volume 91.9 fL (81.0-99.0); Mean Platelet Volume 11.1 fL (7.4-10.4); Nucleated Red Blood Cells % 0 %; Platelet Count 597 10^3/uL (130-400); Red Blood Cell Count 2.73 10^6/uL (4.20-5.40); Red Cell Dist. Width 13.8 % (11.5-14.5); White Blood Cell Count 10.1 10^3/uL (4.8-10.8)
[2023-07-20 06:39] LABS: Blood Urea Nitrogen 28 mg/dl (7-17); Calcium 8.4 mg/dl (8.4-10.2); Carbon Dioxide 29 mmol/L (22-30); Chloride 98 mmol/L (98-107); Estimated Creatinine Clearance 83 ml/min; Glucose 115 mg/dl (70-99); Magnesium 2.1 mg/dl (1.6-2.3); Potassium 4.8 mmol/L (3.5-5.1); Sodium 132 mmol/L (135-145); eGFR > 60.00
[2023-07-20] MEDS: LIDOCAINE 4% PATCH 1 PATCH TOPICAL ×2 (08:36)
[2023-07-20] MEDS: CLARITIN 10 MG TUBE (08:37)
[2023-07-20] MEDS: NEURONTIN 300 MG TUBE ×2 (08:37→22:00)
[2023-07-20] MEDS: THIAMINE INJECTION 200 MG IV (08:38)
[2023-07-20] MEDS: PROTONIX IV 40 MG IV (08:39)
[2023-07-20] MEDS: NSS (PRESERVATIVE FREE) 10 ML IV (08:40)
[2023-07-20] MEDS: RESTASIS 0.05% OPHTHALMIC EMULSION 1 DROPS BOTH EYES ×2 (08:40→21:58)
[2023-07-20] MEDS: LOPRESSOR 25 MG TUBE (08:40)
[2023-07-20] MEDS: FOLVITE 1 MG TUBE (08:40)
[2023-07-20] MEDS: KLONOPIN 0.5 MG PO ×2 (08:41→22:03)
[2023-07-20] MEDS: DICLOFENAC 1% TOPICAL GEL 100 GRAM TOPICAL ×4 (08:42→21:53)
--- NOTE | 2023-07-20 09:11 | PN.DE.MGMTRT ---
Insulin Management
- -
07/12/2023: Diabetes Management Consult:
58 year old female with PMH that includes: Sjogren's Syndrome, right acromioclavicular injury, suspected history of osteoarthritis, anxiety, depression and Juwan-en-Y (cory-en-wy) gastric bypass surgery. Pt was admitted on 07/03 with Abrupt onset of
worsening of dysphagia, increasing generalized weakness, ambulatory dysfunction, abdominal discomfort, poor appetite, and diarrhea likely due to myasthenia gravis. She is also being treated for bacteremia, hyponatremia, dysphagia and kidney stone.
Currently on IVIG, IV steroids and tube feeds with subsequent Hyperglycemia. A1C 5.5%, No prior hx of Diabetes and was not on any meds TPA.
Diabetes regimen includes: low corrective insulin. Glucose has trended up to 274, has received 1-3 units of corrective.
Will start Lantus 10 units, 1st dose now and daily there after. Start NovoLog 4 units Q6 hrs while on TF, hold dose if TF interrupted or on hold.
Cont low corrective Q6 hrs.
07/13/2023 Diabetes Management Follow up
Patient admitted 07/03 with hyponatremia, possible UTI. PMH includes Sjogrens syndrome, anxiety, depression, juwan-en,y, osteoarthritis. No history of diabetes, A1C 5.5%, cr .7, egfr >60. She is currently undergoing work up for possible Myasthenia
Gravis. She is receiving tube feeds @ 55 per hour.
Patient has been started on steroids, glucose trended up. Lantus 10 units in AM started yesterday, with 4 units novolog Q 6 hours. Glucose range 124 to 240. Will increase Q 6 hour novolog to 6 units with low corrective insulin. Will increase
lantus to 12 units in AM. Will follow.
07/14/2023 Diabetes Management Follow up
Tube feeds continue at 55 mg/ hr. Steroids continue daily. Lantus dose increased to 12 units yesterday, fasting glucose this AM 107. Q 6 novolog increased to 6 units, Q 6 hours glucose 131 and 133. Will make no change to novolog. If tube feeds
stopped or held please hold the Q 6 hour 6 units NovoLog and continue corrective insulin.
07/15/2023 Diabetes Management Follow up
Tube feeds continue @ 55 per hour, steroids continue @ 50 mg . Glucose stable on current diabetes regimen, 12 Lantus @ 11am and 6 units NovoLog Q 6 hours with corrective insulin. Will make no changes. If tube feeds stopped or held please hold the
Q 6 hour 6 units NovoLog and continue corrective insulin.
07/16/2023: Diabetes Management F/U:
Currently off steroids, continues on tube feeds, plan for J- tube placement, likely not today.
Glucose remains stable and in range on current regimen 12 Lantus @ 11am and 6 units NovoLog Q 6 hours with corrective insulin.
Will make no changes. HOLD Q 6 hour 6 units NovoLog if tube feeds are held for procedure or interrupted and continue corrective insulin.
07/19/2023: Diabetes Management F/U:
Glucose stable, pt had an episode of Hypoglycemia on Wednesday after receiving standing dose of NovoLog while NPO, no further hypoglycemic episodes throughout the weekend. Currently NPO awaiting transfer to [facility] for J tube placement
Will make no changes to current regimen. OLD Q 6 hour 6 units NovoLog if tube feeds are held for procedure or interrupted and continue corrective insulin.
07/20/2023 Diabetes Management Follow up
Patient currently continues with tube feeds @ 55ml per hour. Glucose has been stable, but 220 @ hs last evening. Will continue 6 units lantus at 12 noon with 6 units novolog Q 6 hours. Speech has evaluated patient; if patient to start PO diet
please advise for changes to regimen.
Diabetes History
- -
Pre-Admission Diabetes Regimen
07/20/23
05:46
Creatinine 0.7
Lab Results
Hemoglobin A1c 5.5 % (4.0-5.6) 07/09/23 06:26
Insulin Pump Settings
IP Diabetes Regimen
07/19/23 07/19/23 07/19/23
12:25 18:03 23:56
Glucose
POC Glucose 126 H 119 H 220 H
07/20/23 07/20/23
05:28 05:46
Glucose 115 H
POC Glucose 152 H
Meal type: Dinner
Patient Education
--- NOTE | 2023-07-20 11:37 | CM ---
Repeat VSE completed. Plan to proceed with transfer to [facility], buy back agreement faxed to [facility] .
Plan; Patient to transfer to [facility] as soon as there is a bed available.
[2023-07-20 12:14] LABS: Glucose - Point of Care 70 mg/dl (70-99)
[2023-07-20] MEDS: LANTUS 0.0599999999999999978 UNITS SC (12:34)
[2023-07-20] MEDS: NOVOLOG FLEXPEN SC ×2 (12:34→23:44)
--- NOTE | 2023-07-20 16:16 | W.PN.UPDATE ---
Addendum entered and electronically signed by TIFFANIE Suarez 07/20/23 17:06:
X ray confirmed DHT in gastric body ok to use reviewed with nursing.
Original Note:
Update Note
Progress Note Update
DHT clogged and removed. New tube placed left nare at 65 cm without difficulty. confirmed with air insufflation. Will check X ray to confirm placement. no gag noted during evaluation.
[2023-07-20 17:03] LABS: Glucose - Point of Care 120 mg/dl (70-99)
--- NOTE | 2023-07-20 17:10 | W.PN.HOSP.TC ---
Today's Communication/Plan
-
await transfer to [facility] for PEG placement
Appreciate GI placing new Keofeed tube
Assessment / Plan
Assessment / Plan
CT A/P
IMPRESSION:
1. There is moderate left hydronephrosis likely related to a left ureterovesical stone. There is prominent perinephric inflammation bilaterally.
2. There is probable atelectasis in the lung bases bilaterally.
MRI BRAIN
IMPRESSION:
1. No MRI evidence for an acute infarct.
2. 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
MRI of the Cervical spine
'IMPRESSION:
1. No MRI evidence for signal alteration of the cervical spinal cord.
2. Left lateral intervertebral disc edema and endplate signal changes at C7-T1 with adjacent left lateral soft tissue T2/STIR hyperintense signal and enhancement. Findings could represent osteomyelitis-discitis and adjacent soft tissue phlegmon if
there are signs and symptoms of infection. Degenerative endplate signal changes with reactive soft tissue inflammation would be an alternative consideration, but probably less likely given the degree of soft tissue inflammation/enhancement.
Neoplastic soft tissue is not entirely excluded.
3. Chronic advanced degenerative changes of the cervical spine.'

Assessment/Plan
Acute hypovolemic hyponatremia with Na down to 118 on 07/03 (prior labs from 2019 at 134)
Currently 130
Recent Poor PO Intake Leading Up to Hospitalization
Presentation with Nausea/Vomiting
-Received some normal saline and 3% saline, required D5W to correct rate
-Na now stable although low
-appreciate renal
-fluids now off, on TF
Keofeed became clogged, GI was notified and replaced tube with X-Ray to confirm location
Severe Dysphagia (due to MSA or PSP which are neurodegenerative diseases without significant treatments vs. Spinocerebellar ataxia vs. Paraneoplastic syndrome vs. Progression of a long standing neuropathy vs. Rare but cervical spine causes of
dysphagia (syrinx))
-Patient was unsafe to swallow all solid and liquid consistencies
-MRI w e/o MSA cerebellar type, per neuro clinically does not fit diagnosis; concern raised for Myasthenia Gravis - but that is unlikely per neurology
-Completed IVIG and Steroids on 07/12/23
repeat VSE: 1.�Non-oral means as primary means of nutrition/hydration/medication
2. Moderately thick liquids via small teaspoon amounts with use of multiple swallows to allow opportunities for use of swallowing musculature.� Discontinue if patient with wet vocal quality.
3. Aspiration risk hydration protocol - ice chips after oral care
4. Continued dysphagia therapy at the acute care level and after D/C from acute care.
-Acetylcholine receptor antibodies: came back as zero
-EMG also not supportive of Myasthenia Gravis
Met with pt this afternoon, with brother on the speaker phone and confirmed she would want to have feeding tube placed. CM notified and await bed availability at [facility]
Discussed with Dr. Choudhary, he would love to have neurologist at [facility] evaluate pt for input as to etiology of process. Unclear whether this would happen, based on planned trnasfer there and return to post procedure
-Status post Pyridostigmine
-Status post Prednisone 50 mg via NG tube on 07/13/23 given previous suspicion for myasthenia gravis - steroids now stopped
-MRI cervical spine (to see if there are cervical causes of bulbar symptoms): per neurology, it is doubtful that the findings on MRI would at all explain dysphagia and speech changes
-Lumbar puncture completed - initial results not concerning, culture negative so far, await special studies as ordered by neurology
-Monitor NIF/VC's
-EMG follow-up
-neurology consult appreciated: no clear cause of patient's dysphagia and dysarthria (see details in neurology note from July 17, 2022)
-dobhoff placed and TF initiated on 07/09
-daily ST
-patient and sister told not a guarantee we can avoid PEG; on 07/10 she was cleared for ice chips
-Patient agreeable to feeding tube: discussed case with surgeon Dr. Gio Goldstein on 07/16/23: patient would be a high risk for a open gastrostomy tube surgery or open abdominal surgery, interventional radiology cannot place a percutaneous feeding
tube here, will need to transfer to [facility]
-Patient has been accepted (as of July 18, 2023) to the service of Dr. Wilian Phoenix, Bariatric Surgeon at [facility], for the placement of a surgical J tube -- patient will be transferred there for the surgical J tube placement but will then be
transferred back as per [facility] accepting physician
Supraventricular Tachycardia
-SVT x 2 on 07/08 broke with adenosine 6mg each time
-appreciate cardiology, started on an amio gtt and now transitioned to BID Metoprolol
-Continue Lopressor
-Follow-up with cardiology for EP eval as outpt to discuss SVT ablation.
E. Coli UTI and Bacteremia
Ureterovesical stone; left hydronephrosis
could represent osteomyelitis-discitis and adjacent soft tissue phlegmon
-Status post ~14 days of Ceftriaxone
-WBC was increasing and finding of ureterovesical stone seen on 07/07. OR held given cardiac and neurological active issues; and now held as patient's WBC improving and pain resolved
-WBC was 12
-Repeat CT: no mass/hydro or stone
-appreciate Urology
-Now with possible OM/discitis in the cervical spine in setting of E. coli bacteremia BUT, consulted ID: unlikely to be infection in the cervical spine, patient has no tenderness there
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
Generalized Weakness
Paranoia
Alcohol withdrawal
-patient with worsening psychosis Wednesday07/05/23 and initiated treated with high dose thiamine and alcohol withdrawal
-continue daily thiamine/folate
-MSAS protocol
-appreciate psychiatry recs
-hold wellbutrin and adderrall (as below)
Non-Anion Gap Metabolic Acidosis
Acute Kidney Injury
-creatinine stable post IVF
Sjogren's Syndrome - Hold Hydroxychloroquine given reaction with amio --> F/U with pharmacy/cards when OK to resume
Right acromioclavicular injury
Suspected history of osteoarthritis
ADHD - hold home Adderall given acute psychosis
Anxiety - Continue home Klonopin, now IV ativan
Depression - hold home Wellbutrin given acute psychosis
History of Juwan-en-Y (cory-en-wy) gastric bypass surgery
Pt has a PICC line in place. If she is to go to [facility] in the immediate future would leave in place and remove once procedure completed. Hopefully will have some idea as to timing of procedure in next 1-2 days
DVT Prophylaxis: Heparin subq
Code Status: Full Code
Anticipated Discharge: 24 - 48 hours
Subjective/Interval History
-
Date of Service: July 20, 2023
Met with pt, with brother on speaker phone
Objective Data
-
Labs:
Laboratory Results
07/20/23
05:46
WBC 10.1
Hgb 8.4 L
Hct 25.1 L
Plt Count 597 H
Sodium 132 L
Potassium 4.8
Chloride 98
Carbon Dioxide 29
BUN 28 H
Creatinine 0.7
Glucose 115 H
Calcium 8.4
Vital Signs:
Vital Signs
Temp Pulse Resp BP Pulse Ox
99.5 F 125 20 104/67 97
07/20/23 15:47 07/20/23 15:47 07/20/23 15:47 07/20/23 15:47 07/20/23 15:47
I&O
07/19/23 07/20/23 07/21/23
06:59 06:59 06:59
Intake Total 960 / 960 1919
Balance 960 / 960 1919
Review of Systems
-
History Source: Patient and Coordinated Provider (reviewed with speech and CM)
Constitutional: Denies Fever (was 101.9 as of 07/19 at 13:44)
EENT: Reports Other (keofeed still in place)
Respiratory: Reports No Symptoms; Denies Cough or Trouble Breathing
Cardiac: Reports No Symptoms; Denies Chest Pain
Abdomen/GI: Reports No Symptoms; Denies Abdominal Pain
Musculoskeletal: Reports No Symptoms
Physical Exam
-
General: Well Developed, Well Nourished and No Apparent Distress
HEENT: Normocephalic, Atraumatic, Moist Mucous Membranes and Other (keofeed in place)
Respiratory: Clear to Auscultation; Negative Wheezes, Rales or Rhonchi
Cardiac: Regular Rhythm and S1/S2
GI: Soft, Nontender, Nondistended and Normal Bowel Sounds
Musculoskeletal: No Clubbing, No Cyanosis and No Edema
Neuro: Awake, Alert and Oriented
--- NOTE | 2023-07-20 17:37 | PTCARENOTE ---
Dobhoff tube replaced by Dr Pickett. Placement confirmed and order noted by Dr pickett to resume Tube feed.
[2023-07-20] MEDS: LOPRESSOR TUBE (21:58)
[2023-07-20] MEDS: LOPRESSOR 12.5 MG PO (22:03)
[2023-07-20 23:30] LABS: Glucose - Point of Care 143 mg/dl (70-99)
--- NOTE | 2023-07-21 00:33 | PTCARENOTE ---
Report given to David PEREZ at [facility]. Pt transferred w/ paperwork, all belongings, and R PICC line in place. Pt AAOx3 TFs turned off. Tele box #[id number] removed
[2023-07-21 17:32] LABS: Paraneoplastic Ab IgG, CSF None Detected (None Detected)
--- NOTE | 2023-07-21 19:16 | W.DS.TRANS ---
DC Summary - Car Rental Clerk
-
Discharge Instructions:
Instructions:
Stand-Alone Forms:
Changes to Home Medications: No
Discharge Medications:
DC Medications w/original date entered in [facility]
Medical Marijuana 0 drp sublingual .SEE BELOW PRN mild pain 07/03/23
Medical Marijuana 0 inh inhalation .SEE BELOW PRN mild pain 07/03/23
Visbiome 10 billion cells PO DAILY Gastrointestinal Issue 07/03/23
albuterol sulfate 90 mcg/actuation aerosol inhaler (ProAir HFA) 2 puff inhalation R BIDPRN PRN sob 07/03/23
bupropion HCl 300 mg 24 hr tablet, extended release (Wellbutrin XL) 300 mg PO DAILY Mental Health/Anxiety 07/03/23
cholecalciferol (vitamin D3) 125 mcg (5,000 unit) tablet 125 mcg PO DAILY Supplement 07/03/23
clonazepam 0.5 mg tablet 0.5 mg PO BID Mental Health/Anxiety 07/03/23
cyanocobalamin (vitamin B-12) 2,500 mcg tablet 2,500 mcg PO DAILY Supplement 07/03/23
cyclosporine 0.05 % eye drops 1 drp BOTH EYES BID Eye Condition 07/03/23
dextroamphetamine-amphetamine 30 mg tablet (Adderall) 30 mg PO BID Mental Health/Anxiety 07/03/23
estradiol 0.045 mg-levonorgestrel 0.015 mg/24hr weekly transderm patch (Climara Pro) 1 patch transdermal QWEEK Hormonal Agent 07/03/23
ferrous sulfate 325 mg (65 mg iron) tablet (iron) 325 mg PO DAILY Supplement 07/03/23
fluticasone 250 mcg-salmeterol 50 mcg/dose blistr powdr for inhalation 1 inh inhalation R BID Lung/Breathing Issues 07/03/23
fluticasone propionate 50 mcg/actuation nasal spray,suspension 2 spray intranasal DAILY Allergies 07/03/23
folic acid 1 mg tablet 1 mg PO DAILY Supplement 07/03/23
gabapentin 300 mg capsule 300 mg PO QID@0600,12,18,0000 Neurological Condition 07/03/23
hydroxychloroquine 200 mg tablet 200 mg PO DAILY Autoimmune Disorder 07/03/23
lansoprazole 30 mg capsule,delayed release 30 mg PO DAILY Gastrointestinal Issue 07/03/23
loratadine 10 mg tablet (Claritin) 10 mg PO DAILY Allergies 07/03/23
minoxidil 2.5 mg tablet 1.25 mg PO DAILY Blood Pressure 07/03/23
potassium 99 mg tablet 99 mg PO DAILY Supplement 07/03/23
therapeutic multivitamin 1 tab PO DAILY Supplement 07/03/23
Home Medication Changes
Pending Results: No
== END 2023-07-21 00:45 | disposition short-term general hospital (02) | DRG 545 ==
LOC: 4 WEST ACU 11:39
PROVIDERS: Nurse Practitioner Family; Radiology Diagnostic Radiology; Radiology Vascular & Interventional Radiology; Student in an Organized Health Care Education/Training Program; ADMITTING PHYSICIAN Hospitalist; ATTENDING PHYSICIAN Internal Medicine; CONSULT PHYSICIAN Internal Medicine Cardiovascular Disease; CONSULT PHYSICIAN Internal Medicine Gastroenterology; CONSULT PHYSICIAN Internal Medicine Infectious Disease; CONSULT PHYSICIAN Physical Medicine & Rehabilitation; CONSULT PHYSICIAN Psychiatry & Neurology Neurology; EMERGENCY PHYSICIAN Emergency Medicine; FAMILY PHYSICIAN Family Medicine; OTHER PHYSICIAN Psychiatry & Neurology Psychiatry; OTHER PHYSICIAN Student in an Organized Health Care Education/Training Program; OTHER PHYSICIAN Surgery
PROC: 30233S1 Transfusion of Nonautologous Globulin into Peripheral Vein, Percutaneous Approach (ICD-10-PCS; 2023-07-08)
PROC: 02HV33Z Insertion of Infusion Device into Superior Vena Cava, Percutaneous Approach (ICD-10-PCS; 2023-07-09)
PROC: 0DH67UZ Insertion of Feeding Device into Stomach, Via Natural or Artificial Opening (ICD-10-PCS; 2023-07-09)
PROC: 009U3ZX Drainage of Spinal Canal, Percutaneous Approach, Diagnostic (ICD-10-PCS; 2023-07-16)
PROC: B01B1ZZ Fluoroscopy of Spinal Cord using Low Osmolar Contrast (ICD-10-PCS; 2023-07-16)
DX: M35.06 Sjogren syndrome with peripheral nervous system involvement (principal); A41.51 Sepsis due to Escherichia coli [E. coli]; G92.8 Other toxic encephalopathy; N17.9 Acute kidney failure, unspecified; E87.1 Hypo-osmolality and hyponatremia; E87.20 Acidosis, unspecified; N13.6 Pyonephrosis; I47.10 Supraventricular tachycardia, unspecified; J98.11 Atelectasis; F10.139 Alcohol abuse with withdrawal, unspecified; F23 Brief psychotic disorder; K22.2 Esophageal obstruction; G70.00 Myasthenia gravis without (acute) exacerbation; E86.1 Hypovolemia; R29.6 Repeated falls; M17.0 Bilateral primary osteoarthritis of knee; D64.9 Anemia, unspecified; F32.A Depression, unspecified; F41.9 Anxiety disorder, unspecified; G62.9 Polyneuropathy, unspecified; F17.200 Nicotine dependence, unspecified, uncomplicated; F90.9 Attention-deficit hyperactivity disorder, unspecified type; E87.6 Hypokalemia; M25.562 Pain in left knee; M25.561 Pain in right knee; I10 Essential (primary) hypertension; F22 Delusional disorders; R73.9 Hyperglycemia, unspecified; G47.33 Obstructive sleep apnea (adult) (pediatric); J38.00 Paralysis of vocal cords and larynx, unspecified; K21.9 Gastro-esophageal reflux disease without esophagitis; M77.9 Enthesopathy, unspecified; M25.819 Other specified joint disorders, unspecified shoulder; Z60.2 Problems related to living alone; Z98.84 Bariatric surgery status; Z91.81 History of falling; Z11.52 Encounter for screening for COVID-19; Z90.49 Acquired absence of other specified parts of digestive tract; Z91.040 Latex allergy status; Z88.0 Allergy status to penicillin; Z53.8 Procedure and treatment not carried out for other reasons
CPT/HCPCS: 36600; 51701; 62328; 70450; 70551; 71045; 72156; 73030; 73564; 74018; 74176; 74178; 74230; 80048; 80053; 80306; 80307; 81003; 81015; 82164; 82550; 82607; 82728; 82746; 82784; 82805; 82945; 82962; 83036; 83735; 83930; 83935; 84100; 84157; 84300; 84443; 84484; 85025; 85610; 85652; 85730; 86041; 86140; 86255; 86803; 87015; 87040; 87070; 87077; 87086; 87149; 87186; 87205; 87483; 87811; 88108; 89051; 92526; 92610; 92611; 93005; 93306; 94640; 95886; 95910; 96360; 96361; 97110; 97112; 97162; 97167; 97530; 97535; 99291; A9575; J0153; J1569; J7030; Q9967

== ENCOUNTER 2024-04-28 00:24 | Emergency (ER) | payer MEDICARE, SELFPAY ==
[2024-04-28 00:28] VITALS: BP 111/79; BMI 31.9
[2024-04-28 00:32] VITALS: BP 111/79
[2024-04-28 00:47] LABS: % Basophils 0.4 % (0-2); % Eosinophils 1.9 % (0-6); % Immature Granulocytes 1.3 % (0-0.5); % Lymphocytes 15.6 % (20.5-51.1); % Monocytes 6.5 % (1.7-9.3); % Neutrophils 74.3 % (42.2-75.2); Absolute Eosinophils 0.2 10^3/uL (0-0.7); Absolute Immature Granulocytes 0.1 10^3/uL (0-0.05); Absolute Lymphocytes 1.3 10^3/uL (1.2-3.4); Absolute Monocytes 0.6 10^3/uL (0.1-0.6); Absolute Neutrophils 6.3 10^3/uL (1.4-6.5); Mean Corp Hgb Conc. 34.9 g/dL (33.0-37.0); Mean Corpuscular Hgb 32.1 pg (27.0-31.0); Mean Corpuscular Volume 92.1 fL (81.0-99.0); Mean Platelet Volume 10.4 fL (7.4-10.4); Nucleated Red Blood Cells % 0 %; Platelet Count 297 10^3/uL (130-400); Red Blood Cell Count 4.67 10^6/uL (4.20-5.40); Red Cell Dist. Width 12.4 % (11.5-14.5); White Blood Cell Count 8.4 10^3/uL (4.8-10.8)
[2024-04-28 01:00] VITALS: BP 111/92
--- NOTE | 2024-04-28 01:22 | ED.GENMED ---
Addendum entered and electronically signed by Jaylon Yang DO 04/28/24 02:22:
Update further history obtained patient does have a history of SVT has [facility] previously, does admit to occasionally be noncompliant with her beta-kathia she did take some tonight,
Original Note:
History of Present Illness
General
Chief Complaint: Heart Rate Problem
Source: patient and records
Exam Limitations: none
Time Seen by Provider: 04/28/24 00:28
Nursing documentation reviewed up to this point in time: agreed with
History of Present Illness
History of Present Illness:
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
then had some pressure in her upper abdomen with fast heart rate became panicky, felt like her anxiety was kicking in, EMS was called, said no fever or chills, mild nausea without vomiting, passing gas but no bowel movement,
Past History
Past History
ED Past Medical History: Other (Dysphagia, ADHD Sjogren's, asthma,)
ED Past Surgical History: Cholecystectomy and Other (blepharoplasty Juwan-en-Y gastric bypass)
Social History
Tobacco: Former smoker
Alcohol: Occasional
Drug: None
Living: with family
Employment: Employed
Family History
Family History: Other (reviewed and non-contributory)
Review of Systems
Review of Systems
All Other Systems: Not applicable
Constitutional: Denies fever or fatigue
EENT: Reports no symptoms
Respiratory: Reports no symptoms; Denies cough
Cardiac: Reports palpitations
ABD/GI: Reports nausea and constipated
: Reports no symptoms
Musculoskeletal: Reports back pain
Skin: Reports no symptoms
Neurological: Reports no symptoms
Endocrine: Reports no symptoms
Phy Exam
Physical Exam
Physical Exam:
Physical Exam
General: no apparent distress, not acutely ill
Neck: No jaundice
Heart: s1/s2 regular rate and rhythm, no murmur. equal radial pulses.
Lungs: no acute respiratory distress. clear bilaterally
Abdomen: Soft not tender
Neuro: alert and oriented. no focal neurological deficits
Skin: no rash
Psychiatric: well kept. interactive and cooperative
Extremities: no edema. no calf tenderness.
Course
Orders/Labs/Results
Orders:
Orders
04/28/24 00:27
Electrocardiogram (*1) Urgent
Reason for Study: Tachycardia
04/28/24 00:28
EKG- Treatment ONCE
04/28/24 00:39
Complete Blood Count/With Diff Urgent
04/28/24 00:51
Add On- LAB Urgent
Tests Added?: lipase
04/28/24 00:58
Basic Metabolic Panel Urgent
Comment: NO K
Troponin I Urgent
04/28/24 01:24
Comprehensive Metabolic Panel Urgent
Lipase Urgent
Abnormal Lab Results
04/28/24 04/28/24 04/28/24
00:39 00:58 01:24
MCH 32.1 H pg
(27.0-31.0)
Abs Immat Gran (auto) 0.1 H 10^3/uL
(0-0.05)
Immature Gran % 1.3 H %
(0-0.5)
Lymphocytes % 15.6 L %
(20.5-51.1)
Carbon Dioxide 20 L mmol/L
(22-30)
BUN 21 H mg/dl 21 H mg/dl
(7-17) (7-17)
Glucose 119 H mg/dl 110 H mg/dl
(70-99) (70-99)
AST 125 H U/L
(14-36)
ALT 44 H U/L
(0-35)
Alkaline Phosphatase 134 H U/L
(38-126)
Total Protein 6.0 L g/dl
(6.3-8.2)
04/28/24 00:39
04/28/24 01:24
Vital Signs
Initial and Last Documented VS:
Initial Vital Signs
Temp Pulse Resp BP Pulse Ox
98.0 F 100 16 111/79 98
04/28/24 00:28 04/28/24 00:28 04/28/24 00:28 04/28/24 00:28 04/28/24 00:28
Last Documented Vital Signs
Temp Pulse Resp BP Pulse Ox
98.0 F 96 33 111/92 98
04/28/24 00:28 04/28/24 01:30 04/28/24 01:00 04/28/24 01:00 04/28/24 01:30
MDM/Problems Addressed
Differential Diagnosis Includes:
Constipation, reaction to laxatives, arrhythmia, electrolyte abnormality, doubt ACS or pancreatitis
MDM/Problems Addressed:
Constipation palpitation
Chronic conditions affecting care: Neurological disorder and Previous abdomnial surgery
Acute Exacerbation and/or Progression of Chronic Illness: Neurological disorder and Previous abdomnial surgery
*Pulse Oximetry
Patient hypoxic: no
*EKG
Interpreted by ED Provider?: Yes
Interpretation: abnormal
Comparison EKG: no comparison EKG present
Heart Rate: 78
Rate: normal
Rhythm: sinus
Ischemia: non-specific ST changes
*Human Machine Interface Engineer Interpretation
Rate: normal
Interpretation: normal
Heart Rate: 78
Rhythm: sinus
*Critical Care Note
Total Time (30-74mins, 75-104mins- exclusive of procedures): Not Applicable
Update Note
Update Note:
Update, labs are noted, EKG noted patient denied any chest pain or shortness of breath apparently did have a fast heart rate for EMS states vagal maneuvers with resolution no SVT documented no arrhythmia here, symptoms started after taking some
antacids, had some constipation after taking Percocet
ED Attending Note
-
Portions of this chart may have been created with voice recognition software.� Occasional wrong word or��sound alike� substitutions may have occurred due to the inherent limitations of voice recognition software.
Discharge Plan
Departure
Patient Disposition: Home (Routine Discharge)
Date of Disposition: 04/28/24
Time of Disposition: 02:19
Patient with high blood pressure during this ER visit?: No
Condition: Good
Discharge Problem:
Suspected SVT
Instructions: Palpitations (DC)
Prescriptions:
No Action
clonazepam 0.5 mg Tablet
0.5 mg PO BID
Patient Comments:
07/03/2023, pt. filled this medication on 06/09/2023 for 180 tablets according to PDMP.
dextroamphetamine-amphetamine [Adderall] 30 mg Tablet
30 mg PO BID
Patient Comments:
07/03/2023, pt. filled this medication on 04/16/2023 for 180 tablets according to PDMP.
lansoprazole 30 mg Capsule,Delayed Release(Dr/Ec)
30 mg PO DAILY
folic acid 1 mg Tablet
1 mg PO DAILY
hydroxychloroquine 200 mg Tablet
200 mg PO DAILY
albuterol sulfate [ProAir HFA] 90 mcg/actuation Hfa Aerosol Inhaler
2 puff INHALATION R BIDPRN PRN (Reason: sob)
bupropion HCl [Wellbutrin XL] 300 mg Tablet Extended Release 24 Hr
300 mg PO DAILY
Climara Pro 0.045-0.015 mg/24 hr Patch Weekly
1 patch TRANSDERMAL QWEEK
fluticasone propion-salmeterol 250-50 mcg/dose blister with device
1 inh INHALATION R BID
Theragen Tablet
1 tab PO DAILY
minoxidil 2.5 mg Tablet
1.25 mg PO DAILY
potassium 99 mg Tablet
99 mg PO DAILY
ferrous sulfate [iron] 325 mg (65 mg iron) Tablet
325 mg PO DAILY
gabapentin 300 mg Capsule
300 mg PO QID@0600,12,18,0000
fluticasone propionate 50 mcg/actuation Palisade,Suspension
2 spray INTRANASAL DAILY
loratadine [Claritin] 10 mg Tablet
10 mg PO DAILY
cholecalciferol (vitamin D3) 125 mcg (5,000 unit) Tablet
125 mcg PO DAILY
cyanocobalamin (vitamin B-12) 2,500 mcg Tablet
2,500 mcg PO DAILY
cyclosporine 0.05 % Drops
1 drp BOTH EYES BID
Medical Marijuana
0 inh inhalation .SEE BELOW PRN (Reason: mild pain)
Patient Comments:
07/03/2023, pt. states that she uses a vape pen as needed throughout the day.
Medical Marijuana
0 drp sublingual .SEE BELOW PRN (Reason: mild pain)
Patient Comments:
07/03/2023, pt. uses a tincture and applies several drops under her toungue as needed.
Visbiome
10 billion cells PO DAILY
Referrals:
Ashley Brennan MD [Family Provider] - Next open appointment
Activity Restrictions/Additional Instructions:
Drink plenty of fluids return to the ER for worsening symptoms
Interventions
Interventions:
*Risk Screen - Suicide Last Done: 04/28/24 00:28
*General Assessment Last Done: 04/28/24 00:28
*Neglect/Abuse Screening Last Done: 04/28/24 00:28
*ED COVID-19 Vaccine History Last Done: 04/28/24 00:41
ED- Cardiac Assessment Last Done: 04/28/24 01:04
ED- Pulmonary Assessment Last Done: 04/28/24 01:04
Discharge Date and Time
Print Language: ANGUILLAN
[2024-04-28 01:24] LABS: Blood Urea Nitrogen 21 mg/dl (7-17); Calcium 9.2 mg/dl (8.4-10.2); Carbon Dioxide 20 mmol/L (22-30); Chloride 106 mmol/L (98-107); Estimated Creatinine Clearance 77 ml/min; Glucose 119 mg/dl (70-99); Sodium 137 mmol/L (135-145); eGFR > 60.00
[2024-04-28 01:50] LABS: Troponin I 0.025 ng/ml
[2024-04-28 01:50] LABS: ALT (SGPT) 44 U/L (0-35); AST (SGOT) 125 U/L (14-36); Albumin 3.9 g/dl (3.5-5.0); Alkaline Phosphatase 134 U/L (38-126); Blood Urea Nitrogen 21 mg/dl (7-17); Calcium 9.4 mg/dl (8.4-10.2); Carbon Dioxide 24 mmol/L (22-30); Chloride 104 mmol/L (98-107); Estimated Creatinine Clearance 70 ml/min; Glucose 110 mg/dl (70-99); Lipase 104 U/L (23-300); Potassium 4.5 mmol/L (3.5-5.1); Sodium 138 mmol/L (135-145); Total Bilirubin 1.1 mg/dl (0.2-1.3); eGFR > 60.00
[2024-04-28 02:00] VITALS: BP 102/75
[2024-04-28 03:00] VITALS: BP 105/83
== END 2024-04-28 04:08 | disposition home or self-care (01) ==
LOC: EMR 00:24
PROVIDERS: EMERGENCY PHYSICIAN Emergency Medicine; FAMILY PHYSICIAN Family Medicine
DX: M54.9 Dorsalgia, unspecified (principal); R00.0 Tachycardia, unspecified; F41.9 Anxiety disorder, unspecified; F90.9 Attention-deficit hyperactivity disorder, unspecified type; J45.909 Unspecified asthma, uncomplicated; M35.00 Sjogren syndrome, unspecified; Y99.0 Civilian activity done for income or pay; Z87.891 Personal history of nicotine dependence; Z90.49 Acquired absence of other specified parts of digestive tract; Z98.84 Bariatric surgery status
CPT/HCPCS: 99283; 80048; 80053; 83690; 84484; 85025; 93005

== ENCOUNTER 2025-04-24 09:28 | Emergency (ER) | payer MEDICARE, SELFPAY ==
[2025-04-24 09:31] VITALS: BP 177/103
--- NOTE | 2025-04-24 11:45 | ED.GENMED ---
History of Present Illness
General
Chief Complaint: Fall
Source: patient
Exam Limitations: none
Time Seen by Provider: 04/24/25 10:48
Nursing documentation reviewed up to this point in time: agreed with
History of Present Illness
History of Present Illness:
59-year-old female with history as noted presents to the ER for evaluation of leg injuries. Patient reports that last month she suffered an inversion injury of the left ankle and was seen in urgent care and told that she had a 'minor break.' She
has been wearing an ankle brace but has been ambulatory. She says that today she went to let her dog out and tripped on a step and inverted her left ankle once again, fell to the ground and landed on both knees with her legs underneath her. She
has had pain in both ankles, both knees and both thighs since the fall although most of her pain is in the left knee and ankle. She denies any head strike. She denies headache or neck pain. Denies back pain or rib pain. She did not injure her
upper extremities. She is not on any blood thinners.
Past History
Past History
ED Past Medical History: Other (Dysphagia, ADHD Sjogren's, asthma,)
ED Past Surgical History: Cholecystectomy and Other (blepharoplasty Juwan-en-Y gastric bypass)
Social History
Tobacco: Former smoker
Alcohol: Occasional
Drug: None
Living: with family
Employment: Employed
Family History
Family History: Other (reviewed and non-contributory)
Review of Systems
Review of Systems
All Other Systems: ROS reviewed and negative except as documented in HPI and ROS
Respiratory: Denies trouble breathing
Cardiac: Denies chest pain
ABD/GI: Denies abdominal pain or vomiting
: Denies flank pain
Musculoskeletal: Reports joint pain; Denies neck pain or back pain
Neurological: Denies dizzy or headache
Phy Exam
Physical Exam
Physical Exam:
General: Awake, alert, oriented x3; no acute distress
Head: Normocephalic, atraumatic
Eyes: Conjunctiva normal
Throat: Airway intact, handling secretions
Neck: Trachea midline, no cervical spine tenderness, good range of motion without pain
Back: No signs of trauma to the back or flank and no tenderness of the thoracic or lumbar spine
Lungs: Breathing comfortably without any evidence of respiratory distress
Heart: Tachycardia; no chest wall tenderness
Abd: Soft, non distended, nontender
Neuro: Cranial nerves grossly intact, speech fluid; motor and sensory intact in the distal extremities
Skin: Old abrasion on the dorsum of the left foot
Extremities: Upper extremities appear atraumatic and are nontender bilaterally and she moves them freely without pain exam of the lower extremities as below:
Right: pulses intact femoral and DP
Hip-- No tenderness, good range of motion of the hip without pain, mild tenderness to the right mid thigh anteriorly but no bruising or swelling
Knee-- No joint effusion noted, no joint line tenderness, no swelling with manipulation of the patella, no pain on flexion and extension in the knee
Ankle-- No deformity, no significant swelling, mild tenderness over the lateral malleolus, no tenderness to the medial malleolus, no midfoot tenderness or tenderness along the fifth metatarsal; she is able to move the ankle with only mild pain
Left: pulses intact femoral and DP
Hip-- No tenderness, good range of motion of the hip without pain, mild tenderness to the left mid thigh anteriorly but no bruising or swelling
Knee-- No joint effusion noted, no joint line tenderness, no swelling with manipulation of the patella, mild pain on flexion and extension in the knee, mild tenderness of the proximal fibula
Ankle--significant swelling of the lateral ankle, moderate tenderness over the lateral malleolus, no tenderness to the medial malleolus, no midfoot tenderness or tenderness along the fifth metatarsal; pain with any attempts at motion in the left
ankle
Scores
Heart Failure Risk
Heart Failure Risk Score: Not Applicable
Heart Score for Chest Pain Patients
STEMI patient?: Not applicable
Withdrawal Assessment of Alcohol
Withdrawal Assessment Completed?: Not applicable
Course
Orders/Labs/Results
Orders:
Orders
04/24/25 10:57
CR Ankle - Left Min 3 Views Urgent
Comment:
Reason For Exam: left ankle pain and deformity s/p inversion
CR Ankle - Right Min 3 Views * Urgent
Comment:
Reason For Exam: right ankle pain s/p fall
CR Knee - Left 4 Or More View* Urgent
Comment:
Reason For Exam: left knee pain s/p fall onto knee
CR Knee- Right 4 Or More View* Urgent
Comment:
Reason For Exam: right knee pain s/p fall onto knee
04/24/25 10:59
CR Femur - Left Min 2 Vw Urgent
Comment:
Reason For Exam: thigh pain s/p fall
CR Femur - Right Min 2 Vw Urgent
Comment:
Reason For Exam: thigh pain s/p fall
04/24/25 11:54
Case Management Consult ONCE
Case Management Consult: Mcfp Placement
Ibuprofen [Motrin] 400 mg PO NOW STA
04/24/25 12:02
PT Consult [Pt Eval And Treat] Urgent
Activity Level: Ambulate
04/24/25 13:09
Case Management Consult ONCE
Case Management Consult: [facility]/Home Care
Vital Signs
Initial and Last Documented VS:
Initial Vital Signs
Temp Pulse Resp BP Pulse Ox
37.2 C 106 18 177/103 97
04/24/25 09:31 04/24/25 09:31 04/24/25 09:31 04/24/25 09:31 04/24/25 09:31
Last Documented Vital Signs
Temp Pulse Resp BP Pulse Ox
37.2 C 106 18 177/103 97
04/24/25 09:31 04/24/25 09:31 04/24/25 09:31 04/24/25 09:31 04/24/25 11:54
MDM/Problems Addressed
Differential Diagnosis Includes:
Ankle fracture, knee fracture/fibular fracture, femoral fracture/hip fracture; sprains and contusions in the differential diagnosis
MDM/Problems Addressed:
59-year-old female presents with bilateral leg injuries primarily complaining of pain in the left ankle and knee after having already previously fractured her left ankle last month. No other injuries or complaints. Vitals and exam are as above.
Will check x-ray of the knees and ankles bilaterally also check femoral x-ray as she complains of anterior thigh pain bilaterally with tenderness. Motrin for pain. Reassess after the above.
X-rays reviewed by me show no acute fractures. Physical therapy evaluated patient she was able to ambulate with a walker. Case management will arrange for home PT. Stable for discharge with supportive care.
*Radiology
Radiology exam reviewed: preliminary read by ED provider and radiology read reviewed
*Pulse Oximetry
SaO2: 97
Oxygen Mode of Delivery: Room air
Patient hypoxic: no (97%)
*Critical Care Note
Total Time (30-74mins, 75-104mins- exclusive of procedures): Not Applicable
Data Reviewed
Source: patient
Patient Management
Discussion with other providers: Other (Discussed with case management)
ED Attending Note
-
Portions of this chart may have been created with voice recognition software.� Occasional wrong word or��sound alike� substitutions may have occurred due to the inherent limitations of voice recognition software.
Discharge Plan
Departure
Patient Disposition: Home (Routine Discharge)
Date of Disposition: 04/24/25
Time of Disposition: 13:10
Patient with high blood pressure during this ER visit?: Yes
Discharge Problem:
Ankle sprain, Knee osteoarthritis
Instructions: Osteoarthritis, Ankle sprain - ED (DC)
Prescriptions:
No Action
clonazepam 0.5 mg Tablet
0.5 mg PO BID
Patient Comments:
07/03/2023, pt. filled this medication on 06/09/2023 for 180 tablets according to PDM.
dextroamphetamine-amphetamine [Adderall] 30 mg Tablet
30 mg PO BID
Patient Comments:
07/03/2023, pt. filled this medication on 04/16/2023 for 180 tablets according to PDM.
lansoprazole 30 mg Capsule,Delayed Release(Dr/Ec)
30 mg PO DAILY
folic acid 1 mg Tablet
1 mg PO DAILY
hydroxychloroquine 200 mg Tablet
200 mg PO DAILY
albuterol sulfate [ProAir HFA] 90 mcg/actuation Hfa Aerosol Inhaler
2 puff INHALATION R BIDPRN PRN (Reason: sob)
bupropion HCl [Wellbutrin XL] 300 mg Tablet Extended Release 24 Hr
300 mg PO DAILY
Climara Pro 0.045-0.015 mg/24 hr Patch Weekly
1 patch TRANSDERMAL QWEEK
fluticasone propion-salmeterol 250-50 mcg/dose blister with device
1 inh INHALATION R BID
Theragen Tablet
1 tab PO DAILY
minoxidil 2.5 mg Tablet
1.25 mg PO DAILY
potassium 99 mg Tablet
99 mg PO DAILY
ferrous sulfate [iron] 325 mg (65 mg iron) Tablet
325 mg PO DAILY
gabapentin 300 mg Capsule
300 mg PO QID@0600,12,18,0000
fluticasone propionate 50 mcg/actuation Ashby,Suspension
2 spray INTRANASAL DAILY
loratadine [Claritin] 10 mg Tablet
10 mg PO DAILY
cholecalciferol (vitamin D3) 125 mcg (5,000 unit) Tablet
125 mcg PO DAILY
cyanocobalamin (vitamin B-12) 2,500 mcg Tablet
2,500 mcg PO DAILY
cyclosporine 0.05 % Drops
1 drp BOTH EYES BID
Medical Marijuana
0 inh inhalation .SEE BELOW PRN (Reason: mild pain)
Patient Comments:
07/03/2023, pt. states that she uses a vape pen as needed throughout the day.
Medical Marijuana
0 drp sublingual .SEE BELOW PRN (Reason: mild pain)
Patient Comments:
07/03/2023, pt. uses a tincture and applies several drops under her toungue as needed.
Visbiome
10 billion cells PO DAILY
Referrals:
Ashley Brennan MD [Family Provider, Family Practice] - Follow up in 1 week
Interventions
Interventions:
*Risk Screen - Suicide Last Done: 04/24/25 09:31
*General Assessment Last Done: 04/24/25 09:31
*Neglect/Abuse Screening Last Done: 04/24/25 09:31
*ED COVID-19 Vaccine History Last Done: 04/24/25 11:05
*ED Influenza Vaccine History Last Done: 04/24/25 11:05
ED-Musculoskeletal Assessment Last Done: 04/24/25 11:05
ED- Neurological Assessment Last Done: 04/24/25 11:05
ED-Skin Assessment Last Done: 04/24/25 11:05
Discharge Date and Time
Print Language: ALBANIAN
[2025-04-24] MEDS: MOTRIN 400 MG PO (11:58)
--- NOTE | 2025-04-24 12:29 | CM ---
Chart reviewed and consult received
Spoke with patient at ED bedside
She lives alone in [address].
She was at last year for extended periods of time and tx to [facility] for PEG
Pt reports that she never got PEG and she was able to eat on her own
PLOF independent with ADLs, ambulation and drives
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
has 2 dogs. 1 dog is [place] rescued
Sister Albina lives in [facility]
Brother Orlando lives about 1 mile away and very supportive
[phone] Ashley Brennan
RX plan yes
[facility]acy [facility]
hx of [facility] and [facility]
hx of [facility]
Pt does NOT want to go to SNF
Agreeable with home care set up if needed
Spoke with nurse Yessenia.
PT eval pending
CM to follow up for any dcp needs
[2025-04-24 13:13] VITALS: BP 133/96; PULSE 109; O2SAT 97
--- NOTE | 2025-04-24 13:15 | CM ---
PT note reviewed with patient and Dr. Gong at ED bedside
She is to discharge home today with walker and set up for HHC
Given choices of [facility], [facility] and [facility] . Pt is choosing [facility]. Referral sent to Khalida at [facility].
Brother is to pick him up for discharge
--- NOTE | 2025-04-24 13:35 | VNURNOTE ---
Home Health Liaison met with patient at bedside to discuss [facility] nurse/therapy, visits, schedule and homebound status. Patient is agreeable and understands that visits at home will be 2-3 x per week to assess and teach medical management.
Patient is aware that [facility] will contact them for start of care within a week after discharge from . Provided contact number for [facility].
PM [facility] referral completed in [facility] Port.
[2025-04-24 13:40] VITALS: BP 135/96
== END 2025-04-24 13:56 | disposition home or self-care (01) ==
LOC: EMR 09:28
PROVIDERS: EMERGENCY PHYSICIAN Emergency Medicine; FAMILY PHYSICIAN Family Medicine
DX: S93.402A Sprain of unspecified ligament of left ankle, initial encounter (principal); X50.1XXA Overexertion from prolonged static or awkward postures, initial encounter; M17.0 Bilateral primary osteoarthritis of knee; J45.909 Unspecified asthma, uncomplicated; F90.9 Attention-deficit hyperactivity disorder, unspecified type; M35.00 Sjogren syndrome, unspecified; Z98.84 Bariatric surgery status; Z87.891 Personal history of nicotine dependence
CPT/HCPCS: 99283; 73552; 73564; 73610